=== PATIENT | female | born 1980 | race African-American/Black ===

== ENCOUNTER 2018-05-20 17:47 | Emergency (ER) | payer SELFPAY ==
[2018-05-20] MEDS ORDERED: METHYLPREDNISOLONE INJ 125 MG/2 ML SDV IM ONE (18:45)
[2018-05-20] MEDS ORDERED: IPRATROPIUM/ALBUTEROL 0.5-2.5 MG/3 ML AMPUL NEB ONE (18:45)
[2018-05-20] MEDS ORDERED: GUAIFENESIN/CODEINE PHOS 100-10 MG/ 5 ML UDC PO ONE (18:46)
--- NOTE | 2018-05-20 18:49 | ER Document Report ---
ED Respiratory Problem - General Chief Complaint: Cough Stated Complaint: COUGH Time Seen by Provider: 05/20/18 18:45 Mode of Arrival: Ambulatory Information source: Patient Notes: Chief complaint: Cough History of complain:( obtained from----patient) 37 years old female was coughing for the last few days, having shortness of breath and wheezing for the last 24 hours. Nasal congestion. Runny nose. Cough is largely dry. No fever chills or other constitutional symptoms. Non-smoker no alcohol abuse. Onset: Gradual Duration: Last few days Severity: Moderate Quality: Wheezing Context: Allergic to environmental agents Exacerbating factor and relieving factors: Exertion REVIEW OF SYSTEMS: CONSTITUTIONAL : Denies fever, chills, or sweats. Denies recent illness. EENT: Denies eye, ear, throat, or mouth pain or symptoms. Denies nasal or sinus congestion or discharge. Denies throat, tongue, or mouth swelling or difficulty swallowing. CARDIOVASCULAR: Denies chest pain. Denies palpitations or racing or irregular heart beat. Denies ankle edema. RESPIRATORY: Denies cough, cold, or chest congestion. Denies shortness of breath, difficulty breathing, or wheezing. GASTROINTESTINAL: Denies distention. Denies nausea, vomiting, or diarrhea. Denies blood in vomitus, stools, or per rectum. Denies black, tarry stools. Denies constipation. GENITOURINARY: Denies difficulty urinating, painful urination, burning, frequency, blood in urine, or discharge. FEMALE GENITOURINARY: Denies vaginal bleeding, heavy or abnormal periods, irregular periods. Denies vaginal discharge or odor. MUSCULOSKELETAL: Denies back or neck pain or stiffness. Denies joint pain or swelling. SKIN: Denies rash, lesions or sores. HEMATOLOGIC : Denies easy bruising or bleeding. LYMPHATIC: Denies swollen, enlarged glands. NEUROLOGICAL: Denies confusion or altered mental status. Denies passing out or loss of consciousness. Denies dizziness or lightheadedness. Denies headache. Denies weakness or paralysis or loss of use of either side. Denies problems with gait or speech. Denies sensory loss, numbness, or tingling. Denies seizures. PSYCHIATRIC: Denies anxiety or stress. Denies depression, suicidal ideation, or homicidal ideation. ALL OTHER SYSTEMS REVIEWED AND NEGATIVE. PHYSICAL EXAMINATION: GENERAL: Well-appearing, well-nourished and in no acute distress. HEAD: Atraumatic, normocephalic. EYES: Pupils equal round and reactive to light, extraocular movements intact, conjunctiva are normal. ENT: Nares patent, oropharynx clear without exudates. Moist mucous membranes. NECK: Normal range of motion, supple without lymphadenopathy LUNGS: Bilaterally decreased breath sounds with scattered wheezing. HEART: Regular rate and rhythm without murmurs ABDOMEN: Soft, nontender, nondistended abdomen. No guarding, no rebound. No masses appreciated. Examination of genitals-deferred Musculoskeletal: Normal range of motion, no pitting or edema. No cyanosis. NEUROLOGICAL: Cranial nerves grossly intact. Normal speech, normal gait. Normal sensory, motor exams PSYCH: Normal mood, normal affect. SKIN: Warm, Dry, normal turgor, no rashes or lesions noted. Dictation was performed using [employer] voice recognition software TRAVEL OUTSIDE OF THE [place] IN LAST 30 DAYS: No - HPI Notes: Dictated - Related Data Allergies/Adverse Reactions: No Known Allergies Allergy (Verified 05/20/18 17:52) Past Medical History - Social History Smoking Status: Never Smoker Frequency of alcohol use: None Drug Abuse: None Lives with: Family Family History: Reviewed & Not Pertinent - Immunizations Hx Diphtheria, Pertussis, Tetanus Vaccination: No Review of Systems - Review of Systems Notes: Dictated Physical Exam - Vital signs Vitals: Temp Pulse Resp BP Pulse Ox 98.8 F 115 H 16 149/91 H 98 05/20/18 18:15 05/20/18 18:15 05/20/18 18:15 05/20/18 18:15 05/20/18 18:15 - Notes Notes: Dictated Course - Re-evaluation Re-evalutation: 05/20/18 19:20 Given bronchodilator treatment 05/20/18 19:21 With clinical improvement discharge home - Vital Signs Vital signs: Temp Pulse Resp BP Pulse Ox 98.3 F 124 H 18 125/81 100 05/20/18 19:32 05/20/18 19:32 05/20/18 19:32 05/20/18 19:32 05/20/18 19:32 Discharge - Discharge Clinical Impression: Acute bronchitis Qualifiers: Bronchitis organism: unspecified organism Qualified Code(s): J20.9 - Acute bronchitis, unspecified Sinusitis Qualifiers: Sinusitis location: maxillary Chronicity: subacute Qualified Code(s): J01.00 - Acute maxillary sinusitis, unspecified Asthmatic bronchitis Qualifiers: Asthma severity: moderate Asthma persistence: persistent Asthma complication type: with acute exacerbation Qualified Code(s): J45.41 - Moderate persistent asthma with (acute) exacerbation Condition: Fair Disposition: HOME, SELF-CARE Instructions: Reactive Airway Disease ([facility]), Sinusitis ([facility]) Prescriptions: Albuterol Sulfate [Proair HFA] 1 - 2 puff IH Q4 PRN #1 inhaler PRN Reason: Fexofenadine HCl [Rin] 180 mg PO DAILY #30 tablet Fluticasone Propionate [Flovent HFA 220 mcg MDI] 2 puff IH BID #1 mdi Hydrocodone/Chlorphen P-Stirex [Tussionex Pennkinetic Susp] 115 ml PO BID #90 ayan.er.12h Prednisone 10 mg PO ASDIR PRN 12 Days #1 tab.ds.pk PRN Reason: Forms: Return to Work
[2018-05-20 19:34] VITALS: BP 125/81
== END 2018-05-20 19:38 | disposition home or self-care (01) ==
LOC: ER 17:47
DX: J20.9 Acute bronchitis, unspecified (principal); J45.41 Moderate persistent asthma with (acute) exacerbation; J01.00 Acute maxillary sinusitis, unspecified; R05 Cough; R06.02 Shortness of breath; R09.81 Nasal congestion; R09.89 Other specified symptoms and signs involving the circulatory and respiratory systems
CPT/HCPCS: 94640; 99283; 96372; J2930; J7620

== ENCOUNTER 2018-06-03 00:36 | Emergency (ER) | payer SELFPAY ==
[2018-06-03] MEDS ORDERED: IPRATROPIUM/ALBUTEROL 0.5-2.5 MG/3 ML AMPUL NEB ONE (01:06)
[2018-06-03] MEDS ORDERED: MAGNESIUM SULFATE/D5W 1 GM/100 ML RTUPB IV ONE (01:12)
[2018-06-03] MEDS ORDERED: METHYLPREDNISOLONE INJ 125 MG/2 ML SDV IV ONE (01:12)
[2018-06-03] MEDS ORDERED: NORMAL SALINE 1000 ML 1,000 ML IV ONE (01:12)
[2018-06-03] MEDS ORDERED: ALBUTEROL SULFATE 0.083% NEB 2.5 MG/3 ML AMPUL NEB ONE (01:12)
[2018-06-03] MEDS ORDERED: ONDANSETRON HCL INJ/PF 4 MG/2 ML SDV IV ONE (01:15)
[2018-06-03 01:42] LABS: ABSOLUTE EOSINOPHILS # (AUTO) 0.2 10^3/uL (0.0-0.6); ABSOLUTE LYMPHOCYTES (AUTO) 3.1 10^3/uL (0.5-4.7); ABSOLUTE MONOCYTES (AUTO) 0.5 10^3/uL (0.1-1.4); ABSOLUTE NEUT (AUTO) 7.2 10^3/uL (1.7-8.2); BASOPHILS % (AUTO) 0.4 % (0-2); EOSINOPHILS % (AUTO) 1.5 % (0-6); HEMATOCRIT 35.6 % (36.0-47.0); HEMOGLOBIN 11.7 g/dL (12.0-15.5); LYMPHOCYTES % (AUTO) 27.9 % (13-45); MEAN CORPUSCULAR VOLUME 85 fl (80-97); PLATELET COUNT 332 10^3/uL (150-450); RED BLOOD COUNT 4.19 10^6/uL (3.72-5.28); RED CELL DISTRIBUTION WIDTH 13.8 % (11.5-14.0); SEGMENTED NEUTROPHILS % (AUTO) 65.2 % (42-78); TOTAL CELLS COUNTED % (AUTO) 100 %
[2018-06-03 01:57] LABS: ANION GAP 11 (5-19); BLOOD UREA NITROGEN 11 mg/dL (7-20); CARBON DIOXIDE 24 mmol/L (22-30); CHLORIDE 104 mmol/L (98-107); GLUCOSE 118 mg/dL (75-110); SODIUM 138.9 mmol/L (137-145)
--- NOTE | 2018-06-03 03:17 | RADIOLOGY REPORT (SQ) ---
EXAM DESCRIPTION: CT CHEST ANGIOGRAPHY WITHOUT THEN WITH IV CONTRAST COMPLETED DATE/TME: 06/03/2018 01:58 CLINICAL HISTORY: 37 years Female, sob, DDIMER 3.13 Comparison: None. Technique: IV contrast. Coronal and sagittal reformat. 3d reconstruction. This exam was performed according to our departmental dose-optimization program, which includes automated exposure control, adjustment of the mA and/or kV according to patient size and/or use of iterative reconstruction technique.[facility]: Dose Right [facility]: CareDose [facility]: Dose Right [facility]: Teradose 4D [facility]: Mobile Tracing Services LIMITATIONS: Quality of pulmonary arteriogram: Suboptimal. Findings: 8-cm indeterminate macrolobulated left breast mass, 0.9 cm indeterminate soft tissue nodule of the inner lower quadrant of the left breast, small-moderate left pleural effusion, innumerable spiculated left lung lesions include a 1.5 cm left upper lobar mass and 1.6 cm right middle lobe are lesion. Moderate left axillary lymphadenopathy. Mild mediastinal lymphadenopathy. No pulmonary embolus. No right ventricular strain. Small hiatal hernia. Inferior neck, mediastinum, airway, heart, vasculature, upper abdomen, and musculoskeleton appear otherwise unremarkable. Impression: Left breast lesions include an 8 cm left breast mass, innumerable spiculated bilateral lung lesions, small moderate left pleural effusion, moderate left axillary lymphadenopathy. Breast malignancy with metastases is of first consideration.
[2018-06-03] MEDS ORDERED: PREDNISONE 20 MG TABLET PO ONE (03:50)
[2018-06-03] MEDS ORDERED: ALBUTEROL SULFATE HFA (90 MCG/PUFF) 8 GM MDI (1 MDI/ER DISP) IH ONE (03:51)
--- NOTE | 2018-06-03 03:59 | ER Document Report ---
ED General - General Chief Complaint: Shortness Of Breath Stated Complaint: TIGHTNESS IN CHEST,WHEEZING,SHORTNESS OF BREATH Time Seen by Provider: 06/03/18 01:04 TRAVEL OUTSIDE OF THE [place] IN LAST 30 DAYS: No - HPI Patient complains to provider of: Shortness of breath Notes: Patient coming in for evaluation of shortness of breath. Patient states similar to when she was seen last time patient states she has been using inhalers and nebulizers at home with no improvement also taking steroids patient states she took 1 pill today was 10 mg. Patient does have a history of recent travel to [place]. Patient denies smoking denies any other drug abuse. Patient denies any other symptoms at this time no chest pain states that the chest tightness no nausea no vomiting no fevers no chills. Patient resting comfortably upon my evaluation. - Related Data Allergies/Adverse Reactions: No Known Allergies Allergy (Verified 05/20/18 17:52) Past Medical History - Social History Smoking Status: Unknown if Ever Smoked Family History: Reviewed & Not Pertinent Renal/ Medical History: Denies: Hx Peritoneal Dialysis - Immunizations Hx Diphtheria, Pertussis, Tetanus Vaccination: No Review of Systems - Review of Systems Constitutional: No symptoms reported EENT: No symptoms reported Cardiovascular: No symptoms reported Respiratory: Short of breath, Wheezing - Chest tightness Gastrointestinal: No symptoms reported Genitourinary: No symptoms reported Female Genitourinary: No symptoms reported Musculoskeletal: No symptoms reported Skin: No symptoms reported Hematologic/Lymphatic: No symptoms reported Neurological/Psychological: No symptoms reported Physical Exam - Vital signs Vitals: Temp Pulse Resp BP Pulse Ox 97.9 F 119 H 22 H 143/100 H 99 06/03/18 00:38 06/03/18 00:38 06/03/18 00:38 06/03/18 00:38 06/03/18 00:38 Interpretation: Normal - General General appearance: Appears well, Alert - HEENT Head: Normocephalic, Atraumatic Eyes: Normal Pupils: PERRL - Respiratory Respiratory status: No respiratory distress Chest status: Nontender Breath sounds: Normal Chest palpation: Normal Notes: Examination of the left breast shows hard mass with lymphadenopathy in the axilla with retraction of the nipple right breast unaffected - Cardiovascular Rhythm: Regular Heart sounds: Normal auscultation Murmur: No - Abdominal Inspection: Normal Distension: No distension Bowel sounds: Normal Tenderness: Nontender Organomegaly: No organomegaly - Back Back: Normal, Nontender - Extremities General upper extremity: Normal inspection, Nontender, Normal color, Normal ROM , Normal temperature General lower extremity: Normal inspection, Nontender, Normal color, Normal ROM , Normal temperature, Normal weight bearing. No: Mark's sign - Neurological Neuro grossly intact: Yes Cognition: Normal Orientation: AAOx4 [place] Coma Scale Eye Opening: Spontaneous Missael Coma Scale Verbal: Oriented Missael Coma Scale Motor: Obeys Commands Missael Coma Scale Total: 15 Speech: Normal Motor strength normal: LUE, RUE, LLE, RLE Sensory: Normal - Psychological Associated symptoms: Normal affect, Normal mood - Skin Skin Temperature: Warm Skin Moisture: Dry Skin Color: Normal Course - Re-evaluation Re-evalutation: 06/03/18 03:55 D-dimer returned elevated with a history of recent travel and tachycardia concern for possible PE. Patient underwent a CTA showing no PE but showing a large mass in left breast with multiple spiculated lesions in the lungs concerning for metastatic breast disease. Further evaluation of the patient in further questioning patient states notes changes ongoing for the last few months however is not followed up with any doctors urgent cares or any other physicians because of the changes. Explained to the patient that the changes are concerning for possible breast cancer I was able to contact Dr. Johnson labor relations representative for oncology and agrees to follow -up with the patient face sheet was faxed to Dr. Johnson office. She also requested that surgery be contacted for possible biopsy. Dr. Rodgers labor relations representative states that he will be available to see the patient possibly Thursday however that the patient can possibly follow-up on Thursday with Dr. Ornelas. I will give the patient's information to our social worker clinical so they can also follow with the patient make sure that appropriate follow-up does occur. Patient states an understanding of the importance of making follow-up appointments. Patient breathing has improved patient still is slightly tachycardic more likely from the breathing treatments. Patient agrees with discharge home we will continue with bronchodilator therapy along with steroids at this time because of the patient's wheezing. - Vital Signs Vital signs: Temp Pulse Resp BP Pulse Ox 97.9 F 119 H 20 128/99 H 99 06/03/18 00:38 06/03/18 00:38 06/03/18 01:01 06/03/18 01:01 06/03/18 01:01 - Laboratory Result Diagrams: 06/03/18 01:27 06/03/18 01:27 Laboratory results interpreted by me: 06/03/18 06/03/18 06/03/18 01:27 01:27 01:27 WBC 11.0 H Hgb 11.7 L Hct 35.6 L D-Dimer 3.13 H Glucose 118 H Discharge - Discharge Clinical Impression: Left breast mass Reactive airway disease Qualifiers: Asthma severity: unspecified severity Asthma persistence: unspecified Asthma complication type: uncomplicated Qualified Code(s): J45.909 - Unspecified asthma , uncomplicated Condition: Good Disposition: HOME, SELF-CARE Instructions: Growth or Mass, Pending Workup ([facility]), Reactive Airway Disease ( [facility]) Additional Instructions: Your CT scan tonight shows a large breast mass that is concerning for possible underlying cancer. I discussed your case with our oncologist and surgery team Dr Johnson and Dr Rodgers. Please call the respective offices tomorrow and schedule follow-up appointments. I would also give your information to our social worker clinical so that we can help you navigate the follow-up process. CT scan does not show any signs of blood clots no pneumonia rest your lab work is unremarkable. I would highly recommend continue with the albuterol 2 puffs every 4 hours as needed for shortness of breath we also will continue you on steroids. Return to the ER for any complications. Prescriptions: Prednisone [Deltasone] 60 mg PO DAILY #24 tablet Referrals: REE JOHNSON MD [ACTIVE STAFF] - Follow up as needed (Call tomorrow for appointment) COSTA RODGERS MD [ACTIVE STAFF] - Follow up as needed (call tomorrow for appointment for biopsy)
[2018-06-03 04:25] VITALS: BP 134/95
--- NOTE | 2018-06-03 06:47 | EKG REPORT ---
SEVERITY:- OTHERWISE NORMAL ECG - SINUS TACHYCARDIA : Confirmed by: Gemma Willams MD 03-Jun-2018 06:47:15
== END 2018-06-03 04:28 | disposition home or self-care (01) ==
LOC: ER 00:36
DX: N63.24 Unspecified lump in the left breast, lower inner quadrant (principal); J45.909 Unspecified asthma, uncomplicated; R06.02 Shortness of breath; R07.9 Chest pain, unspecified; R00.0 Tachycardia, unspecified; R79.89 Other specified abnormal findings of blood chemistry
CPT/HCPCS: 93005; 94640 ×2; 99285; 96361; 96375; 96365; 36415; 83735; 84703; 85025; 80048; 84484; 85379; 71275; 93010; J2930; J3475; J7512; J2405; J7030; J3490; J7620

== ENCOUNTER 2018-06-05 12:56 | Inpatient (IN) | payer MEDICAID ==
[2018-06-05] MEDS ORDERED: IPRATROPIUM/ALBUTEROL 0.5-2.5 MG/3 ML AMPUL NEB ONE (13:16)
[2018-06-05] MEDS ORDERED: METHYLPREDNISOLONE INJ 125 MG/2 ML SDV IM ONE (13:16)
--- NOTE | 2018-06-05 13:18 | ER Document Report ---
ED Medical Screen (RME) - General Chief Complaint: Shortness Of Breath Stated Complaint: SHORTNESS OF BREATH Time Seen by Provider: 06/05/18 13:16 Mode of Arrival: Ambulatory Information source: Patient TRAVEL OUTSIDE OF THE [place] IN LAST 30 DAYS: No - HPI Patient complains to provider of: sob Onset: Other - pt has been seen here multiiple times in the past few weeks for similar sx's -- states she was very SOB lasts night and that has continued into today. - Related Data Allergies/Adverse Reactions: No Known Allergies Allergy (Verified 06/05/18 12:59) Past Medical History Pulmonary Medical History: Reports: Hx Bronchitis Renal/ Medical History: Denies: Hx Peritoneal Dialysis - Immunizations Hx Diphtheria, Pertussis, Tetanus Vaccination: No Physical Exam - Vital signs Vitals: Temp Pulse Resp BP Pulse Ox 98.5 F 128 H 26 H 165/107 H 97 06/05/18 13:03 06/05/18 13:03 06/05/18 13:03 06/05/18 13:03 06/05/18 13:03 Course - Vital Signs Vital signs: Temp Pulse Resp BP Pulse Ox 98.5 F 128 H 26 H 165/107 H 97 06/05/18 13:03 06/05/18 13:03 06/05/18 13:03 06/05/18 13:03 06/05/18 13:03 Doctor's Discharge - Discharge Referrals: NINA JOSEPH MD [Primary Care Provider] - Follow up as needed
--- NOTE | 2018-06-05 13:46 | RADIOLOGY REPORT (SQ) ---
EXAM DESCRIPTION: CHEST 2 VIEWS COMPLETED DATE/TIME: 06/05/2018 1:31 pm REASON FOR STUDY: sob COMPARISON: None. TECHNIQUE: Frontal and lateral radiographic views of the chest acquired. NUMBER OF VIEWS: Two view. LIMITATIONS: None. FINDINGS: LUNGS AND PLEURA: No pneumothorax. Bilateral patchy basilar consolidation, left greater t roldan right. No pleural effusion. MEDIASTINUM AND HILAR STRUCTURES: Stable. HEART AND VASCULAR STRUCTURES: Stable. BONES: No acute findings. HARDWARE: None in the chest. OTHER: No other significant finding. IMPRESSION: Bilateral patchy basilar consolidation, left greater than right. No pleural effusion. TECHNICAL DOCUMENTATION: JOB ID: [id number] 2010 [employer]- All Rights Reserved Reading location - IP/workstation name: [email or web address]
--- NOTE | 2018-06-05 13:56 | ER Document Report ---
ED Respiratory Problem - General Chief Complaint: Shortness Of Breath Stated Complaint: SHORTNESS OF BREATH Time Seen by Provider: 06/05/18 13:16 Mode of Arrival: Ambulatory Information source: Patient, Parent Notes: 37-year-old female who presents today for the third time since May 20 with some shortness of breath and chest pain. Some runny nose, congestion, without fevers, calf pain or leg swelling. Initially the patient was diagnosed possibly with a bronchitis and asthma exacerbation and provided an inhaler. Patient came back June 03 and had laboratory work performed and a CT scan of the chest showing a left breast mass with multiple spiculated lesions with a left pleural effusion. Patient returns here with complaints of worsening shortness of breath, shortness of breath when ambulating, with no other acute complications. TRAVEL OUTSIDE OF THE [place] IN LAST 30 DAYS: No - HPI Onset: Other - See above Quality of pain: Dull Severity: Mild Pain Level: Denies Context: Other - See above Short of Breath: Mild Associated symptoms: Other - See above Similar symptoms previously: Yes Recently seen / treated by doctor: Yes - Related Data Allergies/Adverse Reactions: No Known Allergies Allergy (Verified 06/05/18 12:59) Past Medical History - General Information source: Patient - Social History Smoking Status: Never Smoker Chew tobacco use (# tins/day): No Frequency of alcohol use: None Drug Abuse: None Family History: Reviewed & Not Pertinent Patient has suicidal ideation: No Patient has homicidal ideation: No Pulmonary Medical History: Reports: Hx Bronchitis Renal/ Medical History: Denies: Hx Peritoneal Dialysis - Immunizations Hx Diphtheria, Pertussis, Tetanus Vaccination: No Review of Systems - Review of Systems Constitutional: denies: Fever EENT: Nose congestion, Nose discharge. denies: Eye discharge Cardiovascular: Chest pain, Palpitations Respiratory: Short of breath. denies: Hemoptysis Gastrointestinal: denies: Vomiting Genitourinary: denies: Dysuria Musculoskeletal: denies: Leg swelling Skin: Other - no hives. denies: Rash Neurological/Psychological: Other - no slurred speech -: Yes All other systems reviewed and negative Physical Exam - Vital signs Vitals: Temp Pulse Resp BP Pulse Ox 98.5 F 128 H 26 H 165/107 H 97 06/05/18 13:03 06/05/18 13:03 06/05/18 13:03 06/05/18 13:03 06/05/18 13:03 Notes: Reviewed vital signs and nursing note as charted by RN. CONSTITUTIONAL: Alert and oriented and responds appropriately to questions. Well -appearing; well-nourished HEAD: Normocephalic; atraumatic EYES: PERRL ENT: Normal nose; no rhinorrhea; moist mucous membranes NECK: Supple without meningismus; non-tender; no cervical lymphadenopathy, no masses CARD: Tachycardic and regular; no murmurs, no clicks, no rubs, no gallops; symmetric distal pulses RESP: Normal chest excursion without splinting or tachypnea; breath sounds clear and equal bilaterally; no wheezing or rhonchi on auscultation. Bilateral lower lobe decreased breath sounds ABD/GI: Normal bowel sounds; non-distended; soft, non-tender BACK: The back appears normal and is non-tender to palpation, there is no CVA tenderness EXT: Normal ROM in all joints; non-tender to palpation; no edema or calf pain SKIN: Normal color for age and race; warm; dry; good turgor; capillary refill < 2 seconds; no acute lesions noted NEURO: Moves all extremities equally; Motor and sensory function intact PSYCH: The patient's mood and manner are appropriate. Grooming and personal hygiene are appropriate. Course - Re-evaluation Re-evalutation: 06/05/18 13:54 Given the history and physical examination I will order a repeat x-ray of the chest, obtain basic labs, troponin level, and reassess. I will hold on nebulizers that were ordered in triage at this time. Patient has already received a treatment times 1. I am concerned more about a possibly increased pleural effusion. CTA of the chest on previous visit showed no pulmonary emboli. 06/05/18 15:01 Labs as recorded. X-ray of the chest as recorded showing no obvious large pleural effusions. Patient is satting around 96% with a heart rate of 102. I have had a long discussion with the patient and the family. They were unaware of the multiple spiculated lesions in the lungs bilaterally. Patient supposedly had a mammogram performed yesterday. Results are pending. 06/05/18 15:05 EKG shows a heart rate of 115, sinus tachycardia, normal axis, no obvious ST elevation or depression. 06/05/18 15:08 I would like to limit radiation to this patient. I did have a long talk with this patient about her chest pain shortness of breath. I have asked if it appears to be worse than when she was here 3 days ago. Patient states that it is. I am concerned about the possibility of a development of a pulmonary embolism given that I do not see any obvious large pleural effusion. Repeat CTA ordered. 06/05/18 16:27 CAT scan still shows no pulmonary emboli. 06/05/18 16:49 Given the patient's excessive shortness of breath, she is uncomfortable going home. I have called and spoken directly to the supervisory clerk who is comfortable with the patient staying here. He states he can be consulted. He would like these surgical list to possibly do a breast biopsy and possibly a lung fluid aspiration/drainage. I have called and spoken directly to Dr. Ornelas. I also called and spoken to the oncologist Dr. Johsnon who the patient is assigned to. He understands and will follow the patient here in the hospital. - Vital Signs Vital signs: Temp Pulse Resp BP Pulse Ox 98.5 F 128 H 26 H 165/107 H 97 06/05/18 13:03 06/05/18 13:03 06/05/18 13:03 06/05/18 13:03 06/05/18 13:03 - Laboratory Result Diagrams: 06/05/18 13:45 06/05/18 13:45 Laboratory results interpreted by me: 06/05/18 06/05/18 06/05/18 13:45 13:45 13:45 WBC 16.1 H RDW 14.2 H Absolute Neutrophils 12.4 H Carbon Dioxide 21 L Glucose 187 H Calcium 10.6 H AST 86 H Alkaline Phosphatase 175 H Total Protein 8.4 H TSH 0.43 L Discharge - Discharge Clinical Impression: Shortness of breath, Metastatic breast cancer Chest pain Qualifiers: Chest pain type: unspecified Qualified Code(s): R07.9 - Chest pain, unspecified Condition: Serious Disposition: ADMITTED INPATIENT Admitting Provider: Hospitalist Unit Admitted: IMCU Referrals: NINA JOSEPH MD [Primary Care Provider] - Follow up as needed
[2018-06-05 14:14] LABS: ABSOLUTE LYMPHOCYTES (AUTO) 2.7 10^3/uL (0.5-4.7); ABSOLUTE NEUT (AUTO) 12.4 10^3/uL (1.7-8.2); BASOPHILS % (AUTO) 0.1 % (0-2); HEMATOCRIT 37.3 % (36.0-47.0); HEMOGLOBIN 12.3 g/dL (12.0-15.5); LYMPHOCYTES % (AUTO) 16.9 % (13-45); MEAN CORPUSCULAR VOLUME 85 fl (80-97); MONOCYTES % (AUTO) 5.9 % (3-13); PLATELET COUNT 336 10^3/uL (150-450); RED CELL DISTRIBUTION WIDTH 14.2 % (11.5-14.0); SEGMENTED NEUTROPHILS % (AUTO) 77.1 % (42-78); TOTAL CELLS COUNTED % (AUTO) 100 %; WHITE BLOOD COUNT 16.1 10^3/uL (4.0-10.5)
[2018-06-05 14:35] LABS: ALANINE AMINOTRANSFERASE 44 U/L (9-52); ALBUMIN 4.7 g/dL (3.5-5.0); ALKALINE PHOSPHATASE 175 U/L (38-126); ANION GAP 15 (5-19); ASPARTATE AMINO TRANSFERASE 86 U/L (14-36); BILIRUBIN,DIRECT 0.2 mg/dL (0.0-0.4); BILIRUBIN,TOTAL 0.4 mg/dL (0.2-1.3); BLOOD UREA NITROGEN 11 mg/dL (7-20); CALCIUM 10.6 mg/dL (8.4-10.2); CARBON DIOXIDE 21 mmol/L (22-30); CHLORIDE 103 mmol/L (98-107); GLUCOSE 187 mg/dL (75-110); POTASSIUM 4.3 mmol/L (3.6-5.0); SODIUM 139.3 mmol/L (137-145); TOTAL PROTEIN 8.4 g/dL (6.3-8.2)
[2018-06-05 14:46] LABS: NT PRO BNP 48 pg/mL (<125)
[2018-06-05 14:49] LABS: TROPONIN I < 0.012 ng/mL
--- NOTE | 2018-06-05 16:21 | RADIOLOGY REPORT (SQ) ---
EXAM DESCRIPTION: CTA CHEST COMPLETED DATE/TIME: 06/05/2018 4:00 pm REASON FOR STUDY: mp; metastatic breast disease; chest pain shortnes COMPARISON: 06/03/2018 TECHNIQUE: CT scan of the chest performed using helical scanning technique with dynamic intravenous contrast injection. Images reviewed with lung, soft tissue and bone windows. Reconstructed coronal and sagittal MPR images reviewed. Additional 3 dimensional post-processing performed to develop Maximal Intensity Projection images (TN P). All images stored on PACS. All CT scanners at this facility use dose modulation, iterative reconstruction, and/or weight based d osing when appropriate to reduce radiation dose to as low as reasonably achievable (ALARA). [facility]: Dose Right [facility]: CareDose [facility]: Dose Right [facility]: Teradose 4D [facility]: [employer]iance [employer] CONTRAST TYPE AND DOSE: contrast/concentration: Isovue 350.00 mg/ml; Total Contrast Delivered: 81.0 ml; Total Saline Delivered: 110.0 ml Contrast bolus optimized for the pulmonary arteries. Not diagnostic for the aorta. RENAL FUNCTION: None required. The patient is less than 50 years old. RADIATION DOSE: CT Rad equipment meets quality standard of care and radiation dose reduction techniq ues were employed. CTDIvol: 16.5 - 16.7 mGy. DLP: 584 mGy-cm. . LIMITATIONS: None. FINDINGS: LUNGS AND PLEURA: Small left pleural effusion. Similar bilateral pulmonary metastatic dis ease. No pneumothorax. AORTA AND GREAT VESSELS: No aneurysm. Contrast bolus not optimized for the aorta. HEART: No pericardial effusion. No significant coronary artery calcifications. PULMONARY ARTERIES: No emboli visualized in the main pulmonary arteries or the segmental branches. HILAR AND MEDIASTINAL STRUCTURES: Multiple abnormal nodes. HARDWARE: None in the chest. UPPER ABDOMEN: No significant findings. Limited exam. THYROID AND OTHER SOFT TISSUES: No masses. No adenopathy. BONES: No acute finding. Similar scattered lytic lesions throughout the bones. 3D MIPS: Confirm above findings. OTHER: Multiple new masses in the left breast with skin thickening consistent with malignancy. IMPRESSION: No emboli visualized in the main pulmonary arteries or the segmental branches. Remaining findings are unchanged, left breast neoplastic disease and diffuse metastases to lung and b one. COMMENT: Quality ID # [id number]: Final reports with documentation of one or more dose reduction techniques (e.g., Automated exposure control, adjustment of the mA and/or kV according to patient size, use of iterative reconstruction technique) TECHNICAL DOCUMENTATION: JOB ID: [id number] [place]-72 2010 [employer]- All Rights Reserved Reading location - IP/workstation name: [email or web address]
[2018-06-05] MEDS ORDERED: NORMAL SALINE 1000 ML 1,000 ML IV ONE (17:02)
[2018-06-05 18:02] LABS: INTERNATIONAL RATION (INR) 1.03
[2018-06-05] MEDS ORDERED: DEXTROSE 50%-WATER 25 GM/50 ML DISP.SYRIN IV PRN ×4 (18:02→18:36)
[2018-06-05] MEDS ORDERED: NORMAL SALINE 1000 ML 1,000 ML IV PRN (18:02)
[2018-06-05] MEDS ORDERED: DEXTROSE 40% GEL 15 GM TUBE PO PRN ×4 (18:02→18:36)
[2018-06-05] MEDS ORDERED: GLUCAGON,HUMAN RECOMB 1 MG INJ SUBCUT PRN (18:02)
[2018-06-05 18:03] LABS: PARTIAL THROMBOPLASTIN TIME 32.4 SEC (23.5-35.8)
[2018-06-05] MEDS ORDERED: MORPHINE SULFATE 10 MG/ML INJ IV ONE (18:23)
[2018-06-05] MEDS ORDERED: GLUCAGON,HUMAN RECOMB 1 MG INJ IM PRN (18:36)
--- NOTE | 2018-06-05 18:38 | PDOC H&P ---
History of Present Illness Admission Date/PCP: 06/05/18 17:27 NINA JOSEPH MD Patient complains of: Dyspnea, anxiety History of Present Illness: LEI GU is a 37 year old woman with no significant medical problems who has been feeling increasingly more fatigued over the past 2 months and also with worsening dyspnea. She has been seen in the ER twice before this time. She was here a couple of days ago and a left breast mass was found. She was discharged for continuation of workup as an outpatient. She underwent mammogram yesterday and was going to see Dr. Cotton subsequent to that. Unfortunately last night she became very dyspneic, she is now dyspneic with speaking and she has developed some anxiety related to that. Also she is feeling full body pain. She came into the ER for those reasons. CTA of her chest does not show acute pulmonary embolus. She has a left breast mass, mediastinal lymph nodes, bilateral spiculated lung lesions, bone lesions. She is admitted to the hospitalist service for further workup and treatment. She is having some mild nausea, no vomiting, no constipation or diarrhea, some mucus with urination, no fever or chills. No headache or vision changes. Past Medical History Cardiac Medical History: Reports: Heart Murmur Denies: Congestive Heart Failure, Coronary Artery Disease Pulmonary Medical History: Reports: Bronchitis EENT Medical History: Reports: None Neurological Medical History: Denies: Ischemic CVA, Seizures Endocrine Medical History: Denies: Diabetes Mellitus Type 2 Renal/ Medical History: Denies: Chronic Kidney Disease Malignancy Medical History: Reports: None GI Medical History: Denies: Cirrhosis, Gastroesophageal Reflux Disease Musculoskeltal Medical History: Denies: Arthritis, Fibromyalgia Skin Medical History: Denies: Eczema, Psoriasis Psychiatric Medical History: Denies: Alcohol Dependency, Depression, General Anxiety Disorder, Substance Abuse, Tobacco Dependency Traumatic Medical History: Denies: None Hematology: Denies: Anemia, Sickle Cell Disease Infectious Medical History: Denies: Hepatitis C, HIV Past Surgical History Past Surgical History: Reports: Other Social History Information Source: Patient, Relative Lives with: Family Smoking Status: Never Smoker Frequency of Alcohol Use: None Hx Recreational Drug Use: No Drugs: None Past Social History Note: Patient works for a [employer] in [place]. She has 3 children, aged 18-14. She is legally but recently and does not want her legal spouse to be her healthcare power of employment law attorney. She has 2 sisters one is by the bedside. - Advance Directive Resuscitation Status: Full Code Surrogate healthcare decision maker:: Legally this is her though she wants to change that with healthcare power of employment law attorney paperwork, she is thinking about who she wants to be her healthcare power of employment law attorney. Family History Parental Family History Reviewed: Yes - mom with breast cancer Children Family History Reviewed: Yes - All 3 healthy Sibling(s) Family History Reviewed.: Yes - 2 healthy sisters Medication/Allergy Home Medications: No Home Medications 1 12/24/11 Benzonatate [Tessalon Perles 100 mg Capsule] 100 mg PO ASDIR PRN #40 capsule 09/06 Albuterol Sulfate [Proair HFA] 1 - 2 puff IH Q4 PRN #1 inhaler 05/20/18 Fexofenadine HCl [Rin] 180 mg PO DAILY #30 tablet 05/20/18 Fluticasone Propionate [Flovent HFA 220 mcg MDI] 2 puff IH BID #1 mdi 05/20/18 Hydrocodone/Chlorphen P-Stirex [Tussionex Pennkinetic Susp] 115 ml PO BID #90 ayan.er.12h 05/20/18 Prednisone 10 mg PO ASDIR PRN 12 Days #1 tab.ds.pk 05/20/18 Prednisone [Deltasone] 60 mg PO DAILY #24 tablet 06/03/18 Allergies/Adverse Reactions: No Known Allergies Allergy (Verified 06/05/18 12:59) Review of Systems Constitutional: PRESENT: chills, fatigue. ABSENT: anorexia Eyes: ABSENT: visual disturbances Ears: ABSENT: hearing changes Nose, Mouth, and Throat: ABSENT: mouth pain, sore throat Cardiovascular: PRESENT: chest pain, dyspnea on exertion, orthropnea. ABSENT: edema, palpitations Respiratory: PRESENT: cough, dyspnea. ABSENT: hemoptysis Gastrointestinal: ABSENT: abdominal pain, constipation, diarrhea Genitourinary: ABSENT: difficulty urinating Musculoskeletal: PRESENT: back pain, other - Left shoulder pain, no recent trauma Integumentary: ABSENT: diaphoresis, wounds Neurological: ABSENT: frequent falls, lack of coordination, memory loss, syncope Psychiatric: PRESENT: anxiety. ABSENT: depression Endocrine: ABSENT: cold intolerance, heat intolerance, menstrual abnormalities Hematologic/Lymphatic: ABSENT: easy bleeding, easy bruising Allergic/Immunologic: ABSENT: seasonal rhinorrhea Physical Exam Vital Signs: Temp Pulse Resp BP Pulse Ox 98.5 F 128 H 26 H 165/107 H 97 06/05/18 13:03 06/05/18 13:03 06/05/18 13:03 06/05/18 13:03 06/05/18 13:03 General appearance: PRESENT: no acute distress, cooperative, well-developed, well-nourished Head exam: PRESENT: atraumatic, normocephalic Eye exam: PRESENT: conjunctiva pink, EOMI. ABSENT: conjunctival injection, scleral icterus Ear exam: PRESENT: normal external ear exam Mouth exam: PRESENT: neck supple, tongue midline. ABSENT: dry mucosa Throat exam: ABSENT: tonsillar exudate Respiratory exam: PRESENT: decreased breath sounds - Left base, otherwise clear. ABSENT: accessory muscle use, chest wall tenderness, clear to auscultation michelle, crackles, rhonchi, unlabored, wheezes Cardiovascular exam: PRESENT: RRR, systolic murmur Pulses: PRESENT: normal radial pulses GI/Abdominal exam: PRESENT: normal bowel sounds, soft. ABSENT: distended, guarding, tenderness Rectal exam: PRESENT: deferred Gentrourinary exam: ABSENT: indwelling catheter Extremities exam: ABSENT: calf tenderness, pedal edema Musculoskeletal exam: PRESENT: normal inspection Neurological exam: PRESENT: alert, awake, oriented to person, oriented to place , oriented to situation, CN II-XII grossly intact Psychiatric exam: PRESENT: anxious, appropriate affect Skin exam: PRESENT: dry, intact, warm. ABSENT: rash, skin tears Results Impressions: Chest X-Ray 06/05/18 13:16 IMPRESSION: Bilateral patchy basilar consolidation, left greater than right. No pleural effusion. Chest/Abdomen CTA 06/05/18 15:08 IMPRESSION: No emboli visualized in the main pulmonary arteries or the segmental branches. Remaining findings are unchanged, left breast neoplastic disease and diffuse metastases to lung and bone. Assessment & Plan - Diagnosis (1) Metastatic breast cancer Is this a current diagnosis for this admission?: Yes Plan: Based on imaging thus far it is very likely that patient has widely metastatic breast cancer with left breast mass, spiculated lung lesions, lymphadenopathy, bone lesions. Dr. Ornelas has been consulted to perform biopsy of the left breast mass. Patient is aware of all of the findings and the likelihood of cancer at this time. She is n.p.o. for possible biopsy tonight. Dr. Simi Cotton has been consulted to further evaluate and possibly start treatment for metastatic breast cancer. (2) Pleural effusion, left Is this a current diagnosis for this admission?: Yes Plan: Likely related to the left breast cancer. Dr. Ornelas has been consulted for possible thoracentesis versus chest tube placement. She is n.p.o. Attributing to her dyspnea and anxiety related to dyspnea. (3) Dyspnea Qualifiers: Dyspnea type: other forms of dyspnea Qualified Code(s): R06.09 - Other forms of dyspnea Is this a current diagnosis for this admission?: Yes Plan: Patient has dyspnea most likely related to pleural effusion, also she has bilateral lung masses probably related to primary breast cancer. Secondary to this along with pain and anxiety related to the dyspnea I have started her on morphine 0.5 mg IV every 4 hours as needed pain or dyspnea and Ativan 0.5 mg IV every 6 hours as needed anxiety and/or dyspnea. I have discussed these medications with the patient, she is not use these before and she is willing to try to see if they help alleviate her symptoms. (4) Anxiety Is this a current diagnosis for this admission?: Yes Plan: This is likely related to the difficulty breathing but also could be related to the possibility of metastatic breast cancer diagnosis. She has Ativan 0.5 mg IV every 6 hours as needed anxiety available. She and I discussed this medication at length and she is willing to try it. (5) Acute pain Is this a current diagnosis for this admission?: Yes Plan: She and I have discussed at length the use of low-dose morphine for acute pain. Please see above for dosing. Patient states she is very sensitive to sedating medications and so I started with very low doses. She would like to try to see if morphine helps alleviate some of her symptoms. (6) Hypercalcemia Is this a current diagnosis for this admission?: Yes Plan: Mild and likely related to cancer diagnosis. Fluid hydration has been started normal saline at 125 mL/h. We will check calcium again in the morning. (7) Hyperglycemia Is this a current diagnosis for this admission?: Yes Plan: Patient does not have known diagnosis of diabetes. Hemoglobin A1c has been ordered. AC and at bedtime blood glucose checks and sliding scale short acting insulin has been ordered. (8) Abnormal LFTs Is this a current diagnosis for this admission?: Yes Plan: Possibly related to metastatic breast cancer. Will follow. - Time Time Spent: Greater than 70 Minutes - Inpatient Certification Based on my medical assessment, after consideration of the patient's comorbidities, presenting symptoms, or acuity I expect that the services needed warrant INPATIENT care.: Yes I certify that my determination is in accordance with my understanding of Medicare's requirements for reasonable and necessary INPATIENT services [42 CFR 412.3e].: Yes Medical Necessity: Need For IV Fluids, Need for Pain Control, Need for Surgery
[2018-06-05] MEDS ORDERED: LIDOCAINE 1.5%/EPINEPHRINE INJ-PF 30 ML SDV INJ ONE (18:42)
[2018-06-05] MEDS ORDERED: LIDOCAINE 1%/EPINEPHRINE INJ 20 ML VIAL ONE (18:59)
[2018-06-05] MEDS: ONDANSETRON HCL INJ/PF 4 MG/2 ML SDV IV PRN (19:17)
--- NOTE | 2018-06-05 19:58 | Operative Report ---
Operative Report DATE OF SURGERY: 06/05/18 PREOPERATIVE DIAGNOSIS: Metastatic breast carcinoma POSTOPERATIVE DIAGNOSIS: Same OPERATION: 1. Focused ultrasound of the left breast; focused ultrasound of left axilla. 2. Ultrasound directed core biopsy left breast tumor SURGEON: YOANA TAYLOR ANESTHESIA: Local TISSUE REMOVED OR ALTERED: 2 cores left breast tumor COMPLICATIONS: No complications ESTIMATED BLOOD LOSS: Scant INTRAOPERATIVE FINDINGS: See below PROCEDURE: The patient was surfaced in the minor procedure room of [facility] emergency department. She is placed in semirecumbent position, monitoring devices at been attached previously. Left arm abducted. We performed focused ultrasonography of the left axilla. There are multiple enlarged irregular lymph nodes identified. Left breast scanned as well. Large 10 cm mass consistent with malignancy, associated with overlying skin distortion, erosion of the areolar border, and flattening of the nipple. Adjacent skin was prepped with Betadine and anesthetized with 1% plain lidocaine , a joel made in the skin with 11 blade. The 14-gauge mammotome, spring-loaded , disposable Myriad device was then used to obtain 2 acceptable course under ultrasound guidance of the left breast mass. Specimens were retrieved and sent in formalin to pathology. Bleeding was negligible. Gentle compression dressing applied. Patient tolerated procedure well. In light of diffuse metastatic disease including lung and bone, I did not see a role for biopsy the left axillary adenopathy. In addition I reviewed patient's CT scan of the chest. She has a small nonloculated left pleural effusion in the left sulcus as well as multiple bilateral metastatic deposits. The patient's respiratory status is stable. Most of her dyspnea is likely anxiety and pain related. Suspect her leukocytosis is secondary to recent steroid use. At this time I do not recommend chest tube insertion in the left pleural space therapeutic reasons. I explained to the patient and her sister that the tissue diagnosis and receptor status will not be back until later next week; therefore therapy cannot begin until that information is been obtained. Patient appears to have stage IV widely metastatic breast cancer likely an aggressive biology and would be an appropriate candidate to make chemotherapy. She will likely require an [id number] catheter.
--- NOTE | 2018-06-05 20:48 | EKG REPORT ---
SEVERITY:- BORDERLINE ECG - SINUS TACHYCARDIA PROBABLE LEFT ATRIAL ABNORMALITY : Confirmed by: Gemma Willams MD 05-Jun-2018 20:48:06
[2018-06-05] MEDS: FAMOTIDINE INJ/PF 20 MG/2 ML SDV IV SCH (21:31)
[2018-06-05] MEDS: KETOROLAC TROMETHAMINE INJ/PF 30 MG/1 ML SDV IV PRN (21:31)
[2018-06-05] MEDS: NORMAL SALINE 1000 ML 1,000 ML IV PRN (21:32)
[2018-06-05] MEDS: MORPHINE SULFATE 10 MG/ML INJ IV PRN (23:12)
[2018-06-05] MEDS: LORAZEPAM INJ 2 MG/1 ML VIAL IV PRN (23:12)
[2018-06-06] MEDS: KETOROLAC TROMETHAMINE INJ/PF 30 MG/1 ML SDV IV PRN (03:00)
[2018-06-06] MEDS: MORPHINE SULFATE 10 MG/ML INJ IV PRN ×3 (04:43→21:08)
[2018-06-06 05:29] LABS: HEMATOCRIT 34.1 % (36.0-47.0); HEMOGLOBIN 11.3 g/dL (12.0-15.5); MEAN CORPUSCULAR HEMOGLOBIN 28.2 pg (27.0-33.4); MEAN CORPUSCULAR VOLUME 86 fl (80-97); PLATELET COUNT 311 10^3/uL (150-450); RED BLOOD COUNT 3.99 10^6/uL (3.72-5.28); RED CELL DISTRIBUTION WIDTH 14.2 % (11.5-14.0); WHITE BLOOD COUNT 16.9 10^3/uL (4.0-10.5)
[2018-06-06 05:49] LABS: ALANINE AMINOTRANSFERASE 50 U/L (9-52); ALBUMIN 3.8 g/dL (3.5-5.0); ALKALINE PHOSPHATASE 170 U/L (38-126); ANION GAP 10 (5-19); ASPARTATE AMINO TRANSFERASE 71 U/L (14-36); BILIRUBIN,DIRECT 0.1 mg/dL (0.0-0.4); BILIRUBIN,TOTAL 0.3 mg/dL (0.2-1.3); BLOOD UREA NITROGEN 13 mg/dL (7-20); CALCIUM 9.9 mg/dL (8.4-10.2); CARBON DIOXIDE 22 mmol/L (22-30); CHLORIDE 105 mmol/L (98-107); GLUCOSE 118 mg/dL (75-110); POTASSIUM 4.6 mmol/L (3.6-5.0); SODIUM 137.4 mmol/L (137-145); TOTAL PROTEIN 7.1 g/dL (6.3-8.2)
[2018-06-06] MEDS: LORAZEPAM INJ 2 MG/1 ML VIAL IV PRN ×2 (05:54→15:45)
[2018-06-06] MEDS: NORMAL SALINE 1000 ML 1,000 ML IV PRN ×2 (06:56→20:45)
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
[2018-06-06 09:41] LABS: APPEARANCE,URINE CLEAR; BILIRUBIN,URINE NEGATIVE (NEGATIVE); COLOR,URINE YELLOW; GLUCOSE, URINE NEGATIVE (NEGATIVE); KETONES,URINE NEGATIVE (NEGATIVE); LEUKOCYTE ESTERASE,URINE NEGATIVE (NEGATIVE); NITRITE,URINE NEGATIVE (NEGATIVE); PROTEIN,URINE NEGATIVE (NEGATIVE); URINE SPECIFIC GRAVITY 1.017; UROBILINOGEN,URINE NEGATIVE mg/dL (<2.0)
[2018-06-06] MEDS: FAMOTIDINE INJ/PF 20 MG/2 ML SDV IV SCH ×2 (09:42→21:11)
[2018-06-06] MEDS: HEPARIN SOD (PORCINE) 5,000 UNIT/ML 1 ML SYRINGE SUBCUT SCH ×3 (09:42→21:12)
--- NOTE | 2018-06-06 13:17 | PDOC PROGRESS REPORT ---
Subjective Progress Note for:: 06/06/18 Subjective:: This 37-year-old woman with likely metastatic breast cancer had a fairly uneventful night. After her left breast biopsy in the ER she went to her room and ended up using a little bit of as needed morphine and Ativan for symptom management. She slept relatively well. She states that she is breathing significantly better with the use of these medications. She is able to get up and use the bathroom without too much difficulty. She can speak without becoming short of breath which is an improvement over yesterday. No chest pain. No bleeding. No headache or vision changes. No dysuria. No constipation or diarrhea. Reason For Visit: ACUTE RESPIRATORY DISTRESS,DYSPNEA Physical Exam Vital Signs: Temp Pulse Resp BP Pulse Ox 98.1 F 114 H 18 129/93 H 100 06/06/18 11:47 06/06/18 11:47 06/06/18 11:47 06/06/18 11:47 06/06/18 11:47 Intake & Output 06/05/18 06/06/18 06/07/18 06:59 06:59 06:59 Intake Total 2000 177 Output Total 300 Balance 2000 -123 Weight 97.6 kg General appearance: PRESENT: no acute distress, cooperative, well-developed, well-nourished Head exam: PRESENT: atraumatic, normocephalic Eye exam: PRESENT: EOMI. ABSENT: conjunctival injection, scleral icterus Mouth exam: PRESENT: moist, neck supple, tongue midline Neck exam: ABSENT: tracheal deviation Respiratory exam: PRESENT: decreased breath sounds, unlabored. ABSENT: rales, rhonchi, wheezes Cardiovascular exam: PRESENT: RRR. ABSENT: systolic murmur GI/Abdominal exam: PRESENT: normal bowel sounds, soft. ABSENT: distended, tenderness Torso Front/Back Image: 1 - left breast needle biopsy site CDI, left breast with firm mass, puckered nipple, no open skin lesion Rectal exam: PRESENT: deferred Gentrourinary exam: ABSENT: indwelling catheter Extremities exam: ABSENT: pedal edema Musculoskeletal exam: PRESENT: ambulatory Neurological exam: PRESENT: awake, oriented to person, oriented to place, oriented to situation, other - Drowsy Psychiatric exam: ABSENT: agitated, anxious Skin exam: PRESENT: dry, intact, warm Results Laboratory Results: 06/06/18 04:41 06/06/18 04:41 06/06/18 06/06/18 06/06/18 04:41 04:41 08:57 WBC 16.9 H RBC 3.99 Hgb 11.3 L Hct 34.1 L MCV 86 MCH 28.2 MCHC 33.0 RDW 14.2 H Plt Count 311 Sodium 137.4 Potassium 4.6 Chloride 105 Carbon Dioxide 22 Anion Gap 10 BUN 13 Creatinine 0.68 Est GFR ( Amer) > 60 Est GFR (Non-Af Amer) > 60 Glucose 118 H Calcium 9.9 Total Bilirubin 0.3 AST 71 H ALT 50 Alkaline Phosphatase 170 H Total Protein 7.1 Albumin 3.8 Urine Color YELLOW Urine Appearance CLEAR Urine pH 6.0 Ur Specific Benedict 1.017 Urine Protein NEGATIVE Urine Glucose (UA) NEGATIVE Urine Ketones NEGATIVE Urine Blood NEGATIVE Urine Nitrite NEGATIVE Ur Leukocyte Esterase NEGATIVE Urine WBC (Auto) 1 Urine RBC (Auto) 1 Impressions: Chest X-Ray 06/05/18 13:16 IMPRESSION: Bilateral patchy basilar consolidation, left greater than right. No pleural effusion. Chest/Abdomen CTA 06/05/18 15:08 IMPRESSION: No emboli visualized in the main pulmonary arteries or the segmental branches. Remaining findings are unchanged, left breast neoplastic disease and diffuse metastases to lung and bone. Assessment & Plan - Diagnosis (1) Metastatic breast cancer Is this a current diagnosis for this admission?: Yes Plan: Patient likely has widely metastatic breast cancer. Left breast needle biopsy done yesterday, results pending. She has been seen by Dr. Cotton with oncology. BRCA testing will be performed. Her mother with breast cancer complications. (2) Pleural effusion, left Is this a current diagnosis for this admission?: Yes Plan: Repeat scanning yesterday showed the effusion to be mild versus moderate seen on earlier scan. With the use of as needed Ativan and morphine her dyspnea is much improved. Surgeon did not feel that it would be prudent to perform thoracentesis in the setting of a small amount of we are continuing to monitor respiratory status, use morphine and Ativan as needed dyspnea. She is feeling much better in this regard. She is not hypoxemic. Sputum culture is pending. (3) Dyspnea Qualifiers: Dyspnea type: other forms of dyspnea Qualified Code(s): R06.09 - Other forms of dyspnea Is this a current diagnosis for this admission?: Yes Plan: Much improved with as needed morphine and Ativan will continue to use for now. Please see above. (4) Anxiety Is this a current diagnosis for this admission?: Yes Plan: Doing better with the use of 0.5 mg of IV Ativan as needed anxiety and dyspnea. He tells me she feels a lot calmer. We will also place a fan at her bedside to help with anxiety and dyspnea. (5) Acute pain Is this a current diagnosis for this admission?: Yes Plan: Patient received a dose of Toradol early this morning. She has been using small doses of morphine. Toradol is now on hold and I have increased her morphine to 1 mg IV every 2 hours as needed pain. If the morphine is effective perhaps we will not need Toradol which I would like to avoid due to potential adverse effects. (6) Hypercalcemia Is this a current diagnosis for this admission?: Yes Plan: Improved to 9.9, normal limits, with IV fluid hydration. We will continue IV fluids. (7) Hyperglycemia Is this a current diagnosis for this admission?: Yes Plan: Hemoglobin A1c is slightly below 7. We will continue with before meals and at bedtime blood glucose monitoring and sliding scale short acting insulin boluses. (8) Abnormal LFTs Is this a current diagnosis for this admission?: Yes Plan: Possibly due to metastatic cancer. Continue to monitor. (9) Psychosocial distress Is this a current diagnosis for this admission?: Yes Plan: Patient has multiple family members including 3 children aged 14-18 who are concerned about her condition. She and her sister have decided not to tell anyone in the family exactly what is going on, specifically about the possibility of metastatic breast cancer, until biopsy results have returned. Also supportive employment case manager has been consulted to assist with healthcare power of attorney at law documentation, as she is from a spouse to whom she is still legally and does not want this person to make decisions for her if indicated. - Time Time Spent with patient: 35 or more minutes Anticipated discharge: Home - Inpatient Certification Based on my medical assessment, after consideration of the patient's comorbidities, presenting symptoms, or acuity I expect that the services needed warrant INPATIENT care.: Yes I certify that my determination is in accordance with my understanding of Medicare's requirements for reasonable and necessary INPATIENT services [42 CFR 412.3e].: Yes Medical Necessity: Significant Comorbidiites Make Outpatient Treatment Too Risky , Need Close Monitoring Due to Risk of Patient Decompensation, Need For IV Fluids, Risk of Complication if Not Cared For in Hospital
[2018-06-06] MEDS ORDERED: SENNOSIDES/DOCUSATE 8.6-50 MG 1 EACH TABLET PO ONE (15:00)
--- NOTE | 2018-06-06 17:16 | RADIOLOGY REPORT (SQ) ---
EXAM DESCRIPTION: MRI HEAD COMBO COMPLETED DATE/TIME: 06/06/2018 4:27 pm REASON FOR STUDY: eval for brain mets COMPARISON: None. TECHNIQUE: Multiplanar imaging includes noncontrasted T1, T2, FLAIR, diffusion with ADC map and post gadolinium contrast T1 sequences. Images stored on PACS. CONTRAST TYPE AND DOSE: 20 mL Dotarem. RENAL FUNCTION: GFR > 60. LIMITATIONS: None. FINDINGS: ANATOMY: Empty sella anatomic variant. CSF SPACES: See below. CEREBRUM: Approximately 4.9 x 4.6 x 3.1 cm AP by transverse by craniocaudal diameter cystic intra axi al lesion right frontal lobe with associated vasogenic edema in about 7 mm of right to left midline s hift. There is mass effect on the right frontal horn. Lesion extends into the right temporal lobe. No hemorrhage. No extra-axial fluid collection. No meningeal enhancement. POSTERIOR FOSSA: No signal alteration. No hemorrhage. No edema, masses, or mass effect. Internal melva tory canals, cerebellopontine angles, mastoids normal. No enhancing lesions. No abnormal enhancement post contrast. DIFFUSION IMAGING: Negative for acute or subacute infarction. ORBITS: No masses. Globes normal. PARANASAL SINUSES: No fluid levels. Mucosa normal. OTHER: No other significant finding. IMPRESSION: Large metastatic lesion or 2nd primary right frontal and right temporal lobes. EVIDENCE OF ACUTE STROKE: NO. TECHNICAL DOCUMENTATION: JOB ID: [id number] [employer]- All Rights Reserved Reading location - IP/workstation name: [email or web address]
[2018-06-06] MEDS: ACETAMINOPHEN 325 MG TABLET PO PRN (17:55)
[2018-06-06] MEDS: DEXAMETHASONE 4 MG TABLET PO SCH (21:11)
[2018-06-07] MEDS: MORPHINE SULFATE 10 MG/ML INJ IV PRN ×3 (01:08→20:53)
[2018-06-07] MEDS: ONDANSETRON HCL INJ/PF 4 MG/2 ML SDV IV PRN (05:13)
[2018-06-07 05:17] LABS: HEMATOCRIT 35.9 % (36.0-47.0); MEAN CORPUSCULAR HEMOGLOBIN 28.5 pg (27.0-33.4); MEAN CORPUSCULAR HGB CONC 33.5 g/dL (32.0-36.0); MEAN CORPUSCULAR VOLUME 85 fl (80-97); PLATELET COUNT 327 10^3/uL (150-450); RED BLOOD COUNT 4.22 10^6/uL (3.72-5.28); RED CELL DISTRIBUTION WIDTH 14.2 % (11.5-14.0); WHITE BLOOD COUNT 14.9 10^3/uL (4.0-10.5)
[2018-06-07] MEDS: HEPARIN SOD (PORCINE) 5,000 UNIT/ML 1 ML SYRINGE SUBCUT SCH ×3 (05:47→21:00)
[2018-06-07] MEDS: NORMAL SALINE 1000 ML 1,000 ML IV PRN (05:47)
--- NOTE | 2018-06-07 08:21 | PDOC PROGRESS REPORT ---
Subjective Progress Note for:: 06/07/18 Subjective:: Patient had a bad dream last night and accidentally pulled out IV. This morning , she is feeling better and is very hungry. No new complaints. ROS: No headache. No vision changes. No nausea. No chest pain. Reason For Visit: ACUTE RESPIRATORY DISTRESS,DYSPNEA Physical Exam Vital Signs: Temp Pulse Resp BP Pulse Ox 98.8 F 124 H 20 145/91 H 99 06/07/18 03:24 06/07/18 03:24 06/07/18 03:24 06/07/18 03:24 06/07/18 03:24 Intake & Output 06/06/18 06/07/18 06/08/18 06:59 06:59 06:59 Intake Total 1999 2657 Output Total 301 Balance 1999 235 Weight 97.6 kg 97 kg General appearance: PRESENT: no acute distress, obese Head exam: PRESENT: normocephalic Respiratory exam: PRESENT: unlabored Neurological exam: PRESENT: alert, awake, oriented to person, oriented to place , oriented to time, oriented to situation Psychiatric exam: PRESENT: appropriate affect Skin exam: PRESENT: normal color Results Laboratory Results: 06/07/18 05:03 06/06/18 04:41 06/06/18 06/07/18 08:57 05:03 WBC 14.9 H RBC 4.22 Hgb 12.0 Hct 35.9 L MCV 85 MCH 28.5 MCHC 33.5 RDW 14.2 H Plt Count 327 Urine Color YELLOW Urine Appearance CLEAR Urine pH 6.0 Ur Specific Ballard 1.017 Urine Protein NEGATIVE Urine Glucose (UA) NEGATIVE Urine Ketones NEGATIVE Urine Blood NEGATIVE Urine Nitrite NEGATIVE Ur Leukocyte Esterase NEGATIVE Urine WBC (Auto) 1 Urine RBC (Auto) 1 Impressions: Chest X-Ray 06/05/18 13:16 IMPRESSION: Bilateral patchy basilar consolidation, left greater than right. No pleural effusion. Chest/Abdomen CTA 06/05/18 15:08 IMPRESSION: No emboli visualized in the main pulmonary arteries or the segmental branches. Remaining findings are unchanged, left breast neoplastic disease and diffuse metastases to lung and bone. Head MRI 06/06/18 00:00 IMPRESSION: Large metastatic lesion or 2nd primary right frontal and right temporal lobes. EVIDENCE OF ACUTE STROKE: NO. Status: Image reviewed by me Assessment & Plan - Diagnosis (1) Left breast mass Is this a current diagnosis for this admission?: Yes Plan: Most likely breast cancer with mets to the lung, bones, and brain. Await pathology report to start systemic therapy. (2) Dyspnea Qualifiers: Dyspnea type: other forms of dyspnea Qualified Code(s): R06.09 - Other forms of dyspnea Is this a current diagnosis for this admission?: Yes (3) Hypercalcemia Is this a current diagnosis for this admission?: Yes Plan: Improved. (4) Brain mass Is this a current diagnosis for this admission?: Yes Plan: Most likely metastatic breast cancer. I discussed with Dr. Shaikh. She will contact neurosurgery to see if patient is a candidate for surgical resection at this point, or if whole brain radiation will be recommended. I suspect she will need to be transferred to [facility] for further treatment initially. Continue Dexamethasone. Patient clinically asymptomatic from this. - Plan Summary Plan Summary: Please call with any questions. I have called pathology department to make them aware.
[2018-06-07] MEDS: SENNOSIDES/DOCUSATE 8.6-50 MG 1 EACH TABLET PO SCH (09:21)
[2018-06-07] MEDS: DEXAMETHASONE 4 MG TABLET PO SCH ×2 (09:21→21:06)
[2018-06-07] MEDS: FAMOTIDINE INJ/PF 20 MG/2 ML SDV IV SCH ×2 (09:21→21:06)
[2018-06-07] MEDS: ACETAMINOPHEN 325 MG TABLET PO PRN ×2 (09:44→23:45)
--- NOTE | 2018-06-07 13:00 | XCELERA REPORT ---
[address] [address] Transthoracic Echocardiogram Report Name: LEI GU Age: 37 yrs Gender: Female : 1980 Patient Status: Inpatient Patient Location: [address] [place] [address] Study Date: 06/07/2018 10:36 AM Procedure: A complete two-dimensional transthoracic echocardiogram was performed (2D, M-mode, spectral and color flow Doppler). The study was technically adequate with some images being suboptimal in quality. Reason For Study: evaluate for murmur Ordering Physician: SUNITA LOPEZ Performed By: Delfina Loving Interpretation Summary The left ventricular ejection fraction is within normal limits. There is borderline concentric left ventricular hypertrophy. The left ventricle is grossly normal size. LV diastolic function could not be adequately assessed. Wall motion cannot be accurately commented on, but no definite regional wall motion abnormalities noted. The right ventricular systolic function is normal. The left atrial size is normal. The right atrium is normal in size There is a trace amount of mitral regurgitation There is no mitral valve stenosis. No aortic regurgitation is present. There is no aortic valve stenosis There is a trace or physiologic amount of tricuspid regurgitation Tricuspid regurgitation jet envelope not well defined to measure RV systolic pressure accurately. Small pericardial effusion. There are no echocardiographic or Doppler indications for cardiac tamponade MMode/2D Measurements & Calculations RVDd: 2.3 cm LVIDd: 4.3 cm FS: 37.5 % Ao root diam: 2.7 cm IVSd: 0.93 cm LVIDs: 2.7 cm EDV(Teich): 81.7 ml Ao root area: 5.8 cm2 LVPWd: 1.00 cm ESV(Teich): 26.3 ml EF(Teich): 67.8 % Doppler Measurements & Calculations MV E max felton: MV dec slope: Ao V2 max: LV V1 max P.8 cm/sec 121.6 cm/sec 2.8 mmHg MV A max felton: 305.6 cm/sec2 Ao max PG: LV V1 max: 51.4 cm/sec MV dec time: 0.18 sec 5.9 mmHg 83.8 cm/sec MV E/A: 1.1 PA V2 max: TR max felton: 104.0 cm/sec 208.2 cm/sec PA max P.3 mmHg TR max P.3 mmHg Left Ventricle The left ventricle is grossly normal size. There is borderline concentric left ventricular hypertrophy. The left ventricular ejection fraction is within normal limits. LV diastolic function could not be adequately assessed. Wall motion cannot be accurately commented on, but no definite regional wall motion abnormalities noted. Right Ventricle The right ventricle is grossly normal size. There is normal right ventricular wall thickness. The right ventricular systolic function is normal. Atria The right atrium is normal in size. The left atrial size is normal. Interarterial septum not well visualized and not well dopplered. Cannot comment on ASD/PFO presence. Mitral Valve The mitral valve is grossly normal. There is no mitral valve stenosis. There is a trace amount of mitral regurgitation. Aortic Valve The aortic valve is not well visualized secondary to technical limitations. There is no aortic valve stenosis. No aortic regurgitation is present. Tricuspid Valve The tricuspid valve is not well visualized secondary to technical limitations. There is no tricuspid stenosis. There is a trace or physiologic amount of tricuspid regurgitation. Tricuspid regurgitation jet envelope not well defined to measure RV systolic pressure accurately. Pulmonic Valve The pulmonic valve is not well visualized. Great Vessels The aortic root is not well visualized but is probably normal size. The inferior vena cava was not well visualized. Effusions Small pericardial effusion. There are no echocardiographic or Doppler indications for cardiac tamponade. : SUNITA LOPEZ > Aly Bowman
[2018-06-07] MEDS: LORAZEPAM INJ 2 MG/1 ML VIAL IV PRN (13:40)
--- NOTE | 2018-06-07 14:09 | PDOC PROGRESS REPORT ---
Subjective Progress Note for:: 06/07/18 Subjective:: No adverse events overnight. No new complaints. She is eating and drinking without difficulty. No nausea. No more headaches or visual disturbances at this time. She is asking if her IV fluids can be cut off because she is going to the bathroom a lot. Reason For Visit: ACUTE RESPIRATORY DISTRESS,DYSPNEA Physical Exam Vital Signs: Temp Pulse Resp BP Pulse Ox 98.3 F 114 H 18 135/87 H 96 06/07/18 11:39 06/07/18 11:39 06/07/18 11:39 06/07/18 11:39 06/07/18 11:39 Intake & Output 06/06/18 06/07/18 06/08/18 06:59 06:59 06:59 Intake Total 1999 2657 1000 Output Total 301 Balance 1999 2356 1000 Weight 97.6 kg 97 kg General appearance: PRESENT: no acute distress, cooperative, obese Respiratory exam: PRESENT: clear to auscultation michelle, unlabored. ABSENT: rales , rhonchi, wheezes Cardiovascular exam: PRESENT: RRR, +S1, +S2. ABSENT: diastolic murmur, systolic murmur GI/Abdominal exam: PRESENT: normal bowel sounds, soft. ABSENT: distended, guarding, rebound, tenderness Extremities exam: PRESENT: full ROM. ABSENT: pedal edema Musculoskeletal exam: PRESENT: normal inspection. ABSENT: deformity Neurological exam: PRESENT: alert, awake, oriented to person, oriented to place , oriented to time Psychiatric exam: PRESENT: appropriate affect, normal mood Results Laboratory Results: 06/07/18 05:03 06/06/18 04:41 06/07/18 05:03 WBC 14.9 H RBC 4.22 Hgb 12.0 Hct 35.9 L MCV 85 MCH 28.5 MCHC 33.5 RDW 14.2 H Plt Count 327 Impressions: Chest X-Ray 06/05/18 13:16 IMPRESSION: Bilateral patchy basilar consolidation, left greater than right. No pleural effusion. Chest/Abdomen CTA 06/05/18 15:08 IMPRESSION: No emboli visualized in the main pulmonary arteries or the segmental branches. Remaining findings are unchanged, left breast neoplastic disease and diffuse metastases to lung and bone. Head MRI 06/06/18 00:00 IMPRESSION: Large metastatic lesion or 2nd primary right frontal and right temporal lobes. EVIDENCE OF ACUTE STROKE: NO. Assessment & Plan - Diagnosis (1) Left breast mass Is this a current diagnosis for this admission?: Yes Plan: Apparently the biopsy material was not sufficient for testing. I am awaiting a callback from a neurosurgeon at [facility]. If they think that surgery is an option for her, then we will defer biopsy until surgery is done on the brain mass and pathology can be done at that time. If they do not think surgery is going to be an option for her, we will go ahead and repeat the biopsy of the left breast mass. (2) Metastatic breast cancer Is this a current diagnosis for this admission?: Yes Plan: Metastatic to brain, lungs, and bone. Not having any more trouble breathing at this time. Oncology is following closely. (3) Brain mass Is this a current diagnosis for this admission?: Yes Plan: Awaiting a callback from neurosurgeon as noted above. In addition to what was noted above, I found out that the gamma knife in [place] is down for 7 weeks. If the neurosurgeon recommends gamma knife for this patient, will have to find a facility that has gamma knife available at this time. (4) Hypercalcemia Is this a current diagnosis for this admission?: Yes Plan: Resolved - Time Time Spent with patient: 25-34 minutes
--- NOTE | 2018-06-07 18:07 | PDOC TRANSFER SUMMARY ---
General Admission Date/PCP: 06/05/18 17:27 NINA JOSEPH MD Accepting Facility: [facility] Accepting Physician: Dr. De Anda Resuscitation Status: Full Code - Transfer Diagnosis (1) Left breast mass Is this a current diagnosis for this admission?: Yes Diagnosis Summary: Found incidentally on examination on her initial presentation 06/03/2018. It was about 8 cm. It is unknown how long the mass has been there. Initial biopsy was insufficient for diagnosis. The accepting facility has requested we hold off on trying again and that they will attempt to get the diagnosis there. (2) Metastatic breast cancer Is this a current diagnosis for this admission?: Yes Diagnosis Summary: Has been noted on imaging of her chest to have multiple spiculated lesions in the lungs as well as some bony lesions. These were also found on her initial presentation 06/03/2018. (3) Brain mass Is this a current diagnosis for this admission?: Yes Diagnosis Summary: This was found on imaging 06/06/2018. I spoke with neurosurgery at [facility] and they did not think that the entire mass, which was about 5 cm , could be resected without substantial neurological deficits afterwards, but did recommend biopsy because they believe it has the appearance of a primary brain tumor. I spoke with oncology at [facility] as well and they are in agreement with this. Neurosurgery also commented that this mass was probably too big for gamma knife. (4) Hypercalcemia Is this a current diagnosis for this admission?: Yes Diagnosis Summary: Resolved with fluids and pamidronate. - Transfer Medications Home Medications: No Home Medications 06/06/18 Transfer Medications: Current Medications Acetaminophen (Tylenol 325 Mg Tablet) 325 mg PO Q4HP PRN PRN Reason: FOR HEADACHE Stop: 07/06/18 17:26 Last Admin: 06/07/18 09:44 Dose: 325 mg Dexamethasone (Decadron 4 Mg Tablet) 8 mg PO Q12 PANCHO Stop: 07/06/18 21:59 Last Admin: 06/07/18 09:21 Dose: 8 mg Dextrose (Dextrose Inj 50% Syringe (25 Gm/50 Ml)) 12.5 gm IV PRN PRN; Protocol PRN Reason: FOR BG 50-69 IN ALERT PATIENT Stop: 07/05/18 18:35 Dextrose (Dextrose Inj 50% Syringe (25 Gm/50 Ml)) 25 gm IV PRN PRN; Protocol PRN Reason: PER PROTOCOL Stop: 07/05/18 18:35 Famotidine (Pepcid Inj/Pf 20 Mg/2 Ml Sdv) 20 mg IV Q12 [facility] Stop: 07/05/18 21:59 Last Admin: 06/07/18 09:21 Dose: 20 mg Glucagon (Glucagen Inj 1 Mg Vial) 1 mg IM PRN PRN; Protocol PRN Reason: Evaluate for BG < 70 Stop: 07/05/18 18:35 Glucose (Glutose 40% Gel 15 Gm Tube) 15 gm PO PRN PRN; Protocol PRN Reason: FOR BG 50-69 IN ALERT PATIENT Stop: 07/05/18 18:35 Glucose (Glutose 40% Gel 15 Gm Tube) 30 gm PO PRN PRN; Protocol PRN Reason: FOR BG < 50 IN ALERT PATIENT Stop: 07/05/18 18:35 Heparin Sodium (Porcine) (Heparin Inj 5,000 Units/Ml 1 Ml Syringe) 5,000 unit SUBCUT Q8 [facility] Stop: 07/06/18 08:59 Last Admin: 06/07/18 13:40 Dose: 5,000 unit Influenza Virus Vaccine Quadrival (Fluarix Adlt Quad 2017- Vac 0.5 Ml Syr) 0.5 ml IM .DISCHARGE PRN PRN Reason: THIS MED IS NOT "PRN" Stop: 07/05/18 20:30 Insulin Human Lispro (Humalog Insulin 100 Unit/1 Ml 3 Ml Vial) 0 - 12 unit SUBCUT Q6HP PRN; Protocol PRN Reason: PER PROTOCOL Stop: 07/05/18 18:35 Lorazepam (Ativan Inj 2 Mg/1 Ml Vial) 0.5 mg IV Q6H PRN PRN Reason: SEE LABEL COMMENTS Stop: 06/12/18 18:12 Last Admin: 06/07/18 13:40 Dose: 0.5 mg Morphine Sulfate (Morphine 10 Mg/Ml Inj) 1 mg IV Q2H PRN PRN Reason: FOR PAIN SCALE 3-5 Stop: 06/12/18 18:10 Last Admin: 06/07/18 03:57 Dose: 1 mg Ondansetron HCl (Zofran Inj/Pf 4 Mg/2 Ml Sdv) 4 mg IV Q4HP PRN PRN Reason: FOR NAUSEA/VOMITING Stop: 07/05/18 19:07 Last Admin: 06/07/18 05:13 Dose: 4 mg Senna/Docusate Sodium (Senna Plus Tablet) 1 each PO DAILY PANCHO Stop: 07/07/18 09:59 Last Admin: 06/07/18 09:21 Dose: 1 each Sodium Chloride (Saline Flush 2.5 Ml Monoject Prefil Syrin) 2.5 ml IV Q8 PANCHO Stop: 07/05/18 21:59 Last Admin: 06/07/18 14:24 Dose: Not Given - Allergies Allergies/Adverse Reactions: No Known Allergies Allergy (Verified 06/05/18 12:59) - Diet/Activity Discharge Diet: Regular Discharge Activity: Supervised Activity Hospital Course Hospital Course: She lit initially presented with dyspnea and progressive fatigue, and was found to have a large 8 cm left breast mass as well as numerous bilateral lung masses and some bony masses as well which were believed to be metastatic. Brain imaging showed a single mass nearly 5 cm in its largest dimension in the right frontal and right temporal lobes. An initial attempt at a biopsy was done on the left breast mass, but the material obtained was insufficient for a diagnosis. She was seen in consultation here by oncology, Dr. Johnson, who recommended contacting [facility] for a neurosurgical opinion on the brain mass. I spoke with Dr. Jeane Peters, who believed that the brain mass should be biopsied but that gamma knife nor open surgical resection were not recommended, and that the appearance was more of a suspected primary brain tumor. I spoke with Dr. Gilman of the oncology service at [facility] who recommended transferring to their facility for a multidisciplinary approach. Transfer at this time is pending bed availability. Physical Exam Vital Signs: Temp Pulse Resp BP Pulse Ox 98.3 F 112 H 18 135/87 H 96 06/07/18 11:39 06/07/18 14:00 06/07/18 11:39 06/07/18 11:39 06/07/18 11:39 Intake & Output 06/06/18 06/07/18 06/08/18 06:59 06:59 06:59 Intake Total 1999 2657 1999 Output Total 301 Balance 1999 2356 1999 Weight 97.6 kg 97 kg 97 kg General appearance: PRESENT: no acute distress, cooperative, obese Respiratory exam: PRESENT: clear to auscultation michelle, unlabored. ABSENT: rales , rhonchi, wheezes Cardiovascular exam: PRESENT: RRR, +S1, +S2. ABSENT: diastolic murmur, systolic murmur GI/Abdominal exam: PRESENT: normal bowel sounds, soft. ABSENT: distended, guarding, rebound, tenderness Extremities exam: PRESENT: full ROM. ABSENT: pedal edema Musculoskeletal exam: PRESENT: normal inspection. ABSENT: deformity Neurological exam: PRESENT: alert, awake, oriented to person, oriented to place , oriented to time Psychiatric exam: PRESENT: appropriate affect, normal mood Results Laboratory Results: 06/07/18 05:03 06/06/18 04:41 06/07/18 05:03 WBC 14.9 H RBC 4.22 Hgb 12.0 Hct 35.9 L MCV 85 MCH 28.5 MCHC 33.5 RDW 14.2 H Plt Count 327 Impressions: Chest X-Ray 06/05/18 13:16 IMPRESSION: Bilateral patchy basilar consolidation, left greater than right. No pleural effusion. Chest/Abdomen CTA 06/05/18 15:08 IMPRESSION: No emboli visualized in the main pulmonary arteries or the segmental branches. Remaining findings are unchanged, left breast neoplastic disease and diffuse metastases to lung and bone. Head MRI 06/06/18 00:00 IMPRESSION: Large metastatic lesion or 2nd primary right frontal and right temporal lobes. EVIDENCE OF ACUTE STROKE: NO.
[2018-06-07] MEDS: INSULIN LISPRO 100 UNIT/ML 3 ML VIAL SUBCUT PRN ×2 (19:01→23:47)
[2018-06-08] MEDS ORDERED: LACTULOSE SYRUP 20 GM/30 ML UDCUP PO ONE (01:30)
[2018-06-08] MEDS ORDERED: LACTULOSE SYRUP 20 GM/30 ML UDCUP PO PRN (02:32)
[2018-06-08 06:00] LABS: HEMATOCRIT 34.9 % (36.0-47.0); HEMOGLOBIN 11.6 g/dL (12.0-15.5); MEAN CORPUSCULAR HEMOGLOBIN 27.9 pg (27.0-33.4); MEAN CORPUSCULAR HGB CONC 33.4 g/dL (32.0-36.0); MEAN CORPUSCULAR VOLUME 84 fl (80-97); PLATELET COUNT 314 10^3/uL (150-450); RED BLOOD COUNT 4.17 10^6/uL (3.72-5.28); RED CELL DISTRIBUTION WIDTH 13.9 % (11.5-14.0); WHITE BLOOD COUNT 17.7 10^3/uL (4.0-10.5)
[2018-06-08] MEDS: MORPHINE SULFATE 10 MG/ML INJ IV PRN ×3 (06:58→22:38)
[2018-06-08] MEDS: HEPARIN SOD (PORCINE) 5,000 UNIT/ML 1 ML SYRINGE SUBCUT SCH ×3 (07:20→21:23)
--- NOTE | 2018-06-08 08:53 | PDOC PROGRESS REPORT ---
Subjective Progress Note for:: 06/08/18 Subjective:: Patient was seen today with several family members in room, and by speaker phone. Patient states that she is feeling well. However, she is concerned that the steroids are causing her blood sugar to be too high. Otherwise, no new complaints today. ROS: No headache. Good appetite. Some dyspnea which is relieved with O2. Reason For Visit: ACUTE RESPIRATORY DISTRESS,DYSPNEA Physical Exam Vital Signs: Temp Pulse Resp BP Pulse Ox 97.9 F 96 18 148/96 H 100 06/08/18 07:09 06/08/18 07:09 06/08/18 07:09 06/08/18 07:09 06/08/18 07:09 Intake & Output 06/07/18 06/08/18 06/09/18 06:59 06:59 06:59 Intake Total 2657 2490 Output Total 301 Balance 2356 2490 Weight 97 kg 98 kg General appearance: PRESENT: no acute distress, obese Head exam: PRESENT: normocephalic Respiratory exam: PRESENT: unlabored Neurological exam: PRESENT: alert, awake, oriented to person, oriented to place , oriented to time, oriented to situation Psychiatric exam: PRESENT: appropriate affect Skin exam: PRESENT: normal color Results Laboratory Results: 06/08/18 05:51 06/06/18 04:41 06/08/18 05:51 WBC 17.7 H RBC 4.17 Hgb 11.6 L Hct 34.9 L MCV 84 MCH 27.9 MCHC 33.4 RDW 13.9 Plt Count 314 Impressions: Chest X-Ray 06/05/18 13:16 IMPRESSION: Bilateral patchy basilar consolidation, left greater than right. No pleural effusion. Chest/Abdomen CTA 06/05/18 15:08 IMPRESSION: No emboli visualized in the main pulmonary arteries or the segmental branches. Remaining findings are unchanged, left breast neoplastic disease and diffuse metastases to lung and bone. Head MRI 06/06/18 00:00 IMPRESSION: Large metastatic lesion or 2nd primary right frontal and right temporal lobes. EVIDENCE OF ACUTE STROKE: NO. Assessment & Plan - Diagnosis (1) Left breast mass Is this a current diagnosis for this admission?: Yes Plan: Biopsy performed on 06/04/2018 was inconclusive without enough viable cells to make a diagnosis. This mass is very large and has come up within the last 2 months. Patient and family understand that this appears to be metastatic breast cancer with mets to the lungs, bone, and brain per radiology scans. However, without pathology, we are unable to recommend the best treatment. BRCA testing has been ordered. (2) Dyspnea Qualifiers: Dyspnea type: other forms of dyspnea Qualified Code(s): R06.09 - Other forms of dyspnea Is this a current diagnosis for this admission?: Yes (3) Hypercalcemia Is this a current diagnosis for this admission?: Yes Plan: resolved. This only required fluid hydration. No bisphosphonate has been given as of yet. (4) Brain mass Is this a current diagnosis for this admission?: Yes Plan: This lesion is too bug for cyber knife. Neurosurgery is not available here. However in discussion with neurosurgeon at [facility], they believe patient may benefit from biopsy prior to resection. Patient has been accepted in transfer to [facility] and we are awaiting bed. - Plan Summary Plan Summary: All of the above was discussed in detail with the patient and her family and all of their questions were answered. I will be happy to see her again in the office once she has been discharged from [facility] for further systemic therapy. I am hoping she will be a candidate for clinical trial. We have several options here, but will not be able to make recommendations until after pathology is obtained.
[2018-06-08] MEDS: SENNOSIDES/DOCUSATE 8.6-50 MG 1 EACH TABLET PO SCH (10:01)
[2018-06-08] MEDS: FAMOTIDINE INJ/PF 20 MG/2 ML SDV IV SCH ×2 (10:01→21:22)
[2018-06-08] MEDS: DEXAMETHASONE 4 MG TABLET PO SCH ×2 (10:01→21:23)
[2018-06-08] MEDS: ACETAMINOPHEN 325 MG TABLET PO PRN ×2 (11:40→21:22)
[2018-06-08] MEDS: ONDANSETRON HCL INJ/PF 4 MG/2 ML SDV IV PRN ×3 (12:17→22:45)
[2018-06-08] MEDS: INSULIN LISPRO 100 UNIT/ML 3 ML VIAL SUBCUT PRN ×3 (12:28→21:56)
[2018-06-08] MEDS: LORAZEPAM INJ 2 MG/1 ML VIAL IV PRN ×2 (12:55→21:55)
--- NOTE | 2018-06-08 15:55 | PDOC PROGRESS REPORT ---
Subjective Progress Note for:: 06/08/18 Subjective:: No adverse events overnight. No new complaints. She is eating and drinking without difficulty. No nausea. No more headaches or visual disturbances. She feels like all of this is starting to get to be a bit overwhelming. Reason For Visit: ACUTE RESPIRATORY DISTRESS,DYSPNEA Physical Exam Vital Signs: Temp Pulse Resp BP Pulse Ox 97.7 F 115 H 18 144/92 H 98 06/08/18 12:04 06/08/18 14:00 06/08/18 12:04 06/08/18 12:04 06/08/18 14:18 Intake & Output 06/07/18 06/08/18 06/09/18 06:59 06:59 06:59 Intake Total 2657 2490 462 Output Total 301 Balance 2356 2490 462 Weight 97 kg 98 kg General appearance: PRESENT: no acute distress, cooperative, obese Respiratory exam: PRESENT: clear to auscultation michelle, unlabored. ABSENT: rales , rhonchi, wheezes Cardiovascular exam: PRESENT: RRR, +S1, +S2. ABSENT: diastolic murmur, systolic murmur GI/Abdominal exam: PRESENT: normal bowel sounds, soft. ABSENT: distended, guarding, rebound, tenderness Extremities exam: PRESENT: full ROM. ABSENT: pedal edema Musculoskeletal exam: PRESENT: normal inspection. ABSENT: deformity Neurological exam: PRESENT: alert, awake, oriented to person, oriented to place , oriented to time Psychiatric exam: PRESENT: appropriate affect, normal mood Results Laboratory Results: 06/08/18 05:51 06/06/18 04:41 06/08/18 05:51 WBC 17.7 H RBC 4.17 Hgb 11.6 L Hct 34.9 L MCV 84 MCH 27.9 MCHC 33.4 RDW 13.9 Plt Count 314 Impressions: Chest X-Ray 06/05/18 13:16 IMPRESSION: Bilateral patchy basilar consolidation, left greater than right. No pleural effusion. Chest/Abdomen CTA 06/05/18 15:08 IMPRESSION: No emboli visualized in the main pulmonary arteries or the segmental branches. Remaining findings are unchanged, left breast neoplastic disease and diffuse metastases to lung and bone. Head MRI 06/06/18 00:00 IMPRESSION: Large metastatic lesion or 2nd primary right frontal and right temporal lobes. EVIDENCE OF ACUTE STROKE: NO. Assessment & Plan - Diagnosis (1) Left breast mass Is this a current diagnosis for this admission?: Yes (2) Metastatic breast cancer Is this a current diagnosis for this admission?: Yes Plan: Currently awaiting transfer to the [facility] for further evaluation and hopefully for treatment. (3) Brain mass Is this a current diagnosis for this admission?: Yes Plan: Per neurosurgery she will need to have this biopsied as it may represent a second primary tumor. (4) Hypercalcemia Is this a current diagnosis for this admission?: Yes Plan: Resolved - Time Time Spent with patient: 25-34 minutes
[2018-06-08] MEDS: SIMETHICONE 80 MG TAB.CHEW PO PRN (16:24)
[2018-06-09] MEDS: HEPARIN SOD (PORCINE) 5,000 UNIT/ML 1 ML SYRINGE SUBCUT SCH ×2 (05:54→15:44)
[2018-06-09] MEDS: LORAZEPAM INJ 2 MG/1 ML VIAL IV PRN ×3 (06:00→19:03)
[2018-06-09] MEDS: ONDANSETRON HCL INJ/PF 4 MG/2 ML SDV IV PRN ×2 (06:05→19:16)
[2018-06-09 08:08] LABS: ALANINE AMINOTRANSFERASE 56 U/L (9-52); ALBUMIN 4.3 g/dL (3.5-5.0); ALKALINE PHOSPHATASE 167 U/L (38-126); ANION GAP 13 (5-19); ASPARTATE AMINO TRANSFERASE 66 U/L (14-36); BILIRUBIN,DIRECT 0.2 mg/dL (0.0-0.4); BILIRUBIN,TOTAL 0.4 mg/dL (0.2-1.3); BLOOD UREA NITROGEN 15 mg/dL (7-20); CALCIUM 10.3 mg/dL (8.4-10.2); CARBON DIOXIDE 24 mmol/L (22-30); CHLORIDE 102 mmol/L (98-107); GLUCOSE 125 mg/dL (75-110); POTASSIUM 4.8 mmol/L (3.6-5.0); SODIUM 138.7 mmol/L (137-145)
--- NOTE | 2018-06-09 08:28 | PDOC PROGRESS REPORT ---
Subjective Progress Note for:: 06/09/18 Subjective:: Patient groggy from the ativan, but states that she did not have a restful night. No new concerns. She is anxious for transfer to [facility]. Reason For Visit: ACUTE RESPIRATORY DISTRESS,DYSPNEA Physical Exam Vital Signs: Temp Pulse Resp BP Pulse Ox 98.5 F 105 H 20 137/94 H 100 06/09/18 07:46 06/09/18 07:46 06/09/18 07:46 06/09/18 07:46 06/09/18 07:46 Intake & Output 06/08/18 06/09/18 06/10/18 06:59 06:59 06:59 Intake Total 2490 1217 Balance 2490 1217 Weight 98 kg 98.2 kg General appearance: PRESENT: no acute distress, obese Head exam: PRESENT: normocephalic Respiratory exam: PRESENT: clear to auscultation michelle, unlabored Cardiovascular exam: PRESENT: RRR Neurological exam: PRESENT: awake Psychiatric exam: PRESENT: appropriate affect Skin exam: PRESENT: normal color Results Laboratory Results: 06/08/18 05:51 06/09/18 07:41 06/09/18 07:41 Sodium 138.7 Potassium 4.8 Chloride 102 Carbon Dioxide 24 Anion Gap 13 BUN 15 Creatinine 0.70 Est GFR ( Amer) > 60 Est GFR (Non-Af Amer) > 60 Glucose 125 H Calcium 10.3 H Total Bilirubin 0.4 AST 66 H ALT 56 H Alkaline Phosphatase 167 H Total Protein 8.0 Albumin 4.3 Impressions: Chest X-Ray 06/05/18 13:16 IMPRESSION: Bilateral patchy basilar consolidation, left greater than right. No pleural effusion. Chest/Abdomen CTA 06/05/18 15:08 IMPRESSION: No emboli visualized in the main pulmonary arteries or the segmental branches. Remaining findings are unchanged, left breast neoplastic disease and diffuse metastases to lung and bone. Head MRI 06/06/18 00:00 IMPRESSION: Large metastatic lesion or 2nd primary right frontal and right temporal lobes. EVIDENCE OF ACUTE STROKE: NO. Assessment & Plan - Diagnosis (1) Left breast mass Is this a current diagnosis for this admission?: Yes Plan: Initial biopsy was inconclusive with not enough viable tissue. However, her CA 27-29 is >1000 and clinically, this appears to be a very aggressive breast primary with mets to the lungs, bones and brain. CT Abdomen and Pelvis have not been performed to complete staging, but know this is a stage IV. BRCA testing has been sent. (2) Dyspnea Qualifiers: Dyspnea type: other forms of dyspnea Qualified Code(s): R06.09 - Other forms of dyspnea Is this a current diagnosis for this admission?: Yes Plan: Improved with oxygen and PRN morphine. (3) Hypercalcemia Is this a current diagnosis for this admission?: Yes Plan: Ca 10.3 this morning. Bisphosphonate has not yet been given. Will hold off for now, as she is asymptomatic, but consider adding this in the future for the bone mets and the hypercalcemia. (4) Brain mass Is this a current diagnosis for this admission?: Yes Plan: Await transfer to [facility] for further care. She remains on dexamethasone. - Plan Summary Plan Summary: Please call me with any concerns. I will be happy to continue caring for her here in [place], after she is discharged from [facility] as well.
[2018-06-09] MEDS: MORPHINE SULFATE 10 MG/ML INJ IV PRN ×4 (09:26→19:03)
[2018-06-09] MEDS: SENNOSIDES/DOCUSATE 8.6-50 MG 1 EACH TABLET PO SCH (09:26)
[2018-06-09] MEDS: INSULIN LISPRO 100 UNIT/ML 3 ML VIAL SUBCUT PRN (09:26)
[2018-06-09] MEDS: DEXAMETHASONE 4 MG TABLET PO SCH (09:26)
[2018-06-09] MEDS: FAMOTIDINE INJ/PF 20 MG/2 ML SDV IV SCH (09:26)
[2018-06-09] MEDS: SIMETHICONE 80 MG TAB.CHEW PO PRN (12:02)
[2018-06-09 15:31] VITALS: BP 134/77
--- NOTE | 2018-06-09 15:56 | PDOC PROGRESS REPORT ---
Subjective Progress Note for:: 06/09/18 Subjective:: No adverse events overnight. No new complaints. She is eating and drinking without difficulty. No nausea. No more headaches or visual disturbances. She has been trying to eat a good diet with lots of fresh fruits and vegetables. Reason For Visit: ACUTE RESPIRATORY DISTRESS,DYSPNEA Physical Exam Vital Signs: Temp Pulse Resp BP Pulse Ox 98.7 F 126 H 21 H 134/77 H 100 06/09/18 15:26 06/09/18 15:26 06/09/18 15:26 06/09/18 15:26 06/09/18 15:26 Intake & Output 06/08/18 06/09/18 06/10/18 06:59 06:59 06:59 Intake Total 2490 1217 177 Balance 2490 1217 177 Weight 98 kg 98.2 kg General appearance: PRESENT: no acute distress, cooperative, obese Respiratory exam: PRESENT: clear to auscultation michelle, unlabored. ABSENT: rales , rhonchi, wheezes Cardiovascular exam: PRESENT: RRR, +S1, +S2. ABSENT: diastolic murmur, systolic murmur GI/Abdominal exam: PRESENT: normal bowel sounds, soft. ABSENT: distended, guarding, rebound, tenderness Extremities exam: PRESENT: full ROM. ABSENT: pedal edema Musculoskeletal exam: PRESENT: normal inspection. ABSENT: deformity Neurological exam: PRESENT: alert, awake, oriented to person, oriented to place , oriented to time Psychiatric exam: PRESENT: appropriate affect, normal mood Results Laboratory Results: 06/08/18 05:51 06/09/18 07:41 06/09/18 07:41 Sodium 138.7 Potassium 4.8 Chloride 102 Carbon Dioxide 24 Anion Gap 13 BUN 15 Creatinine 0.70 Est GFR ( Amer) > 60 Est GFR (Non-Af Amer) > 60 Glucose 125 H Calcium 10.3 H Total Bilirubin 0.4 AST 66 H ALT 56 H Alkaline Phosphatase 167 H Total Protein 8.0 Albumin 4.3 Impressions: Chest X-Ray 06/05/18 13:16 IMPRESSION: Bilateral patchy basilar consolidation, left greater than right. No pleural effusion. Chest/Abdomen CTA 06/05/18 15:08 IMPRESSION: No emboli visualized in the main pulmonary arteries or the segmental branches. Remaining findings are unchanged, left breast neoplastic disease and diffuse metastases to lung and bone. Head MRI 06/06/18 00:00 IMPRESSION: Large metastatic lesion or 2nd primary right frontal and right temporal lobes. EVIDENCE OF ACUTE STROKE: NO. Assessment & Plan - Diagnosis (1) Left breast mass Is this a current diagnosis for this admission?: Yes Plan: Apparently the biopsy material was not sufficient for testing. I am awaiting a callback from a neurosurgeon at [facility]. If they think that surgery is an option for her, then we will defer biopsy until surgery is done on the brain mass and pathology can be done at that time. If they do not think surgery is going to be an option for her, we will go ahead and repeat the biopsy of the left breast mass. (2) Metastatic breast cancer Is this a current diagnosis for this admission?: Yes Plan: Currently awaiting transfer to the [facility] for further evaluation and hopefully for treatment. (3) Brain mass Is this a current diagnosis for this admission?: Yes Plan: Per neurosurgery she will need to have this biopsied as it may represent a second primary tumor. (4) Hypercalcemia Is this a current diagnosis for this admission?: Yes Plan: Resolved
== END 2018-06-09 19:26 | disposition short-term general hospital (02) | DRG 598 ==
LOC: ER 12:56 → EH 17:27 → 3W 19:38
PROVIDERS: ADMIT Internal Medicine; ATTEND Internal Medicine
PROC: 0HBU3ZX Excision of Left Breast, Percutaneous Approach, Diagnostic (ICD-10-PCS; principal; 2018-06-05)
DX: C50.919 Malignant neoplasm of unspecified site of unspecified female breast (principal); J90 Pleural effusion, not elsewhere classified; C78.02 Secondary malignant neoplasm of left lung; C78.01 Secondary malignant neoplasm of right lung; C79.51 Secondary malignant neoplasm of bone; C79.31 Secondary malignant neoplasm of brain; N64.59 Other signs and symptoms in breast; F41.9 Anxiety disorder, unspecified; E83.52 Hypercalcemia; R73.9 Hyperglycemia, unspecified; D72.829 Elevated white blood cell count, unspecified; R01.1 Cardiac murmur, unspecified; R52 Pain, unspecified
CPT/HCPCS: 36415; 70553; 71046; 71275; 80053; 81001; 81211; 81213; 82962; 83036; 83880; 84443; 84484; 85025; 85027; 85610; 85730; 86300; 87040; 88305; 88341; 88342; 93005; 93010; 93306; 94640; 96372; 99285; A9576; J1644; J1815; J1885; J2060; J2270; J2405; J2930; J3490; J7030; J7620; S0028

== ENCOUNTER 2018-07-07 14:10 | Day surgery (SDC) | payer MEDICAID ==
[~2018-07-07 14:10] MED LIST: ACETAMINOPHEN 325 MG TABLET PO PRN; CEFAZOLIN 1 GM/D5W RTU 1 GM/50 ML RTUPB IV ONE; CEFAZOLIN 1 GM/D5W RTU 1 GM/50 ML RTUPB IV PRN
[2018-07-07] MEDS ORDERED: LIDOCAINE 1%/EPINEPHRINE INJ 20 ML VIAL ONE (14:44)
[2018-07-07] MEDS ORDERED: FENTANYL CITRATE INJ/PF 100 MCG/2 ML AMPUL ONE (15:29)
[2018-07-07] MEDS ORDERED: MIDAZOLAM 2 MG/2 ML INJ ONE (15:29)
[2018-07-07] MEDS ORDERED: PROPOFOL INJ 200 MG/20 ML VIAL IV ONE (15:30)
[2018-07-07 15:39] LABS: MEAN CORPUSCULAR HGB CONC 33.2 g/dL (32.0-36.0); MEAN CORPUSCULAR VOLUME 84 fl (80-97); PLATELET COUNT 185 10^3/uL (150-450); RED CELL DISTRIBUTION WIDTH 15.2 % (11.5-14.0); WHITE BLOOD COUNT 17.4 10^3/uL (4.0-10.5)
[2018-07-07] MEDS ORDERED: PROMETHAZINE HCL INJ 25 MG/1 ML VIAL IV PRN ×2 (16:07)
[2018-07-07] MEDS ORDERED: DIPHENHYDRAMINE HCL 50 MG/ML VIAL IV PRN (16:07)
[2018-07-07] MEDS ORDERED: MORPHINE SULFATE 10 MG/ML INJ IV PRN (16:07)
[2018-07-07] MEDS ORDERED: FENTANYL CITRATE INJ/PF 100 MCG/2 ML AMPUL IV PRN ×3 (16:07)
[2018-07-07] MEDS ORDERED: OXYCODONE-ACETAMINOPHEN 5-325 MG TABLET PO PRN ×2 (16:07)
[2018-07-07] MEDS ORDERED: MEPERIDINE HCL/PF INJ 25 MG/1 ML DISP.SYRIN IV PRN (16:07)
--- NOTE | 2018-07-07 16:32 | Discharge Summary ---
Discharge Summary (SDC) - Discharge Final Diagnosis: Metastatic invasive breast carcinoma Date of Surgery: 07/07/18 Discharge Date: 07/07/18 Condition: Good Treatment or Instructions: May use port; resume preoperative medications diet and activity. Return to [place] [facility] in 1-2 weeks. Referrals: NINA JOSEPH MD [Primary Care Provider] - Discharge Diet: As Tolerated Discharge Activity: Activity As Tolerated Home Care Assistance: None Needed Report the Following to Your Physician Immediately: Shortness of Breath, Increase in Pain, Fever over 101 Degrees
--- NOTE | 2018-07-07 16:37 | Operative Report ---
Operative Report DATE OF SURGERY: 07/07/18 PREOPERATIVE DIAGNOSIS: Metastatic invasive breast carcinoma POSTOPERATIVE DIAGNOSIS: Same OPERATION: 1. Focused ultrasound of the right neck. 2. ultrasound directed insertion of daja catheter right IJ. 3. Interpretation of intraoperative fluoroscopy SURGEON: YOANA TAYLOR 1ST DIRECTOR OF ONLINE MERCHANDISING: KILEY RECIO ANESTHESIA: LMAC TISSUE REMOVED OR ALTERED: None COMPLICATIONS: None ESTIMATED BLOOD LOSS: Scant INTRAOPERATIVE FINDINGS: See below PROCEDURE: Patient taken the preop holding her to the main operating room where LMAC anesthesia was induced. Arms tucked, head tilted to the left, the right neck and right chest wall prepped draped sterile fashion Surgical plan and surgical timeout were conducted The right neck was scanned with a variable frequency linear transducer. Skin was anesthetized with 1% plain lidocaine. Using micropuncture technique, the right internal jugular vein was cannulated without difficulty. A micro needle and wire were threaded into position under fluoroscopic guidance. A suitable site for placement of the port was chosen in the right subclavian position. Skin and subcutaneous tissue as well as the subcutaneous tunnel were anesthetized with 1% plain lidocaine. A 3 cm incision was made parallel to the clavicle, and a port pocket developed large enough to accommodate a single- chamber port. The catheter was then trimmed to the appropriate length, tunnel between the 2 incisions, attached to the port and the port and catheter tucked into position. Under fluoroscopic guidance, the micro wire was switched over to a conventional 0.030 wire under fluoroscopic guidance. The 9 Turkish dilator and introducer sheath were threaded over the wire, the dilator and wire removed, and the catheter threaded into position and the sheath stripped away from the catheter leaving the catheter in good position. The tip of the catheter is in superior vena cava. There was no kinking of the catheter. There was excellent aspiration and flushed through the catheter. No evidence of ectopy throughout the procedure. Wounds closed with 3-0 Vicryl benzoin and Steri-Strips. Patient tolerated the procedure well. Patient was taken to recovery room stable condition. The physician photographer's assistant, Ms. Campos, provided assistance during this case by: Assisting retracting tissue, instillation of local anesthesia and closure of skin incisions.
--- NOTE | 2018-07-07 17:01 | RADIOLOGY REPORT (SQ) ---
EXAM DESCRIPTION: FLUORO/CV PLACEMENT COMPLETED DATE/TIME: 07/07/2018 4:44 pm REASON FOR STUDY: PORT A CATH RT SIDE C50.812 MALIGNANT NEOPLASM OF OVRLP SITES OF LEFT FEMALE SHAMAR COMPARISON: None. FLUOROSCOPY TIME: 0.1 minutes Spot images saved to PACS. TECHNIQUE: Intra-operative images acquired during surgical procedure to evaluate progress. NUMBER OF IMAGES: 2 LIMITATIONS: None. FINDINGS: Fluoroscopy was provided for intraoperative procedure. Please refer to the operative repo rt for further discussion. IMPRESSION: IMAGE(S) OBTAINED DURING PROCEDURE. COMMENT: Quality ID [id number]: Final reports for procedures using fluoroscopy that document radiation exp osure indices, or exposure time and number of fluorographic images (if radiation exposure indices are not available) Please consult full operative report of the attending physician for description of the procedure. TECHNICAL DOCUMENTATION: JOB ID: [id number] [employer]- All Rights Reserved Reading location - IP/workstation name: [email or web address]
[2018-07-07] MEDS ORDERED: KETOROLAC TROMETHAMINE 10 MG TABLET ONE (17:23)
[2018-07-07 17:55] VITALS: BP 131/80
== END 2018-07-07 17:50 | disposition home or self-care (01) ==
LOC: OROUT 14:10
PROVIDERS: ATTEND Surgery
DX: C50.812 Malignant neoplasm of overlapping sites of left female breast (principal); D49.6 Neoplasm of unspecified behavior of brain; Z80.3 Family history of malignant neoplasm of breast; J45.909 Unspecified asthma, uncomplicated; E66.9 Obesity, unspecified; Z79.899 Other long term (current) drug therapy; Z79.891 Long term (current) use of opiate analgesic
CPT/HCPCS: 36561; 36415; 84703; 85027; 77001; C1752; C1788; J2250; J0690; J3010; J3490 ×2; J2704; J1642; 532

== ENCOUNTER 2018-08-03 09:59 | Outpatient (CLI) | payer MEDICAID ==
[~2018-08-03 09:59] MED LIST changes: -ACETAMINOPHEN 325 MG TABLET PO PRN; -CEFAZOLIN 1 GM/D5W RTU 1 GM/50 ML RTUPB IV ONE; -CEFAZOLIN 1 GM/D5W RTU 1 GM/50 ML RTUPB IV PRN; +CYCLOPHOSPHAMIDE IV PRN; +DIPHENHYDRAMINE HCL 50 MG in NORMAL SALINE 50 ML IV PRN; +DOCETAXEL IV PRN; +FAMOTIDINE/PF 20 MG in NORMAL SALINE 50 ML IV PRN; +NORMAL SALINE 500 ML IV PRN; +NORMAL SALINE IV PRN; +ONDANSETRON HCL/PF 16 MG, DEXAMETHASONE SOD PHOSPHATE 20 MG in NORMAL SALINE 50 ML IV PRN
[2018-08-03] MEDS: DARBEPOETIN ALFA IN POLYSORBAT 500 MCG/ML SYRINGE SUBCUT PRN ×2 (10:44→13:04)
[2018-08-03 10:51] LABS: ALANINE AMINOTRANSFERASE 63 U/L (9-52); ALBUMIN 3.7 g/dL (3.5-5.0); ALKALINE PHOSPHATASE 184 U/L (38-126); ANION GAP 13 (5-19); ASPARTATE AMINO TRANSFERASE 33 U/L (14-36); BILIRUBIN,DIRECT 0.2 mg/dL (0.0-0.4); BILIRUBIN,TOTAL 0.4 mg/dL (0.2-1.3); CALCIUM 9.2 mg/dL (8.4-10.2); CARBON DIOXIDE 27 mmol/L (22-30); CHLORIDE 98 mmol/L (98-107); SODIUM 137.7 mmol/L (137-145); TOTAL PROTEIN 6.7 g/dL (6.3-8.2)
[2018-08-03 10:57] VITALS: BP 119/68
[2018-08-03 11:39] LABS: BLOOD UREA NITROGEN 8 mg/dL (7-20); GLUCOSE 394 mg/dL (75-110); POTASSIUM 4.4 mmol/L (3.6-5.0)
== END 2018-08-03 15:19 | disposition home or self-care (01) ==
LOC: II 09:59 → 5TH 10:45 → II 15:19
PROVIDERS: ATTEND Internal Medicine Hematology & Oncology
PROC: 3E013GC Introduction of Other Therapeutic Substance into Subcutaneous Tissue, Percutaneous Approach (ICD-10-PCS; principal; 2018-08-03)
PROC: 3E04305 Introduction of Other Antineoplastic into Central Vein, Percutaneous Approach (ICD-10-PCS; 2018-08-03)
PROC: 3E043GC Introduction of Other Therapeutic Substance into Central Vein, Percutaneous Approach (ICD-10-PCS; 2018-08-03)
DX: Z51.11 Encounter for antineoplastic chemotherapy (principal); C50.812 Malignant neoplasm of overlapping sites of left female breast; C79.51 Secondary malignant neoplasm of bone; C78.00 Secondary malignant neoplasm of unspecified lung; D70.2 Other drug-induced agranulocytosis; D64.81 Anemia due to antineoplastic chemotherapy; Z79.899 Other long term (current) drug therapy
CPT/HCPCS: 36415; 84443; 80053; 96413; 96415; 96367; 96368; 96372; 96360; 96361; 96417; J9070; J1200; J2405; J7050; J7040; S0028; J1100; J0881; J9171

== ENCOUNTER 2018-08-04 15:02 | Outpatient (CLI) | payer MEDICAID ==
[~2018-08-04 15:02] MED LIST changes: -CYCLOPHOSPHAMIDE IV PRN; -DIPHENHYDRAMINE HCL 50 MG in NORMAL SALINE 50 ML IV PRN; -DOCETAXEL IV PRN; -FAMOTIDINE/PF 20 MG in NORMAL SALINE 50 ML IV PRN; -NORMAL SALINE 500 ML IV PRN; -NORMAL SALINE IV PRN; -ONDANSETRON HCL/PF 16 MG, DEXAMETHASONE SOD PHOSPHATE 20 MG in NORMAL SALINE 50 ML IV PRN; +PEGFILGRASTIM INJ 6 MG/0.6 ML DISP.SYRIN SUBCUT PRN
[2018-08-04 15:57] VITALS: BP 128/82
== END 2018-08-04 16:00 | disposition home or self-care (01) ==
LOC: II 15:02 → 5TH 15:15 → II 16:00
PROVIDERS: ATTEND Internal Medicine
PROC: 3E013GC Introduction of Other Therapeutic Substance into Subcutaneous Tissue, Percutaneous Approach (ICD-10-PCS; principal; 2018-08-04)
DX: Z76.89 Persons encountering health services in other specified circumstances (principal); C50.812 Malignant neoplasm of overlapping sites of left female breast; C79.51 Secondary malignant neoplasm of bone; C78.00 Secondary malignant neoplasm of unspecified lung; D70.2 Other drug-induced agranulocytosis; D64.81 Anemia due to antineoplastic chemotherapy
CPT/HCPCS: 96372; J2505

== ENCOUNTER 2018-08-25 10:43 | Outpatient (CLI) | payer MEDICAID ==
[~2018-08-25 10:43] MED LIST changes: +CYCLOPHOSPHAMIDE IV PRN; +DARBEPOETIN ALFA IN POLYSORBAT 500 MCG/ML SYRINGE SUBCUT PRN; +DIPHENHYDRAMINE HCL 50 MG in NORMAL SALINE 50 ML IV PRN; +DOCETAXEL 155 MG in NORMAL SALINE 250 ML IV PRN; +FAMOTIDINE/PF 20 MG in NORMAL SALINE 50 ML IV PRN; +NORMAL SALINE 500 ML IV PRN; +NORMAL SALINE IV PRN; +ONDANSETRON HCL/PF 16 MG, DEXAMETHASONE SOD PHOSPHATE 20 MG in NORMAL SALINE 50 ML IV PRN; -PEGFILGRASTIM INJ 6 MG/0.6 ML DISP.SYRIN SUBCUT PRN; +ZOLEDRONIC ACID 4 MG/100 ML RTU IV PRN
[2018-08-25 11:40] VITALS: BP 160/90
[2018-08-25] MEDS ORDERED: NORMAL SALINE IV PRN ×2 (12:44→12:45)
[2018-08-25] MEDS ORDERED: DOCETAXEL IV PRN (12:44)
[2018-08-25] MEDS ORDERED: CYCLOPHOSPHAMIDE IV PRN (12:45)
== END 2018-08-25 16:59 | disposition home or self-care (01) ==
LOC: II 10:43 → 5TH 10:52 → II 16:59
PROVIDERS: ATTEND Internal Medicine Hematology & Oncology
PROC: 3E013GC Introduction of Other Therapeutic Substance into Subcutaneous Tissue, Percutaneous Approach (ICD-10-PCS; principal; 2018-08-25)
PROC: 3E04305 Introduction of Other Antineoplastic into Central Vein, Percutaneous Approach (ICD-10-PCS; 2018-08-25)
PROC: 3E043GC Introduction of Other Therapeutic Substance into Central Vein, Percutaneous Approach (ICD-10-PCS; 2018-08-25)
DX: Z51.11 Encounter for antineoplastic chemotherapy (principal); C50.812 Malignant neoplasm of overlapping sites of left female breast; C79.51 Secondary malignant neoplasm of bone; C78.00 Secondary malignant neoplasm of unspecified lung; D64.81 Anemia due to antineoplastic chemotherapy; D70.2 Other drug-induced agranulocytosis; E55.9 Vitamin D deficiency, unspecified
CPT/HCPCS: 96413; 96415; 96367; 96360; J9070; J1200; J2405; J7050; J7040; S0028; J1100; J0881; J9171; 96361; 96372; 96417; J3489

== ENCOUNTER 2018-08-26 16:09 | Outpatient (CLI) | payer MEDICAID ==
[~2018-08-26 16:09] MED LIST changes: -CYCLOPHOSPHAMIDE IV PRN; -DARBEPOETIN ALFA IN POLYSORBAT 500 MCG/ML SYRINGE SUBCUT PRN; -DIPHENHYDRAMINE HCL 50 MG in NORMAL SALINE 50 ML IV PRN; -DOCETAXEL 155 MG in NORMAL SALINE 250 ML IV PRN; -FAMOTIDINE/PF 20 MG in NORMAL SALINE 50 ML IV PRN; -NORMAL SALINE 500 ML IV PRN; -NORMAL SALINE IV PRN; -ONDANSETRON HCL/PF 16 MG, DEXAMETHASONE SOD PHOSPHATE 20 MG in NORMAL SALINE 50 ML IV PRN; +PEGFILGRASTIM INJ 6 MG/0.6 ML DISP.SYRIN SUBCUT PRN; -ZOLEDRONIC ACID 4 MG/100 ML RTU IV PRN
[2018-08-26 16:25] VITALS: BP 122/81
== END 2018-08-26 16:30 | disposition home or self-care (01) ==
LOC: II 16:09 → 5TH 16:12 → II 16:30
PROVIDERS: ATTEND Internal Medicine Hematology & Oncology
DX: Z51.11 Encounter for antineoplastic chemotherapy (principal); C50.812 Malignant neoplasm of overlapping sites of left female breast; D64.81 Anemia due to antineoplastic chemotherapy; E83.52 Hypercalcemia; C79.51 Secondary malignant neoplasm of bone; C78.00 Secondary malignant neoplasm of unspecified lung; Z79.899 Other long term (current) drug therapy; Z79.891 Long term (current) use of opiate analgesic; E55.9 Vitamin D deficiency, unspecified
CPT/HCPCS: 96372; J2505

== ENCOUNTER → 2018-08-30 | Outpatient (CLI) | payer MEDICAID ==
--- NOTE | 2018-08-30 14:23 | RADIOLOGY REPORT (SQ) ---
EXAM DESCRIPTION: MRI LUMBAR SPINE COMBO COMPLETED DATE/TIME: 08/30/2018 2:07 pm REASON FOR STUDY: BREAST CA (C50.812) C50.812 MALIGNANT NEOPLASM OF OVRLP SITES OF LEFT FEMALE SHAMAR COMPARISON: None. TECHNIQUE: Sagittal and Axial imaging includes T1, T1 post gadolinium, T2, STIR and gradient echo se quences. Coronal T2/HASTE imaging. CONTRAST TYPE AND DOSE: 20 mL Dotarem. RENAL FUNCTION: None required. The patient is less than 50 years old. LIMITATIONS: None. FINDINGS: VISUALIZED UPPER ABDOMEN: Limited evaluation. No acute or suspicious findings suggested. SEGMENTATION: No transitional anatomy. The lowest well-developed disc space is labeled L5-S1. ALIGNMENT: Anatomic. VERTEBRAE: Intact. No fractures. BONE MARROW: Normal. No marrow replacement or reactive changes. DISC SIGNAL: Normal. No significant abnormal signal or loss of height. POSTERIOR ELEMENTS: Generally intact. No pars defect evident. HARDWARE: None in the spine. CORD AND CONUS: Normal in size and signal intensity. Conus at the L1- 2 level. SOFT TISSUES: No aortic aneurysm seen. No bulky retroperitoneal adenopathy or mass. No paraspinal mas s or fluid. L1-L2: No significant spinal stenosis or exit foraminal stenosis. L2-L3: No significant spinal stenosis or exit foraminal stenosis. L3-L4: No significant spinal stenosis or exit foraminal stenosis. L4-L5: No significant spinal stenosis or exit foraminal stenosis. L5-S1: No significant spinal stenosis or exit foraminal stenosis. LOWER THORACIC: Incompletely imaged. No stenosis seen. SACRUM: Visualized upper sacrum intact. ENHANCEMENT: No abnormal enhancement. OTHER: No other significant findings. IMPRESSION: NORMAL MRI LUMBAR SPINE. TECHNICAL DOCUMENTATION: JOB ID: [id number] [employer]- All Rights Reserved Reading location - IP/workstation name: [email or web address]
--- NOTE | 2018-08-30 14:45 | RADIOLOGY REPORT (SQ) ---
EXAM DESCRIPTION: MRI THORACIC SPINE COMBO COMPLETED DATE/TIME: 08/30/2018 2:07 pm REASON FOR STUDY: BREAST CA (C50.812) C50.812 MALIGNANT NEOPLASM OF OVRLP SITES OF LEFT FEMALE SHAMAR COMPARISON: None. TECHNIQUE: Sagittal and Axial imaging includes T1, T2, STIR and gradient echo sequences. T1 post ga dolinium sequences. CONTRAST TYPE AND DOSE: 20 mL Dotarem. RENAL FUNCTION: None required. The patient is less than 50 years old. LIMITATIONS: None. FINDINGS: LOCALIZER: No worrisome findings. ALIGNMENT: Normal. VERTEBRAE: Intact. BONE MARROW: Normal. No marrow replacement or reactive changes. HARDWARE: None in the spine. CORD: Normal in size and signal intensity. SOFT TISSUES: No soft tissue masses. THORACIC DISCS T1-T12: No significant spinal stenosis or exit foraminal stenosis. LOWER CERVICAL: Incompletely imaged. No significant spinal stenosis or exit foraminal stenosis. UPPER LUMBAR: Incompletely imaged. No significant spinal stenosis or exit foraminal stenosis. ENHANCEMENT: No abnormal enhancement. OTHER: No other significant finding. IMPRESSION: NORMAL MRI THORACIC SPINE. TECHNICAL DOCUMENTATION: JOB ID: [id number] [employer]- All Rights Reserved Reading location - IP/workstation name: [email or web address]
== END ==
LOC: RAD 12:15
PROVIDERS: ATTEND Physician Assistant Medical
DX: C50.812 Malignant neoplasm of overlapping sites of left female breast (principal)
CPT/HCPCS: 72157; 72158; A9576

== ENCOUNTER → 2018-11-01 | Outpatient (CLI) | payer MEDICAID ==
--- NOTE | 2018-11-01 15:46 | RADIOLOGY REPORT (SQ) ---
EXAM DESCRIPTION: NM WHOLE BODY BONE SCAN COMPLETED DATE/TIME: 11/01/2018 2:39 pm REASON FOR STUDY: BREAST CA (C50.812) C50.812 MALIGNANT NEOPLASM OF OVRLP SITES OF LEFT FEMALE SHAMAR COMPARISON: MR T-spine 08/30/2018. MR L-spine 08/30/2018 RADIONUCLIDE AND DOSE: 20 millicuries Tc99m HDP. The route of agent administration: Intravenous. ADDITIONAL DRUGS AND DOSES: None. TECHNIQUE: Routine delayed images at 3 hours post radionuclide injection acquired of the bony skelet on including anterior and posterior whole-body projections and additional focused images as needed. LIMITATIONS: None. FINDINGS: BONES: There is uptake in the right 11th rib. There is mild uptake in the proximal right 4th rib. There is increased uptake in the left sacrum. There is increased uptake in the distal clav icle and acromion on the left. KIDNEYS: Symmetric excretion without obstruction. OTHER: No other significant finding. IMPRESSION: Cannot exclude metastatic disease to bone. The activity in the left distal clavicle and acromion may suggest degenerative changes in the AC joint. COMMENT: Quality measure 147: Current bone scan is compared with any available plain radiographs, p rior bone scans, and CT/MRI. TECHNICAL DOCUMENTATION: JOB ID: [id number] [employer]- All Rights Reserved Reading location - IP/workstation name: [email or web address]
== END ==
LOC: RAD 11:03
PROVIDERS: ATTEND Internal Medicine Hematology & Oncology
DX: C50.812 Malignant neoplasm of overlapping sites of left female breast (principal)
CPT/HCPCS: 78306; A9561

== ENCOUNTER → 2018-11-04 | Outpatient (CLI) | payer MEDICAID ==
--- NOTE | 2018-11-04 12:36 | RADIOLOGY REPORT (SQ) ---
EXAM DESCRIPTION: CT CHEST WITH COMPLETED DATE/TIME: 11/04/2018 10:22 am REASON FOR STUDY: BREAST CA (C50.412) C50.412 MALIG NEOPLASM OF UPPER-OUTER QUADRANT OF LEFT FEMAL COMPARISON: 06/05/2018 TECHNIQUE: CT scan of the chest performed using helical scanning technique with dynamic intravenous contrast injection. Images reviewed with lung, soft tissue and bone windows. Reconstructed coronal and sagittal MPR and MIP images reviewed. All images stored on PACS. All CT scanners at this facility use dose modulation, iterative reconstruction, and/or weight based d osing when appropriate to reduce radiation dose to as low as reasonably achievable (ALARA). [facility]: Dose Right [facility]: CareDose [facility]: Dose Right [facility]: Teradose 4D [facility]: FX Aligned CONTRAST TYPE AND DOSE: 100 mL Omnipaque 350- low osmolar. RENAL FUNCTION: Creatinine 0.5 RADIATION DOSE: . LIMITATIONS: None. FINDINGS: LUNGS AND PLEURA: There is a small area of residual scarring in the left apex. The multip le pulmonary nodules present on prior study have resolved. HILAR AND MEDIASTINAL STRUCTURES: No identified masses or abnormal nodes. HEART AND VASCULAR STRUCTURES: No aneurysm or dissection. No central pulmonary emboli. No pericardi al effusion. HARDWARE: Injection port on the right. UPPER ABDOMEN: See separate report of the CT of the abdomen. THYROID AND OTHER SOFT TISSUES: No masses. No adenopathy. BONES: There are occasional lytic lesions in the bones. There appears to be improvement. OTHER: There is markedly decreased parenchymal density in the left breast. There is considerable ski n thickening. IMPRESSION: 1. The pulmonary nodules present on prior study have resolved. There is 1 area of resi dual scarring in the left apex. There is also improvement in the appearance of the bones. 2. There is decreased density in the left breast. TECHNICAL DOCUMENTATION: JOB ID: [id number] Quality ID # [id number]: Final reports with documentation of one or more dose reduction techniques (e.g., Au tomated exposure control, adjustment of the mA and/or kV according to patient size, use of iterative reconstruction technique) 2010 [employer]- All Rights Reserved Reading location - IP/workstation name: [email or web address]
--- NOTE | 2018-11-04 12:45 | RADIOLOGY REPORT (SQ) ---
EXAM DESCRIPTION: CT ABD/PELVIS WITH IV ORAL COMPLETED DATE/TIME: 11/04/2018 10:22 am REASON FOR STUDY: BREAST CA (C50.412) C50.412 MALIG NEOPLASM OF UPPER-OUTER QUADRANT OF LEFT FEMAL COMPARISON: None. TECHNIQUE: CT scan of the abdomen and pelvis performed using helical scanning technique with dynamic intravenous contrast injection. Oral contrast. Images reviewed with lung, soft tissue, and bone win dows. Reconstructed coronal and sagittal MPR images reviewed. Delayed images for evaluation of the ur inary system also acquired. All images stored on PACS. All CT scanners at this facility use dose modulation, iterative reconstruction, and/or weight based d osing when appropriate to reduce radiation dose to as low as reasonably achievable (ALARA). [facility]: Dose Right [facility]: CareDose [facility]: Dose Right [facility]: Teradose 4D [facility]: [employer] CONTRAST TYPE AND DOSE: contrast/concentration: Isovue 350.00 mg/ml; Total Contrast Delivered: 100.0 ml; Total Saline Delivered: 72.0 ml RENAL FUNCTION: Creatinine 0.5 RADIATION DOSE: CT Rad equipment meets quality standard of care and radiation dose reduction techniq ues were employed. CTDIvol: 7.4 - 9.0 mGy. DLP: 1298 mGy-cm.. LIMITATIONS: None. FINDINGS: LOWER CHEST: See separate report of the CT of the chest. LIVER: Normal size. No masses. No dilated ducts. SPLEEN: Normal size. No focal lesions. PANCREAS: No masses. No significant calcifications. No adjacent inflammation or peripancreatic fluid collections. Pancreatic duct not dilated. GALLBLADDER: No identified stones by CT criteria. No inflammatory changes to suggest cholecystitis. ADRENAL GLANDS: No significant masses or asymmetry. RIGHT KIDNEY AND URETER: No solid masses. No significant calcifications. No hydronephrosis or hyd roureter. LEFT KIDNEY AND URETER: No solid masses. No significant calcifications. No hydronephrosis or hydr oureter. AORTA AND VESSELS: No aneurysm. No dissection. Renal arteries, SMA, celiac without stenosis. RETROPERITONEUM: No retroperitoneal adenopathy, hemorrhage or masses. BOWEL AND PERITONEAL CAVITY: No masses or inflammatory changes. No free fluid or peritoneal masses. APPENDIX: Normal. PELVIS: No mass. No free fluid. Normal bladder. ABDOMINAL WALL: No masses. No hernias. BONES: There are some small lytic lesions in the bones. OTHER: No other significant finding. IMPRESSION: There is mild metastatic disease to the bones. No intra-abdominal or intrapelvic metast ases are seen. TECHNICAL DOCUMENTATION: JOB ID: [id number] Quality ID # [id number]: Final reports with documentation of one or more dose reduction techniques (e.g., Au tomated exposure control, adjustment of the mA and/or kV according to patient size, use of iterative reconstruction technique) 2010 [employer] All Rights Reserved Reading location - IP/workstation name: [email or web address]
== END ==
LOC: RAD 08:59
PROVIDERS: ATTEND Internal Medicine Hematology & Oncology
DX: C50.412 Malignant neoplasm of upper-outer quadrant of left female breast (principal)
CPT/HCPCS: 71260; 74177; 82565

== ENCOUNTER 2019-02-08 11:07 | Emergency (ER) | payer MEDICAID ==
[2019-02-08 12:07] LABS: ABSOLUTE EOSINOPHILS # (AUTO) 0.1 10^3/uL (0.0-0.6); ABSOLUTE LYMPHOCYTES (AUTO) 1.8 10^3/uL (0.5-4.7); ABSOLUTE MONOCYTES (AUTO) 0.4 10^3/uL (0.1-1.4); ABSOLUTE NEUT (AUTO) 4.9 10^3/uL (1.7-8.2); BASOPHILS % (AUTO) 0.2 % (0-2); EOSINOPHILS % (AUTO) 1.2 % (0-6); HEMATOCRIT 36.5 % (36.0-47.0); HEMOGLOBIN 12.1 g/dL (12.0-15.5); LYMPHOCYTES % (AUTO) 25.6 % (13-45); MEAN CORPUSCULAR HEMOGLOBIN 27.7 pg (27.0-33.4); MEAN CORPUSCULAR HGB CONC 33.2 g/dL (32.0-36.0); MEAN CORPUSCULAR VOLUME 83 fl (80-97); PLATELET COUNT 264 10^3/uL (150-450); RED BLOOD COUNT 4.38 10^6/uL (3.72-5.28); RED CELL DISTRIBUTION WIDTH 15.1 % (11.5-14.0); TOTAL CELLS COUNTED % (AUTO) 100 %; WHITE BLOOD COUNT 7.2 10^3/uL (4.0-10.5)
--- NOTE | 2019-02-08 12:11 | ER Document Report ---
ED GI/ - General Chief Complaint: Abdominal Pain Stated Complaint: ABDOMINAL PAIN Time Seen by Provider: 02/08/19 11:52 Primary Care Provider: REE GONZALES MD [Primary Care Provider] - Follow up as needed Notes: Patient is complaining of pains in her lower abdomen for the past 5 days. Pains have been intermittent. Ibuprofen helps some for a while but they come back. She is vomited once yesterday. Has diarrhea chronically from metformin so no change there. No blood in stools. Patient is also having migraine headaches, primarily in the evening times. These are headaches that she has had previously. Patient has a history of breast cancer, having been diagnosed with stage IV and treated with chemo, no surgery and no radiation. She has finished the chemo and takes tamoxifen daily and Zometa monthly. Had some chest tightness this morning, but no other chest pain or symptoms. Has asthma, but does not have problems with it currently. Has not had any fever. Patient is on propanolol for her heart rate. NIDDM. Patient also has apparently benign brain tumor which was diagnosed last year, in May, and its being observed at [facility]. It is not changed in size and does not cause any problems so they are continuing to watch this tumor. No treatment thus far. Told by her neurologist that should she have headaches, she should come to the emergency department. TRAVEL OUTSIDE OF THE [place] IN LAST 30 DAYS: No - Related Data Allergies/Adverse Reactions: No Known Allergies Allergy (Verified 07/07/18 15:35) Past Medical History - Social History Smoking Status: Never Smoker Family History: Reviewed & Not Pertinent - Past Medical History Cardiac Medical History: Reports: Hx Hypertension, Hx Heart Murmur Pulmonary Medical History: Reports: Hx Asthma - BRONCHIAL, Hx Bronchitis Neurological Medical History: Reports: Hx Migraine, Hx Seizures, Other - Brain tumor, diagnosed May,.. Denies: Hx Cerebrovascular Accident Endocrine Medical History: Reports: Hx Diabetes Mellitus Type 2 Infectious Medical History: Reports: None Surgical Hx: Negative Past Surgical History: Reports: Other - Mather teeth extraction. - Immunizations Hx Diphtheria, Pertussis, Tetanus Vaccination: No Review of Systems - Review of Systems Notes: REVIEW OF SYSTEMS: CONSTITUTIONAL : Denies fever. EENT: Denies eye, ear, nose or mouth or throat pain or other symptoms. CARDIOVASCULAR: Denies chest pain. Some tightness this morning, but not present now and not present before this morning. RESPIRATORY: Denies cough, chest congestion, or shortness of breath. GASTROINTESTINAL: See HPI. GENITOURINARY: Denies difficulty or painful urinating, urinary frequency, blood in urine. MUSCULOSKELETAL: Denies back or neck pain. Denies joint pain or swelling. SKIN: Denies rash or skin lesions. NEUROLOGICAL: Headache, see HPI. Denies LOC or altered mental status. Denies sensory loss or motor deficits. ALL OTHER SYSTEMS REVIEWED AND NEGATIVE. Physical Exam - Vital signs Vitals: Temp Pulse Resp BP Pulse Ox 97.7 F 95 18 135/75 H 97 02/08/19 11:12 02/08/19 11:12 02/08/19 11:12 02/08/19 11:12 02/08/19 11:12 Interpretation: Normal Notes: PHYSICAL EXAMINATION: GENERAL: Well-appearing, in no acute distress. HEAD: Atraumatic, normocephalic. EYES: Pupils equal round and reactive to light, extraocular movements intact. ENT: oropharynx clear without exudates. Moist mucous membranes. NECK: Normal range of motion, supple. LUNGS: Breath sounds clear and equal bilaterally. HEART: Regular rate and rhythm without murmurs. ABDOMEN: Soft, minor tenderness in the suprapubic region. Definitely No guarding or rebound. No masses. BACK: No tenderness throughout entire back. EXTREMITIES: Normal range of motion without pain. NEUROLOGICAL: Normal speech, normal gait. Normal sensory, motor, and reflex exams. Awake, alert, and oriented x3. Cranial nerves normal. PSYCH: Normal mood, normal affect. SKIN: Warm, dry, no rashes. Course - Re-evaluation Re-evalutation: 02/08/19 18:[address] Jeniffer White in [place]. Patient has an appointment to see her in 2 weeks. From the appearance of the CT scan compared to the previous MRI of May, it does not seem to be any significant change or any reason to alter the plans for the patient to see Dr. White in 2 weeks as scheduled. Patient was advised to return if any significant change in her symptoms such as significant worsening of her headache, changes in her vision, vomiting uncontrollably, etc. After discussions with Dr. White I wrote the patient prescriptions for Phenergan and Percocets for headaches. - Vital Signs Vital signs: Temp Pulse Resp BP Pulse Ox 98.3 F 95 15 117/83 100 02/08/19 15:00 02/08/19 11:12 02/08/19 15:00 02/08/19 13:01 02/08/19 15:00 - Laboratory Result Diagrams: 02/08/19 11:36 02/08/19 11:36 Laboratory results interpreted by me: 02/08/19 02/08/19 02/08/19 11:36 11:36 11:36 RDW 15.1 H Glucose 121 H Urine Ascorbic Acid 40 H - Diagnostic Test Radiology reviewed: Image reviewed, Reports reviewed - CT scan of the abdomen and pelvis with IV contrast was obtained and it was essentially normal. She has a left ovarian cyst but no other significant findings on that scan. CT of the head shows a mass in the right frontal region which does not appear to be significantly different than it was on an MRI done in May,. There is some movement across the midline and mass-effect present These findings were pr esent on the MRI in May. Discharge - Discharge Clinical Impression: Abdominal pain, Ovarian cyst, Headache Condition: Stable Disposition: HOME, SELF-CARE Additional Instructions: ABDOMINAL PAIN: There are many causes of abdominal pain. Pain can mean a serious problem requiring surgery (such as appendicitis). It can also be an innocent problem that goes away on its own (such as a viral infection). Often, time must pass to determine the cause of pain. The physician does not feel that hospitalization is necessary, at present. Things may change within the next 24 hours. Call the doctor or come back for re- examination if any problems occur, such as: (1) Pain that becomes more severe, steady, or becomes concentrated in one specific area. Also, pain that is more severe with movement or coughing. (2) Vomiting that persists or becomes more frequent. (3) Blood in the vomitus, urine, or bowel movements. Blood in the stool may have a tarry or black appearance. (4) Shaking chills or fever greater than 100 degrees F. (5) The abdomen becomes more distended or swollen. (6) Bowel movements cease. (7) Failure to improve as expected. NORMAL EXAM AND WORKUP: At this time, your examination and workup show no significant abnormality. No significant abnormal physical findings are noted. All laboratory, EKG, and imaging (x-ray, CT scans, ultrasound) studies that were ordered show no sign ificant abnormality. Although your examination and all studies that were ordered showed no sign ificant abnormal finding, there are no examinations and no studies that are 100% accurate. There is always the possibility that some abnormality could exist and not be detected with physical examination or within the limits and capabilities of laboratory and other studies. You should return or follow up as you were instructed on your visit today for further evaluation if your symptoms do not resolve. ANTINAUSEA MEDICATION: You have been given a medication to suppress nausea and vomiting. This type of medication can be given as a shot, pill, or suppository. It will usually last for many hours. Pills and shots usually last six to eight hours, suppositories last about 12 hours. For the typical illness, only one or two doses of the medication may be necessary. Mild lightheadedness may occur. This type of medicine can cause drowsiness. Do not drive or operate dangerous machinery while under its influence. Do not mix with alcohol. See your doctor at once if you have muscle spasms or tightness, or uncontrollable motions (particularly of the neck, mouth, or jaw). Persistent vomiting or severe lightheadedness should also be evaluated by the physician. HEADACHE: The physician does not feel that the headache you are experiencing has a serious underlying cause. Most headaches are due to emotional stress, with resultant muscle tension (tension headache). Occasionally, headaches are secondary to changes in the blood vessels of the scalp (vascular headache and migraine headache). Sometimes, a headache is the first symptom of another developing illness, such as a viral infection. You have no evidence of stroke, bleeding, meningitis, or other serious cause of your headache. The treatment of headaches varies with the severity and cause of the pain. Not all headaches need pain shots. In fact, there is evidence that using narcotics for headaches may make them worse in the long run. The physician will determine the therapy that's in your best interest. If you develop a fever, if the headache is different from any you've previously experienced, or if the headache progressively worsens, then call your physician at once or go to the emergency room. ORAL NARCOTIC MEDICATION: You have been given a prescription for pain control. This medication is a narcotic. It's best taken with food, as nausea can result if taken on an empty stomach. Don't operate machinery or drive within six hours of taking this medication. Do not combine this medicine with alcohol, or with any medication which can cause sedation (such as cold tablets or sleeping pills) unless you get permission from the physician. Narcotics tend to cause constipation. If possible, drink plenty of fluids and eat a diet high in fiber and fruits. Please be aware that prescription narcotics also have the potential for abuse. People become addicted to these medications because of the general sense of wellbeing that they induce. This feeling along with a significant reduction in tension, anxiety, and aggression provides a stimulating seductive quality to these drugs. Once your pain is under control, we encourage you to discard your unused narcotics. FOLLOW-UP CARE: If you have been referred to a physician for follow-up care, call the physicians office for an appointment as you were instructed or within the next two days. If you experience worsening or a significant change in your symptoms, notify the physician immediately or return to the Emergency Department at any time for re-evaluation. Prescriptions: Oxycodone HCl/Acetaminophen [Percocet 5-325 mg Tablet] 1 - 2 tab PO Q4HP PRN #20 tablet PRN Reason: Promethazine HCl [Phenergan 25 mg Tablet] 1 - 2 tab PO Q6HP PRN #15 tablet PRN Reason: Referrals: REE GONZLAES MD [Primary Care Provider] - Follow up as needed
[2019-02-08 12:23] LABS: ALANINE AMINOTRANSFERASE 19 U/L (9-52); ALBUMIN 4.4 g/dL (3.5-5.0); ALKALINE PHOSPHATASE 42 U/L (38-126); ANION GAP 11 (5-19); ASPARTATE AMINO TRANSFERASE 16 U/L (14-36); BILIRUBIN,DIRECT 0.1 mg/dL (0.0-0.4); BILIRUBIN,TOTAL 0.2 mg/dL (0.2-1.3); BLOOD UREA NITROGEN 9 mg/dL (7-20); CALCIUM 10.1 mg/dL (8.4-10.2); CARBON DIOXIDE 26 mmol/L (22-30); CHLORIDE 104 mmol/L (98-107); GLUCOSE 121 mg/dL (75-110); LIPASE 106.5 U/L (23-300); POTASSIUM 4.1 mmol/L (3.6-5.0); TOTAL PROTEIN 7.6 g/dL (6.3-8.2)
[2019-02-08 12:30] LABS: APPEARANCE,URINE SLIGHTLY-CLOUDY; BILIRUBIN,URINE NEGATIVE (NEGATIVE); COLOR,URINE YELLOW; GLUCOSE, URINE NEGATIVE (NEGATIVE); KETONES,URINE NEGATIVE (NEGATIVE); LEUKOCYTE ESTERASE,URINE NEGATIVE (NEGATIVE); NITRITE,URINE NEGATIVE (NEGATIVE); PROTEIN,URINE NEGATIVE (NEGATIVE); URINE SPECIFIC GRAVITY 1.015; UROBILINOGEN,URINE NEGATIVE mg/dL (<2.0)
--- NOTE | 2019-02-08 14:02 | RADIOLOGY REPORT (SQ) ---
EXAM DESCRIPTION: CT ABD/PELVIS WITH IV ONLY COMPLETED DATE/TIME: 02/08/2019 1:37 pm REASON FOR STUDY: Lower abdominal cramping for 5 days. COMPARISON: 11/04/2018 TECHNIQUE: CT scan of the abdomen and pelvis performed using helical scanning technique with dynamic intravenous contrast injection. No oral contrast. Images reviewed with lung, soft tissue, and bone windows. Reconstructed coronal and sagittal MPR images reviewed. Delayed images for evaluation of the urinary system also acquired. All images stored on PACS. All CT scanners at this facility use dose modulation, iterative reconstruction, and/or weight based d osing when appropriate to reduce radiation dose to as low as reasonably achievable (ALARA). [facility]: Dose Right [facility]: CareDose [facility]: Dose Right [facility]: Teradose 4D [facility]: [employer] CONTRAST TYPE AND DOSE: contrast/concentration: Isovue 350.00 mg/ml; Total Contrast Delivered: 100.0 ml; Total Saline Delivered: 70.0 ml RENAL FUNCTION: GFR > 60. RADIATION DOSE: CT Rad equipment meets quality standard of care and radiation dose reduction techniq ues were employed. CTDIvol: 12.1 - 15.8 mGy. DLP: 1670 mGy-cm.. LIMITATIONS: None. FINDINGS: LOWER CHEST: Hiatal hernia. LIVER: Steatosis. Normal size. No masses. No dilated ducts. SPLEEN: Normal size. No focal lesions. PANCREAS: No masses. No significant calcifications. No adjacent inflammation or peripancreatic fluid collections. Pancreatic duct not dilated. GALLBLADDER: No identified stones by CT criteria. No inflammatory changes to suggest cholecystitis. ADRENAL GLANDS: No significant masses or asymmetry. RIGHT KIDNEY AND URETER: Cortical cysts. No solid masses. No significant calcifications. No hydr onephrosis or hydroureter. LEFT KIDNEY AND URETER: Cortical cysts. No solid masses. No significant calcifications. No hydro nephrosis or hydroureter. AORTA AND VESSELS: No aneurysm. No dissection. Renal arteries, SMA, celiac without stenosis. RETROPERITONEUM: No retroperitoneal adenopathy, hemorrhage or masses. BOWEL AND PERITONEAL CAVITY: No masses or inflammatory changes. No free fluid or peritoneal masses. APPENDIX: Normal. PELVIS: 3 cm cyst left ovary. No free fluid. ABDOMINAL WALL: Small fat containing umbilical hernia. BONES: No significant or acute findings. OTHER: No other significant finding. IMPRESSION: Left ovarian cyst. TECHNICAL DOCUMENTATION: JOB ID: [id number] Quality ID # [id number]: Final reports with documentation of one or more dose reduction techniques (e.g., Au tomated exposure control, adjustment of the mA and/or kV according to patient size, use of iterative reconstruction technique) 2010 [employer]- All Rights Reserved Reading location - IP/workstation name: [email or web address]-
--- NOTE | 2019-02-08 14:03 | RADIOLOGY REPORT (SQ) ---
EXAM DESCRIPTION: CT HEAD WITHOUT COMPLETED DATE/TIME: 02/08/2019 1:37 pm REASON FOR STUDY: Headache, Hx MHA, Hx brain tumor. COMPARISON: 06/06/2018 MRI TECHNIQUE: Axial images acquired through the brain without intravenous contrast. Images reviewed wi th bone, brain and subdural windows. Images stored on PACS. All CT scanners at this facility use dose modulation, iterative reconstruction, and/or weight based d osing when appropriate to reduce radiation dose to as low as reasonably achievable (ALARA). [facility]: Dose Right [facility]: CareDose [facility]: Dose Right [facility]: Teradose 4D [facility]: [employer] RADIATION DOSE: CT Rad equipment meets quality standard of care and radiation dose reduction techniq ues were employed. CTDIvol: 53.2 mGy. DLP: 1070 mGy-cm. mGy. LIMITATIONS: None. FINDINGS: VENTRICLES: Normal size and contour. CEREBRUM: No hemorrhage. Similar 6 cm hypodense right frontal -temporal mass with mass effect on th e anterior horn of the right lateral ventricle and 5 mm midline shift. No evidence for acute infarct ion. CEREBELLUM: No masses. No hemorrhage. No alteration of density. No evidence for acute infarction. EXTRAAXIAL SPACES: No fluid collections. No masses. ORBITS AND GLOBE: No intra- or extraconal masses. Normal contour of globe without masses. CALVARIUM: No fracture. PARANASAL SINUSES: Trace left maxillary sinus fluid. SOFT TISSUES: No mass or hematoma. OTHER: No other significant finding. IMPRESSION: No hemorrhage. Similar 6 cm hypodense right frontal -temporal mass with mass effect on the anterior horn of the right lateral ventricle and 5 mm midline shift. No evidence for acute infar ction. EVIDENCE OF ACUTE STROKE: NO. COMMENT: Quality ID # 436: Final reports with documentation of one or more dose reduction techniques (e.g., Automated exposure control, adjustment of the mA and/or kV according to patient size, use of iterative reconstruction technique) TECHNICAL DOCUMENTATION: JOB ID: [id number] [place]-72 2010 [employer]- All Rights Reserved Reading location - IP/workstation name: [email or web address]
[2019-02-08 14:12] VITALS: BP 117/83
== END 2019-02-08 15:29 | disposition home or self-care (01) ==
LOC: ER 11:07
DX: N83.202 Unspecified ovarian cyst, left side (principal); R10.30 Lower abdominal pain, unspecified; R11.10 Vomiting, unspecified; R19.7 Diarrhea, unspecified; D49.6 Neoplasm of unspecified behavior of brain; R07.89 Other chest pain; I10 Essential (primary) hypertension; Z85.3 Personal history of malignant neoplasm of breast; Z79.84 Long term (current) use of oral hypoglycemic drugs
CPT/HCPCS: 36415; 70450; 74177; 80053; 81001; 83690; 84703; 85025; 99284

== ENCOUNTER → 2019-02-22 | Outpatient (CLI) | payer MEDICAID ==
--- NOTE | 2019-02-22 09:24 | RADIOLOGY REPORT (SQ) ---
EXAM DESCRIPTION: HIP RIGHT AP/LATERAL COMPLETED DATE/TIME: 02/22/2019 9:13 am REASON FOR STUDY: RT HIP PAIN M25.551 PAIN IN RIGHT HIP COMPARISON: CT abdomen and pelvis 02/08/2019 NUMBER OF VIEWS: Two views. TECHNIQUE: AP pelvis and additional frog-leg view of the right hip. LIMITATIONS: None. FINDINGS: MINERALIZATION: Normal. RIGHT HIP: No fracture or dislocation. No worrisome bone lesions. No significant joint space narrow ing. LEFT HIP: No fracture or dislocation. No worrisome bone lesions. No significant joint space narrowi ng. PUBIS AND ISCHIUM: No fracture. PELVIS: No fracture. SACRUM: No fracture or dislocation. No worrisome bone lesions. LOWER LUMBAR SPINE: Transitional anatomy with a large left L5 transverse process articulating with th e upper sacrum. Advanced degenerative disc changes with bulky facet arthropathy right greater than l eft at L4-5. SOFT TISSUES: No findings. OTHER: No other significant finding. IMPRESSION: NEGATIVE STUDY OF THE RIGHT HIP. DEGENERATIVE DISC CHANGES LOWER LUMBAR SPINE TECHNICAL DOCUMENTATION: JOB ID: [id number] [employer]- All Rights Reserved Reading location - IP/workstation name: [email or web address]
== END ==
LOC: OD 08:58
PROVIDERS: ATTEND Nurse Practitioner Primary Care
DX: M25.551 Pain in right hip (principal); M51.36 Other intervertebral disc degeneration, lumbar region

== ENCOUNTER → 2019-03-08 | Outpatient (CLI) | payer MEDICAID ==
--- NOTE | 2019-03-08 09:42 | RADIOLOGY REPORT (SQ) ---
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 Images reviewed with lung, soft tissue and bone windows. Reconstructed coronal and sagittal MPR and MIP images reviewed. All images stored on PACS. All CT scanners at this facility use dose modulation, iterative reconstruction, and/or weight based d osing when appropriate to reduce radiation dose to as low as reasonably achievable (ALARA). [facility]: Dose Right [facility]: CareDose [facility]: Dose Right [facility]: Teradose 4D [facility]: [employer] CONTRAST TYPE AND DOSE: contrast/concentration: Isovue 350.00 mg/ml; Total Contrast Delivered: 75.9 ml; Total Saline Delivered: 20.0 ml 79 cc Omnipaque 350 RENAL FUNCTION: None required. The patient is less than 50 years old. RADIATION DOSE: CT Rad equipment meets quality standard of care and radiation dose reduction techniq ues were employed. CTDIvol: 10.7 mGy. DLP: 373 mGy-cm. . LIMITATIONS: None. FINDINGS: LUNGS AND PLEURA: Stable area of irregular consolidation in the left apex, likely scarring . Additional areas of scarring within the medial right upper lobe are stable. Increased conspicuity of centrilobular nodular opacities within the right hilum, largest measuring 6 mm (series 4, image 4 6). No dense airspace disease. No new pulmonary masses. No pleural effusion or pneumothorax. HILAR AND MEDIASTINAL STRUCTURES: No identified masses or abnormal nodes. HEART AND VASCULAR STRUCTURES: No aneurysm or dissection. No central pulmonary emboli. No pericardi al effusion. HARDWARE: Right-sided chest port with catheter tip at cavoatrial junction. UPPER ABDOMEN: No significant findings. Limited exam. THYROID AND OTHER SOFT TISSUES: Heterogeneous thyroid with 14 mm nodule in the isthmus, stable. Post surgical changes within the left breast with asymmetric soft tissue density and skin thickening. Rec ommend correlation with mammographic/surgical history. BONES: No acute bony abnormality. Increased conspicuity of multiple sclerotic lesions throughout the axial skeleton. No new lytic lesions. OTHER: No other significant finding. IMPRESSION: 1. Increase conspicuous small centrilobular nodules within the right hilum, largest joe suring 6 mm. Findings possibly infectious/ inflammatory although pulmonary nodules are not excluded. Recommend attention on follow-up. Stable additional areas of parenchymal consolidation and scarrin g from prior. 2. Increased conspicuity of multiple sclerotic lesions throughout the axial skeleton, possibly treat ment related. 3. Asymmetric density and skin thickening within the left breast. Recommend correlation with mammog raphic/surgical history. TECHNICAL DOCUMENTATION: JOB ID: [id number] Quality ID # [id number]: Final reports with documentation of one or more dose reduction techniques (e.g., Au tomated exposure control, adjustment of the mA and/or kV according to patient size, use of iterative reconstruction technique) 2010 [employer]- All Rights Reserved Reading location - IP/workstation name: [email or web address]
== END ==
LOC: RAD 08:34
PROVIDERS: ATTEND Internal Medicine Hematology & Oncology
DX: C50.812 Malignant neoplasm of overlapping sites of left female breast (principal); M89.00 Algoneurodystrophy, unspecified site
CPT/HCPCS: 71260

== ENCOUNTER 2019-03-21 20:55 | Emergency (ER) | payer MEDICAID ==
[2019-03-21] MEDS ORDERED: LEVETIRACETAM 500 MG TABLET PO ONE (22:52)
--- NOTE | 2019-03-21 22:57 | ER Document Report ---
ED Seizure - General Chief Complaint: Seizure Stated Complaint: FAINTING Time Seen by Provider: 03/21/19 22:04 Primary Care Provider: REE GONZALES MD [Primary Care Provider] - Follow up as needed - [facility] Notes: Patient is a 38-year-old female with epilepsy and breast cancer that presents to the emergency department for chief complaint of seizure. Patient was with her sister in the waiting room when she reported feeling hot. She then had a tonic-clonic seizure with loss of consciousness. There was no report of injury during the seizure. Patient currently feels back to normal. Her last seizure was about 2 weeks ago. She states they have been becoming more frequent and her neurologist increased her Keppra to 2000 nightly about 20 days ago. She has been compliant with medications and denies missing any doses other than this evening's because she was in the emergency room. Currently she states she feels good and would like to be discharged home. Her neurologist is associated with [facility] in [place]. Past Medical History: Breast cancer, epilepsy Past Surgical History: Reviewed in chart Social History: Reviewed in chart Family History: Reviewed and noncontributory for presenting illness Allergies: Reviewed, see documented allergy list. REVIEW OF SYSTEMS: CONSTITUTIONAL : No fever No chills No diaphoresis No recent illness EENT: No vision changes No congestion No sore throat CARDIOVASCULAR: No chest pain No palpitations RESPIRATORY: No shortness of breath No cough No difficulty breathing GASTROINTESTINAL: No abdominal pain No nausea No vomiting No diarrhea GENITOURINARY: No dysuria No hematuria No difficulty urinating MUSCULOSKELETAL: No back pain No leg pain No arm pain SKIN: No rashes No lesions LYMPHATIC: No swollen, enlarged glands. NEUROLOGICAL: Seizure No lightheadedness No headache No weakness No paresthesias PSYCHIATRIC: No anxiety No depression PHYSICAL EXAMINATION: Vital signs reviewed, nursing noted reviewed. GENERAL: Well-appearing, well-nourished and in no acute distress. HEAD: Atraumatic, normocephalic. EYES: Eyes appear normal, extraocular movements intact, sclera anicteric, conjunctiva are normal. ENT: nares patent, oropharynx clear without exudates. Moist mucous membranes. NECK: Normal range of motion, supple without lymphadenopathy LUNGS: Breath sounds clear to auscultation bilaterally and equal. No wheezes rales or rhonchi. HEART: Regular rate and rhythm without murmurs ABDOMEN: Soft, nontender, normoactive bowel sounds. No rebound, guarding, or rigidity. No masses appreciated. EXTREMITIES: Nontender, good range of motion, no pitting or edema. NEUROLOGICAL: No focal neurological deficits. Moves all extremities spontaneously Motor and sensory grossly intact on exam. PSYCH: Normal mood, normal affect. SKIN: Warm, Dry, normal turgor, no rashes or lesions noted on exposed skin - Related Data Allergies/Adverse Reactions: No Known Allergies Allergy (Verified 07/07/18 15:35) Past Medical History - Social History Smoking Status: Never Smoker Frequency of alcohol use: None Drug Abuse: None Family History: Reviewed & Not Pertinent Patient has suicidal ideation: No Patient has homicidal ideation: No - Past Medical History Cardiac Medical History: Reports: Hx Hypertension, Hx Heart Murmur Denies: Hx Congestive Heart Failure, Hx Coronary Artery Disease, Hx Heart Attack Pulmonary Medical History: Reports: Hx Asthma - BRONCHIAL, Hx Bronchitis Denies: Hx COPD, Hx Pneumonia Neurological Medical History: Reports: Hx Migraine, Hx Seizures. Denies: Hx Cerebrovascular Accident Endocrine Medical History: Reports: Hx Diabetes Mellitus Type 2 Renal/ Medical History: Denies: Hx Peritoneal Dialysis GI Medical History: Denies: Hx Cirrhosis, Hx Gastroesophageal Reflux Disease Musculoskeletal Medical History: Denies Hx Arthritis, Denies Hx Fibromyalgia Skin Medical History: Denies Hx Eczema, Denies Hx Psoriasis Psychiatric Medical History: Denies: Hx Depression Infectious Medical History: Denies: Hx HIV Past Surgical History: Reports: Other - [place] teeth extraction. - Immunizations Hx Diphtheria, Pertussis, Tetanus Vaccination: No Physical Exam - Vital signs Vitals: Resp 20 03/21/19 20:57 Course - Re-evaluation Re-evalutation: 03/21/19 22:54 Vitals reviewed. Nursing notes reviewed. Patient is well-appearing and in no acute distress. She has complete recovery of postictal state which was reported by nursing staff who saw her after the seizure. Patient does have history of seizure disorder and is on Keppra. Keppra level has been obtained today. Patient will be given her evening dose of the Keppra. She has family currently present. She does follow closely with her neurologist and will contact them tomorrow to let them know about the seizure and to further discuss her medications. She will return for repeat seizure in the next 24 hours or for new concerning symptoms. Patient is at baseline and stable for discharge. - Vital Signs Vital signs: Temp Pulse Resp BP Pulse Ox 99.3 F 16 121/83 99 03/21/19 21:16 03/21/19 21:16 03/21/19 21:16 03/21/19 21:16 Discharge - Discharge Clinical Impression: Breakthrough seizure Condition: Stable Disposition: HOME, SELF-CARE Instructions: Seizure, Known Epileptic ([facility]) Additional Instructions: Please return to the emergency department if you have any worsening, or concern of your symptoms. Please return to the emergency department if you develop chest pain, difficulty breathing, severe abdominal pain, or ongoing vomiting. Please follow-up with your primary care physician in 2-3 days and any other recommended physicians. If prescribed, take all medications as directed. If you have any questions or concerns do not hesitate to return the emergency department for evaluation. Return to the emergency room if you have another seizure in the next 24 hours Contact your neurologist tomorrow to let them know about your seizure today and to establish follow-up Referrals: REE GONZALES MD [Primary Care Provider] - Follow up as needed
[2019-03-21 23:24] VITALS: BP 120/82
== END 2019-03-21 23:30 | disposition home or self-care (01) ==
LOC: ER 20:55
DX: G40.909 Epilepsy, unspecified, not intractable, without status epilepticus (principal); Z79.899 Other long term (current) drug therapy; I10 Essential (primary) hypertension; J45.909 Unspecified asthma, uncomplicated; E11.9 Type 2 diabetes mellitus without complications
CPT/HCPCS: 99284; 36415; 80177; J3490

== ENCOUNTER → 2019-05-17 | Outpatient (CLI) | payer MEDICAID ==
--- NOTE | 2019-05-17 16:00 | RADIOLOGY REPORT (SQ) ---
EXAM DESCRIPTION: SHOULDER RIGHT 2 OR MORE VIEWS COMPLETED DATE/TIME: 05/17/2019 3:47 pm REASON FOR STUDY: (M25.511)PAIN IN RIGHT SHOULDER M25.511 PAIN IN RIGHT SHOULDER M79.601 PAIN IN R IGHT ARM COMPARISON: None. NUMBER OF VIEWS: Three views. TECHNIQUE: Internal rotation, external rotation, and Y view images acquired of the right shoulder. LIMITATIONS: None. FINDINGS: MINERALIZATION: Normal. BONES: No acute fracture. No worrisome bone lesions. No significant osteophytes. GLENOHUMERAL JOINT: No significant findings. ACROMIOCLAVICULAR JOINT: No large osteophytes. SOFT TISSUES: No calcifications. VISUALIZED RIBS, SPINE, AND LUNG: No other significant finding. OTHER: No other significant finding. IMPRESSION: NEGATIVE STUDY OF THE RIGHT SHOULDER. NO RADIOGRAPHIC EVIDENCE OF ACUTE INJURY. NO EXPLA NATION FOR PAIN. TECHNICAL DOCUMENTATION: JOB ID: [id number] [employer]- All Rights Reserved Reading location - IP/workstation name: [email or web address]
--- NOTE | 2019-05-17 16:02 | RADIOLOGY REPORT (SQ) ---
EXAM DESCRIPTION: HUMERUS RIGHT COMPLETED DATE/TIME: 05/17/2019 3:47 pm REASON FOR STUDY: (M25.511)PAIN IN RIGHT SHOULDER; (M79.601)PAIN IN RIGHT ARM M25.511 PAIN IN RIGHT SHOULDER M79.601 PAIN IN RIGHT ARM COMPARISON: None. NUMBER OF VIEWS: Two views. TECHNIQUE: Two radiographic images were acquired of the right humerus to include elbow and shoulder in at least one projection. LIMITATIONS: None. FINDINGS: MINERALIZATION: Normal. BONES: No acute fracture or dislocation. No worrisome bone lesions. No significant osteophytes. SOFT TISSUES: No obvious swelling or foreign body. OTHER: No other significant finding. IMPRESSION: NEGATIVE STUDY OF THE RIGHT HUMERUS. NO RADIOGRAPHIC EVIDENCE OF ACUTE INJURY. NO EXPLAN ATION FOR PAIN. TECHNICAL DOCUMENTATION: JOB ID: [id number] [employer]- All Rights Reserved Reading location - IP/workstation name: [email or web address]
--- NOTE | 2019-05-17 16:02 | RADIOLOGY REPORT (SQ) ---
EXAM DESCRIPTION: FOREARM RIGHT COMPLETED DATE/TIME: 05/17/2019 3:47 pm REASON FOR STUDY: (M25.511)PAIN IN RIGHT SHOULDER; (M79.601)PAIN IN RIGHT ARM M25.511 PAIN IN RIGHT SHOULDER M79.601 PAIN IN RIGHT ARM COMPARISON: None. NUMBER OF VIEWS: Two views. TECHNIQUE: Two radiographic images acquired of the right forearm, including elbow and wrist in at le ast one projection. LIMITATIONS: None. FINDINGS: MINERALIZATION: Normal. BONES: No acute fracture or dislocation. No worrisome bone lesions. No significant osteophytes. SOFT TISSUES: No obvious swelling or foreign body. OTHER: No other significant finding. IMPRESSION: NEGATIVE STUDY OF THE RIGHT FOREARM. NO ACUTE POST-TRAUMATIC CHANGES. NO EXPLANATION FOR PAIN. TECHNICAL DOCUMENTATION: JOB ID: [id number] [employer]- All Rights Reserved Reading location - IP/workstation name: [email or web address]
== END ==
LOC: RAD 15:11
PROVIDERS: ATTEND Nurse Practitioner Family
DX: M25.511 Pain in right shoulder (principal); M79.601 Pain in right arm

== ENCOUNTER 2019-05-26 15:44 | Inpatient (IN) | payer MEDICAID ==
[2019-05-26] MEDS ORDERED: TEMAZEPAM 15 MG CAPSULE PO PRN (17:53)
[2019-05-26] MEDS ORDERED: MAG HYDROX/AL HYDROX/SIMETH SUSP 30 ML UDCUP PO PRN (17:53)
[2019-05-26] MEDS ORDERED: ACETAMINOPHEN 325 MG TABLET PO PRN (17:53)
[2019-05-26] MEDS ORDERED: MAGNESIUM HYDROXIDE SUSP 30 ML UDCUP PO PRN (17:53)
[2019-05-26] MEDS ORDERED: MORPHINE SULFATE 10 MG/5 ML ORAL SOLUTION UDCUP PO PRN (18:13)
[2019-05-26] MEDS ORDERED: HALOPERIDOL LACTATE INJ 5 MG/1 ML VIAL IV PRN (18:19)
[2019-05-26] MEDS ORDERED: GLUCAGON,HUMAN RECOMB 1 MG INJ IM PRN (18:25)
[2019-05-26] MEDS ORDERED: DEXTROSE 50%-WATER 25 GM/50 ML DISP.SYRIN IV PRN ×2 (18:25)
[2019-05-26] MEDS ORDERED: DEXTROSE 40% GEL 15 GM TUBE PO PRN ×2 (18:25)
--- NOTE | 2019-05-26 18:27 | PDOC H&P ---
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 She recently came off of her Decadron and was started on Ibrance and Femara. Over the last several days she has had intractable nausea and vomiting. She was referred by Dr. Cotton for direct admission to the hospital. The patient is on Keppra for seizures related to her brain metastases. She had a seizure today and admits that because of the nausea and vomiting she has not been getting her regular dose of Keppra. She also complains of tachycardia for which she takes propranolol. The patient will be admitted and given IV fluids. Oncology would like to start her back on Decadron at 4 mg twice daily. We will hold the Ibrance. She will continue on metformin for her diabetes mellitus type 2 as well as Keppra for seizures. Past Medical History Cardiac Medical History: Reports: Hypertension, Heart Murmur Denies: Congestive Heart Failure, Coronary Artery Disease, Myocardial Infarction Pulmonary Medical History: Reports: Asthma - BRONCHIAL, Bronchitis Denies: Chronic Obstructive Pulmonary Disease (COPD), Pneumonia EENT Medical History: Reports: Eyes - Wears glasses Denies: Cataracts, Ears, Nose, Throat Neurological Medical History: Reports: Migraine, Seizures Endocrine Medical History: Reports: Diabetes Mellitus Type 2 Renal/ Medical History: Denies: Chronic Kidney Disease Malignancy Medical History: Reports: Breast Cancer, Other - Brain and bone metastases GI Medical History: Reports: Other - Lactose intolerance Denies: Cirrhosis, Gastroesophageal Reflux Disease Musculoskeltal Medical History: Denies: Arthritis, Fibromyalgia Skin Medical History: Denies: Eczema, Psoriasis Psychiatric Medical History: Denies: Depression Traumatic Medical History: Reports: None Hematology: Reports: Anemia Denies: Sickle Cell Disease Infectious Medical History: Denies: Hepatitis B, Hepatitis C, HIV Past Surgical History Past Surgical History: Reports: Other - [place] teeth extraction. Breast biopsies Social History Information Source: Patient, Relative Lives with: Family Smoking Status: Never Smoker Electronic Cigarette use?: No Frequency of Alcohol Use: None Hx Recreational Drug Use: No Drugs: None Hx Prescription Drug Abuse: No Past Social History Note: The patient is . She has 4 children. 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 Her sister reports that it is on file here at the hospital. Family History Family History: DM, Hypertension, Malignancy, Other Parental Family History Reviewed: Yes Children Family History Reviewed: Yes Sibling(s) Family History Reviewed.: Yes Medication/Allergy Home Medications: Dexamethasone [Decadron 4 Mg Tablet] 4 mg PO BID 07/07/18 Morphine Sulfate 1.25 ml PO ASDIR PRN 07/07/18 Alprazolam [Xanax 0.5 mg Tablet] 0.5 mg PO HSP PRN 05/26/19 Calcium Carbonate [Calcium] 1,000 mg PO DAILY 05/26/19 Cholecalciferol (Vitamin D3) [Vitamin D] 400 unit PO DAILY 05/26/19 Diclofenac Sodium [Voltaren] 1 applic TP QID 05/26/19 Fentanyl [Duragesic 25 Mcg/Hr Transdermal Patch] 1 each TD Q3D 05/26/19 Ferrous Sulfate, Dried [Slow Release Iron] 160 mg PO DAILY 05/26/19 Gabapentin [Neurontin 100 mg Capsule] 100 mg PO QHS 05/26/19 Levetiracetam [Keppra Xr 500 Mg Tab.Sr] 2,000 mg PO QHS 05/26/19 Loratadine [Claritin] 10 mg PO DAILY 05/26/19 Mecobalamin [B-12] 1,000 mcg SL DAILY 05/26/19 Meloxicam [Mobic] 1 - 2 tab PO DAILY 05/26/19 Metformin HCl [Metformin HCl ER] 500 mg PO DAILY 05/26/19 Naproxen 500 mg PO BIDP PRN 05/26/19 Nystatin/Dexameth/Diphen [Magic Mouthwash (Omh Formula) Susp] 10 ml PO QIDP PRN 05/26/19 Ondansetron [Zofran Odt 4 mg Tablet] 8 mg PO Q8HP PRN 05/26/19 Promethazine HCl [Phenergan 25 mg Tablet] 1 - 2 tab PO Q6HP PRN 05/26/19 Propranolol HCl [Propranolol HCl ER] 60 mg PO DAILY 05/26/19 Sennosides [Senokotxtra] 17.2 mg PO BID 05/26/19 Allergies/Adverse Reactions: No Known Allergies Allergy (Verified 07/07/18 15:35) Review of Systems Constitutional: PRESENT: as per HPI, anorexia, weakness Eyes: ABSENT: visual disturbances Ears: ABSENT: hearing changes Nose, Mouth, and Throat: ABSENT: mouth pain, sore throat Cardiovascular: ABSENT: chest pain, edema, palpitations Gastrointestinal: PRESENT: abdominal pain, nausea, vomiting. ABSENT: constipation, diarrhea Genitourinary: ABSENT: difficulty urinating, dysuria, hematuria Musculoskeletal: ABSENT: deformity, joint swelling Integumentary: ABSENT: diaphoresis, erythema, lesions, rash Neurological: PRESENT: convulsions. ABSENT: abnormal speech, memory loss, syncope, vertigo Psychiatric: ABSENT: anxiety, depression, hallucinations Endocrine: ABSENT: cold intolerance, heat intolerance, polydipsia, polyphagia, polyuria Hematologic/Lymphatic: ABSENT: easy bleeding, easy bruising Allergic/Immunologic: ABSENT: seasonal rhinorrhea Physical Exam Vital Signs: Temp Pulse Resp BP Pulse Ox 98.0 F 108 H 20 126/84 H 96 05/26/19 16:49 05/26/19 16:49 05/26/19 16:49 05/26/19 16:49 05/26/19 16:49 Intake & Output 05/25/19 05/26/19 05/27/19 06:59 06:59 06:59 Weight 97.9 kg General appearance: PRESENT: no acute distress, cooperative, well-developed, well-nourished, other - Actually in very good spirits. Head exam: PRESENT: atraumatic, normocephalic Eye exam: PRESENT: conjunctiva pink, EOMI. ABSENT: scleral icterus Ear exam: PRESENT: normal external ear exam. ABSENT: bleeding, drainage Mouth exam: PRESENT: moist, tongue midline Teeth exam: ABSENT: poor dentation Neck exam: PRESENT: full ROM. ABSENT: carotid bruit, JVD, lymphadenopathy Respiratory exam: PRESENT: clear to auscultation michelle, symmetrical, unlabored. ABSENT: rales, rhonchi, tachypnea, wheezes Cardiovascular exam: PRESENT: RRR, +S1, +S2 GI/Abdominal exam: PRESENT: normal bowel sounds, soft. ABSENT: distended, guarding, tenderness Rectal exam: PRESENT: deferred Extremities exam: PRESENT: full ROM. ABSENT: joint swelling, pedal edema Musculoskeletal exam: PRESENT: ambulatory, normal inspection. ABSENT: deformity Neurological exam: PRESENT: alert, awake, oriented to person, oriented to place, oriented to time, oriented to situation, CN II-XII grossly intact. ABSENT: motor sensory deficit Psychiatric exam: PRESENT: normal mood. ABSENT: agitated, anxious Focused psych exam: ABSENT: delusional, restlessness Skin exam: PRESENT: dry, normal color, warm. ABSENT: rash Assessment and Plan - Diagnosis (1) Intractable nausea and vomiting Is this a current diagnosis for this admission?: Yes (2) Metastatic breast cancer Is this a current diagnosis for this admission?: Yes (3) Seizure disorder Is this a current diagnosis for this admission?: Yes (4) Chronic pain Qualifiers: Chronic pain type: due to neoplasm Qualified Code(s): G89.3 - Neoplasm related pain (acute) (chronic) Is this a current diagnosis for this admission?: Yes (5) Diabetes mellitus type 2 in obese Is this a current diagnosis for this admission?: Yes - Plan Summary Summary: Intractable nausea and vomiting-the patient has had a poor response to Zofran and promethazine. She will be given intravenous fluids and other medications will be offered including Thorazine, Haldol and lorazepam. We will monitor her intake and output. We will check serial labs. We discussed advancing her diet slowly. I did put her on a lactose-free soft mechanical diabetic diet. Metastatic breast cancer-the patient has breast cancer with metastases to the brain and bones. We are going to get an MRI. I have resumed Decadron therapy as the patient seems to believe that when the Decadron was tapered off her nausea and vomiting became worse. We will hold the Ibrance for now. Seizure disorder-the patient has seizures from the brain metastases. She takes 2 g of extended release Keppra every night. While here we will give her 1 g twice daily. If the nausea and vomiting prohibits oral dosing I will give it in travenously. Diabetes mellitus type 2-the patient will continue on her Glucophage and I have ordered a diabetic lactose-free diet. Chronic pain related to neoplasm-we will resume her 25 mcg Duragesic patch as well as have a morphine sulfate available as needed. Dr. Bowie will be seeing the patient in the morning. - Time Time Spent with patient: 35 or more minutes Medications reviewed and adjusted accordingly: Yes Anticipated discharge: Home Within: within 48 hours
[2019-05-26] MEDS: FENTANYL 25 MCG/HR PATCH.TD72 TD SCH (18:48)
[2019-05-26] MEDS: MORPHINE SULFATE 10 MG/5 ML ORAL SOLUTION UDCUP PO PRN (20:09)
[2019-05-26] MEDS: ONDANSETRON HCL INJ/PF 4 MG/2 ML SDV IV PRN (20:09)
[2019-05-26] MEDS: LORAZEPAM INJ 2 MG/1 ML VIAL IV PRN (20:09)
[2019-05-26] MEDS ORDERED: PROPRANOLOL HCL 20 MG TABLET PO SCH (22:00)
--- NOTE | 2019-05-26 22:00 | ADVANCED CARE ---
- Diagnosis (1) Chronic pain Diagnosis Current: Yes (2) Diabetes mellitus type 2 in obese Diagnosis Current: Yes (3) Intractable nausea and vomiting Diagnosis Current: Yes (4) Seizure disorder Diagnosis Current: Yes (5) Metastatic breast cancer Diagnosis Current: Yes Attendance: The conversation was held at the bedside with the patient and her sister. Resuscitation Status: Full Code Discussion: The patient does have a healthcare power of trade mark attorney. We discussed not only decision-makers but the fact that she can further delineate treatment options should her condition deteriorate. Care Planning Goals: The patient is currently a full code. She does have 4 young children and is only 38 years old. At this time her CODE STATUS is appropriate. If the disease is advancing then the subject can be readdressed based on her treatment plan and prognosis. Document(s) Completed: None at this time Time Spent: 18 minutes
[2019-05-26] MEDS: HEPARIN SOD (PORCINE) 5,000 UNIT/ML 1 ML VIAL SUBCUT SCH (22:26)
[2019-05-26] MEDS: LEVETIRACETAM 500 MG TABLET PO SCH (22:26)
[2019-05-26] MEDS: DEXAMETHASONE SOD PHOSPHATE INJ 4 MG/1 ML VIAL IV SCH (22:26)
[2019-05-26] MEDS: CHLORPROMAZINE HCL INJ 25 MG/1 ML AMPULE IV SCH (22:26)
[2019-05-26] MEDS: NORMAL SALINE 1000 ML 1,000 ML IV PRN (23:01)
[2019-05-27] MEDS: ONDANSETRON HCL INJ/PF 4 MG/2 ML SDV IV PRN (02:39)
[2019-05-27] MEDS: LORAZEPAM INJ 2 MG/1 ML VIAL IV PRN (02:40)
[2019-05-27] MEDS: HEPARIN SOD (PORCINE) 5,000 UNIT/ML 1 ML VIAL SUBCUT SCH ×3 (06:02→21:15)
[2019-05-27] MEDS: CHLORPROMAZINE HCL INJ 25 MG/1 ML AMPULE IV SCH (06:03)
[2019-05-27 06:33] LABS: ABSOLUTE LYMPHOCYTES (AUTO) 0.7 10^3/uL (0.5-4.7); ABSOLUTE MONOCYTES (AUTO) 0.2 10^3/uL (0.1-1.4); BASOPHILS % (AUTO) 0.5 % (0-2); EOSINOPHILS % (AUTO) 0.1 % (0-6); HEMATOCRIT 32.9 % (36.0-47.0); LYMPHOCYTES % (AUTO) 22.9 % (13-45); MEAN CORPUSCULAR HEMOGLOBIN 31.7 pg (27.0-33.4); MEAN CORPUSCULAR HGB CONC 33.5 g/dL (32.0-36.0); MEAN CORPUSCULAR VOLUME 95 fl (80-97); MONOCYTES % (AUTO) 7.4 % (3-13); PLATELET COUNT 312 10^3/uL (150-450); RED BLOOD COUNT 3.47 10^6/uL (3.72-5.28); RED CELL DISTRIBUTION WIDTH 18.9 % (11.5-14.0); SEGMENTED NEUTROPHILS % (AUTO) 69.1 % (42-78); TOTAL CELLS COUNTED % (AUTO) 100 %; WHITE BLOOD COUNT 2.9 10^3/uL (4.0-10.5)
[2019-05-27 06:38] LABS: ALBUMIN 3.5 g/dL (3.5-5.0); ALKALINE PHOSPHATASE 44 U/L (38-126); ANION GAP 10 (5-19); ASPARTATE AMINO TRANSFERASE 36 U/L (14-36); BILIRUBIN,DIRECT 0.1 mg/dL (0.0-0.4); BILIRUBIN,TOTAL 0.3 mg/dL (0.2-1.3); BLOOD UREA NITROGEN 4 mg/dL (7-20); CALCIUM 9.2 mg/dL (8.4-10.2); CARBON DIOXIDE 25 mmol/L (22-30); CHLORIDE 104 mmol/L (98-107); GLUCOSE 186 mg/dL (75-110); POTASSIUM 4.1 mmol/L (3.6-5.0); TOTAL PROTEIN 6.4 g/dL (6.3-8.2)
[2019-05-27] MEDS: NORMAL SALINE 1000 ML 1,000 ML IV PRN ×2 (08:11→19:22)
[2019-05-27] MEDS ORDERED: LORAZEPAM INJ 2 MG/1 ML VIAL IV PRN (08:42)
[2019-05-27] MEDS ORDERED: TRIMETHOBENZAMIDE HCL 300 MG CAPSULE PO PRN (08:42)
--- NOTE | 2019-05-27 09:49 | PDOC PROGRESS REPORT ---
Subjective Progress Note for:: 05/27/19 Subjective:: 05/27/2019 patient has stage IV breast cancer with mets to the brain and was admitted for intractable nausea and vomiting. Dr. Johnson and I have spoken this morning concerning her care Reason For Visit: INTRACTABLE NAUSEA AND VOMITING,METATASTIC BREAST Physical Exam Vital Signs: Temp Pulse Resp BP Pulse Ox 98.2 F 96 16 93/54 L 95 05/27/19 07:29 05/27/19 07:29 05/27/19 07:29 05/27/19 07:29 05/27/19 07:29 Intake & Output 05/26/19 05/27/19 05/28/19 06:59 06:59 06:59 Intake Total 1260 Output Total 250 Balance 1010 Weight 97.8 kg General appearance: PRESENT: no acute distress, other - Resting comfortably, in fact Ativan and Thorazine may have dated her too heavily Respiratory exam: PRESENT: clear to auscultation michelle. ABSENT: rales, rhonchi, wheezes Cardiovascular exam: PRESENT: RRR. ABSENT: diastolic murmur, rubs, systolic murmur Neurological exam: PRESENT: altered, other - Lethargic secondary to medication Psychiatric exam: PRESENT: appropriate affect, normal mood. ABSENT: homicidal ideation, suicidal ideation Results Laboratory Results: 05/27/19 04:00 05/27/19 04:00 05/27/19 05/27/19 05/27/19 04:00 04:00 04:00 WBC 2.9 L RBC 3.47 L Hgb 11.0 L Hct 32.9 L MCV 95 MCH 31.7 MCHC 33.5 RDW 18.9 H Plt Count 312 Seg Neutrophils % 69.1 Sodium 139.0 Potassium 4.1 Chloride 104 Carbon Dioxide 25 Anion Gap 10 BUN 4 L Creatinine 0.59 Est GFR ( Amer) > 60 Glucose 186 H Calcium 9.2 Magnesium 1.9 Total Bilirubin 0.3 AST 36 Alkaline Phosphatase 44 Total Protein 6.4 Albumin 3.5 Lipase 41.2 Assessment and Plan - Diagnosis (1) Chronic pain Qualifiers: Chronic pain type: due to neoplasm Qualified Code(s): G89.3 - Neoplasm related pain (acute) (chronic) Is this a current diagnosis for this admission?: Yes (2) Intractable nausea and vomiting Is this a current diagnosis for this admission?: Yes (3) Seizure disorder Is this a current diagnosis for this admission?: Yes (4) Brain mass Is this a current diagnosis for this admission?: Yes (5) Metastatic breast cancer Is this a current diagnosis for this admission?: Yes - Plan Summary Summary: Intractable nausea and vomiting-the patient has had a poor response to Zofran and promethazine. She will be given intravenous fluids and other medications will be offered including Thorazine, Haldol and lorazepam. We will monitor her intake and output. We will check serial labs. We discussed advancing her diet slowly. I did put her on a lactose-free soft mechanical diabetic diet. Metastatic breast cancer-the patient has breast cancer with metastases to the brain and bones. We are going to get an MRI. I have resumed Decadron therapy as the patient seems to believe that when the Decadron was tapered off her nausea and vomiting became worse. We will hold the Ibrance for now. Seizure disorder-the patient has seizures from the brain metastases. She takes 2 g of extended release Keppra every night. While here we will give her 1 g twice daily. If the nausea and vomiting prohibits oral dosing I will give it intravenously. Diabetes mellitus type 2-the patient will continue on her Glucophage and I have ordered a diabetic lactose-free diet. Chronic pain related to neoplasm-we will resume her 25 mcg Duragesic patch as well as have a morphine sulfate available as needed. Dr. Bowie will be seeing the patient in the morning. 05/27/2019 Patient sleeping heavily secondary to IV Ativan and IV Thorazine. Oncology is going to DC the Thorazine and decrease her Ativan dosage. We will try a scopolamine disc and possibly Tigan for her nausea and vomiting. Patient is back on her Decadron 4 mg twice daily pending the results of the MRI of the brain. CBC appears grossly normal, 3 panel appears grossly normal.. Will order a Keppra level. MRI of the brain is pending with steroid dosing based on the MRI results - Time Time Spent with patient: 25-34 minutes
[2019-05-27] MEDS: INSULIN REG, HUMAN 100 UNIT/ML 3 ML VIAL (PYX) SUBCUT SCH ×2 (11:00→16:46)
[2019-05-27] MEDS: DEXAMETHASONE SOD PHOSPHATE INJ 4 MG/1 ML VIAL IV SCH ×2 (11:21→21:15)
[2019-05-27] MEDS: LEVETIRACETAM 500 MG TABLET PO SCH ×2 (11:22→21:15)
[2019-05-27] MEDS: PROPRANOLOL HCL 40 MG TABLET PO SCH ×2 (11:22→21:15)
[2019-05-27] MEDS: METFORMIN HCL 500 MG TABLET PO SCH (11:22)
[2019-05-27] MEDS: LORATADINE 10 MG TABLET PO SCH (11:26)
[2019-05-27] MEDS: LETROZOLE 2.5 MG TABLET PO SCH (11:26)
[2019-05-27] MEDS: SCOPOLAMINE HYDROBROMIDE 1.5 MG PATCH.TD72 TD SCH (11:27)
[2019-05-27] MEDS: PANTOPRAZOLE SODIUM 40 MG TABLET.DR PO SCH (11:37)
--- NOTE | 2019-05-27 11:50 | PDOC CONSULTATION ---
Consultation Consult Date: 05/27/19 Provider Consulted: REE GONZALES Consult reason:: Hematology/Oncology consultation was requested for patient on active therapy for Breast cancer with brain mets who presented with intractable vomiting. 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 She was initially treated with chemotherapy and antihormone therapy with bisphosphonates for bone mets. However, in February 2019 she was found to have progression with brain mets. She underwent whole brain radiation in February and since then has been followed on Letrasole and Ibrance. However, recently her tumor markers have been increasing and she presented to the office with inability to eat or drink x 3 days. She h as been able to take her meds, but this is getting more difficult. oral antiemetics are not staying down. On arrival, patient was started on Thorazine and ativan for nausea. This morning, patient is sleeping soundly and only moves her head briefly to deep palpation stimuli. Nurses report no recent vomiting Past Medical History Cardiac Medical History: Reports: Hypertension, Heart Murmur Denies: Congestive Heart Failure, Coronary Artery Disease, Myocardial Infarction Pulmonary Medical History: Reports: Asthma - BRONCHIAL, Bronchitis Denies: Chronic Obstructive Pulmonary Disease (COPD), Pneumonia EENT Medical History: Reports: Eyes - Wears glasses Denies: Cataracts, Ears, Nose, Throat Neurological Medical History: Reports: Migraine, Seizures Endocrine Medical History: Reports: Diabetes Mellitus Type 2 Renal/ Medical History: Denies: Chronic Kidney Disease Malignancy Medical History: Reports: Breast Cancer, Other - Brain and bone metastases GI Medical History: Reports: Other - Lactose intolerance Denies: Cirrhosis, Gastroesophageal Reflux Disease Musculoskeltal Medical History: Denies: Arthritis, Fibromyalgia Skin Medical History: Denies: Eczema, Psoriasis Psychiatric Medical History: Denies: Depression Traumatic Medical History: Reports: None Hematology: Reports: Anemia Denies: Sickle Cell Disease Infectious Medical History: Denies: Hepatitis B, Hepatitis C, HIV Past Surgical History Past Surgical History: Reports: Other - [place] teeth extraction. Breast biopsies Social History Lives with: Family Smoking Status: Never Smoker Electronic Cigarette use?: No Frequency of Alcohol Use: None Hx Recreational Drug Use: No Drugs: None Hx Prescription Drug Abuse: No - Advance Directive Resuscitation Status: Full Code Family History Family History: DM, Hypertension, Malignancy, Other Family History: Patient is BRCA negative. Parental Family History Reviewed: Yes - Mother with breast cancer Children Family History Reviewed: NA Sibling(s) Family History Reviewed.: Yes - Sister with uterine cancer Medication/Allergy Home Medications: Dexamethasone [Decadron 4 Mg Tablet] 4 mg PO BID 07/07/18 Morphine Sulfate 1.25 ml PO ASDIR PRN 07/07/18 Alprazolam [Xanax 0.5 mg Tablet] 0.5 mg PO HSP PRN 05/26/19 Calcium Carbonate [Calcium] 1,000 mg PO DAILY 05/26/19 Cholecalciferol (Vitamin D3) [Vitamin D] 400 unit PO DAILY 05/26/19 Diclofenac Sodium [Voltaren] 1 applic TP QID 05/26/19 Fentanyl [Duragesic 25 Mcg/Hr Transdermal Patch] 1 each TD Q3D 05/26/19 Ferrous Sulfate, Dried [Slow Release Iron] 160 mg PO DAILY 05/26/19 Gabapentin [Neurontin 100 mg Capsule] 100 mg PO QHS 05/26/19 Levetiracetam [Keppra Xr 500 Mg Tab.Sr] 2,000 mg PO QHS 05/26/19 Loratadine [Claritin] 10 mg PO DAILY 05/26/19 Mecobalamin [B-12] 1,000 mcg SL DAILY 05/26/19 Meloxicam [Mobic] 1 - 2 tab PO DAILY 05/26/19 Metformin HCl [Metformin HCl ER] 500 mg PO DAILY 05/26/19 Naproxen 500 mg PO BIDP PRN 05/26/19 Nystatin/Dexameth/Diphen [Magic Mouthwash (Omh Formula) Susp] 10 ml PO QIDP PRN 05/26/19 Ondansetron [Zofran Odt 4 mg Tablet] 8 mg PO Q8HP PRN 05/26/19 Promethazine HCl [Phenergan 25 mg Tablet] 1 - 2 tab PO Q6HP PRN 05/26/19 Propranolol HCl [Propranolol HCl ER] 60 mg PO DAILY 05/26/19 Sennosides [Senokotxtra] 17.2 mg PO BID 05/26/19 Allergies/Adverse Reactions: No Known Allergies Allergy (Verified 07/07/18 15:35) Review of Systems Constitutional: PRESENT: headache(s). ABSENT: fever(s) Ears: ABSENT: hearing changes Nose, Mouth, and Throat: PRESENT: headache(s) Respiratory: PRESENT: dyspnea Gastrointestinal: PRESENT: as per HPI Genitourinary: ABSENT: dysuria Integumentary: ABSENT: rash Neurological: PRESENT: other - seizures Endocrine: PRESENT: other - insomnia improved. Hematologic/Lymphatic: ABSENT: easy bleeding Physical Exam Vital Signs: Temp Pulse Resp BP Pulse Ox 98.2 F 96 16 93/54 L 95 05/27/19 07:29 05/27/19 07:29 05/27/19 07:29 05/27/19 07:29 05/27/19 07:29 Intake & Output 05/26/19 05/27/19 05/28/19 06:59 06:59 06:59 Intake Total 1260 Output Total 250 Balance 1010 Weight 97.8 kg General appearance: PRESENT: no acute distress, well-developed, well-nourished Exam: 38 Year old female. Barr facies due to steroids. Head exam: PRESENT: normocephalic Eye exam: PRESENT: EOMI Mouth exam: PRESENT: neck supple Respiratory exam: PRESENT: clear to auscultation michelle, unlabored Cardiovascular exam: PRESENT: RRR GI/Abdominal exam: PRESENT: soft. ABSENT: tenderness Extremities exam: ABSENT: pedal edema Musculoskeletal exam: PRESENT: normal inspection Neurological exam: PRESENT: altered Focused psych exam: ABSENT: restlessness Skin exam: PRESENT: normal color Results Laboratory Results: 05/27/19 04:00 05/27/19 04:00 05/27/19 05/27/19 05/27/19 04:00 04:00 04:00 WBC 2.9 L RBC 3.47 L Hgb 11.0 L Hct 32.9 L MCV 95 MCH 31.7 MCHC 33.5 RDW 18.9 H Plt Count 312 Seg Neutrophils % 69.1 Sodium 139.0 Potassium 4.1 Chloride 104 Carbon Dioxide 25 Anion Gap 10 BUN 4 L Creatinine 0.59 Est GFR ( Amer) > 60 Glucose 186 H Calcium 9.2 Magnesium 1.9 Total Bilirubin 0.3 AST 36 Alkaline Phosphatase 44 Total Protein 6.4 Albumin 3.5 Lipase 41.2 Assessment & Plan - Diagnosis (1) Intractable nausea and vomiting Is this a current diagnosis for this admission?: Yes Plan: I will stop the Thorazine. Decrease ativan. Try scopolomine patch. Await MRI brain. (2) Brain mass Is this a current diagnosis for this admission?: Yes Plan: She has had whole brain radiation. She has a known meningioma as well that has been stable. However, I am concerned that the headaches and vomiting may indicate increased edema. She has been started back on Dexamethasone 4 mg BID. But will stop this if MRI brain is stable. (3) Metastatic breast cancer Is this a current diagnosis for this admission?: Yes Plan: HOLD Ibrance. Continue letrasole. Await further work-up. - Plan Summary Plan Summary: Patient was discussed with Hospitalist today. Await MRI report.
--- NOTE | 2019-05-27 15:03 | RADIOLOGY REPORT (SQ) ---
EXAM DESCRIPTION: NM WHOLE BODY BONE SCAN COMPLETED DATE/TIME: 05/27/2019 2:52 pm REASON FOR STUDY: follow-up breast cancer COMPARISON: 03/14/2019 RADIONUCLIDE AND DOSE: 20 millicuries Tc99m HDP. The route of agent administration: Intravenous. ADDITIONAL DRUGS AND DOSES: None TECHNIQUE: Routine delayed images at 3 hours post radionuclide injection acquired of the bony skelet on including anterior and posterior whole-body projections and additional focused images as needed. LIMITATIONS: None. FINDINGS: BONES: There is persistent uptake in the AC joint, proximal right humerus, sacrum, right l ower ribs. KIDNEYS: Symmetric excretion without obstruction. OTHER: No other significant finding. IMPRESSION: Stable findings suggestive of metastatic disease. COMMENT: Quality measure 147: Current bone scan is compared with any available plain radiographs, p rior bone scans, and CT/MRI. TECHNICAL DOCUMENTATION: JOB ID: [id number] [employer]- All Rights Reserved Reading location - IP/workstation name: [email or web address]
--- NOTE | 2019-05-27 15:51 | RADIOLOGY REPORT (SQ) ---
EXAM DESCRIPTION: MRI HEAD COMBO COMPLETED DATE/TIME: 05/27/2019 3:15 pm REASON FOR STUDY: Breast cancer with brain mets COMPARISON: 06/06/2018 TECHNIQUE: Multiplanar imaging includes noncontrasted T1, T2, FLAIR, diffusion with ADC map and post gadolinium contrast T1 sequences. Images stored on PACS. CONTRAST TYPE AND DOSE: 20 mL Dotarem. RENAL FUNCTION: Not indicated. ACR Type II contrast agent associated with few, if any, unconfounded cases of NSF LIMITATIONS: None. FINDINGS: ANATOMY: No anomalies. Normal vascular flow voids. Pituitary fossa normal. CSF SPACES: Normal in size and contour. No hemorrhage. CEREBRUM: There is a redemonstrated, bulky mass of the deep right frontal lobe, measuring approximate ly 5.3 x 5.1 x 3.6 cm, not significantly changed compared prior examination. The bulk of this mass i s T1 hypodense and nonenhancing; there is subtle new rim hyperenhancement about the anterior inferior aspect of this lesion (series 10, image 11). There are new new foci of deep white matter and subcor tical hyperenhancement, for example in the left occipital lobe (series 10, image 137, in the frontopa rietal deep white matter (series 10, image 172), and in the left frontal white matter (series 10, jonnie ge 151). No significant change in mass effect on the right lateral ventricle and approximately 1.0 c m right to left midline shift POSTERIOR FOSSA: No signal alteration. No hemorrhage. No edema, masses, or mass effect. Internal melva tory canals, cerebellopontine angles, mastoids normal. No enhancing lesions. No abnormal enhancement post contrast. DIFFUSION IMAGING: Negative for acute or subacute infarction. ORBITS: No masses. Globes normal. PARANASAL SINUSES: No fluid levels. Mucosa normal. OTHER: No other significant finding. IMPRESSION: 1. There is a redemonstrated, bulky mass of the deep right frontal lobe, measuring appro ximately 5.3 x 5.1 x 3.6 cm, not significantly changed compared prior examination. The bulk of this mass is T1 hypodense and nonenhancing; there is subtle new rim hyperenhancement about the anterior in ferior aspect of this lesion (series 10, image 11). No significant change in mass effect on the right lateral ventricle and approximately 1.0 cm right to left midline shift. 2. There are numerous new foci of deep white matter and subcortical hyperenhancement, for example in the left occipital lobe (series 10, image 137), the largest lesion in the frontoparietal deep white m atter measuring approximately 9 mm (series 10, image 172), and in the left frontal white matter (seri es 10, image 151). Findings are consistent with new multifocal metastatic disease. EVIDENCE OF ACUTE STROKE: NO. TECHNICAL DOCUMENTATION: JOB ID: [id number] [email or web address]- All Rights Reserved Reading location - IP/workstation name: [email or web address]
[2019-05-27] MEDS: OXYCODONE-ACETAMINOPHEN 5-325 MG TABLET PO PRN (19:55)
[2019-05-27] MEDS: GABAPENTIN 100 MG CAPSULE PO SCH (21:15)
[2019-05-28] MEDS: NORMAL SALINE 1000 ML 1,000 ML IV PRN ×3 (01:36→17:12)
[2019-05-28] MEDS: OXYCODONE-ACETAMINOPHEN 5-325 MG TABLET PO PRN ×3 (06:16→22:24)
[2019-05-28] MEDS: PANTOPRAZOLE SODIUM 40 MG TABLET.DR PO SCH (06:16)
[2019-05-28] MEDS: HEPARIN SOD (PORCINE) 5,000 UNIT/ML 1 ML VIAL SUBCUT SCH ×3 (06:19→21:32)
[2019-05-28] MEDS: INSULIN REG, HUMAN 100 UNIT/ML 3 ML VIAL (PYX) SUBCUT SCH ×2 (08:42→17:13)
[2019-05-28] MEDS: PROPRANOLOL HCL 40 MG TABLET PO SCH ×2 (09:44→21:31)
[2019-05-28] MEDS: LEVETIRACETAM 500 MG TABLET PO SCH ×2 (09:44→21:31)
[2019-05-28] MEDS: METFORMIN HCL 500 MG TABLET PO SCH (09:44)
[2019-05-28] MEDS: DEXAMETHASONE SOD PHOSPHATE INJ 4 MG/1 ML VIAL IV SCH (09:44)
[2019-05-28] MEDS: LORATADINE 10 MG TABLET PO SCH (09:44)
[2019-05-28] MEDS: LETROZOLE 2.5 MG TABLET PO SCH (09:44)
--- NOTE | 2019-05-28 10:13 | PDOC PROGRESS REPORT ---
Subjective Progress Note for:: 05/28/19 Subjective:: 05/27/2019 patient has stage IV breast cancer with mets to the brain and was admitted for intractable nausea and vomiting. Dr. Johnson and I have spoken this morning concerning her care 05/28/2019 Patient has had no vomiting in 24 hours patient states she feels better and she thinks the medication is a good regimen MRI of the brain from yesterday shows increased metastatic disease however no significant edema or increase in midline shift. I would assume however with increased metastatic lesions there would be increased areas of inflammation around these lesions Will continue the Decadron she feels much better, also continue the scopolamine and the p.o. Percocet Reason For Visit: INTRACTABLE NAUSEA AND VOMITING,METATASTIC BREAST Physical Exam Vital Signs: Temp Pulse Resp BP Pulse Ox 98.1 F 91 16 150/94 H 97 05/28/19 07:52 05/28/19 07:52 05/28/19 07:52 05/28/19 07:52 05/28/19 07:52 Intake & Output 05/27/19 05/28/19 05/29/19 06:59 06:59 06:59 Intake Total 1260 2379 1000 Output Total 250 200 Balance 1010 2179 1000 Weight 97.8 kg 97.5 kg Results Laboratory Results: 05/27/19 04:00 05/27/19 04:00 Impressions: Body Scan Nuclear Medicine 05/27/19 00:00 IMPRESSION: Stable findings suggestive of metastatic disease. Head MRI 05/27/19 00:00 IMPRESSION: 1. There is a redemonstrated, bulky mass of the deep right frontal lobe, measuring approximately 5.3 x 5.1 x 3.6 cm, not significantly changed compared prior examination. The bulk of this mass is T1 hypodense and nonenhancing; there is subtle new rim hyperenhancement about the anterior inferior aspect of this lesion (series 10, image 11). No significant change in mass effect on the right lateral ventricle and approximately 1.0 cm right to left midline shift. 2. There are numerous new foci of deep white matter and subcortical hyperenhancement, for example in the left occipital lobe (series 10, image 137), the largest lesion in the frontoparietal deep white matter measuring approximately 9 mm (series 10, image 172), and in the left frontal white matter (series 10, image 151). Findings are consistent with new multifocal metastatic disease. EVIDENCE OF ACUTE STROKE: NO. Assessment and Plan - Diagnosis (1) Chronic pain Qualifiers: Chronic pain type: due to neoplasm Qualified Code(s): G89.3 - Neoplasm related pain (acute) (chronic) Is this a current diagnosis for this admission?: Yes (2) Intractable nausea and vomiting Is this a current diagnosis for this admission?: Yes (3) Seizure disorder Is this a current diagnosis for this admission?: Yes (4) Brain mass Is this a current diagnosis for this admission?: Yes (5) Metastatic breast cancer Is this a current diagnosis for this admission?: Yes - Plan Summary Summary: Intractable nausea and vomiting-the patient has had a poor response to Zofran and promethazine. She will be given intravenous fluids and other medications will be offered including Thorazine, Haldol and lorazepam. We will monitor her intake and output. We will check serial labs. We discussed advancing her diet slowly. I did put her on a lactose-free soft mechanical diabetic diet. Metastatic breast cancer-the patient has breast cancer with metastases to the brain and bones. We are going to get an MRI. I have resumed Decadron therapy as the patient seems to believe that when the Decadron was tapered off her nausea and vomiting became worse. We will hold the Ibrance for now. Seizure disorder-the patient has seizures from the brain metastases. She takes 2 g of extended release Keppra every night. While here we will give her 1 g twice daily. If the nausea and vomiting prohibits oral dosing I will give it intravenously. Diabetes mellitus type 2-the patient will continue on her Glucophage and I have ordered a diabetic lactose-free diet. Chronic pain related to neoplasm-we will resume her 25 mcg Duragesic patch as well as have a morphine sulfate available as needed. Dr. Johnson will be seeing the patient in the morning. 05/27/2019 Patient sleeping heavily secondary to IV Ativan and IV Thorazine. Oncology is going to DC the Thorazine and decrease her Ativan dosage. We will try a scopolamine disc and possibly Tigan for her nausea and vomiting. Patient is back on her Decadron 4 mg twice daily pending the results of the MRI of the brain. CBC appears grossly normal, 3 panel appears grossly normal.. Will order a Keppra level. MRI of the brain is pending with steroid dosing based on the MRI results 05/28/2019 Medication regimen is effective, no vomiting x24 hours. MRI shows increased metastatic disease to the brain. We will continue Decadron. - Time Time Spent with patient: 35 or more minutes
[2019-05-28] MEDS: POLYETHYLENE GLYCOL 3350 POWDER 17 GM/1 PACKET PO SCH (13:07)
--- NOTE | 2019-05-28 14:04 | PDOC PROGRESS REPORT ---
Subjective Progress Note for:: 05/28/19 Subjective:: Patient doing better this morning, sitting up and wanting to advance diet, nausea is much better and she looks great this morning. I reviewed the MRI results, the MRI read is that there is numerous new foci of deep white matter and subcortical hyperenhancement, all subcentimeter, consistent with new multifocal metastatic disease. However patient just completed radiation therapy at [place], and was due for follow-up imaging there this week. So this images comparing to MRI done here 1 year ago. I have pushed images to [place] and asked her neuro oncologist Dr. White, to review images on Thursday to see if it is truly progression. But I Suspect It May NotBe Progression. Plan for continued steroid and reevaluation thereafter. Reason For Visit: INTRACTABLE NAUSEA AND VOMITING,METATASTIC BREAST Physical Exam Vital Signs: Temp Pulse Resp BP Pulse Ox 97.7 F 85 16 150/95 H 97 05/28/19 11:54 05/28/19 11:54 05/28/19 11:54 05/28/19 11:54 05/28/19 11:54 Intake & Output 05/27/19 05/28/19 05/29/19 06:59 06:59 06:59 Intake Total 1260 2379 1000 Output Total 250 200 Balance 1010 2179 1000 Weight 97.8 kg 97.5 kg General appearance: PRESENT: no acute distress, well-developed, well-nourished Head exam: PRESENT: atraumatic, normocephalic Eye exam: PRESENT: conjunctiva pink, EOMI, PERRLA. ABSENT: scleral icterus Ear exam: PRESENT: normal external ear exam Mouth exam: PRESENT: moist, tongue midline Neck exam: ABSENT: carotid bruit, JVD, lymphadenopathy, thyromegaly Respiratory exam: PRESENT: clear to auscultation michelle. ABSENT: rales, rhonchi, w heezes Cardiovascular exam: PRESENT: RRR. ABSENT: diastolic murmur, rubs, systolic murmur Pulses: PRESENT: normal dorsalis pedis pul Vascular exam: PRESENT: normal capillary refill GI/Abdominal exam: PRESENT: normal bowel sounds, soft. ABSENT: distended, guarding, mass, organolmegaly, rebound, tenderness Rectal exam: PRESENT: deferred Extremities exam: PRESENT: full ROM. ABSENT: calf tenderness, clubbing, pedal edema Neurological exam: PRESENT: alert, awake, oriented to person, oriented to place, oriented to time, oriented to situation, CN II-XII grossly intact. ABSENT: motor sensory deficit Psychiatric exam: PRESENT: appropriate affect, normal mood. ABSENT: homicidal ideation, suicidal ideation Skin exam: PRESENT: dry, intact, warm. ABSENT: cyanosis, rash Results Laboratory Results: 05/27/19 04:00 05/27/19 04:00 Impressions: Body Scan Nuclear Medicine 05/27/19 00:00 IMPRESSION: Stable findings suggestive of metastatic disease. Head MRI 05/27/19 00:00 IMPRESSION: 1. There is a redemonstrated, bulky mass of the deep right frontal lobe, measuring approximately 5.3 x 5.1 x 3.6 cm, not significantly changed compared prior examination. The bulk of this mass is T1 hypodense and nonenhancing; there is subtle new rim hyperenhancement about the anterior inferior aspect of this lesion (series 10, image 11). No significant change in mass effect on the right lateral ventricle and approximately 1.0 cm right to left midline shift. 2. There are numerous new foci of deep white matter and subcortical hyperenhancement, for example in the left occipital lobe (series 10, image 137), the largest lesion in the frontoparietal deep white matter measuring approximately 9 mm (series 10, image 172), and in the left frontal white matter (series 10, image 151). Findings are consistent with new multifocal metastatic disease. EVIDENCE OF ACUTE STROKE: NO. Assessment & Plan - Diagnosis (1) Intractable nausea and vomiting Is this a current diagnosis for this admission?: Yes Plan: Multifactorial, related in part to the medication she was on but may be related in part to possible progression of disease in brain, continue with antiemetics as is being ordered, continue with IV dexamethasone, she feels well enough to advance diet so we will do that today. (2) Metastatic breast cancer Is this a current diagnosis for this admission?: Yes Plan: Her breast cancer is overall stable systemically, the brain however may show progression of disease but I think it still unclear whether the cancer in the brain is truly breast cancer versus a primary brain cancer. We will be making changes as an outpatient to her oral regimen. (3) Brain malignancy Qualifiers: Malignant neoplasm of brain location: overlapping locations Qualified Cod e(s): C71.8 - Malignant neoplasm of overlapping sites of brain Is this a current diagnosis for this admission?: Yes Plan: Continue with IV steroids, will get confirmation by Thursday of whether it is truly progression in the brain or not. Continue with current treatment protocol. (4) Pain, neoplasm-related Is this a current diagnosis for this admission?: Yes Plan: Patient has fentanyl patch along with oral liquid morphine as well as oral Percocet. This seems to be controlling pain well for her. - Time Time Spent with patient: 35 or more minutes - Inpatient Certification Based on my medical assessment, after consideration of the patient's comorbidities, presenting symptoms, or acuity I expect that the services needed warrant INPATIENT care.: Yes I certify that my determination is in accordance with my understanding of Medicare's requirements for reasonable and necessary INPATIENT services [42 CFR 412.3e].: Yes Medical Necessity: Need For IV Fluids, Need for Pain Control, Risk of Complication if Not Cared For in Hospital
[2019-05-28] MEDS: GABAPENTIN 100 MG CAPSULE PO SCH (21:31)
[2019-05-29] MEDS: PANTOPRAZOLE SODIUM 40 MG TABLET.DR PO SCH (05:07)
[2019-05-29] MEDS: HEPARIN SOD (PORCINE) 5,000 UNIT/ML 1 ML VIAL SUBCUT SCH ×3 (05:07→22:31)
[2019-05-29] MEDS: INSULIN REG, HUMAN 100 UNIT/ML 3 ML VIAL (PYX) SUBCUT SCH ×2 (07:25→17:32)
--- NOTE | 2019-05-29 09:52 | PDOC PROGRESS REPORT ---
Subjective Progress Note for:: 05/29/19 Subjective:: 05/27/2019 patient has stage IV breast cancer with mets to the brain and was admitted for intractable nausea and vomiting. Dr. Johnson and I have spoken this morning concerning her care 05/28/2019 Patient has had no vomiting in 24 hours patient states she feels better and she thinks the medication is a good regimen MRI of the brain from yesterday shows increased metastatic disease however no significant edema or increase in midline shift. I would assume however with increased metastatic lesions there would be increased areas of inflammation around these lesions Will continue the Decadron she feels much better, also continue the scopolamine and the p.o. Percocet 05/29/2019 Vital signs are stable temp 98 3 pulse 82 blood pressure 149/98 O2 sat 97% on room air. Weight up slightly from admission on admission 97.9 kg now 101.8. She is having no nausea or vomiting Reason For Visit: INTRACTABLE NAUSEA AND VOMITING,METATASTIC BREAST Physical Exam Vital Signs: Temp Pulse Resp BP Pulse Ox 98.3 F 82 18 149/98 H 97 05/29/19 07:30 05/29/19 07:30 05/29/19 07:30 05/29/19 07:30 05/29/19 07:30 Intake & Output 05/28/19 05/29/19 05/30/19 06:59 06:59 06:59 Intake Total 2379 4472 Output Total 200 900 Balance 2179 3572 Weight 97.5 kg 101.8 kg General appearance: PRESENT: no acute distress, other - Sitting up in bed with no complaints Respiratory exam: PRESENT: clear to auscultation michelle. ABSENT: rales, rhonchi, wheezes Cardiovascular exam: PRESENT: RRR. ABSENT: diastolic murmur, rubs, systolic murmur Neurological exam: PRESENT: alert, awake, oriented to person, oriented to place, oriented to time, oriented to situation, CN II-XII grossly intact. ABSENT: motor sensory deficit Psychiatric exam: PRESENT: appropriate affect, normal mood. ABSENT: homicidal ideation, suicidal ideation Results Laboratory Results: 05/27/19 04:00 05/27/19 04:00 Impressions: Body Scan Nuclear Medicine 05/27/19 00:00 IMPRESSION: Stable findings suggestive of metastatic disease. Head MRI 05/27/19 00:00 IMPRESSION: 1. There is a redemonstrated, bulky mass of the deep right frontal lobe, measuring approximately 5.3 x 5.1 x 3.6 cm, not significantly changed compared prior examination. The bulk of this mass is T1 hypodense and nonenhancing; there is subtle new rim hyperenhancement about the anterior inferior aspect of this lesion (series 10, image 11). No significant change in mass effect on the right lateral ventricle and approximately 1.0 cm right to left midline shift. 2. There are numerous new foci of deep white matter and subcortical hyperenhancement, for example in the left occipital lobe (series 10, image 137), the largest lesion in the frontoparietal deep white matter measuring approximately 9 mm (series 10, image 172), and in the left frontal white matter (series 10, image 151). Findings are consistent with new multifocal metastatic disease. EVIDENCE OF ACUTE STROKE: NO. Assessment and Plan - Diagnosis (1) Chronic pain Qualifiers: Chronic pain type: due to neoplasm Qualified Code(s): G89.3 - Neoplasm related pain (acute) (chronic) Is this a current diagnosis for this admission?: Yes (2) Intractable nausea and vomiting Is this a current diagnosis for this admission?: Yes (3) Seizure disorder Is this a current diagnosis for this admission?: Yes (4) Brain mass Is this a current diagnosis for this admission?: Yes (5) Metastatic breast cancer Is this a current diagnosis for this admission?: Yes - Plan Summary Summary: Intractable nausea and vomiting-the patient has had a poor response to Zofran and promethazine. She will be given intravenous fluids and other medications will be offered including Thorazine, Haldol and lorazepam. We will monitor her intake and output. We will check serial labs. We discussed advancing her diet slowly. I did put her on a lactose-free soft mechanical diabetic diet. Metastatic breast cancer-the patient has breast cancer with metastases to the brain and bones. We are going to get an MRI. I have resumed Decadron therapy as the patient seems to believe that when the Decadron was tapered off her nausea and vomiting became worse. We will hold the Ibrance for now. Seizure disorder-the patient has seizures from the brain metastases. She takes 2 g of extended release Keppra every night. While here we will give her 1 g twice daily. If the nausea and vomiting prohibits oral dosing I will give it intravenously. Diabetes mellitus type 2-the patient will continue on her Glucophage and I have ordered a diabetic lactose-free diet. Chronic pain related to neoplasm-we will resume her 25 mcg Duragesic patch as well as have a morphine sulfate available as needed. Dr. Johnson will be seeing the patient in the morning. 05/27/2019 Patient sleeping heavily secondary to IV Ativan and IV Thorazine. Oncology is going to DC the Thorazine and decrease her Ativan dosage. We will try a scopol amine disc and possibly Tigan for her nausea and vomiting. Patient is back on her Decadron 4 mg twice daily pending the results of the MRI of the brain. CBC appears grossly normal, 3 panel appears grossly normal.. Will order a Keppra level. MRI of the brain is pending with steroid dosing based on the MRI results 05/28/2019 Medication regimen is effective, no vomiting x24 hours. MRI shows increased metastatic disease to the brain. We will continue Decadron. 05/29/2019. Patient's IV dexamethasone was inadvertently discontinued yesterday I restarted it at 4 mg every 12 hours till we hear from [facility] neuro concerning recent MRI. Patient having no nausea no vomiting actually no complaints at all. Encouraged her to get up out of bed today and may be even go in a wheelchair downstairs. We will hear from audrey tomorrow and oncology will make a decision concerning care plan. I have discussed this with the patient. - Time Time Spent with patient: 25-34 minutes
[2019-05-29] MEDS: POLYETHYLENE GLYCOL 3350 POWDER 17 GM/1 PACKET PO SCH (10:13)
[2019-05-29] MEDS: PROPRANOLOL HCL 40 MG TABLET PO SCH ×2 (10:14→22:30)
[2019-05-29] MEDS: LEVETIRACETAM 500 MG TABLET PO SCH ×2 (10:14→22:30)
[2019-05-29] MEDS: OXYCODONE-ACETAMINOPHEN 5-325 MG TABLET PO PRN ×3 (10:17→23:22)
[2019-05-29] MEDS: LETROZOLE 2.5 MG TABLET PO SCH (10:18)
[2019-05-29] MEDS: FENTANYL 25 MCG/HR PATCH.TD72 TD SCH (10:18)
[2019-05-29] MEDS: METFORMIN HCL 500 MG TABLET PO SCH (10:18)
[2019-05-29] MEDS: LORATADINE 10 MG TABLET PO SCH (10:18)
[2019-05-29] MEDS: DEXAMETHASONE SOD PHOSPHATE INJ 4 MG/1 ML VIAL IV SCH ×2 (10:36→22:30)
[2019-05-29] MEDS: NORMAL SALINE 1000 ML 1,000 ML IV PRN ×2 (13:04→22:34)
[2019-05-29] MEDS: GABAPENTIN 100 MG CAPSULE PO SCH (22:30)
[2019-05-30] MEDS: HEPARIN SOD (PORCINE) 5,000 UNIT/ML 1 ML VIAL SUBCUT SCH (05:30)
[2019-05-30] MEDS: PANTOPRAZOLE SODIUM 40 MG TABLET.DR PO SCH (06:03)
[2019-05-30] MEDS: INSULIN REG, HUMAN 100 UNIT/ML 3 ML VIAL (PYX) SUBCUT SCH (08:35)
[2019-05-30] MEDS: NORMAL SALINE 1000 ML 1,000 ML IV PRN (08:46)
[2019-05-30] MEDS: MORPHINE SULFATE 10 MG/5 ML ORAL SOLUTION UDCUP PO PRN (08:46)
--- NOTE | 2019-05-30 09:06 | PDOC PROGRESS REPORT ---
Subjective Progress Note for:: 05/30/19 Subjective:: Had a long discussion with patient this morning, discussed her case with neuro- oncology in [place] on Thursday, they reviewed imaging and feel that the brain MRI does not look different from the previous, so no progression of disease. Reason For Visit: INTRACTABLE NAUSEA AND VOMITING,METATASTIC BREAST Physical Exam Vital Signs: Temp Pulse Resp BP Pulse Ox 98.1 F 53 L 16 172/86 H 97 05/30/19 07:40 05/30/19 07:40 05/30/19 07:40 05/30/19 07:40 05/30/19 07:40 Intake & Output 05/29/19 05/30/19 05/31/19 06:59 06:59 06:59 Intake Total 4472 3035 1000 Output Total 900 750 Balance 3572 2285 1000 Weight 101.8 kg 101 kg General appearance: PRESENT: no acute distress, well-developed, well-nourished Head exam: PRESENT: atraumatic, normocephalic Eye exam: PRESENT: conjunctiva pink, EOMI, PERRLA. ABSENT: scleral icterus Ear exam: PRESENT: normal external ear exam Mouth exam: PRESENT: moist, tongue midline Neck exam: ABSENT: carotid bruit, JVD, lymphadenopathy, thyromegaly Respiratory exam: PRESENT: clear to auscultation michelle. ABSENT: rales, rhonchi, w heezes Cardiovascular exam: PRESENT: RRR. ABSENT: diastolic murmur, rubs, systolic murmur Pulses: PRESENT: normal dorsalis pedis pul Vascular exam: PRESENT: normal capillary refill GI/Abdominal exam: PRESENT: normal bowel sounds, soft. ABSENT: distended, guarding, mass, organolmegaly, rebound, tenderness Rectal exam: PRESENT: deferred Extremities exam: PRESENT: full ROM. ABSENT: calf tenderness, clubbing, pedal edema Neurological exam: PRESENT: alert, awake, oriented to person, oriented to place, oriented to time, oriented to situation, CN II-XII grossly intact. ABSENT: motor sensory deficit Psychiatric exam: PRESENT: appropriate affect, normal mood. ABSENT: homicidal ideation, suicidal ideation Skin exam: PRESENT: dry, intact, warm. ABSENT: cyanosis, rash Results Laboratory Results: 05/27/19 04:00 05/27/19 04:00 Impressions: Body Scan Nuclear Medicine 05/27/19 00:00 IMPRESSION: Stable findings suggestive of metastatic disease. Head MRI 05/27/19 00:00 IMPRESSION: 1. There is a redemonstrated, bulky mass of the deep right frontal lobe, measuring approximately 5.3 x 5.1 x 3.6 cm, not significantly changed compared prior examination. The bulk of this mass is T1 hypodense and nonenhancing; there is subtle new rim hyperenhancement about the anterior inferior aspect of this lesion (series 10, image 11). No significant change in mass effect on the right lateral ventricle and approximately 1.0 cm right to left midline shift. 2. There are numerous new foci of deep white matter and subcortical hyperenhancement, for example in the left occipital lobe (series 10, image 137), the largest lesion in the frontoparietal deep white matter measuring approximately 9 mm (series 10, image 172), and in the left frontal white matter (series 10, image 151). Findings are consistent with new multifocal metastatic disease. EVIDENCE OF ACUTE STROKE: NO. Assessment & Plan - Diagnosis (1) Intractable nausea and vomiting Is this a current diagnosis for this admission?: Yes Plan: Had a long discussion with patient this morning improved, will get patient home on current regimen (2) Metastatic breast cancer Is this a current diagnosis for this admission?: Yes Plan: We will continue with current therapy, follow-up in our office on Thursday (3) Brain malignancy Qualifiers: Malignant neoplasm of brain location: overlapping locations Qualified Code(s): C71.8 - Malignant neoplasm of overlapping sites of brain Is this a current diagnosis for this admission?: Yes Plan: Overall stable disease, patient seeing neuro-oncology later this week (4) Pain, neoplasm-related Is this a current diagnosis for this admission?: Yes Plan: Continue with morphine, fentanyl and Percocet - Time Time Spent with patient: 35 or more minutes
[2019-05-30] MEDS: LEVETIRACETAM 500 MG TABLET PO SCH (10:53)
[2019-05-30] MEDS: LETROZOLE 2.5 MG TABLET PO SCH (10:53)
[2019-05-30] MEDS: LORATADINE 10 MG TABLET PO SCH (10:53)
[2019-05-30] MEDS: METFORMIN HCL 500 MG TABLET PO SCH (10:53)
[2019-05-30] MEDS: DEXAMETHASONE SOD PHOSPHATE INJ 4 MG/1 ML VIAL IV SCH (10:55)
[2019-05-30] MEDS: PROPRANOLOL HCL 40 MG TABLET PO SCH (10:55)
[2019-05-30] MEDS: POLYETHYLENE GLYCOL 3350 POWDER 17 GM/1 PACKET PO SCH (10:56)
[2019-05-30] MEDS: SCOPOLAMINE HYDROBROMIDE 1.5 MG PATCH.TD72 TD SCH (10:56)
[2019-05-30 12:26] VITALS: BP 159/88
--- NOTE | 2019-05-30 13:46 | PDOC DISCHARGE SUMMARY ---
Impression - Admit/DC Date/PCP Admission Date/Primary Care Provider: 05/29/19 13:36 JUANA CEE, STAFF MIDWIFE-C Discharge Date: 05/30/19 - Discharge Diagnosis (1) Chronic pain Is this a current diagnosis for this admission?: Yes (2) Intractable nausea and vomiting Is this a current diagnosis for this admission?: Yes (3) Seizure disorder Is this a current diagnosis for this admission?: Yes (4) Brain mass Is this a current diagnosis for this admission?: Yes (5) Metastatic breast cancer Is this a current diagnosis for this admission?: Yes - Assessment Summary: Intractable nausea and vomiting-the patient has had a poor response to Zofran and promethazine. She will be given intravenous fluids and other medications will be offered including Thorazine, Haldol and lorazepam. We will monitor her intake and output. We will check serial labs. We discussed advancing her diet slowly. I did put her on a lactose-free soft mechanical diabetic diet. Metastatic breast cancer-the patient has breast cancer with metastases to the brain and bones. We are going to get an MRI. I have resumed Decadron therapy as the patient seems to believe that when the Decadron was tapered off her nausea and vomiting became worse. We will hold the Ibrance for now. Seizure disorder-the patient has seizures from the brain metastases. She takes 2 g of extended release Keppra every night. While here we will give her 1 g twice daily. If the nausea and vomiting prohibits oral dosing I will give it intravenously. Diabetes mellitus type 2-the patient will continue on her Glucophage and I have ordered a diabetic lactose-free diet. Chronic pain related to neoplasm-we will resume her 25 mcg Duragesic patch as well as have a morphine sulfate available as needed. Dr. Johnson will be seeing the patient in the morning. 05/27/2019 Patient sleeping heavily secondary to IV Ativan and IV Thorazine. Oncology is going to DC the Thorazine and decrease her Ativan dosage. We will try a scopolamine disc and possibly Tigan for her nausea and vomiting. Patient is back on her Decadron 4 mg twice daily pending the results of the MRI of the brain. CBC appears grossly normal, 3 panel appears grossly normal.. Will order a Keppra level. MRI of the brain is pending with steroid dosing based on the MRI results 05/28/2019 Medication regimen is effective, no vomiting x24 hours. MRI shows possible increased metastatic disease to the brain. We will continue Decadron. 05/29/2019. Patient's IV dexamethasone was inadvertently discontinued yesterday I restarted it at 4 mg every 12 hours till we hear from audrey neuro concerning recent MRI. Patient having no nausea no vomiting actually no complaints at all. Encouraged her to get up out of bed today and may be even go in a wheelchair downstairs. We will hear from audrey tomorrow and oncology will make a decision concerning care plan. I have discussed this with the patient. 05/30/[address] Foster, has spoken to the physicians in [place]. The brain scan i.e. MRI is unchanged from previous recent study. For there are not new metastases to the brain. Patient is doing well and has had no vomiting for at least 72 hours, she will be discharged home on her regular medications plus pain medicine morphine fentanyl Percocet and scopolamine patch for her nausea. Patient seems satisfied with this hospitalization. - Additional Information Resuscitation Status: Full Code Discharge Diet: As Tolerated Discharge Activity: Balance Activity w/Rest Referrals: REE JOHNSON MD [ACTIVE STAFF] - 06/03/19 10:15 am Prescriptions: Scopolamine Hydrobromide [Transderm-Scop 1.5 mg Patch] 1 each TD Q3DAYS #10 patch.[id number] Home Medications: Dexamethasone [Decadron 4 mg Tablet] 4 mg PO BID 07/07/18 Morphine Sulfate 1.25 ml PO ASDIR PRN 07/07/18 Alprazolam [Xanax 0.5 mg Tablet] 0.5 mg PO HSP PRN 05/26/19 Calcium Carbonate [Calcium] 1,000 mg PO DAILY 05/26/19 Cholecalciferol (Vitamin D3) [Vitamin D3] 400 unit PO DAILY 05/26/19 Diclofenac Sodium [Voltaren] 1 applic TP QID 05/26/19 Fentanyl [Duragesic 25 mcg/hr Transdermal Patch] 1 each TD Q3D 05/26/19 Ferrous Sulfate, Dried [Slow Release Iron] 160 mg PO DAILY 05/26/19 Gabapentin [Neurontin 100 mg Capsule] 100 mg PO QHS 05/26/19 Levetiracetam [Keppra Xr 500 mg Tab.sr] 2,000 mg PO QHS 05/26/19 Loratadine [Claritin] 10 mg PO DAILY 05/26/19 Mecobalamin [B-12] 1,000 mcg SL DAILY 05/26/19 Meloxicam [Mobic] 1 - 2 tab PO DAILY 05/26/19 Metformin HCl [Metformin HCl ER] 500 mg PO DAILY 05/26/19 Naproxen 500 mg PO BIDP PRN 05/26/19 Nystatin/Dexameth/Diphen [Magic Mouthwash] 10 ml PO QIDP PRN 05/26/19 Ondansetron [Zofran Odt 4 mg Tablet] 8 mg PO Q8HP PRN 05/26/19 Promethazine HCl [Phenergan 25 mg Tablet] 1 - 2 tab PO Q6HP PRN 05/26/19 Propranolol HCl [Propranolol HCl ER] 60 mg PO DAILY 05/26/19 Sennosides [Senokot] 17.2 mg PO BID 05/26/19 Scopolamine Hydrobromide [Transderm-Scop 1.5 mg Patch] 1 each TD Q3DAYS #10 patch.td72 05/30/19 History of Present Illiness History of Present Illness: LEI GU is a 38 year old female Physical Exam Vital Signs: Temp Pulse Resp BP Pulse Ox 98.1 F 55 L 16 159/88 H 97 05/30/19 10:22 05/30/19 12:25 05/30/19 10:22 05/30/19 12:25 05/30/19 10:22 Intake & Output 05/29/19 05/30/19 05/31/19 06:59 06:59 06:59 Intake Total 4472 3035 1000 Output Total 900 750 Balance 3572 2285 1000 Weight 101.8 kg 101 kg Results Laboratory Results: WBC 2.9 10^3/uL (4.0-10.5) L 05/27/19 04:00 RBC 3.47 10^6/uL (3.72-5.28) L 05/27/19 04:00 Hgb 11.0 g/dL (12.0-15.5) L 05/27/19 04:00 Hct 32.9 % (36.0-47.0) L 05/27/19 04:00 MCV 95 fl (80-97) 05/27/19 04:00 MCH 31.7 pg (27.0-33.4) 05/27/19 04:00 MCHC 33.5 g/dL (32.0-36.0) 05/27/19 04:00 RDW 18.9 % (11.5-14.0) H 05/27/19 04:00 Plt Count 312 10^3/uL (150-450) 05/27/19 04:00 Lymph % (Auto) 22.9 % (13-45) 05/27/19 04:00 [place] % (Auto) 7.4 % (3-13) 05/27/19 04:00 Eos % (Auto) 0.1 % (0-6) 05/27/19 04:00 Baso % (Auto) 0.5 % (0-2) 05/27/19 04:00 Absolute Neuts (auto) 2.0 10^3/uL (1.7-8.2) 05/27/19 04:00 Absolute Lymphs (auto) 0.7 10^3/uL (0.5-4.7) 05/27/19 04:00 Absolute Monos (auto) 0.2 10^3/uL (0.1-1.4) 05/27/19 04:00 Absolute Eos (auto) 0.0 10^3/uL (0.0-0.6) 05/27/19 04:00 Absolute Basos (auto) 0.0 10^3/uL (0.0-0.2) 05/27/19 04:00 Seg Neutrophils % 69.1 % (42-78) 05/27/19 04:00 Sodium 139.0 mmol/L (137-145) 05/27/19 04:00 Potassium 4.1 mmol/L (3.6-5.0) 05/27/19 04:00 Chloride 104 mmol/L (98-107) 05/27/19 04:00 Carbon Dioxide 25 mmol/L (22-30) 05/27/19 04:00 Anion Gap 10 (5-19) 05/27/19 04:00 BUN 4 mg/dL (7-20) L 05/27/19 04:00 Creatinine 0.59 mg/dL (0.52-1.25) 05/27/19 04:00 Est GFR ( Amer) > 60 (>60) 05/27/19 04:00 Est GFR (MDRD) Non-Af > 60 (>60) 05/27/19 04:00 Glucose 186 mg/dL (75-110) H 05/27/19 04:00 POC Glucose 145 mg/dL (70-110) H 05/30/19 10:44 Calcium 9.2 mg/dL (8.4-10.2) 05/27/19 04:00 Magnesium 1.9 mg/dL (1.6-2.3) 05/27/19 04:00 Total Bilirubin 0.3 mg/dL (0.2-1.3) 05/27/19 04:00 Direct Bilirubin 0.1 mg/dL (0.0-0.4) 05/27/19 04:00 Neonat Total Bilirubin Not Reportable 05/27/19 04:00 Neonat Direct Bilirubin Not Reportable 05/27/19 04:00 Neonat Indirect Bili Not Reportable 05/27/19 04:00 AST 36 U/L (14-36) 05/27/19 04:00 ALT 26 U/L (<35) 05/27/19 04:00 Alkaline Phosphatase 44 U/L (38-126) 05/27/19 04:00 Total Protein 6.4 g/dL (6.3-8.2) 05/27/19 04:00 Albumin 3.5 g/dL (3.5-5.0) 05/27/19 04:00 Lipase 41.2 U/L (23-300) 05/27/19 04:00 Impressions: Body Scan Nuclear Medicine 05/27/19 00:00 IMPRESSION: Stable findings suggestive of metastatic disease. Head MRI 05/27/19 00:00 IMPRESSION: 1. There is a redemonstrated, bulky mass of the deep right frontal lobe, measuring approximately 5.3 x 5.1 x 3.6 cm, not significantly changed compared prior examination. The bulk of this mass is T1 hypodense and nonenhancing; there is subtle new rim hyperenhancement about the anterior inferior aspect of this lesion (series 10, image 11). No significant change in mass effect on the right lateral ventricle and approximately 1.0 cm right to left midline shift. 2. There are numerous new foci of deep white matter and subcortical hyperenhancement, for example in the left occipital lobe (series 10, image 137), the largest lesion in the frontoparietal deep white matter measuring approximately 9 mm (series 10, image 172), and in the left frontal white matter (series 10, image 151). Findings are consistent with new multifocal metastatic disease. EVIDENCE OF ACUTE STROKE: NO. Stroke Is this a Stroke Patient?: No Acute Heart Failure - Is this a Heart Failure Patient?: No
== END 2019-05-30 13:30 | disposition home or self-care (01) | DRG 543 ==
LOC: 4N 15:44 → INTOOBSV 15:44 → 4W 05-27 17:53 → OBSVTOIN 05-29 13:36
PROVIDERS: ADMIT Hospitalist; ATTEND Hospitalist
DX: C79.51 Secondary malignant neoplasm of bone (principal); C79.31 Secondary malignant neoplasm of brain; G40.802 Other epilepsy, not intractable, without status epilepticus; C50.912 Malignant neoplasm of unspecified site of left female breast; G89.3 Neoplasm related pain (acute) (chronic); I10 Essential (primary) hypertension; R01.1 Cardiac murmur, unspecified; J45.909 Unspecified asthma, uncomplicated; R11.2 Nausea with vomiting, unspecified; E11.9 Type 2 diabetes mellitus without complications; T42.6X6A Underdosing of other antiepileptic and sedative-hypnotic drugs, initial encounter; Z91.138 Patient's unintentional underdosing of medication regimen for other reason; Z17.0 Estrogen receptor positive status [ER+]; Z79.899 Other long term (current) drug therapy; Z79.84 Long term (current) use of oral hypoglycemic drugs
CPT/HCPCS: 36415; 70553; 78306; 80053; 80177; 82962; 83690; 83735; 85025; A9561; A9576; J1100; J1642; J1644; J2060; J2405; J3230; J3490; J7030; Q9969

== ENCOUNTER 2019-07-05 13:53 | Emergency (ER) | payer MEDICAID ==
[2019-07-05] MEDS ORDERED: NORMAL SALINE 1000 ML 1,000 ML IV ONE (14:10)
--- NOTE | 2019-07-05 14:11 | ER Document Report ---
ED Medical Screen (RME) - General Chief Complaint: Nausea/Vomiting Stated Complaint: NAUSEA,VOMITING Time Seen by Provider: 07/05/19 14:07 Primary Care Provider: JUANA CEE FNP-C [Primary Care Provider] - Follow up as needed TRAVEL OUTSIDE OF THE [place] IN LAST 30 DAYS: No - HPI Notes: 07/05/19 14:35 39-year-old female to the emergency department with complaints of nausea vomiting and generalized abdominal pain that began this morning. She is vomited 3 times. She denies any diarrhea. She states that she feels hot when she is vomiting but denies any anna fevers. She denies any chest pain, shortness of breath, recent antibiotic use, recent travel, recent diet change. She denies significant alcohol use. She does not smoke or do any drugs. I performed a brief medical screening exam on this patient and determined she needs further management and evaluation by means at ER provider. I placed initial orders to help expedite in his treatment plan today to include lab work and medications. - Related Data Allergies/Adverse Reactions: No Known Allergies Allergy (Verified 07/07/18 15:35) Past Medical History - Social History Chew tobacco use (# tins/day): No Frequency of alcohol use: None Drug Abuse: None - Past Medical History Cardiac Medical History: Reports: Hx Hypertension, Hx Heart Murmur Denies: Hx Congestive Heart Failure, Hx Coronary Artery Disease, Hx Heart Attack Pulmonary Medical History: Reports: Hx Asthma - BRONCHIAL, Hx Bronchitis Denies: Hx COPD, Hx Pneumonia Neurological Medical History: Reports: Hx Migraine, Hx Seizures. Denies: Hx Cerebrovascular Accident Endocrine Medical History: Reports: Hx Diabetes Mellitus Type 2 Renal/ Medical History: Denies: Hx Peritoneal Dialysis Malignancy Medical History: Reports: Hx Breast Cancer GI Medical History: Denies: Hx Cirrhosis, Hx Gastroesophageal Reflux Disease Musculoskeltal Medical History: Denies Hx Arthritis, Denies Hx Fibromyalgia Skin Medical History: Denies Hx Eczema, Denies Hx Psoriasis Psychiatric Medical History: Denies: Hx Depression Infectious Medical History: Denies: Hx HIV Past Surgical History: Reports: Other - [place] teeth extraction. Breast biopsies - Immunizations Hx Diphtheria, Pertussis, Tetanus Vaccination: No Physical Exam - Vital signs Vitals: Temp Pulse Resp BP Pulse Ox 98.2 F 105 H 18 144/105 H 97 07/05/19 14:01 07/05/19 14:01 07/05/19 14:01 07/05/19 14:01 07/05/19 14:01 Course - Vital Signs Vital signs: Temp Pulse Resp BP Pulse Ox 98.2 F 105 H 18 144/105 H 97 07/05/19 14:01 07/05/19 14:01 07/05/19 14:01 07/05/19 14:01 07/05/19 14:01 Doctor's Discharge - Discharge Referrals: JUANA CEE FNP-C [Primary Care Provider] - Follow up as needed
--- NOTE | 2019-07-05 16:29 | ER Document Report ---
ED General - General Chief Complaint: Nausea/Vomiting Stated Complaint: NAUSEA,VOMITING Time Seen by Provider: 07/05/19 14:07 Primary Care Provider: JUANA CEE FNP-C [Primary Care Provider] - Follow up as needed Mode of Arrival: Ambulatory Information source: Patient, Relative TRAVEL OUTSIDE OF THE [place] IN LAST 30 DAYS: No - HPI Notes: 39-year-old female presents to the emergency room with his son for complaints of nausea and vomiting. Patient has a history of breast cancer with metastasis. Patient recently had an MRI of her brain on May 27, 2019 which did showed multiple brain lesions. Patient does follow with Dr. Johnson, oncologist for her brain mass which metastasized from her breast cancer. Patient is a poor historian due to appearing confused at this time. Son is at bedside and states that this is not her usual talkative self. Denies fevers, chills, chest pain,palpitations, shortness of breath, dyspnea,diarrhea, abdominal pain, hematuria, vision changes, LH, dizziness, syncope, headaches, wheezing, ST, URI, neck pain, weakness, bowel or bladder dysfunction, saddle anesthesia, numbness or tingling in bilateral upper or lower extremities equally, muscle paralysis, weakness in bilateral upper or lower extremities equally or rash. - Related Data Allergies/Adverse Reactions: No Known Allergies Allergy (Verified 07/05/19 17:18) Past Medical History - General Information source: Patient, Relative - Social History Smoking Status: Never Smoker Chew tobacco use (# tins/day): No Frequency of alcohol use: None Drug Abuse: None Family History: DM, Hypertension, Malignancy, Other Patient has suicidal ideation: No Patient has homicidal ideation: No - Past Medical History Cardiac Medical History: Reports: Hx Hypertension, Hx Heart Murmur Denies: Hx Congestive Heart Failure, Hx Coronary Artery Disease, Hx Heart Attack Pulmonary Medical History: Reports: Hx Asthma - BRONCHIAL, Hx Bronchitis Denies: Hx COPD, Hx Pneumonia Neurological Medical History: Reports: Hx Migraine, Hx Seizures. Denies: Hx C erebrovascular Accident Endocrine Medical History: Reports: Hx Diabetes Mellitus Type 2 Renal/ Medical History: Denies: Hx Peritoneal Dialysis Malignancy Medical History: Reports: Hx Breast Cancer GI Medical History: Denies: Hx Cirrhosis, Hx Gastroesophageal Reflux Disease Musculoskeletal Medical History: Denies Hx Arthritis, Denies Hx Fibromyalgia Skin Medical History: Denies Hx Eczema, Denies Hx Psoriasis Psychiatric Medical History: Denies: Hx Depression Infectious Medical History: Denies: Hx HIV Past Surgical History: Reports: Other - [place] teeth extraction. Breast biopsies - Immunizations Hx Diphtheria, Pertussis, Tetanus Vaccination: No Review of Systems - Review of Systems Constitutional: No symptoms reported EENT: No symptoms reported Cardiovascular: No symptoms reported Respiratory: No symptoms reported Gastrointestinal: See HPI Genitourinary: No symptoms reported Female Genitourinary: No symptoms reported Musculoskeletal: No symptoms reported Skin: No symptoms reported Hematologic/Lymphatic: No symptoms reported Neurological/Psychological: Confusion Physical Exam - Vital signs Vitals: Temp Pulse Resp BP Pulse Ox 98.2 F 105 H 18 144/105 H 97 07/05/19 14:01 07/05/19 14:01 07/05/19 14:01 07/05/19 14:01 07/05/19 14:01 - Notes Notes: PHYSICAL EXAMINATION: reviewed vital signs by RN GENERAL: Well-appearing, well-nourished and in no acute distress. HEAD: Atraumatic, normocephalic. EYES: Pupils equal round and reactive to light, extraocular movements intact, conjunctiva are normal. ENT: Nares patent, oropharynx clear without exudates. Moist mucous membranes. NECK: Normal range of motion, supple without lymphadenopathy LUNGS: Breath sounds clear to auscultation bilaterally and equal. No wheezes rales or rhonchi. HEART: Regular rate and rhythm without murmurs ABDOMEN: Soft, nontender, nondistended abdomen. No guarding, no rebound. No masses appreciated. No CVA tenderness on palpation Female : deferred Musculoskeletal: Normal range of motion, no pitting or edema. No cyanosis. NEUROLOGICAL: Cranial nerves grossly intact. slowed speech, normal gait. Normal sensory, motor exams. PERRLA, EOMI. Full motor and sensory function th roughout. Manager Interventional + 2 equal bilaterally in BUE. Tongue midline. No pronator drift. No ataxia. Neck with APROM. Raises eyebrows. Strength is 5 out of 5 in bilateral upper and lower extremities equally.Speaks in full sentences. No weakness on one side. Romberg gait steady able to walk straight line. PSYCH: Normal mood, normal affect. SKIN: Warm, Dry, normal turgor, no rashes or lesions noted. Course - Re-evaluation Re-evalutation: 07/05/19 18:23 Afebrile vital stable no distress. CBC negative for leukocytosis or anemia, CMP negative for hepatic or renal dysfunction, no electrolyte disturbances. Urinalysis essentially normal. CT of the head did show a similar 6.5 cm right frontal temporal mass. Patient given IV fluids. Drug screen showed opiates which patient is prescribed. On reevaluation patient's awake alert and orientated. Head MRI done at [facility] on May 27 2019 showed multiple brain lesions in the left occipital lobe, left frontal lobe which is new multifocal metastatic disease as well as a redemonstrated right frontal mass. consulted with Dr. Livan Ward,oncologist, that works closely with with Dr. Cotton, regarding pertinent laboratory diagnostic and clinical findings. He felt that patient was appropriate to be discharged home since there is no concerning acute neurological changes and the fact that she does have an office visit scheduled tomorrow in his office with Dr. Cotton, patient does not need to be any ER setting at this time felt it was appropriate for patient to be discharged home. After performing a Medical Screening Examination, I estimate there is LOW risk for ACUTE GLAUCOMA, TEMPORAL ARTERITIS, MENINGITIS, INCRANIAL HEMORRHAGE, perforated diverticulitis, acute appendicitis, bowel obstruction, incarcerated hernia, pancreatitis, PID, perforated ulcer, ectopic , tubo-ovarian or ISCHEMIC STROKE thus I consider the discharge disposition reasonable. I have reevaluated this patient multiple times and no significant life threatening changes are noted. The patient and I have discussed the diagnosis and risks, and we agree with discharging home with close follow-up with the understanding that symptoms and presentations can change. We also discussed returning to the Emergency Department immediately if new or worsening symptoms occur. We have discussed the symptoms which are most concerning (e.g., changing or worsening symptoms, new numbness or weakness, vomiting, fever) that necessitate immediate return. - Vital Signs Vital signs: Temp Pulse Resp BP Pulse Ox 98.2 F 105 H 18 145/83 H 97 07/05/19 14:01 07/05/19 14:01 07/05/19 18:01 07/05/19 18:01 07/05/19 18:01 - Laboratory Result Diagrams: 07/05/19 17:05 07/05/19 17:05 Laboratory results interpreted by me: 07/05/19 07/05/19 17:05 17:05 Hct 35.8 L RDW 15.6 H AST 64 H Discharge - Discharge Clinical Impression: Brain mass, Intractable nausea and vomiting Condition: Stable Disposition: HOME, SELF-CARE Additional Instructions: Your lab work was normal, the CT of your head was normal today. I did speak with Dr. Ward who feels that you are also okay to be discharged from the emergency room and go to your scheduled appointment tomorrow with . Return immediately for any new or worsening symptoms. Follow up with primary care provider, call tomorrow to make followup appointment. Referrals: JUANA CEE FNP-C [Primary Care Provider] - Follow up as needed REE JOHNSON MD [ACTIVE STAFF] - Follow up tomorrow (as already scheduled )
[2019-07-05] MEDS ORDERED: LIDOCAINE 2% JELLY 5 ML TUBE ONE (16:52)
[2019-07-05 16:56] LABS: APPEARANCE,URINE TURBID; BILIRUBIN,URINE NEGATIVE (NEGATIVE); COLOR,URINE AMBER; GLUCOSE, URINE NEGATIVE (NEGATIVE); KETONES,URINE NEGATIVE (NEGATIVE); PROTEIN,URINE NEGATIVE (NEGATIVE); URINE SPECIFIC GRAVITY 1.021; UROBILINOGEN,URINE NEGATIVE mg/dL (<2.0)
[2019-07-05] MEDS ORDERED: ONDANSETRON HCL INJ/PF 4 MG/2 ML SDV IV ONE (17:04)
--- NOTE | 2019-07-05 17:17 | RADIOLOGY REPORT (SQ) ---
EXAM DESCRIPTION: CT HEAD WITHOUT COMPLETED DATE/TIME: 07/05/2019 4:39 pm REASON FOR STUDY: AMS COMPARISON: 02/08/2019 TECHNIQUE: Axial images acquired through the brain without intravenous contrast. Images reviewed wit h bone, brain and subdural windows. Images stored on PACS. All CT scanners at this facility use dose modulation, iterative reconstruction, and/or weight based d osing when appropriate to reduce radiation dose to as low as reasonably achievable (ALARA). [facility]: Dose Right [facility]: CareDose [facility]: Dose Right [facility]: Teradose 4D [facility]: [employer] RADIATION DOSE: CT Rad equipment meets quality standard of care and radiation dose reduction techniq ues were employed. CTDIvol: 48.6 mGy. DLP: 855 mGy-cm.. LIMITATIONS: None. FINDINGS: VENTRICLES: Normal size and contour. CEREBRUM: Similar 6.5 cm right frontal-temporal lobe mass. No hemorrhage. Stable compression of the right lateral ventricle and 3 mm midline shift midline shift. Stable appearance of white matter. No evidence for acute infarction. CEREBELLUM: No masses. No hemorrhage. No alteration of density. No evidence for acute infarction. EXTRA-AXIAL SPACES: No fluid collections. ORBITS AND GLOBE: No intra- or extraconal masses. Normal contour of globe without masses. CALVARIUM: No fracture. PARANASAL SINUSES: No fluid or mucosal thickening. SOFT TISSUES: No mass or hematoma. OTHER: No other significant finding. IMPRESSION: NO ACUTE INTRACRANIAL FINDINGS.Similar 6.5 cm right frontal-temporal lobe mass. No hemor rhage. EVIDENCE OF ACUTE STROKE: NO. TECHNICAL DOCUMENTATION: JOB ID: [id number] [place]-[id number] Quality ID # [id number]: Final reports with documentation of one or more dose reduction techniques (e.g., Au tomated exposure control, adjustment of the mA and/or kV according to patient size, use of iterative reconstruction technique) 2010 [employer]- All Rights Reserved Reading location - IP/workstation name: [email or web address]
[2019-07-05 17:19] LABS: URINE AMPHETAMINES SCREEN NEGATIVE; URINE BARBITURATES SCREEN NEGATIVE; URINE BENZODIAZEPINES SCREEN NEGATIVE; URINE COCAINE SCREEN NEGATIVE; URINE MARIJUANA (THC) SCREEN NEGATIVE; URINE METHADONE SCREEN NEGATIVE; URINE PHENCYCLIDINE SCREEN NEGATIVE
[2019-07-05 17:28] LABS: VENOUS BLOOD BASE EXCESS -2.6 mmol/L; VENOUS BLOOD HCO3 22.2 mmol/L (20-32); VENOUS BLOOD PCO2 38.8 mmHg (35-63); VENOUS BLOOD PH 7.38 (7.30-7.42)
[2019-07-05 17:37] LABS: ABSOLUTE LYMPHOCYTES (AUTO) 1.8 10^3/uL (0.5-4.7); ABSOLUTE MONOCYTES (AUTO) 0.3 10^3/uL (0.1-1.4); BASOPHILS % (AUTO) 0.4 % (0-2); HEMATOCRIT 35.8 % (36.0-47.0); HEMOGLOBIN 12.3 g/dL (12.0-15.5); LYMPHOCYTES % (AUTO) 42.6 % (13-45); MEAN CORPUSCULAR HEMOGLOBIN 31.9 pg (27.0-33.4); MEAN CORPUSCULAR HGB CONC 34.4 g/dL (32.0-36.0); MEAN CORPUSCULAR VOLUME 93 fl (80-97); MONOCYTES % (AUTO) 7.3 % (3-13); PLATELET COUNT 234 10^3/uL (150-450); RED BLOOD COUNT 3.87 10^6/uL (3.72-5.28); RED CELL DISTRIBUTION WIDTH 15.6 % (11.5-14.0); SEGMENTED NEUTROPHILS % (AUTO) 48.7 % (42-78); TOTAL CELLS COUNTED % (AUTO) 100 %; WHITE BLOOD COUNT 4.1 10^3/uL (4.0-10.5)
[2019-07-05 17:50] LABS: ALBUMIN 4.2 g/dL (3.5-5.0); ALKALINE PHOSPHATASE 88 U/L (38-126); ANION GAP 12 (5-19); ASPARTATE AMINO TRANSFERASE 64 U/L (14-36); BILIRUBIN,DIRECT 0.1 mg/dL (0.0-0.4); BILIRUBIN,TOTAL 0.4 mg/dL (0.2-1.3); BLOOD UREA NITROGEN 8 mg/dL (7-20); CALCIUM 9.6 mg/dL (8.4-10.2); CARBON DIOXIDE 23 mmol/L (22-30); CHLORIDE 104 mmol/L (98-107); GLUCOSE 90 mg/dL (75-110); POTASSIUM 3.6 mmol/L (3.6-5.0); TOTAL PROTEIN 7.2 g/dL (6.3-8.2)
[2019-07-05 17:50] LABS: A TYPE INFLUENZA AG NEGATIVE (NEGATIVE); B INFLUENZA AG NEGATIVE (NEGATIVE)
[2019-07-05 18:10] VITALS: BP 145/83
[2019-07-05] MEDS ORDERED: LIDOCAINE 2% JELLY 5 ML TUBE TOP ONE (18:12)
== END 2019-07-05 18:59 | disposition home or self-care (01) ==
LOC: ER 13:53
DX: G93.9 Disorder of brain, unspecified (principal); R11.2 Nausea with vomiting, unspecified; R41.0 Disorientation, unspecified; R10.84 Generalized abdominal pain; C50.919 Malignant neoplasm of unspecified site of unspecified female breast; I10 Essential (primary) hypertension; E11.9 Type 2 diabetes mellitus without complications
CPT/HCPCS: 36415; 83690; 85025; 81025; 80053; 81001; 80307; 82803; 87804; 70450; J2405; J7030; J3490; J1642; 36591; 96361; 96374; 99284

== ENCOUNTER → 2019-09-19 | Outpatient (CLI) | payer MEDICAID ==
--- NOTE | 2019-09-19 11:08 | RADIOLOGY REPORT (SQ) ---
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 TECHNIQUE: CT scan of the chest performed using helical scanning technique with dynamic intravenous contrast injection. Images reviewed with lung, soft tissue and bone windows. Reconstructed coronal a nd sagittal MPR images reviewed. All images stored on PACS. All CT scanners at this facility use dose modulation, iterative reconstruction, and/or weight based d osing when appropriate to reduce radiation dose to as low as reasonably achievable (ALARA). [facility]: Dose Right [facility]: CareDose [facility]: Dose Right [facility]: Teradose 4D [facility]: [employer] RADIATION DOSE: CT Rad equipment meets quality standard of care and radiation dose reduction techniq ues were employed. CTDIvol: 9.7 - 11.1 mGy. DLP: 1727 mGy-cm. . LIMITATIONS: None. FINDINGS: AXILLAE: No adenopathy. CHEST WALL: New left breast mass best demonstrated on series 2 image 22. This measures up to 2.9 cm in greatest diameter. It demonstrates central decreased attenuation. Neoplasm cannot be excluded. LUNGS: There are several right-sided pulmonary nodules. There is a 4.2 mm ground-glass nodule on ser ies 6, image 48. There is a 4.1 mm lesion along the left major fissure. This previously measured 2. 4 mm. Just anterior to the fissure in the right upper lobe there is an approximately 7.4 mm ground-g lass opacity. These have all subtly increased in size when compared to prior study. There is a 4.4 mm nodule in the superior segment of the right lower lobe best demonstrated on series 6, image 43. T his is new from prior study. Spiculated nodule in the superior aspect of the left upper lobe anterio rly has slightly decreased in size. Small opacities in both lung bases most likely represent atelect asis. PLEURA: No effusions. No calcifications. THYROID: No masses or significant asymmetry. HILAR AND MEDIASTINAL STRUCTURES: No identified masses or abnormal nodes. AORTA AND GREAT VESSELS: No aneurysm. No dissection. PULMONARY ARTERIES: No identified pulmonary emboli. Study not optimized for the pulmonary arteries. HEART: No pericardial effusion. HARDWARE AND LIFELINES: Kptdyo-E-Mrgg is in place on the right. BONES: Widespread bony metastatic disease is noted. This has progressed since prior study. OTHER: No other significant finding. IMPRESSION: 1. Right-sided pulmonary nodules have subtly increased in size from prior study. There is a new 4.4 mm nodule in the superior segment of the right lower lobe best demonstrated on series 6 , image 43. 2. Left breast mass has increased in size now measuring up to 2.9 cm. 3. Increasing bony metastatic disease. COMPARISON: None. RADIATION DOSE: CT Rad equipment meets quality standard of care and radiation dose reduction techniq ues were employed. CTDIvol: 9.7 - 11.1 mGy. DLP: 1727 mGy-cm. mGy. TECHNIQUE: CT scan of the abdomen and pelvis performed with intravenous and oral contrast using alistair guanaco scanning technique with dynamic intravenous contrast injection. Images reviewed with lung, soft tissue and bone windows. Reconstructed coronal and sagittal MPR images reviewed. Delayed images for evaluation of the urinary system also acquired and evaluated. All images stored on PACS. All CT scanners at this facility use dose modulation, iterative reconstruction, and/or weight based d osing when appropriate to reduce radiation dose to as low as reasonably achievable (ALARA). [facility]: Dose Right [facility]: [employer] [facility]: Dose Right [facility]: Teradose 4D [facility]: [employer] FINDINGS: LIVER: There is decreased attenuation throughout the liver consistent with fatty infiltrat ion. There is hepatomegaly. The liver measures 22.7 cm in cranial caudal dimensions. SPLEEN: The spleen measures 13.3 cm in cranial caudal dimensions. No focal lesions. PANCREAS: No masses. No significant calcifications. No adjacent inflammation or peripancreatic flui d collections. Pancreatic duct not dilated. GALLBLADDER: No identified stones by CT criteria. No inflammatory changes to suggest cholecystitis. ADRENAL GLANDS: No significant masses or asymmetry. RIGHT KIDNEY AND URETER: There is a 3.4 cm solid mass arising off the anterior aspect of the right ki dney. This is new from prior exam and suspicious for neoplasm. This demonstrates heterogeneous atte nuation. There are simple right renal cysts as well. No significant calcifications. No hydroneph rosis or hydroureter. LEFT KIDNEY AND URETER: No solid masses. Multiple left renal cysts. No significant calcifications. No hydronephrosis or hydroureter. AORTA AND VESSELS: No aneurysm or dissection. Renal arteries and SMA are patent. There is narrowing in the celiac axis consistent with arcuate ligament syndrome. RETROPERITONEUM: Scattered small periaortic lymph nodes. These are nonspecific. LARGE AND SMALL BOWEL: No dilatation. No masses. No wall thickening. APPENDIX: Normal. ABDOMINAL WALL: No hernia or masses. PERITONEAL CAVITY: No free air. No free fluid. No peritoneal implants or masses. PELVIS: No mass or free fluid. Normal bladder. BONES: There is widespread bony metastatic disease. OTHER: No other significant finding. IMPRESSION: 1. New 3.4 cm solid mass arising off the anterior inferior aspect of the right kidney c onsistent with neoplasm. 2. Increasing bony metastatic disease. 3. Hepatosplenomegaly. No focal hepatic or splenic lesions. TECHNICAL DOCUMENTATION: JOB ID: [id number] Quality ID # [id number]: Final reports with documentation of one or more dose reduction techniques (e.g., Au tomated exposure control, adjustment of the mA and/or kV according to patient size, use of iterative reconstruction technique) 2010 [employer]- All Rights Reserved Reading location - IP/workstation name: [email or web address]
== END ==
LOC: RAD 09:03
PROVIDERS: ATTEND Internal Medicine Hematology & Oncology
DX: C50.812 Malignant neoplasm of overlapping sites of left female breast (principal); C79.51 Secondary malignant neoplasm of bone; R91.8 Other nonspecific abnormal finding of lung field
CPT/HCPCS: 71260; 74177; 82565

== ENCOUNTER 2019-10-01 11:42 | Emergency (ER) | payer MEDICAID ==
[2019-10-01] MEDS ORDERED: TETRACAINE HCL 0.5% OPH SOLN 4 ML OU ONE (11:59)
--- NOTE | 2019-10-01 12:01 | ER Document Report ---
HPI - HPI Patient complains to provider of: Sclera swelling Time Seen by Provider: 10/01/19 11:50 Onset: Last week Onset/Duration: Persistent Quality of pain: No pain Context: Patient presents with swelling of the sclera to the right eye. Patient feels like a bubble is on the surface of her eye. Patient denies any obvious injury. Patient denies any use of contact lenses although does wear glasses. Patient saw her primary doctor about this earlier in the week and was placed on allergy eyedrops. Patient denies any improvement of her symptoms. Patient denies any change in vision. Patient does state that she has had some matting and drainage to the eye. Associated Symptoms: denies: Fever, Headache Exacerbated by: Denies Relieved by: Denies Similar symptoms previously: No Recently seen / treated by doctor: Yes - ROS ROS below otherwise negative: Yes Systems Reviewed and Negative: Yes All other systems reviewed and negative - CONSTITUTIONAL Constitutional: DENIES: Fever - EENT EENT: REPORTS: Eye problems - GASTROINTESTINAL Gastrointestinal: DENIES: Patient vomiting - REPRODUCTIVE Reproductive: DENIES: : - DERM Skin Color: Normal Skin Problems: None Past Medical History - General Information source: Patient - Social History Smoking Status: Never Smoker Frequency of alcohol use: None Drug Abuse: None 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 Denies: Hx Cerebrovascular Accident Endocrine Medical History: Reports: Hx Diabetes Mellitus Type 2 Renal/ Medical History: Denies: Hx Peritoneal Dialysis Malignancy Medical History: Reports: Hx Breast Cancer Infectious Medical History: Denies: Hx HIV Past Surgical History: Reports: Hx Breast Surgery, Other - [place] teeth ext raction. Breast biopsies - Immunizations Hx Diphtheria, Pertussis, Tetanus Vaccination: No Vertical Provider Document - CONSTITUTIONAL Exam Limitations: No Limitations General Appearance: WD/WN, No Apparent Distress - INFECTION CONTROL TRAVEL OUTSIDE OF THE [place] IN LAST 30 DAYS: No - HEENT HEENT: Atraumatic, Normocephalic Notes: Chemosis to the right eye Patient without any fluorescein uptake, intraocular pressure measured at 15 with a confidence interval of 95%. No scleral or corneal foreign body, no corneal abrasion ulcer, foreign body or dendrite. Extra ocular movements intact. - NECK Neck: Normal Inspection - RESPIRATORY Respiratory: Breath Sounds Normal, No Respiratory Distress - CARDIOVASCULAR Cardiovascular: Regular Rate, Regular Rhythm - BACK Back: Normal Inspection - MUSCULOSKELETAL/EXTREMETIES Musculoskeletal/Extremeties: MAEW - NEURO Level of Consciousness: Awake, Alert, Appropriate Motor/Sensory: No Motor Deficit - DERM Integumentary: Warm, Dry, No Rash Course - Vital Signs Vital signs: Temp Pulse Resp BP Pulse Ox 98.4 F 121 H 18 107/76 100 10/01/19 11:46 10/01/19 11:46 10/01/19 11:46 10/01/19 11:46 10/01/19 11:46 Discharge - Discharge Clinical Impression: Chemosis Qualifiers: Laterality: right Qualified Code(s): H11.421 - Conjunctival edema, right eye Conjunctivitis Qualifiers: Conjunctivitis type: unspecified Laterality: right Qualified Code(s): H10.9 - Unspecified conjunctivitis Condition: Stable Disposition: HOME, SELF-CARE Instructions: Conjunctivitis ([facility]), Eyedrop Use ([facility]), Antibiotic Therapy ([facility]) Additional Instructions: Return immediately for any new or worsening symptoms Followup with your primary care provider, call tomorrow to make a followup appointment Continue to use allergy eyedrops as previously prescribed Follow-up with manager file for further evaluation, call Thursday for an appo intment Prescriptions: Polymyxin B Sulfate/Tmp [Polytrim Oph Soln 10 ml] 1 drop RT_EYE ASDIR #1 bottle Referrals: REE GONZALES MD [Primary Care Provider] - Follow up as needed [facility] [Provider Group] - Follow up as needed [facility] [Provider Group] - Follow up as needed
[2019-10-01 12:47] VITALS: BP 114/78
== END 2019-10-01 12:56 | disposition home or self-care (01) ==
LOC: ER 11:42
DX: H11.421 Conjunctival edema, right eye (principal); H10.9 Unspecified conjunctivitis; H15.89 Other disorders of sclera; E11.9 Type 2 diabetes mellitus without complications
CPT/HCPCS: 99283; J3490

== ENCOUNTER → 2019-10-18 | Outpatient (CLI) | payer MEDICAID ==
--- NOTE | 2019-10-18 15:15 | RADIOLOGY REPORT (SQ) ---
EXAM DESCRIPTION: NM MUGA REST COMPLETED DATE/TIME: 10/18/2019 1:33 pm REASON FOR STUDY: CHEMO MONITORING Z08 ENCNTR FOR FOLLOW-UP EXAM AFTER TRTMT FOR MALIGNANT NEOP COMPARISON: None. RADIONUCLIDE AND DOSE: 27.3 mCi technetium 99m labeled red blood cells The route of agent administration: Intravenous TECHNIQUE: Following administration of the radionuclide, gated images of the heart are obtained in t hree projections. Left ventricular functional analysis performed. LIMITATIONS: None. FINDINGS: LEFT VENTRICULAR FUNCTION: EJECTION FRACTION: 69%. END-DIASTOLIC VOLUME: 71 mL. END-SYSTOLIC VOLUME: 24 mL. WALL MOTION: No focal wall motion abnormalities. OTHER: No other significant finding. IMPRESSION: NORMAL CARDIAC MUGA STUDY. NORMAL LEFT VENTRICULAR FUNCTION WITH VALUES ABOVE. TECHNICAL DOCUMENTATION: JOB ID: [id number] 2010 [employer]- All Rights Reserved Reading location - IP/workstation name: [email or web address]
== END ==
LOC: RAD 10:48
PROVIDERS: ATTEND Nurse Practitioner Family
DX: Z08 Encounter for follow-up examination after completed treatment for malignant neoplasm (principal)
CPT/HCPCS: 78472; A9560; Q9969

== ENCOUNTER → 2020-01-13 | Outpatient (CLI) | payer MEDICAID ==
--- NOTE | 2020-01-13 11:01 | RADIOLOGY REPORT (SQ) ---
EXAM DESCRIPTION: NM MUGA REST IMAGES COMPLETED DATE/TIME: 01/13/2020 10:30 am REASON FOR STUDY: Z08 ENCNTR FOR FOLLOW-UP EXAM AFTER TRTMT FOR MALIGNANT NEOPLASM Z08 ENCNTR FOR F OLLOW-UP EXAM AFTER TRTMT FOR MALIGNANT NEOP COMPARISON: None. RADIONUCLIDE AND DOSE: 25.8 mCi technetium 99m labeled red blood cells The route of agent administration: Intravenous TECHNIQUE: Following administration of the radionuclide, gated images of the heart are obtained in t hree projections. Left ventricular functional analysis performed. LIMITATIONS: None. FINDINGS: LEFT VENTRICULAR FUNCTION: EJECTION FRACTION: 54%. END-DIASTOLIC VOLUME: 64 mL. END-SYSTOLIC VOLUME: 28 mL. WALL MOTION: No focal wall motion abnormalities. OTHER: No other significant finding. IMPRESSION: NORMAL CARDIAC MUGA STUDY. NORMAL LEFT VENTRICULAR FUNCTION WITH VALUES ABOVE. TECHNICAL DOCUMENTATION: JOB ID: [id number] 2010 [employer] All Rights Reserved Reading location - IP/workstation name: [email or web address]
== END ==
LOC: RAD 08:33
PROVIDERS: ATTEND Internal Medicine Hematology & Oncology
DX: Z13.6 Encounter for screening for cardiovascular disorders (principal); Z08 Encounter for follow-up examination after completed treatment for malignant neoplasm; Z79.899 Other long term (current) drug therapy
CPT/HCPCS: 78472; A9560; Q9969

== ENCOUNTER 2020-02-11 08:41 | Inpatient (IN) | payer MEDICAID ==
[2020-02-11] MEDS ORDERED: CEFTRIAXONE 1 GM/D5W RTU 1 GM/50 ML RTUPB IV ONE (09:26)
--- NOTE | 2020-02-11 09:27 | ER Document Report ---
ED General - General Chief Complaint: Urinary Problem Stated Complaint: URINARY PROBLEMS Time Seen by Provider: 02/11/20 09:19 Primary Care Provider: DELIO SALDIVAR FNP-C [Primary Care Provider] - Follow up as needed Notes: CHIEF COMPLAINT: Vomiting, abdominal pain, altered mentation HPI: History is obtained from the chart, patient's sister and the patient. Patient is a poor historian secondary to altered mentation. Patient sister providing majority of the history. Patient has a history of breast cancer for which she is on chemotherapy, states that she had chemotherapy a week ago, follows with Dr. Johnson. Patient also with history of brain cancer and metastatic cancer to kidney, lung, bone. Sister indicates patient did have radiation therapy on the brain 2 weeks ago. Sister indicates that she manages the patient's medications. Patient has not been overmedicated with her pain medicines. Patient began having some abdominal pain and nausea yesterday, had some vomiting last night and this morning. Sister indicates that patient woke up altered this morning causing her to bring her to the emergency department has not had any definitive fever. Sister indicates that patient has been diagnosed with tachycardia syndrome and heart rate is normally 120-130 ROS: See HPI - all other systems were reviewed and are otherwise negative Constitutional: no fever Eyes: no drainage, no blurred vision ENT: no runny nose, no sore throat Cardiovascular: no chest pain Resp: no SOB, no cough GI: + vomiting, no diarrhea, +_ abdominal pain : no dysuria Integumentary: no rash Allergy: no hives Musculoskeletal: no extremity pain or swelling Neurological: no numbness/tingling, no weakness, positive altered mentation MEDICATIONS: I agree with the patient medications as charted by the RN. ALLERGIES: I agree with the allergies as charted by the RN. PAST MEDICAL HISTORY/PAST SURGICAL HISTORY: Reviewed and agree as charted by RN. SOCIAL HISTORY: Reviewed and agree as charted by RN. FAMILY HISTORY: No significant familial comorbid conditions directly related to patient complaint EXAM: Reviewed vital signs as charted by RN. CONSTITUTIONAL: Alert and oriented and responds to name and some questions. Patient seems to drift off staring into space when attempting to answer questions seems to be falling asleep. Patient answer some questions appropriately and some inappropriately. Well-appearing; well-nourished HEAD: Normocephalic; atraumatic EYES: PERRL; Conjunctivae clear, sclerae non-icteric, pupils are dilated ENT: normal nose; no rhinorrhea; moist mucous membranes; pharynx without lesions noted, no uvula edema or deviation, no tonsillar hypertrophy, phonation normal NECK: Supple without meningismus; non-tender; no cervical lymphadenopathy, no masses CARD: Tachycardic with heart rate 140; no murmurs, no clicks, no rubs, no gallops; symmetric distal pulses RESP: normal chest excursion without splinting or tachypnea; breath sounds clear and equal bilaterally; no wheezes, no rhonchi, no rales, pulse oximetry 96% on room air not hypoxic ABD/GI: Obese, normal bowel sounds; non-distended; soft, mild generalized tenderness on palpation, no rebound, no guarding; no palpable organomegaly or masses. BACK: The back appears normal and is non-tender to palpation, there is no CVA tenderness EXT: Normal ROM in all joints; non-tender to palpation; no cyanosis, no effusions, no edema SKIN: Normal color for age and race; warm; dry; good turgor; no acute lesions noted NEURO: Moves all extremities equally; Motor and sensory function intact PSYCH: The patient's mood and manner are confused. Grooming and personal hygiene are appropriate. MDM: 39-year-old female with metastatic cancer brought for evaluation of altered mentation this morning. History of brain tumor as well. Sepsis protocol started by nursing. Patient is tachycardic with heart rate of 140 sister indic ates this is not too far off her baseline. Sepsis fluids have been ordered, antibiotics have been ordered Sister indicates urine has been dark this morning she is worried about UTI. Patient is on chemotherapy and radiation therapy. Will obtain cultures TRAVEL OUTSIDE OF THE [place] IN LAST 30 DAYS: No - Related Data Allergies/Adverse Reactions: No Known Allergies Allergy (Verified 07/05/19 17:18) Past Medical History - Social History Smoking Status: Unknown if Ever Smoked Family History: DM, Hypertension, Malignancy, Other - Past Medical History Cardiac Medical History: Reports: Hx Hypertension, Hx Heart Murmur Pulmonary Medical History: Reports: Hx Asthma - BRONCHIAL, Hx Bronchitis Neurological Medical History: Reports: Hx Migraine, Hx Seizures. Denies: Hx Cerebrovascular Accident Endocrine Medical History: Reports: Hx Diabetes Mellitus Type 2 Renal/ Medical History: Denies: Hx Peritoneal Dialysis Malignancy Medical History: Reports: Hx Breast Cancer Infectious Medical History: Denies: Hx HIV Past Surgical History: Reports: Hx Breast Surgery, Other - [place] teeth extraction. Breast biopsies - Immunizations Hx Diphtheria, Pertussis, Tetanus Vaccination: No Physical Exam - Vital signs Vitals: Resp 12 02/11/20 08:45 Course - Re-evaluation Re-evalutation: 02/11/20 12:[address] Johnson, Hematology. Discussed patient evaluation and results. Agrees patient needs admission to hospitalist service. Levaquin is good choice. Discussed with patient and her sister patient did have a COVID test 2 weeks ago that was negative when she was in [place] for the gamma knife procedure on the brain. CT does show some atypical findings in the upper lobes which if pneumonia should be covered by the Levaquin. Patient did receive sepsis fluids here which may explain some of the possible edema. Dr. Johnson indicates patient may need stress dose decadron. Sister indicates that patient is currently on 4 mg twice daily and has been tapering down over the last week 02/11/20 12:[address] Byrnes, Hospitalist. Spoke with Laureen Marinelli NP for hospitalist team. Case discussed. We reviewed all lab work, all CT imaging and findings. Admit to telemetry under Dr. Byrnes. - Vital Signs Vital signs: Temp Pulse Resp BP Pulse Ox 98.9 F 16 116/81 99 02/11/20 09:20 02/11/20 09:59 02/11/20 10:00 02/11/20 10:14 - Laboratory Result Diagrams: 02/11/20 09:16 02/11/20 09:16 Laboratory results interpreted by me: 02/11/20 02/11/20 02/11/20 09:09 09:16 09:16 RDW 16.5 H Lymph % (Auto) 8.2 L Seg Neutrophils % 85.3 H Sodium 135.9 L Glucose 211 H POC Glucose 232 H AST 56 H ALT 62 H Urine Protein Urine Glucose (UA) Urine Ketones Urine Blood Urine Nitrite (Reflex) Urine Urobilinogen Leukocyte Esterase Rfl Urine Ascorbic Acid 02/11/20 09:58 RDW Lymph % (Auto) Seg Neutrophils % Sodium Glucose POC Glucose AST ALT Urine Protein 100 H Urine Glucose (UA) 50 H Urine Ketones TRACE H Urine Blood SMALL H Urine Nitrite (Reflex) POSITIVE H Urine Urobilinogen 2.0 H Leukocyte Esterase Rfl MODERATE H Urine Ascorbic Acid 40 H Discharge - Discharge Clinical Impression: Acute pyelonephritis, Immunocompromised patient, Metastatic cancer, Tachycardia Altered mental status Qualifiers: Altered mental status type: stupor Qualified Code(s): R40.1 - Stupor Condition: Fair Disposition: ADMITTED INPATIENT Admitting Provider: Fitz (Hospitalist) Unit Admitted: Telemetry Referrals: DELIO SALDIVAR FNP-C [Primary Care Provider] - Follow up as needed
[2020-02-11 09:33] LABS: ABSOLUTE LYMPHOCYTES (AUTO) 0.6 10^3/uL (0.5-4.7); ABSOLUTE MONOCYTES (AUTO) 0.5 10^3/uL (0.1-1.4); ABSOLUTE NEUT (AUTO) 6.2 10^3/uL (1.7-8.2); BASOPHILS % (AUTO) 0.1 % (0-2); HEMATOCRIT 37.6 % (36.0-47.0); HEMOGLOBIN 12.3 g/dL (12.0-15.5); LYMPHOCYTES % (AUTO) 8.2 % (13-45); MEAN CORPUSCULAR HEMOGLOBIN 31.3 pg (27.0-33.4); MEAN CORPUSCULAR HGB CONC 32.7 g/dL (32.0-36.0); MEAN CORPUSCULAR VOLUME 96 fl (80-97); MONOCYTES % (AUTO) 6.4 % (3-13); PLATELET COUNT 234 10^3/uL (150-450); RED BLOOD COUNT 3.94 10^6/uL (3.72-5.28); RED CELL DISTRIBUTION WIDTH 16.5 % (11.5-14.0); SEGMENTED NEUTROPHILS % (AUTO) 85.3 % (42-78); TOTAL CELLS COUNTED % (AUTO) 100 %; WHITE BLOOD COUNT 7.2 10^3/uL (4.0-10.5)
[2020-02-11 09:34] LABS: VENOUS BLOOD BASE EXCESS -2.3 mmol/L; VENOUS BLOOD HCO3 23.5 mmol/L (20-32); VENOUS BLOOD PCO2 43.9 mmHg (35-63); VENOUS BLOOD PH 7.35 (7.30-7.42)
[2020-02-11 09:40] LABS: INTERNATIONAL RATION (INR) 1.09; PROTHROMBIN TIME 14.1 SEC (11.4-15.4)
[2020-02-11 09:55] LABS: ALBUMIN 3.8 g/dL (3.5-5.0); ALKALINE PHOSPHATASE 115 U/L (38-126); ANION GAP 8 (5-19); ASPARTATE AMINO TRANSFERASE 56 U/L (14-36); BILIRUBIN,DIRECT 0.4 mg/dL (0.0-0.4); BILIRUBIN,TOTAL 1.1 mg/dL (0.2-1.3); BLOOD UREA NITROGEN 9 mg/dL (7-20); CALCIUM 8.7 mg/dL (8.4-10.2); CARBON DIOXIDE 25 mmol/L (22-30); CHLORIDE 103 mmol/L (98-107); GLUCOSE 211 mg/dL (75-110); POTASSIUM 4.6 mmol/L (3.6-5.0); TOTAL PROTEIN 6.7 g/dL (6.3-8.2)
[2020-02-11 10:26] LABS: APPEARANCE,URINE CLOUDY; BILIRUBIN,URINE NEGATIVE (NEGATIVE); COLOR,URINE AMBER; GLUCOSE, URINE 50 mg/dL (NEGATIVE); KETONES,URINE TRACE mg/dL (NEGATIVE); PROTEIN,URINE 100 mg/dL (NEGATIVE); URINE SPECIFIC GRAVITY 1.021
--- NOTE | 2020-02-11 10:37 | RADIOLOGY REPORT (SQ) ---
EXAM DESCRIPTION: CHEST SINGLE VIEW IMAGES COMPLETED DATE/TIME: 02/11/2020 10:27 am REASON FOR STUDY: sepsis alert COMPARISON: 06/05/2018 EXAM PARAMETERS: NUMBER OF VIEWS: One view. TECHNIQUE: Single frontal radiographic view of the chest acquired. RADIATION DOSE: NA LIMITATIONS: None. FINDINGS: LUNGS AND PLEURA: No opacities, masses or pneumothorax. No pleural effusion. Bilateral lo w lung volumes. MEDIASTINUM AND HILAR STRUCTURES: No masses. Contour normal. HEART AND VASCULAR STRUCTURES: Heart normal in size. Normal vasculature. BONES: No acute findings. HARDWARE: None in the chest. OTHER: Right chest wall injection catheter in place with the tip projecting over the inferior 1/3 of the superior vena cava. IMPRESSION: Bilateral low lung volumes, otherwise unremarkable exam TECHNICAL DOCUMENTATION: JOB ID: [id number] 2010 [employer]- All Rights Reserved Reading location - IP/workstation name: [email or web address]
[2020-02-11] MEDS: RINGERS SOLUTION,LACTATED 1,000 ML IV PRN ×2 (10:41→11:41)
--- NOTE | 2020-02-11 11:22 | EKG REPORT ---
SEVERITY:- BORDERLINE ECG - SINUS TACHYCARDIA BORDERLINE T WAVE ABNORMALITIES LA ENLARGEMENT : Confirmed by: Dany Em MD 11-Feb-2020 11:20:59
--- NOTE | 2020-02-11 11:42 | RADIOLOGY REPORT (SQ) ---
EXAM DESCRIPTION: CT HEAD WITHOUT IMAGES COMPLETED DATE/TIME: 02/11/2020 11:15 am REASON FOR STUDY: ams COMPARISON: None. TECHNIQUE: Axial images acquired through the brain without intravenous contrast. Images reviewed wi th bone, brain and subdural windows. Images stored on PACS. All CT scanners at this facility use dose modulation, iterative reconstruction, and/or weight based d osing when appropriate to reduce radiation dose to as low as reasonably achievable (ALARA). [facility]: Dose Right [facility]: CareDose [facility]: Dose Right [facility]: Teradose 4D [facility]: Smart [employer] RADIATION DOSE: CT Rad equipment meets quality standard of care and radiation dose reduction techniq ues were employed. CTDIvol: 53.2 mGy. DLP: 964 mGy-cm. mGy. LIMITATIONS: None. FINDINGS: VENTRICLES: Normal size. CEREBRUM: That measures approximately 6.1 cm. This produces some mass-effect upon the right lateral ventricle. Minimal midline shift present, not significantly changed from prior examination. Scatter ed small calcifications are seen throughout the brain. This may represent post treatment changes. No rmal cerna/white matter differentiation. No areas of low density in the white matter. CEREBELLUM: No masses. No hemorrhage. No alteration of density. No evidence for acute infarction. EXTRAAXIAL SPACES: No fluid collections. No masses. ORBITS AND GLOBE: No intra- or extraconal masses. Normal contour of globe without masses. CALVARIUM: No fracture. PARANASAL SINUSES: There is an air-fluid level present in the left maxillary sinus which may represen t acute sinusitis. SOFT TISSUES: No mass or hematoma. OTHER: No other significant finding. IMPRESSION: Stable appearing 6.1 cm right frontotemporal lobe mass with no acute intracranial findin gs. Air-fluid level in the left maxillary sinus. This may represent an acute sinusitis. EVIDENCE OF ACUTE STROKE: NO. COMMENT: Quality ID # [id number]: Final reports with documentation of one or more dose reduction techniques (e.g., Automated exposure control, adjustment of the mA and/or kV according to patient size, use of iterative reconstruction technique) TECHNICAL DOCUMENTATION: JOB ID: [id number] 2010 [email or web address]- All Rights Reserved Reading location - IP/workstation name: [email or web address]
--- NOTE | 2020-02-11 12:06 | RADIOLOGY REPORT (SQ) ---
EXAM DESCRIPTION: CTA CHEST IMAGES COMPLETED DATE/TIME: 02/11/2020 11:15 am REASON FOR STUDY: tachycardia COMPARISON: 09/19/2019 TECHNIQUE: CT scan of the chest performed using helical scanning technique with dynamic intravenous contrast injection. Images reviewed with lung, soft tissue and bone windows. Reconstructed coronal and sagittal MPR images reviewed. Additional 3 dimensional post-processing performed to develop Maximal Intensity Projection images (CT P). All images stored on PACS. All CT scanners at this facility use dose modulation, iterative reconstruction, and/or weight based d osing when appropriate to reduce radiation dose to as low as reasonably achievable (ALARA). [facility]: Dose Right [facility]: CareDose [facility]: Dose Right [facility]: Teradose 4D [facility]: [email or web address] CONTRAST TYPE AND DOSE: 100 mL Omnipaque 350- low osmolar. Contrast bolus adequate for pulmonary arteries and aorta. RENAL FUNCTION: GFR > 60. RADIATION DOSE: CT Rad equipment meets quality standard of care and radiation dose reduction techniq ues were employed. CTDIvol: 7.6 - 29.8 mGy. DLP: 2781 mGy-cm. . LIMITATIONS: None. FINDINGS: LUNGS AND PLEURA: There are streaky ground-glass opacities noted in the lungs bilaterally, slightly more prominent in the upper lobes. There are multiple pulmonary nodules scattered througho ut that are stable to slightly increased in size when compared to prior examination, however it is di fficult to adequately assess solid nodules due to the overlying ground-glass opacities. No pleural e ffusions are appreciated. AORTA AND GREAT VESSELS: No aneurysm. No dissection. HEART: No pericardial effusion. No significant coronary artery calcifications. PULMONARY ARTERIES: No emboli visualized in the main pulmonary arteries or the segmental branches. HILAR AND MEDIASTINAL STRUCTURES: No identified masses or abnormal nodes. HARDWARE: There is a right chest wall injection catheter present with the tip in the cavoatrial junct ion. UPPER ABDOMEN: See separate report of the CT of the abdomen. THYROID AND OTHER SOFT TISSUES: The thyroid is unremarkable. Again seen is a left breast mass, gross ly stable when compared to prior exam. BONES: There is metastatic disease throughout the bony structures, similar to prior exam. No star elise fractures of thoracic spine are appreciated. 3D MIPS: Confirm above findings. OTHER: No other significant finding. IMPRESSION: 1. No evidence pulmonary embolism 2. Streaky ground-glass opacities throughout the lungs, most predominantly in the upper lobes. This may represent an atypical infection (such a COVID-19) or may represent early pulmonary edema/ heart failure. 3. Multiple pulmonary nodules, some of which are increasing in size when compared to prior exam, con sistent with metastatic disease. 4. Stable appearing metastatic disease throughout the bony structures. COMMENT: Quality ID # 436: Final reports with documentation of one or more dose reduction techniques (e.g., Automated exposure control, adjustment of the mA and/or kV according to patient size, use of iterative reconstruction technique) TECHNICAL DOCUMENTATION: JOB ID: [id number] 2010 [employer]- All Rights Reserved Reading location - IP/workstation name: [email or web address]
--- NOTE | 2020-02-11 12:13 | RADIOLOGY REPORT (SQ) ---
EXAM DESCRIPTION: CT ABD/PELVIS WITH IV ONLY IMAGES COMPLETED DATE/TIME: 02/11/2020 11:15 am REASON FOR STUDY: abd pain mets CA COMPARISON: 09/19/2019 TECHNIQUE: CT scan of the abdomen and pelvis performed using helical scanning technique with dynamic intravenous contrast injection. No oral contrast. Images reviewed with lung, soft tissue, and bone windows. Reconstructed coronal and sagittal MPR images reviewed. Delayed images for evaluation of the urinary system also acquired. All images stored on PACS. All CT scanners at this facility use dose modulation, iterative reconstruction, and/or weight based d osing when appropriate to reduce radiation dose to as low as reasonably achievable (ALARA). [facility]: Dose Right [facility]: CareDose [facility]: Dose Right [facility]: Teradose 4D [facility]: [employer] CONTRAST TYPE AND DOSE: 100 mL Omnipaque 350- low osmolar. RENAL FUNCTION: GFR > 60. RADIATION DOSE: . LIMITATIONS: None. FINDINGS: LOWER CHEST: See separate report of the CT of the chest. LIVER: Hepatomegaly is present hand. Hepatic steatosis is also present. There are multiple new roun d hypoattenuating masses within the left and right lobe of the liver all measuring approximately 2 cm in size, consistent with new metastatic disease. SPLEEN: Normal size. No focal lesions. PANCREAS: No masses. No significant calcifications. No adjacent inflammation or peripancreatic fluid collections. Pancreatic duct not dilated. GALLBLADDER: No identified stones by CT criteria. No inflammatory changes to suggest cholecystitis. ADRENAL GLANDS: No significant masses or asymmetry. RIGHT KIDNEY AND URETER: The presumed neoplastic lesion in the anterior aspect of the right kidney on prior examination is no longer present, however there is in the area of asymmetric enhancement and h ypoattenuation in the posterior right mid kidney that is new on today's exam. Stable inferior pole s imple cyst. Stable appearing multiple tiny hypodensities throughout the right kidney. No significan t calcifications. No hydronephrosis or hydroureter. LEFT KIDNEY AND URETER: No solid masses. Stable simple appearing cysts in the upper and lower pole. Stable tiny hyperdensities throughout the left kidney. No significant calcifications. No hydrone phrosis or hydroureter. AORTA AND VESSELS: No aneurysm. No dissection. Renal arteries, SMA, celiac without stenosis. RETROPERITONEUM: No retroperitoneal adenopathy, hemorrhage or masses. BOWEL AND PERITONEAL CAVITY: No masses or inflammatory changes. No free fluid or peritoneal masses. APPENDIX: Normal. PELVIS: No mass. No free fluid. Normal bladder. ABDOMINAL WALL: No masses. No hernias. BONES: Diffuse metastatic disease throughout the spine and pelvis, not significantly changed when com pared to prior exam. No evidence of pathologic fractures at this time. OTHER: No other significant finding. IMPRESSION: 1. New metastatic lesions in the liver when compared to 09/19/2019 2. Hypodensity in the posterior aspect of the mid right kidney, new when compared to prior examinati on. This may represent metastatic disease, however a focal pyelonephritis could have a similar appea fay. Recommend correlation with patient's lab work and symptoms. Interval resolution of the presu med neoplastic disease in the anterior mid right kidney. 3. Diffuse bony metastatic disease without CT evidence of a pathologic fracture at this time. TECHNICAL DOCUMENTATION: JOB ID: [id number] Quality ID # [id number]: Final reports with documentation of one or more dose reduction techniques (e.g., Au tomated exposure control, adjustment of the mA and/or kV according to patient size, use of iterative reconstruction technique) 2010 [employer]- All Rights Reserved Reading location - IP/workstation name: [email or web address]
[2020-02-11] MEDS ORDERED: PROMETHAZINE HCL INJ 25 MG/1 ML VIAL IV PRN (13:30)
[2020-02-11] MEDS ORDERED: ACETAMINOPHEN 325 MG TABLET PO PRN (13:30)
[2020-02-11] MEDS ORDERED: LEVALBUTEROL HCL NEB 1.25 MG/3 ML AMPUL NEB PRN (13:30)
[2020-02-11] MEDS ORDERED: ONDANSETRON HCL INJ/PF 4 MG/2 ML SDV IV PRN (13:30)
[2020-02-11] MEDS ORDERED: NORMAL SALINE 1000 ML 1,000 ML IV ONE (13:47)
[2020-02-11] MEDS ORDERED: NORMAL SALINE 1000 ML 1,000 ML IV PRN (13:48)
[2020-02-11] MEDS ORDERED: LORAZEPAM INJ 2 MG/1 ML VIAL IV PRN (13:52)
[2020-02-11] MEDS ORDERED: DEXTROSE 40% GEL 15 GM TUBE PO PRN ×2 (14:18)
[2020-02-11] MEDS ORDERED: DEXTROSE 50%-WATER 25 GM/50 ML DISP.SYRIN IV PRN ×2 (14:18)
[2020-02-11] MEDS ORDERED: GLUCAGON,HUMAN RECOMB 1 MG INJ IM PRN (14:18)
--- NOTE | 2020-02-11 14:27 | PDOC H&P ---
History of Present Illness Admission Date/PCP: 02/11/20 13:43 LIDYA CAAL-C Patient complains of: Lethargy History of Present Illness: LEI GU is a 39 year old female with a past medical history significant for metastatic breast cancer (brain, bone, lung and liver) with associated seizure disorder, Tachycardia, DM 2, and obesity who presented via EMS with report of increased lethargy and altered mental status noted this morning by her sister. Of note, the patient had a seizure last night; this was her first seizure in several weeks. She underwent gamma knife radiation at 5 and 2 weeks ago. She is followed by Dr. Garland. Patient had an extensive work-up in the emergency department. Vital signs demonstrated persistent tachycardia (HR 150), borderline hypoxia (90% room air), variable respiratory rate (RR 9-19; Cannot be attributed to medication), fairly unremarkable CBC, blood gas, coags, and chemistry. She has an indeterminate troponin of 0.046 and a proBNP of 281. Urinalysis is suggestive of UTI. Blood and urine cultures are pending. Please see head CT, chest CTA, CT abdomen pelvis reports; extensive findings. She was provided normal saline bolus and IV Rocephin. She is referred to the hospitalist service for further evaluation and management of the above-stated complaints and findings. Past Medical History Cardiac Medical History: Reports: Hypertension, Heart Murmur Pulmonary Medical History: Reports: Bronchitis Neurological Medical History: Reports: Migraine, Seizures Endocrine Medical History: Reports: Diabetes Mellitus Type 2 Malignancy Medical History: Reports: Breast Cancer GI Medical History: Reports: None Musculoskeltal Medical History: Reports: None Psychiatric Medical History: Reports: None Hematology: Reports: Anemia Denies: Sickle Cell Disease Infectious Medical History: Denies: HIV Past Surgical History Past Surgical History: Reports: Other - [place] teeth extraction. Breast biopsies Social History Information Source: Relative, [facility] Records Lives with: Family Smoking Status: Unknown if Ever Smoked Frequency of Alcohol Use: None Hx Recreational Drug Use: No Drugs: None Hx Prescription Drug Abuse: No - Advance Directive Resuscitation Status: Full Code Surrogate healthcare decision maker:: The patient's sister, Ernst Bernard (Niki). Family History Family History: DM, Hypertension, Malignancy, Other Parental Family History Reviewed: Yes Children Family History Reviewed: Yes Sibling(s) Family History Reviewed.: Yes Medication/Allergy Home Medications: Dexamethasone [Decadron 4 mg Tablet] 4 mg PO BID 07/07/18 Morphine Sulfate 1.25 ml PO ASDIR PRN 07/07/18 Alprazolam [Xanax 0.5 mg Tablet] 0.5 mg PO HSP PRN 05/26/19 Calcium Carbonate [Calcium] 1,000 mg PO DAILY 05/26/19 Cholecalciferol (Vitamin D3) [Vitamin D3] 400 unit PO DAILY 05/26/19 Diclofenac Sodium [Voltaren] 1 applic TP QID 05/26/19 Fentanyl [Duragesic 25 mcg/hr Transdermal Patch] 1 each TD Q3D 05/26/19 Ferrous Sulfate, Dried [Slow Release Iron] 160 mg PO DAILY 05/26/19 Gabapentin [Neurontin 100 mg Capsule] 100 mg PO QHS 05/26/19 Levetiracetam [Keppra Xr 500 mg Tab.sr] 2,000 mg PO QHS 05/26/19 Loratadine [Claritin] 10 mg PO DAILY 05/26/19 Mecobalamin [B-12] 1,000 mcg SL DAILY 05/26/19 Meloxicam [Mobic] 1 - 2 tab PO DAILY 05/26/19 Metformin HCl [Metformin HCl ER] 500 mg PO DAILY 05/26/19 Naproxen 500 mg PO BIDP PRN 05/26/19 Nystatin/Dexameth/Diphen [Magic Mouthwash] 10 ml PO QIDP PRN 05/26/19 Ondansetron [Zofran Odt 4 mg Tablet] 8 mg PO Q8HP PRN 05/26/19 Promethazine HCl [Phenergan 25 mg Tablet] 1 - 2 tab PO Q6HP PRN 05/26/19 Propranolol HCl [Propranolol HCl ER] 60 mg PO DAILY 05/26/19 Sennosides [Senokot] 17.2 mg PO BID 05/26/19 Scopolamine Hydrobromide [Transderm-Scop 1.5 mg Patch] 1 each TD Q3DAYS #10 patch.[id number] 05/30/19 Polymyxin B Sulfate/Tmp [Polytrim Oph Soln 10 ml] 1 drop RT_EYE ASDIR #1 bottle 10/01/19 Allergies/Adverse Reactions: No Known Allergies Allergy (Verified 07/05/19 17:18) Review of Systems ROS unobtainable: Due to mental status Physical Exam Vital Signs: Temp Pulse Resp BP Pulse Ox 98.9 F 14 137/88 H 90 L 02/11/20 09:20 02/11/20 13:01 02/11/20 13:00 02/11/20 13:01 Intake & Output 02/10/20 02/11/20 02/12/20 06:59 06:59 06:59 Intake Total 1050 Balance 1050 Weight 97.069 kg General appearance: PRESENT: no acute distress, obese, well-developed, well- nourished, other - Acutely ill-appearing Head exam: PRESENT: atraumatic, normocephalic Eye exam: PRESENT: conjunctiva pink, EOMI, PERRLA. ABSENT: scleral icterus Mouth exam: PRESENT: dry mucosa, moist, tongue midline Respiratory exam: PRESENT: clear to auscultation michelle, symmetrical, unlabored. ABSENT: rales, rhonchi, wheezes Cardiovascular exam: PRESENT: tachycardia. ABSENT: diastolic murmur, rubs, systolic murmur Pulses: PRESENT: normal dorsalis pedis pul Vascular exam: PRESENT: normal capillary refill GI/Abdominal exam: PRESENT: normal bowel sounds, soft. ABSENT: distended, guarding, mass, organolmegaly, rebound, tenderness Rectal exam: PRESENT: deferred Extremities exam: PRESENT: full ROM - Moves all extremities spontaneously. ABSENT: calf tenderness, clubbing, pedal edema Neurological exam: PRESENT: alert, awake, oriented to person, oriented to place, oriented to time, oriented to situation, CN II-XII grossly intact, other - Lethargic; sluggish responses. Does answer questions and follow directions.. ABSENT: motor sensory deficit Psychiatric exam: PRESENT: appropriate affect, normal mood. ABSENT: homicidal ideation, suicidal ideation Skin exam: PRESENT: dry, intact, warm. ABSENT: cyanosis, rash Results Laboratory Results: 02/11/20 09:16 02/11/20 09:16 02/11/20 02/11/20 02/11/20 09:16 09:16 09:16 WBC 7.2 RBC 3.94 Hgb 12.3 Hct 37.6 MCV 96 MCH 31.3 MCHC 32.7 RDW 16.5 H Plt Count 234 Seg Neutrophils % 85.3 H VBG pH VBG pCO2 VBG HCO3 VBG Base Excess Sodium 135.9 L Potassium 4.6 Chloride 103 Carbon Dioxide 25 Anion Gap 8 BUN 9 Creatinine 0.83 Est GFR ( Amer) > 60 Glucose 211 H Lactic Acid Calcium 8.7 Magnesium Total Bilirubin 1.1 AST 56 H Alkaline Phosphatase 115 Ammonia Total Protein 6.7 Albumin 3.8 TSH Serum HCG, Qual NEGATIVE Urine Color Urine Appearance Urine pH Ur Specific [place] Urine Protein Urine Glucose (UA) Urine Ketones Urine Blood Urine RBC (Auto) 02/11/20 02/11/20 02/11/20 09:16 09:16 09:16 WBC RBC Hgb Hct MCV MCH MCHC RDW Plt Count Seg Neutrophils % VBG pH 7.35 VBG pCO2 43.9 VBG HCO3 23.5 VBG Base Excess -2.3 Sodium Potassium Chloride Carbon Dioxide Anion Gap BUN Creatinine Est GFR ( Amer) Glucose Lactic Acid 1.7 Calcium Magnesium 2.1 Total Bilirubin AST Alkaline Phosphatase Ammonia Total Protein Albumin TSH Serum HCG, Qual Urine Color Urine Appearance Urine pH Ur Specific [place] Urine Protein Urine Glucose (UA) Urine Ketones Urine Blood Urine RBC (Auto) 02/11/20 02/11/20 02/11/20 09:16 09:58 12:45 WBC RBC Hgb Hct MCV MCH MCHC RDW Plt Count Seg Neutrophils % VBG pH VBG pCO2 VBG HCO3 VBG Base Excess Sodium Potassium Chloride Carbon Dioxide Anion Gap BUN Creatinine Est GFR ( Amer) Glucose Lactic Acid 2.4 H Calcium Magnesium Total Bilirubin AST Alkaline Phosphatase Ammonia Total Protein Albumin TSH 0.64 Serum HCG, Qual Urine Color MINOO Urine Appearance CLOUDY Urine pH 5.0 Ur Specific [place] 1.021 Urine Protein 100 H Urine Glucose (UA) 50 H Urine Ketones TRACE H Urine Blood SMALL H Urine RBC (Auto) 7 02/11/20 12:45 WBC RBC Hgb Hct MCV MCH MCHC RDW Plt Count Seg Neutrophils % VBG pH VBG pCO2 VBG HCO3 VBG Base Excess Sodium Potassium Chloride Carbon Dioxide Anion Gap BUN Creatinine Est GFR ( Amer) Glucose Lactic Acid Calcium Magnesium Total Bilirubin AST Alkaline Phosphatase Ammonia 11.9 Total Protein Albumin TSH Serum HCG, Qual Urine Color Urine Appearance Urine pH Ur Specific [place] Urine Protein Urine Glucose (UA) Urine Ketones Urine Blood Urine RBC (Auto) 02/11/20 02/11/20 09:16 09:16 Troponin I 0.046 NT-Pro-B Natriuret Pep 281 H Impressions: Chest X-Ray 02/11/20 08:49 IMPRESSION: Bilateral low lung volumes, otherwise unremarkable exam Abdomen/Pelvis CT 02/11/20 09:32 IMPRESSION: 1. New metastatic lesions in the liver when compared to 09/19/2019 2. Hypodensity in the posterior aspect of the mid right kidney, new when compared to prior examination. This may represent metastatic disease, however a focal pyelonephritis could have a similar appearance. Recommend correlation with patient's lab work and symptoms. Interval resolution of the presumed neoplastic disease in the anterior mid right kidney. 3. Diffuse bony metastatic disease without CT evidence of a pathologic fracture at this time. Chest/Abdomen CTA 02/11/20 09:32 IMPRESSION: 1. No evidence pulmonary embolism 2. Streaky ground-glass opacities throughout the lungs, most predominantly in the upper lobes. This may represent an atypical infection (such a COVID-19) or may represent early pulmonary edema/ heart failure. 3. Multiple pulmonary nodules, some of which are increasing in size when compared to prior exam, consistent with metastatic disease. 4. Stable appearing metastatic disease throughout the bony structures. Head CT 02/11/20 09:32 IMPRESSION: Stable appearing 6.1 cm right frontotemporal lobe mass with no acute intracranial findings. Air-fluid level in the left maxillary sinus. This may represent an acute sinusitis. EVIDENCE OF ACUTE STROKE: NO. Assessment and Plan - Diagnosis (1) Encephalopathy acute Is this a current diagnosis for this admission?: Yes Plan: Patient with lethargy and delayed responses. Multifactorial r/t infectious process, and possibly her underlying brain metastasis. Specific management as described below. Supportive care. (2) Acute pyelonephritis Is this a current diagnosis for this admission?: Yes Plan: Urine cultures pending Blood cultures pending UA reveals UTI CT ABD/Pelvis notes right side localized pyelonephritis She is admitted to the medical floor on continuous telemetry. Empirically started on IV Rocephin. She is provided generous IVF. Encourage p.o. fluids Antipyretics, analgesics, and antiemetics as needed. Follow CBC (3) Tachycardia Is this a current diagnosis for this admission?: Yes Plan: Multifactorial; acute infectious process with underlying lung metastasis. Monitor on telemetry. IVF as above. Continue Propranolol; adjust dose as indicated. (4) Diabetes mellitus type 2 in obese Is this a current diagnosis for this admission?: Yes Plan: Holding oral medications while admitted. Patient is placed on a consistent carb diet. Accu-Cheks before meals and at bedtime with Humalog for sliding scale coverage. Hypoglycemia protocol in place. (5) Metastatic breast cancer Is this a current diagnosis for this admission?: Yes Plan: Dr. Johnson is consulted. Increase Dexamethasone to 8mg BID. Continue home analgesic regimen. (6) Seizure disorder Is this a current diagnosis for this admission?: Yes Plan: Continue home dose Keppra Increased Dexamethasone PRN Ativan Seizure precautions (7) Immunocompromised patient Is this a current diagnosis for this admission?: Yes Plan: Metastatic breast cancer patient undergoing chemotherapy. Abs Neut 6.2 Monitor CBC (8) Abnormal chest CT Is this a current diagnosis for this admission?: Yes Plan: Concern regarding groundglass appearance to bilateral upper lobes that can represent atypical pneumonia (including COVID) in an immunocompromised patient. She denies shortness of breath, though is noted to be tachycardic and borderline hypoxic. Patient has been quarantining at home, but did have a medical appointment at [facility] ~2 weeks ago and her primary care provider (sister) continues to work outside the home. Have discussed with [facility]; will be able to obtain a rapid COVID test. - Time Time Spent with patient: 35 or more minutes Medications reviewed and adjusted accordingly: Yes - Inpatient Certification Based on my medical assessment, after consideration of the patient's comorbidities, presenting symptoms, or acuity I expect that the services needed warrant INPATIENT care.: Yes I certify that my determination is in accordance with my understanding of Medicare's requirements for reasonable and necessary INPATIENT services [42 CFR 412.3e].: Yes Medical Necessity: Failure to Improve With Outpatient Therapy, Significant Comorbidiites Make Outpatient Treatment Too Risky, Need Close Monitoring Due to Risk of Patient Decompensation, Need For IV Fluids, Need For Continuous Telemetry Monitoring, Need for IV Antibiotics, Risk of Complication if Not Cared For in Hospital
[2020-02-11] MEDS ORDERED: DEXAMETHASONE 4 MG TABLET PO ONE (14:30)
[2020-02-11] MEDS ORDERED: MORPHINE SULFATE 10 MG/5 ML ORAL SOLUTION UDCUP PO PRN (14:33)
[2020-02-11] MEDS: HEPARIN SOD (PORCINE) 5,000 UNIT/ML 1 ML VIAL SUBCUT SCH ×2 (15:41→21:43)
[2020-02-11] MEDS: INSULIN LISPRO 100 UNIT/ML 3 ML VIAL SUBCUT SCH ×2 (16:20→21:43)
[2020-02-11] MEDS: DOCUSATE SODIUM 100 MG CAPSULE PO SCH (17:28)
[2020-02-11] MEDS ORDERED: MELOXICAM 7.5 MG TABLET ONE (17:29)
[2020-02-11] MEDS: MELOXICAM 7.5 MG TABLET PO SCH (17:31)
--- NOTE | 2020-02-11 17:43 | PDOC CONSULTATION ---
Consultation Consult Date: 02/11/20 Provider Consulted: REE GONZALES Consult reason:: Hematology/Oncology consultation was requested for patient with metastatic breast cancer and altered mental status History of Present Illness Admission Date/PCP: 02/11/20 13:43 MONA CAAL History of Present Illness: LEI GU is a 39 year old female currently receiving chemotherapy with D OXIL for her metastatic breast cancer to the lung, liver, bones and brain. She underwent further gamma knife treatments about a week ago. Her sister states that yesterday, she was not feeling well. She did not eat or drink much, she had a small seizure, and this morning, she was not talking at all. She had dark urine with a foul odor. On arrival to the ED, she had low BP and elevated HR. Work-up was negative for PE, positive for UTI, possible pneumonia, no significant change to her brain scans. She was given ABX and Dexamethasone. Currnetly, she is feeling better. She is talking and states that her right arm is numb. Past Medical History Cardiac Medical History: Reports: Hypertension, Heart Murmur Pulmonary Medical History: Reports: Asthma - BRONCHIAL, Bronchitis Neurological Medical History: Reports: Migraine, Seizures Endocrine Medical History: Reports: Diabetes Mellitus Type 2 Malignancy Medical History: Reports: Breast Cancer GI Medical History: Reports: None Musculoskeltal Medical History: Reports: None Psychiatric Medical History: Reports: None Hematology: Reports: Anemia Denies: Sickle Cell Disease Infectious Medical History: Denies: HIV Past Surgical History Past Surgical History: Reports: Other - [place] teeth extraction. Breast biopsies Social History Lives with: Family Smoking Status: Unknown if Ever Smoked Frequency of Alcohol Use: None Hx Recreational Drug Use: No Drugs: None Hx Prescription Drug Abuse: No - Advance Directive Resuscitation Status: Full Code Family History Family History: DM, Hypertension, Malignancy, Other Parental Family History Reviewed: Yes Children Family History Reviewed: Yes Sibling(s) Family History Reviewed.: Yes Medication/Allergy Home Medications: Dexamethasone [Decadron 4 mg Tablet] 4 mg PO BID 07/07/18 Alprazolam [Xanax 0.5 mg Tablet] 0.5 mg PO QHS 05/26/19 Fentanyl [Duragesic 25 mcg/hr Transdermal Patch] 1 each TD Q3D 05/26/19 Gabapentin [Neurontin 100 mg Capsule] 200 mg PO QHS 05/26/19 Levetiracetam [Keppra Xr 500 mg Tab.sr] 2,000 mg PO QHS 05/26/19 Meloxicam [Mobic] 7.5 mg PO BID 05/26/19 Metformin HCl [Metformin HCl ER] 500 mg PO BID 05/26/19 Naproxen 500 mg PO BID 05/26/19 Ondansetron [Zofran Odt 4 mg Tablet] 8 mg PO Q8HP PRN 05/26/19 Promethazine HCl [Phenergan 25 mg Tablet] 25 mg PO Q6HP PRN 05/26/19 Propranolol HCl [Propranolol HCl ER] 60 mg PO QAM 05/26/19 Sennosides [Senokot] 17.2 mg PO QHS 05/26/19 Scopolamine Hydrobromide [Transderm-Scop 1.5 mg Patch] 1 each TD Q3DAYS #10 patch.[id number] 05/30/19 Cetirizine HCl [Zyrtec 10 mg Tablet] 10 mg PO QHS 02/11/20 Ergocalciferol (Vitamin D2) [Drisdol 50,000 unit (1.25MG) Capsule] 50,000 unit PO MO@1000 02/11/20 Gabapentin [Neurontin 100 mg Capsule] 100 mg PO QAM 02/11/20 Morphine Sulfate [Morphine Oral Soln 10 Mg/5 Ml Udcup] 10 mg PO HSP PRN 02/11/20 Allergies/Adverse Reactions: No Known Allergies Allergy (Verified 07/05/19 17:18) Review of Systems Constitutional: PRESENT: headache(s). ABSENT: fever(s) Eyes: PRESENT: visual disturbances - saw Ophthalmology and diagnosed with a retinal hemorrage Ears: ABSENT: hearing changes Nose, Mouth, and Throat: ABSENT: sore throat Cardiovascular: ABSENT: chest pain Respiratory: ABSENT: dyspnea Gastrointestinal: ABSENT: abdominal pain, constipation Genitourinary: PRESENT: as per HPI. ABSENT: dysuria Integumentary: ABSENT: rash Neurological: PRESENT: as per HPI Psychiatric: ABSENT: anxiety, depression Hematologic/Lymphatic: ABSENT: easy bleeding Physical Exam Vital Signs: Temp Pulse Resp BP Pulse Ox 99.9 F 89 17 137/90 H 92 02/11/20 17:31 02/11/20 17:19 02/11/20 17:19 02/11/20 17:19 02/11/20 16:01 Intake & Output 02/10/20 02/11/20 02/12/20 06:59 06:59 06:59 Intake Total 2049 Output Total 0 Balance 2049 Weight 101.7 kg General appearance: PRESENT: no acute distress, obese Exam: 39 year old female with Barr facies from chronic steroid use. Head exam: PRESENT: atraumatic, normocephalic Eye exam: PRESENT: EOMI Mouth exam: PRESENT: tongue midline, other - Some white plaques on tongue Neck exam: ABSENT: lymphadenopathy, tenderness Respiratory exam: PRESENT: clear to auscultation michelle, unlabored Cardiovascular exam: PRESENT: RRR, tachycardia GI/Abdominal exam: PRESENT: soft. ABSENT: tenderness Extremities exam: ABSENT: pedal edema Musculoskeletal exam: PRESENT: normal inspection Neurological exam: PRESENT: alert, awake, oriented to person, oriented to place Psychiatric exam: PRESENT: appropriate affect Skin exam: PRESENT: normal color Results Laboratory Results: 02/11/20 09:16 02/11/20 09:16 02/11/20 02/11/20 02/11/20 09:16 09:16 09:16 WBC 7.2 RBC 3.94 Hgb 12.3 Hct 37.6 MCV 96 MCH 31.3 MCHC 32.7 RDW 16.5 H Plt Count 234 Seg Neutrophils % 85.3 H VBG pH VBG pCO2 VBG HCO3 VBG Base Excess Sodium 135.9 L Potassium 4.6 Chloride 103 Carbon Dioxide 25 Anion Gap 8 BUN 9 Creatinine 0.83 Est GFR ( Amer) > 60 Glucose 211 H Lactic Acid Calcium 8.7 Magnesium Total Bilirubin 1.1 AST 56 H Alkaline Phosphatase 115 Ammonia Total Protein 6.7 Albumin 3.8 TSH Serum HCG, Qual NEGATIVE Urine Color Urine Appearance Urine pH Ur Specific [place] Urine Protein Urine Glucose (UA) Urine Ketones Urine Blood Urine RBC (Auto) 02/11/20 02/11/20 02/11/20 09:16 09:16 09:16 WBC RBC Hgb Hct MCV MCH MCHC RDW Plt Count Seg Neutrophils % VBG pH 7.35 VBG pCO2 43.9 VBG HCO3 23.5 VBG Base Excess -2.3 Sodium Potassium Chloride Carbon Dioxide Anion Gap BUN Creatinine Est GFR ( Amer) Glucose Lactic Acid 1.7 Calcium Magnesium 2.1 Total Bilirubin AST Alkaline Phosphatase Ammonia Total Protein Albumin TSH Serum HCG, Qual Urine Color Urine Appearance Urine pH Ur Specific [place] Urine Protein Urine Glucose (UA) Urine Ketones Urine Blood Urine RBC (Auto) 02/11/20 02/11/20 02/11/20 09:16 09:58 12:45 WBC RBC Hgb Hct MCV MCH MCHC RDW Plt Count Seg Neutrophils % VBG pH VBG pCO2 VBG HCO3 VBG Base Excess Sodium Potassium Chloride Carbon Dioxide Anion Gap BUN Creatinine Est GFR ( Amer) Glucose Lactic Acid 2.4 H Calcium Magnesium Total Bilirubin AST Alkaline Phosphatase Ammonia Total Protein Albumin TSH 0.64 Serum HCG, Qual Urine Color MINOO Urine Appearance CLOUDY Urine pH 5.0 Ur Specific [place] 1.021 Urine Protein 100 H Urine Glucose (UA) 50 H Urine Ketones TRACE H Urine Blood SMALL H Urine RBC (Auto) 7 02/11/20 02/11/20 12:45 15:23 WBC RBC Hgb Hct MCV MCH MCHC RDW Plt Count Seg Neutrophils % VBG pH VBG pCO2 VBG HCO3 VBG Base Excess Sodium Potassium Chloride Carbon Dioxide Anion Gap BUN Creatinine Est GFR ( Amer) Glucose Lactic Acid 2.1 Calcium Magnesium Total Bilirubin AST Alkaline Phosphatase Ammonia 11.9 Total Protein Albumin TSH Serum HCG, Qual Urine Color Urine Appearance Urine pH Ur Specific [place] Urine Protein Urine Glucose (UA) Urine Ketones Urine Blood Urine RBC (Auto) 02/11/20 02/11/20 02/11/20 09:16 09:16 15:23 Creatine Kinase Troponin I 0.046 0.041 NT-Pro-B Natriuret Pep 281 H 02/11/20 15:23 Creatine Kinase 955 H Troponin I NT-Pro-B Natriuret Pep Impressions: Chest X-Ray 02/11/20 08:49 IMPRESSION: Bilateral low lung volumes, otherwise unremarkable exam Abdomen/Pelvis CT 02/11/20 09:32 IMPRESSION: 1. New metastatic lesions in the liver when compared to 09/19/2019 2. Hypodensity in the posterior aspect of the mid right kidney, new when compared to prior examination. This may represent metastatic disease, however a focal pyelonephritis could have a similar appearance. Recommend correlation with patient's lab work and symptoms. Interval resolution of the presumed neoplastic disease in the anterior mid right kidney. 3. Diffuse bony metastatic disease without CT evidence of a pathologic fracture at this time. Chest/Abdomen CTA 02/11/20 09:32 IMPRESSION: 1. No evidence pulmonary embolism 2. Streaky ground-glass opacities throughout the lungs, most predominantly in the upper lobes. This may represent an atypical infection (such a COVID-19) or may represent early pulmonary edema/ heart failure. 3. Multiple pulmonary nodules, some of which are increasing in size when compared to prior exam, consistent with metastatic disease. 4. Stable appearing metastatic disease throughout the bony structures. Head CT 02/11/20 09:32 IMPRESSION: Stable appearing 6.1 cm right frontotemporal lobe mass with no acute intracranial findings. Air-fluid level in the left maxillary sinus. This may represent an acute sinusitis. EVIDENCE OF ACUTE STROKE: NO. Status: Image reviewed by me Assessment & Plan - Diagnosis (1) UTI (urinary tract infection) Qualifiers: Urinary tract infection type: acute cystitis Is this a current diagnosis for this admission?: Yes Plan: Possible pyelonephritis, per CT scans. On appropriate antibiotics. (2) Altered mental status Qualifiers: Altered mental status type: stupor Qualified Code(s): R40.1 - Stupor Is this a current diagnosis for this admission?: Yes Plan: This may be a combination of post-ictal from seizure in the night, increased cerebral edema due to brain mets, or acute infection. After Dex and ABX given in the ED, she has already started to clear. Will continue increased dose of dex and see how she does. (3) Metastatic cancer Is this a current diagnosis for this admission?: Yes Plan: All chemo on hold during admission. (4) Tachycardia Is this a current diagnosis for this admission?: Yes Plan: Hopefully this will improve with aggressive hydration. - Plan Summary Plan Summary: Patient was discussed with Evelyn Marinelli and other members of the medical team. Please feel free to call if needed.
[2020-02-11] MEDS ORDERED: NAPROXEN 250 MG TABLET PO SCH (18:00)
[2020-02-11] MEDS ORDERED: (PENDING PHARMACY ID) (Naproxen [Naproxen] 500 MG) PO SCH (18:00)
[2020-02-11] MEDS ORDERED: METOPROLOL TARTRATE PF/INJ 5 MG/5 ML SDV IV PRN (18:02)
[2020-02-11] MEDS: ALPRAZOLAM 0.5 MG TABLET PO SCH (21:44)
[2020-02-11] MEDS: CETIRIZINE 10 MG TABLET PO SCH (21:44)
[2020-02-11] MEDS: DEXAMETHASONE 4 MG TABLET PO SCH (21:44)
[2020-02-11] MEDS: FAMOTIDINE 20 MG TABLET PO SCH (21:44)
[2020-02-11] MEDS: GABAPENTIN 100 MG CAPSULE PO SCH (21:45)
[2020-02-11] MEDS ORDERED: LEVETIRACETAM XR 500 MG TAB.SR.24H PO SCH (22:00)
[2020-02-11] MEDS ORDERED: LEVETIRACETAM 500 MG TABLET PO ONE (22:11)
[2020-02-11] MEDS: NORMAL SALINE 1000 ML 1,000 ML IV PRN (22:37)
[2020-02-11] MEDS: LEVETIRACETAM 500 MG TABLET PO SCH (22:38)
[2020-02-12] MEDS: HEPARIN SOD (PORCINE) 5,000 UNIT/ML 1 ML VIAL SUBCUT SCH ×3 (05:47→21:35)
[2020-02-12] MEDS: NORMAL SALINE 1000 ML 1,000 ML IV PRN ×3 (05:47→23:52)
[2020-02-12] MEDS: INSULIN LISPRO 100 UNIT/ML 3 ML VIAL SUBCUT SCH ×4 (07:50→21:35)
[2020-02-12] MEDS: GABAPENTIN 100 MG CAPSULE PO SCH ×2 (07:51→21:36)
[2020-02-12] MEDS ORDERED: PROPRANOLOL HCL 20 MG TABLET PO ONE ×2 (08:00→11:00)
[2020-02-12] MEDS ORDERED: (PENDING PHARMACY ID) (Propranolol Hcl [Propranolol Hcl Er] 60 MG) PO SCH (08:00)
[2020-02-12 09:32] LABS: HEMATOCRIT 31.6 % (36.0-47.0); HEMOGLOBIN 10.3 g/dL (12.0-15.5); MEAN CORPUSCULAR HGB CONC 32.5 g/dL (32.0-36.0); MEAN CORPUSCULAR VOLUME 96 fl (80-97); PLATELET COUNT 189 10^3/uL (150-450); RED BLOOD COUNT 3.31 10^6/uL (3.72-5.28); RED CELL DISTRIBUTION WIDTH 16.5 % (11.5-14.0); WHITE BLOOD COUNT 5.2 10^3/uL (4.0-10.5)
[2020-02-12 09:36] LABS: ANION GAP 6 (5-19); BLOOD UREA NITROGEN 7 mg/dL (7-20); CALCIUM 8.2 mg/dL (8.4-10.2); CARBON DIOXIDE 24 mmol/L (22-30); CHLORIDE 108 mmol/L (98-107); GLUCOSE 269 mg/dL (75-110)
[2020-02-12] MEDS ORDERED: CEFTRIAXONE 1 GM/D5W RTU 1 GM/50 ML RTUPB IV SCH (10:00)
[2020-02-12] MEDS ORDERED: NAPROXEN 250 MG TABLET PO PRN (10:30)
[2020-02-12] MEDS: LEVETIRACETAM 500 MG TABLET PO SCH ×2 (11:05→21:36)
[2020-02-12] MEDS: MELOXICAM 7.5 MG TABLET PO SCH ×2 (11:05→17:57)
[2020-02-12] MEDS: DOCUSATE SODIUM 100 MG CAPSULE PO SCH ×2 (11:05→17:57)
[2020-02-12] MEDS: FAMOTIDINE 20 MG TABLET PO SCH ×2 (11:06→21:36)
[2020-02-12] MEDS: DEXAMETHASONE 4 MG TABLET PO SCH (11:06)
[2020-02-12] MEDS: CEFTRIAXONE 2 GM/D5W RTU 2 GM/50 ML RTUPB IV SCH (11:07)
--- NOTE | 2020-02-12 12:33 | PDOC PROGRESS REPORT ---
Subjective Progress Note for:: 02/12/20 Subjective:: Patient was seen today by tele medicine, due to COVID-19 concerns. She states that she is feeling much better. She kept having sweats last night. She is still complaining of thrush in her mouth. Otherwise, everything is back to baseline. ROS: No nausea. No dyspnea. Reason For Visit: SEPSIS,PYELONEPHRITIS Physical Exam Vital Signs: Temp Pulse Resp BP Pulse Ox 97.9 F 108 H 17 160/92 H 100 02/12/20 12:00 02/12/20 12:00 02/12/20 12:00 02/12/20 12:00 02/12/20 12:00 Intake & Output 02/11/20 02/12/20 02/13/20 06:59 06:59 06:59 Intake Total 5422 Output Total 0 Balance 5422 Weight 105.2 kg Results Laboratory Results: 02/12/20 07:10 02/12/20 07:10 02/11/20 02/11/20 02/11/20 12:45 12:45 15:23 WBC RBC Hgb Hct MCV MCH MCHC RDW Plt Count Sodium Potassium Chloride Carbon Dioxide Anion Gap BUN Creatinine Est GFR ( Amer) Glucose Lactic Acid 2.4 H 2.1 Calcium Ammonia 11.9 02/12/20 02/12/20 07:10 07:10 WBC 5.2 RBC 3.31 L Hgb 10.3 L Hct 31.6 L MCV 96 MCH 31.0 MCHC 32.5 RDW 16.5 H Plt Count 189 Sodium 137.9 Potassium 5.0 Chloride 108 H Carbon Dioxide 24 Anion Gap 6 BUN 7 Creatinine 0.48 L Est GFR ( Amer) > 60 Glucose 269 H Lactic Acid Calcium 8.2 L Ammonia 02/11/20 11:21 Blood Blood Culture (PCR) - Final Escherichia Coli 02/11/20 02/11/20 02/11/20 09:16 09:16 15:23 Creatine Kinase Troponin I 0.046 0.041 NT-Pro-B Natriuret Pep 281 H 02/11/20 02/11/20 02/12/20 15:23 19:20 11:00 Creatine Kinase 955 H Troponin I 0.059 0.038 NT-Pro-B Natriuret Pep Impressions: Chest X-Ray 02/11/20 08:49 IMPRESSION: Bilateral low lung volumes, otherwise unremarkable exam Abdomen/Pelvis CT 02/11/20 09:32 IMPRESSION: 1. New metastatic lesions in the liver when compared to 09/19/2019 2. Hypodensity in the posterior aspect of the mid right kidney, new when compared to prior examination. This may represent metastatic disease, however a focal pyelonephritis could have a similar appearance. Recommend correlation with patient's lab work and symptoms. Interval resolution of the presumed neoplastic disease in the anterior mid right kidney. 3. Diffuse bony metastatic disease without CT evidence of a pathologic fracture at this time. Chest/Abdomen CTA 02/11/20 09:32 IMPRESSION: 1. No evidence pulmonary embolism 2. Streaky ground-glass opacities throughout the lungs, most predominantly in the upper lobes. This may represent an atypical infection (such a COVID-19) or may represent early pulmonary edema/ heart failure. 3. Multiple pulmonary nodules, some of which are increasing in size when compared to prior exam, consistent with metastatic disease. 4. Stable appearing metastatic disease throughout the bony structures. Head CT 02/11/20 09:32 IMPRESSION: Stable appearing 6.1 cm right frontotemporal lobe mass with no acute intracranial findings. Air-fluid level in the left maxillary sinus. This may represent an acute sinus itis. EVIDENCE OF ACUTE STROKE: NO. Assessment & Plan - Diagnosis (1) UTI (urinary tract infection) Qualifiers: Urinary tract infection type: acute cystitis Is this a current diagnosis for this admission?: Yes Plan: Continue antibiotics. (2) Altered mental status Qualifiers: Altered mental status type: stupor Qualified Code(s): R40.1 - Stupor Is this a current diagnosis for this admission?: Yes Plan: Now cleared. I will decrease dexamethasone to 8 mg po q AM and will taper over the next few days. (3) Metastatic cancer Is this a current diagnosis for this admission?: Yes Plan: Continue treatment as outpatient. (4) Tachycardia Is this a current diagnosis for this admission?: Yes - Time Time Spent with patient: Less than 15 minutes - Plan Summary Plan Summary: I will add Diflucan 100 mg po daily x 3 as nystatin swish and swallow did not fully work. She is also on ABX and increased DEX again which may worsen the thrush. She has not needed any zofran recently. I am OK with Discharge today or tomorrow. I will follow as outpatient. Please call with any concerns.
--- NOTE | 2020-02-12 13:47 | PDOC PROGRESS REPORT ---
Subjective Progress Note for:: 02/12/20 Subjective:: LEI GU is a 39 year old female with a past medical history significant for metastatic breast cancer (brain, bone, lung and liver) with associated seizure disorder, Tachycardia, DM 2, and obesity who was admitted 02/11/2020 with acute encephalopathy secondary to pyelonephritis. Patient was seen on afternoon rounds. She was found resting in bed, comfortably on room air. She is ANO x4. Does remember me from yesterday. She reports that she is feeling much better though continues to have generalized fatigue and weakness. She noted a slightly productive cough this morning. Otherwise, she denies fever, chills, chest pain, palpitations, dyspnea, orthopn ea, abdominal pain, nausea vomiting diarrhea. She has no new questions or concerns at this time. No concerns per nursing. Reason For Visit: SEPSIS,PYELONEPHRITIS Physical Exam Vital Signs: Temp Pulse Resp BP Pulse Ox 97.9 F 108 H 17 160/92 H 100 02/12/20 12:00 02/12/20 12:00 02/12/20 12:00 02/12/20 12:00 02/12/20 12:00 Intake & Output 02/11/20 02/12/20 02/13/20 06:59 06:59 06:59 Intake Total 5422 380 Output Total 0 Balance 5422 380 Weight 105.2 kg General appearance: PRESENT: no acute distress, cooperative, obese, well-developed, well-nourished Head exam: PRESENT: atraumatic, normocephalic Eye exam: PRESENT: conjunctiva pink, EOMI, PERRLA. ABSENT: scleral icterus Mouth exam: PRESENT: moist, tongue midline Respiratory exam: PRESENT: clear to auscultation michelle, symmetrical, unlabored. ABSENT: rales, rhonchi, wheezes Cardiovascular exam: PRESENT: +S1, +S2, tachycardia. ABSENT: diastolic murmur, rubs, systolic murmur Vascular exam: PRESENT: normal capillary refill Extremities exam: PRESENT: full ROM. ABSENT: calf tenderness, clubbing, pedal edema Musculoskeletal exam: PRESENT: ambulatory Neurological exam: PRESENT: alert, awake, oriented to person, oriented to place, oriented to time, oriented to situation, CN II-XII grossly intact. ABSENT: motor sensory deficit Psychiatric exam: PRESENT: appropriate affect, normal mood. ABSENT: homicidal ideation, suicidal ideation Skin exam: PRESENT: dry, intact, warm. ABSENT: cyanosis, rash Results Laboratory Results: 02/12/20 07:10 02/12/20 07:10 02/11/20 02/12/20 02/12/20 15:23 07:10 07:10 WBC 5.2 RBC 3.31 L Hgb 10.3 L Hct 31.6 L MCV 96 MCH 31.0 MCHC 32.5 RDW 16.5 H Plt Count 189 Sodium 137.9 Potassium 5.0 Chloride 108 H Carbon Dioxide 24 Anion Gap 6 BUN 7 Creatinine 0.48 L Est GFR ( Amer) > 60 Glucose 269 H Lactic Acid 2.1 Calcium 8.2 L 02/11/20 11:21 Blood Blood Culture (PCR) - Final Escherichia Coli 02/11/20 02/11/20 02/11/20 09:16 09:16 15:23 Creatine Kinase Troponin I 0.046 0.041 NT-Pro-B Natriuret Pep 281 H 02/11/20 02/11/20 02/12/20 15:23 19:20 11:00 Creatine Kinase 955 H Troponin I 0.059 0.038 NT-Pro-B Natriuret Pep Impressions: Chest X-Ray 02/11/20 08:49 IMPRESSION: Bilateral low lung volumes, otherwise unremarkable exam Abdomen/Pelvis CT 02/11/20 09:32 IMPRESSION: 1. New metastatic lesions in the liver when compared to 09/19/2019 2. Hypodensity in the posterior aspect of the mid right kidney, new when compared to prior examination. This may represent metastatic disease, however a focal pyelonephritis could have a similar appearance. Recommend correlation with patient's lab work and symptoms. Interval resolution of the presumed neopl astic disease in the anterior mid right kidney. 3. Diffuse bony metastatic disease without CT evidence of a pathologic fracture at this time. Chest/Abdomen CTA 02/11/20 09:32 IMPRESSION: 1. No evidence pulmonary embolism 2. Streaky ground-glass opacities throughout the lungs, most predominantly in the upper lobes. This may represent an atypical infection (such a COVID-19) or may represent early pulmonary edema/ heart failure. 3. Multiple pulmonary nodules, some of which are increasing in size when compared to prior exam, consistent with metastatic disease. 4. Stable appearing metastatic disease throughout the bony structures. Head CT 02/11/20 09:32 IMPRESSION: Stable appearing 6.1 cm right frontotemporal lobe mass with no acute intracranial findings. Air-fluid level in the left maxillary sinus. This may represent an acute sinusitis. EVIDENCE OF ACUTE STROKE: NO. Assessment and Plan - Diagnosis (1) Encephalopathy acute Is this a current diagnosis for this admission?: Yes Plan: Resolved; now A&O x4. Multifactorial r/t infectious process, and possibly her underlying brain metastasis. Specific management as described below. Supportive care. (2) Acute pyelonephritis Is this a current diagnosis for this admission?: Yes Plan: Urine cultures revealed gram-negative rods Blood cultures E. coli (1/4 bottles). UA reveals UTI CT ABD/Pelvis notes right side localized pyelonephritis She is admitted to the medical floor on continuous telemetry. Continue on IV Rocephin; Day #2 She is provided generous IVF. Encourage p.o. fluids Antipyretics, analgesics, and antiemetics as needed. Follow CBC (3) Tachycardia Is this a current diagnosis for this admission?: Yes Plan: Multifactorial; acute infectious process with underlying lung metastasis. Improved to patient's normal; 100-110 Monitor on telemetry. Continue Propranolol; slight dose increase today (4) Diabetes mellitus type 2 in obese Is this a current diagnosis for this admission?: Yes Plan: Holding oral medications while admitted. Patient is placed on a consistent carb diet. Accu-Cheks before meals and at bedtime with Humalog for sliding scale coverage. Hypoglycemia protocol in place. (5) Metastatic breast cancer Is this a current diagnosis for this admission?: Yes Plan: Dr. Johnson is consulted. Dexamethasone per Dr. Johnson Continue home analgesic regimen. (6) Seizure disorder Is this a current diagnosis for this admission?: Yes Plan: Continue home dose Keppra PRN Ativan Seizure precautions (7) Immunocompromised patient Is this a current diagnosis for this admission?: Yes Plan: Metastatic breast cancer patient undergoing chemotherapy. Abs Neut 6.2 Monitor CBC (8) Abnormal chest CT Is this a current diagnosis for this admission?: Yes Plan: Concern regarding groundglass appearance to bilateral upper lobes that can represent atypical pneumonia (including COVID) in an immunocompromised patient. She denies shortness of breath, though is noted to be tachycardic and borderline hypoxic. Patient has been quarantining at home, but did have a medical appointment at [facility] ~2 weeks ago and her primary care provider (sister) continues to work outside the home. COVID negative. Encourage pulmonary toilet. (9) Bacteremia Is this a current diagnosis for this admission?: Yes Plan: E. coli bacteremia (1/ bottles). Repeat blood cultures pending. Urine culture shows gram-negative rods. Have increased IV Rocephin to 2 g daily pending remaining culture results. - Time Time Spent with patient: 25-34 minutes Medications reviewed and adjusted accordingly: Yes Anticipated discharge: Home Within: within 72 hours
[2020-02-12] MEDS ORDERED: PROPRANOLOL HCL 20 MG TABLET PO SCH (14:00)
[2020-02-12] MEDS: FLUCONAZOLE 100 MG TABLET PO SCH (14:38)
[2020-02-12] MEDS: PROPRANOLOL HCL 20 MG TABLET PO SCH ×2 (17:57→23:52)
[2020-02-12] MEDS: ALPRAZOLAM 0.5 MG TABLET PO SCH (21:36)
[2020-02-12] MEDS: CETIRIZINE 10 MG TABLET PO SCH (21:36)
[2020-02-13] MEDS: HEPARIN SOD (PORCINE) 5,000 UNIT/ML 1 ML VIAL SUBCUT SCH ×3 (05:44→22:34)
[2020-02-13] MEDS: PROPRANOLOL HCL 20 MG TABLET PO SCH ×3 (05:45→17:14)
[2020-02-13 06:29] LABS: HEMATOCRIT 27.4 % (36.0-47.0); HEMOGLOBIN 8.9 g/dL (12.0-15.5); MEAN CORPUSCULAR HEMOGLOBIN 31.1 pg (27.0-33.4); MEAN CORPUSCULAR HGB CONC 32.6 g/dL (32.0-36.0); MEAN CORPUSCULAR VOLUME 95 fl (80-97); PLATELET COUNT 193 10^3/uL (150-450); RED BLOOD COUNT 2.88 10^6/uL (3.72-5.28); RED CELL DISTRIBUTION WIDTH 16.5 % (11.5-14.0)
[2020-02-13 06:59] LABS: ANION GAP 7 (5-19); BLOOD UREA NITROGEN 6 mg/dL (7-20); CALCIUM 8.3 mg/dL (8.4-10.2); CARBON DIOXIDE 22 mmol/L (22-30); CHLORIDE 110 mmol/L (98-107); GLUCOSE 265 mg/dL (75-110); POTASSIUM 4.1 mmol/L (3.6-5.0)
[2020-02-13] MEDS: INSULIN LISPRO 100 UNIT/ML 3 ML VIAL SUBCUT SCH ×4 (07:41→22:34)
[2020-02-13] MEDS: GABAPENTIN 100 MG CAPSULE PO SCH ×2 (07:41→22:35)
[2020-02-13] MEDS ORDERED: PROMETHAZINE HCL INJ 25 MG/1 ML VIAL IV PRN (09:00)
--- NOTE | 2020-02-13 09:55 | CDI QUERY ---
<AMMY TEAGUE - Last Filed: 02/13/20 09:52> CDI Query CDI Review: Dear Provider, Please specify type ACUTE ENCEPHALOPATHY noted in progress notes: ACUTE METABOLIC? ACUTE TOXIC? OTHER? UNABLE TO DETERMINE? Thanks, Ammy Teague [phone] <MAK WISE - Last Filed: 02/13/20 11:33> CDI Query Agree with Query: Yes - acute metabolic encephalopathy
[2020-02-13] MEDS: NORMAL SALINE 1000 ML 1,000 ML IV PRN (09:59)
[2020-02-13] MEDS ORDERED: FENTANYL 25 MCG/HR PATCH.TD72 TD SCH (10:00)
[2020-02-13] MEDS: LEVETIRACETAM 500 MG TABLET PO SCH ×2 (10:01→22:35)
[2020-02-13] MEDS: DOCUSATE SODIUM 100 MG CAPSULE PO SCH ×2 (10:01→17:14)
[2020-02-13] MEDS: FAMOTIDINE 20 MG TABLET PO SCH ×2 (10:01→22:34)
[2020-02-13] MEDS: DEXAMETHASONE 4 MG TABLET PO SCH (10:01)
[2020-02-13] MEDS: MELOXICAM 7.5 MG TABLET PO SCH ×2 (10:03→17:14)
[2020-02-13] MEDS: FLUCONAZOLE 100 MG TABLET PO SCH (10:03)
[2020-02-13] MEDS: CEFTRIAXONE 2 GM/D5W RTU 2 GM/50 ML RTUPB IV SCH (10:03)
--- NOTE | 2020-02-13 18:26 | PDOC PROGRESS REPORT ---
Subjective Progress Note for:: 02/13/20 Subjective:: LEI GU is a 39 year old female with a past medical history significant for metastatic breast cancer (brain, bone, lung and liver) with associated seizure disorder, Tachycardia, DM 2, and obesity who was admitted 02/11/2020 with acute encephalopathy secondary to pyelonephritis. Patient was seen on morning rounds. She was found resting in bed, comfortably on room air. She is A&O x4. She reports that she is feeling much better today; some fatigue but otherwise well. She denies fever, chills, chest pain, palpitations, dyspnea, orthopnea, abdominal pain, nausea, vomiting, diarrhea. She has no new questions or concerns at this time. No concerns per nursing. Reason For Visit: SEPSIS,PYELONEPHRITIS Physical Exam Vital Signs: Temp Pulse Resp BP Pulse Ox 98.3 F 84 16 157/93 H 100 02/13/20 15:43 02/13/20 15:43 02/13/20 15:43 02/13/20 15:43 02/13/20 15:43 Intake & Output 02/12/20 02/13/20 02/14/20 06:59 06:59 06:59 Intake Total 5422 2881 1275 Output Total 0 Balance 5422 2881 1275 Weight 105.2 kg 107.1 kg General appearance: PRESENT: no acute distress, cooperative, obese, well-developed, well-nourished Head exam: PRESENT: atraumatic, normocephalic Eye exam: PRESENT: conjunctiva pink, EOMI, PERRLA. ABSENT: scleral icterus Mouth exam: PRESENT: moist, tongue midline Respiratory exam: PRESENT: clear to auscultation michelle, symmetrical, unlabored. ABSENT: rales, rhonchi, wheezes Cardiovascular exam: PRESENT: RRR, +S1, +S2. ABSENT: diastolic murmur, rubs, systolic murmur Vascular exam: PRESENT: normal capillary refill Extremities exam: PRESENT: full ROM. ABSENT: calf tenderness, clubbing, pedal edema Neurological exam: PRESENT: alert, awake, oriented to person, oriented to place, oriented to time, oriented to situation, CN II-XII grossly intact. ABSENT: motor sensory deficit Psychiatric exam: PRESENT: appropriate affect, normal mood. ABSENT: homicidal ideation, suicidal ideation Skin exam: PRESENT: dry, intact, warm. ABSENT: cyanosis, rash Results Laboratory Results: 02/13/20 05:40 02/13/20 05:40 02/13/20 02/13/20 05:40 05:40 WBC 6.0 RBC 2.88 L Hgb 8.9 L Hct 27.4 L MCV 95 MCH 31.1 MCHC 32.6 RDW 16.5 H Plt Count 193 Sodium 138.6 Potassium 4.1 Chloride 110 H Carbon Dioxide 22 Anion Gap 7 BUN 6 L Creatinine 0.45 L Est GFR ( Amer) > 60 Glucose 265 H Calcium 8.3 L 02/11/20 09:58 Catheterized Urine Urine Culture - Final Escherichia Coli 02/11/20 11:21 Blood Blood Culture (PCR) - Final Escherichia Coli 02/11/20 11:21 Blood Blood Culture - Final Escherichia Coli 02/11/20 02/11/20 02/11/20 09:16 09:16 15:23 Creatine Kinase Troponin I 0.046 0.041 NT-Pro-B Natriuret Pep 281 H 02/11/20 02/11/20 02/12/20 15:23 19:20 11:00 Creatine Kinase 955 H Troponin I 0.059 0.038 NT-Pro-B Natriuret Pep Impressions: Chest X-Ray 02/11/20 08:49 IMPRESSION: Bilateral low lung volumes, otherwise unremarkable exam Abdomen/Pelvis CT 02/11/20 09:32 IMPRESSION: 1. New metastatic lesions in the liver when compared to 09/19/2019 2. Hypodensity in the posterior aspect of the mid right kidney, new when compared to prior examination. This may represent metastatic disease, however a focal pyelonephritis could have a similar appearance. Recommend correlation with patient's lab work and symptoms. Interval resolution of the presumed neoplastic disease in the anterior mid right kidney. 3. Diffuse bony metastatic disease without CT evidence of a pathologic fracture at this time. Chest/Abdomen CTA 02/11/20 09:32 IMPRESSION: 1. No evidence pulmonary embolism 2. Streaky ground-glass opacities throughout the lungs, most predominantly in t he upper lobes. This may represent an atypical infection (such a COVID-19) or may represent early pulmonary edema/ heart failure. 3. Multiple pulmonary nodules, some of which are increasing in size when compared to prior exam, consistent with metastatic disease. 4. Stable appearing metastatic disease throughout the bony structures. Head CT 02/11/20 09:32 IMPRESSION: Stable appearing 6.1 cm right frontotemporal lobe mass with no acute intracranial findings. Air-fluid level in the left maxillary sinus. This may represent an acute sinusitis. EVIDENCE OF ACUTE STROKE: NO. Assessment and Plan - Diagnosis (1) Encephalopathy acute Is this a current diagnosis for this admission?: Yes Plan: Resolved; now A&O x4. Acute metabolic encephalopathy; multifactorial r/t infectious process, and possibly her underlying brain metastasis. Specific management as described below. Supportive care. (2) Acute pyelonephritis Is this a current diagnosis for this admission?: Yes Plan: Urine cultures revealed gram-negative rods Blood cultures E. coli (1/4 bottles). UA reveals UTI CT ABD/Pelvis notes right side localized pyelonephritis She is admitted to the medical floor on continuous telemetry. Continue on IV Rocephin; Day #3 Encourage p.o. fluids Antipyretics, analgesics, and antiemetics as needed. Follow CBC (3) Tachycardia Is this a current diagnosis for this admission?: Yes Plan: Resolved. Multifactorial; acute infectious process with underlying lung metastasis. Monitor on telemetry. Continue Propranolol; slight dose increase yesterday (4) Diabetes mellitus type 2 in obese Is this a current diagnosis for this admission?: Yes Plan: Holding oral medications while admitted. Patient is placed on a consistent carb diet. Accu-Cheks before meals and at bedtime with Humalog for sliding scale coverage. Hypoglycemia protocol in place. (5) Metastatic breast cancer Is this a current diagnosis for this admission?: Yes Plan: Dr. Johnson is consulted. Dexamethasone per Dr. Johnson Continue home analgesic regimen. (6) Seizure disorder Is this a current diagnosis for this admission?: Yes Plan: Continue home dose Keppra PRN Ativan Seizure precautions (7) Immunocompromised patient Is this a current diagnosis for this admission?: Yes Plan: Metastatic breast cancer patient undergoing chemotherapy. Abs Neut 6.2 Monitor CBC (8) Abnormal chest CT Is this a current diagnosis for this admission?: Yes Plan: Concern regarding groundglass appearance to bilateral upper lobes that can represent atypical pneumonia (including COVID) in an immunocompromised patient. She denies shortness of breath, though is noted to be tachycardic and borderline hypoxic. Patient has been quarantining at home, but did have a medical appointment at [facility] ~2 weeks ago and her primary care provider (sister) continues to work outside the home. COVID negative. Encourage pulmonary toilet. (9) Bacteremia Is this a current diagnosis for this admission?: Yes Plan: E. coli bacteremia (1/ bottles). Repeat blood cultures pending. Urine culture shows E. col Have increased IV Rocephin to 2 g daily Infectious disease is consulted for guidance regarding patient's immunocompromised state. - Time Time Spent with patient: 25-34 minutes Medications reviewed and adjusted accordingly: Yes Anticipated discharge: Home Within: within 24 hours
[2020-02-13] MEDS ORDERED: HYDRALAZINE HCL INJ/PF 20 MG/1 ML SDV IV PRN (20:40)
--- NOTE | 2020-02-13 22:12 | Progress Note ---
Provider Note Provider Note: [facility] ID Telephone Advice Consultation Chart reviewed. Patient is a 39-year-old woman with DM2, obesity, seizure di sorder, tachycardia, breast cancer with metastasis to brain, lungs, liver, kidneys and bones. She had radiation therapy to her brain 2 weeks ago and chemotherapy 1 week ago. She chaudhari a right chest port. She presented with abdominal pain, nausea and vomiting. She had altered mental status. In the ED she was found with tachycardia. WBC, platelets and creatinine were within normal limits. LFTs slightly elevated. UA was positive for nitrites and moderate LE. CT brain with stable 6.[address] chest with bilateral groundglass opacities and pulmonary nodules. CT abdomen and pelvis demonstrating a new liver lesion suspected to be metastasis. There is a hypodensity in the posterior pole of the right kidney metastatic vs. pyelonephritis. Blood and urine culture both growing E coli. Patient received levofloxacin in the ED and she has been on ceftriaxone since admission, currently day 3. New blood cultures are in process. She was found with thrush for which Diflucan was started. She seems to be overall stable considering the extent of her disease. ID consulted for recommendations. PMH: Onseity DM Breast Cancer Seizure disorder Allergies: No Known Allergies Allergy (Verified 07/05/19 17:18) Medications: Dexamethasone [Decadron 4 mg Tablet] 4 mg PO BID 07/07/18 Alprazolam [Xanax 0.5 mg Tablet] 0.5 mg PO QHS 05/26/19 Fentanyl [Duragesic 25 mcg/hr Transdermal Patch] 1 each TD Q3D 05/26/19 Gabapentin [Neurontin 100 mg Capsule] 200 mg PO QHS 05/26/19 Levetiracetam [Keppra Xr 500 mg Tab.sr] 2,000 mg PO QHS 05/26/19 Meloxicam [Mobic] 7.5 mg PO BID 05/26/19 Metformin HCl [Metformin HCl ER] 500 mg PO BID 05/26/19 Naproxen 500 mg PO BID 05/26/19 Ondansetron [Zofran Odt 4 mg Tablet] 8 mg PO Q8HP PRN 05/26/19 Promethazine HCl [Phenergan 25 mg Tablet] 25 mg PO Q6HP PRN 05/26/19 Propranolol HCl [Propranolol HCl ER] 60 mg PO QAM 05/26/19 Sennosides [Senokot] 17.2 mg PO QHS 05/26/19 Cetirizine HCl [Zyrtec 10 mg Tablet] 10 mg PO QHS 02/11/20 Ergocalciferol (Vitamin D2) [Drisdol 50,000 unit (1.25MG) Capsule] 50,000 unit PO MO@1000 02/11/20 Gabapentin [Neurontin 100 mg Capsule] 100 mg PO QAM 02/11/20 Morphine Sulfate [Morphine Oral Soln 10 Mg/5 Ml Udcup] 10 mg PO HSP PRN 02/11/20 Vital Signs: Temp Pulse Resp BP Pulse Ox 98.3 F 77 18 166/88 H 99 02/13/20 20:19 02/13/20 20:19 02/13/20 20:19 02/13/20 20:19 02/13/20 20:19 Intake & Output 02/12/20 02/13/20 02/14/20 06:59 06:59 06:59 Intake Total 5422 2881 1635 Output Total 0 Balance 5422 2881 1635 Weight 105.2 kg 107.1 kg Weight/Height Weight 107.1 kg Height 5 ft 8 in Laboratories: 02/13/20 05:40 02/13/20 05:40 MCV 95 fl (80-97) 02/13/20 05:40 MCH 31.1 pg (27.0-33.4) 02/13/20 05:40 MCHC 32.6 g/dL (32.0-36.0) 02/13/20 05:40 RDW 16.5 % (11.5-14.0) H 02/13/20 05:40 Seg Neutrophils % 85.3 % (42-78) H 02/11/20 09:16 VBG pH 7.35 (7.30-7.42) 02/11/20 09:16 VBG pCO2 43.9 mmHg (35-63) 02/11/20 09:16 VBG HCO3 23.5 mmol/L (20-32) 02/11/20 09:16 VBG Base Excess -2.3 mmol/L 02/11/20 09:16 Chloride 110 mmol/L (98-107) H 02/13/20 05:40 Carbon Dioxide 22 mmol/L (22-30) 02/13/20 05:40 Anion Gap 7 (5-19) 02/13/20 05:40 Est GFR ( Amer) > 60 (>60) 02/13/20 05:40 Glucose 265 mg/dL (75-110) H 02/13/20 05:40 Lactic Acid 2.1 mmol/L (0.7-2.1) 02/11/20 15:23 Calcium 8.3 mg/dL (8.4-10.2) L 02/13/20 05:40 Magnesium 2.1 mg/dL (1.6-2.3) 02/11/20 09:16 Total Bilirubin 1.1 mg/dL (0.2-1.3) 02/11/20 09:16 AST 56 U/L (14-36) H 02/11/20 09:16 Alkaline Phosphatase 115 U/L (38-126) 02/11/20 09:16 Ammonia 11.9 umol/L (9-33) 02/11/20 12:45 Total Protein 6.7 g/dL (6.3-8.2) 02/11/20 09:16 Albumin 3.8 g/dL (3.5-5.0) 02/11/20 09:16 TSH 0.64 uIU/mL (0.47-4.68) 02/11/20 09:16 Serum HCG, Qual NEGATIVE (NEGATIVE) 02/11/20 09:16 Urine Color MINOO 02/11/20 09:58 Urine Appearance CLOUDY 02/11/20 09:58 Urine pH 5.0 (5.0-9.0) 02/11/20 09:58 Ur Specific [place] 1.021 02/11/20 09:58 Urine Protein 100 mg/dL (NEGATIVE) H 02/11/20 09:58 Urine Glucose (UA) 50 mg/dL (NEGATIVE) H 02/11/20 09:58 Urine Ketones TRACE mg/dL (NEGATIVE) H 02/11/20 09:58 Urine Blood SMALL (NEGATIVE) H 02/11/20 09:58 Urine RBC (Auto) 7 /HPF 02/11/20 09:58 02/11/20 09:58 Catheterized Urine Urine Culture - Final Escherichia Coli 02/11/20 11:21 Blood Blood Culture (PCR) - Final Escherichia Coli 02/11/20 11:21 Blood Blood Culture - Final Escherichia Coli 02/11/20 02/11/20 02/11/20 09:16 09:16 15:23 Creatine Kinase Troponin I 0.046 0.041 NT-Pro-B Natriuret Pep 281 H 02/11/20 02/11/20 02/12/20 15:23 19:20 11:00 Creatine Kinase 955 H Troponin I 0.059 0.038 NT-Pro-B Natriuret Pep Radiology: Chest X-Ray 02/11/20 08:49 IMPRESSION: Bilateral low lung volumes, otherwise unremarkable exam Abdomen/Pelvis CT 02/11/20 09:32 IMPRESSION: 1. New metastatic lesions in the liver when compared to 09/19/2019 2. Hypodensity in the posterior aspect of the mid right kidney, new when compared to prior examination. This may represent metastatic disease, however a focal pyelonephritis could have a similar appearance. Recommend correlation with patient's lab work and symptoms. Interval resolution of the presumed neoplastic disease in the anterior mid right kidney. 3. Diffuse bony metastatic disease without CT evidence of a pathologic fracture at this time. Chest/Abdomen CTA 02/11/20 09:32 IMPRESSION: 1. No evidence pulmonary embolism 2. Streaky ground-glass opacities throughout the lungs, most predominantly in the upper lobes. This may represent an atypical infection (such a COVID-19) or may represent early pulmonary edema/ heart failure. 3. Multiple pulmonary nodules, some of which are increasing in size when compared to prior exam, consistent with metastatic disease. 4. Stable appearing metastatic disease throughout the bony structures. Head CT 02/11/20 09:32 IMPRESSION: Stable appearing 6.1 cm right frontotemporal lobe mass with no acute intracranial findings. Air-fluid level in the left maxillary sinus. This may represent an acute sinusitis. EVIDENCE OF ACUTE STROKE: NO. Assessment and Recommendations: Patient evaluated due to E coli bacteremia and pyelonephritis. Patient is immunocompromised with metastatic breast cancer. She has been afebrile and HD stable now. Currently on day 3 of ceftriaxone. She does have a right chest port that does not seem to be infected. Source of the bacteremia is the urinary tract. Ceftriaxone is adequate, can consider administering it through the port to prevent seeding. A total of 14 days of therapy is recommended with EOT 02/24/2020. When ready to be discharged home can transition to ciprofloxacin 750 mg po bid. Should avoid divalent cations and MVI as they may affect the absorption of the antibiotic. There is risk of QT prolongation (avoid any other QT prolonging drugs), risk of C diff infection, and tendon rupture. Please call if questions. Mable Goodwin MD U ID [id number]
[2020-02-13] MEDS: ALPRAZOLAM 0.5 MG TABLET PO SCH (22:34)
[2020-02-13] MEDS: CETIRIZINE 10 MG TABLET PO SCH (22:35)
[2020-02-14] MEDS: PROPRANOLOL HCL 20 MG TABLET PO SCH ×3 (00:13→12:12)
[2020-02-14] MEDS: HEPARIN SOD (PORCINE) 5,000 UNIT/ML 1 ML VIAL SUBCUT SCH (06:21)
[2020-02-14] MEDS: GABAPENTIN 100 MG CAPSULE PO SCH (08:12)
[2020-02-14] MEDS: INSULIN LISPRO 100 UNIT/ML 3 ML VIAL SUBCUT SCH ×2 (08:12→12:12)
[2020-02-14 08:25] VITALS: BP 129/77
[2020-02-14 08:40] LABS: HEMATOCRIT 26.9 % (36.0-47.0); HEMOGLOBIN 8.9 g/dL (12.0-15.5); MEAN CORPUSCULAR HEMOGLOBIN 31.3 pg (27.0-33.4); MEAN CORPUSCULAR HGB CONC 33.1 g/dL (32.0-36.0); MEAN CORPUSCULAR VOLUME 94 fl (80-97); PLATELET COUNT 214 10^3/uL (150-450); RED BLOOD COUNT 2.85 10^6/uL (3.72-5.28); RED CELL DISTRIBUTION WIDTH 15.9 % (11.5-14.0)
[2020-02-14 09:02] LABS: ANION GAP 5 (5-19); BLOOD UREA NITROGEN 7 mg/dL (7-20); CALCIUM 8.6 mg/dL (8.4-10.2); CARBON DIOXIDE 25 mmol/L (22-30); CHLORIDE 109 mmol/L (98-107); GLUCOSE 194 mg/dL (75-110); POTASSIUM 3.4 mmol/L (3.6-5.0)
[2020-02-14] MEDS ORDERED: SCOPOLAMINE HYDROBROMIDE 1.5 MG PATCH.TD72 TD SCH (10:00)
[2020-02-14] MEDS: DOCUSATE SODIUM 100 MG CAPSULE PO SCH (10:29)
[2020-02-14] MEDS: DEXAMETHASONE 4 MG TABLET PO SCH (10:29)
[2020-02-14] MEDS: LEVETIRACETAM 500 MG TABLET PO SCH (10:29)
[2020-02-14] MEDS: FLUCONAZOLE 100 MG TABLET PO SCH (10:30)
[2020-02-14] MEDS: FAMOTIDINE 20 MG TABLET PO SCH (10:30)
[2020-02-14] MEDS: MELOXICAM 7.5 MG TABLET PO SCH (10:32)
[2020-02-14] MEDS: CEFTRIAXONE 2 GM/D5W RTU 2 GM/50 ML RTUPB IV SCH (10:41)
--- NOTE | 2020-02-14 10:48 | PDOC DISCHARGE SUMMARY ---
Impression - Admit/DC Date/PCP Admission Date/Primary Care Provider: 02/11/20 13:43 MONA CAAL Discharge Date: 02/14/20 - Discharge Diagnosis (1) Metabolic encephalopathy Is this a current diagnosis for this admission?: Yes (2) Acute pyelonephritis Is this a current diagnosis for this admission?: Yes (3) Tachycardia Is this a current diagnosis for this admission?: Yes (4) Diabetes mellitus type 2 in obese Is this a current diagnosis for this admission?: Yes (5) Metastatic breast cancer Is this a current diagnosis for this admission?: Yes (6) Seizure disorder Is this a current diagnosis for this admission?: Yes (7) Immunocompromised patient Is this a current diagnosis for this admission?: Yes (8) Bacteremia Is this a current diagnosis for this admission?: Yes (9) Abnormal chest CT Is this a current diagnosis for this admission?: Yes - Additional Information Resuscitation Status: Full Code Referrals: REE JOHNSON MD [ACTIVE STAFF] - 02/16/20 8:45 am DELIO SALDIVAR FNP-C [Primary Care Provider] - 02/15/20 11:00 am Prescriptions: Ciprofloxacin HCl [Cipro 750 mg Tablet] 750 mg PO BID 10 Days #20 tablet Home Medications: Dexamethasone [Decadron 4 mg Tablet] 4 mg PO BID 07/07/18 Alprazolam [Xanax 0.5 mg Tablet] 0.5 mg PO QHS 05/26/19 Fentanyl [Duragesic 25 mcg/hr Transdermal Patch] 1 each TD Q3D 05/26/19 Gabapentin [Neurontin 100 mg Capsule] 200 mg PO QHS 05/26/19 Levetiracetam [Keppra Xr 500 mg Tab.sr] 2,000 mg PO QHS 05/26/19 Meloxicam [Mobic] 7.5 mg PO BID 05/26/19 Metformin HCl [Metformin HCl ER] 500 mg PO BID 05/26/19 Naproxen 500 mg PO BID 05/26/19 Ondansetron [Zofran Odt 4 mg Tablet] 8 mg PO Q8HP PRN 05/26/19 Promethazine HCl [Phenergan 25 mg Tablet] 25 mg PO Q6HP PRN 05/26/19 Propranolol HCl [Propranolol HCl ER] 60 mg PO QAM 05/26/19 Sennosides [Senokot] 17.2 mg PO QHS 05/26/19 Scopolamine Hydrobromide [Transderm-Scop 1.5 mg Patch] 1 each TD Q3DAYS #10 patch.td72 05/30/19 Cetirizine HCl [Zyrtec 10 mg Tablet] 10 mg PO QHS 02/11/20 Ergocalciferol (Vitamin D2) [Drisdol 50,000 unit (1.25MG) Capsule] 50,000 unit PO MO@1000 02/11/20 Gabapentin [Neurontin 100 mg Capsule] 100 mg PO QAM 02/11/20 Morphine Sulfate [Morphine 10 mg/5 ml Oral Soln Udcup] 10 mg PO HSP PRN 02/11/20 Acetaminophen [Tylenol 325 mg Tablet] 650 mg PO Q4HP PRN tablet 02/14/20 Ciprofloxacin HCl [Cipro 750 mg Tablet] 750 mg PO BID 10 Days #20 tablet 02/14/20 Dexamethasone [Decadron 4 mg Tablet] 8 mg PO DAILY tablet 02/14/20 Docusate Sodium [Colace 100 mg Capsule] 100 mg PO BID capsule 02/14/20 History of Present Illiness History of Present Illness: LEI GU is a 39 year old female with a past medical history significant for metastatic breast cancer (brain, bone, lung and liver) with associated seizure disorder, Tachycardia, DM 2, and obesity who presented via EMS with report of increased lethargy and altered mental status noted this morning by her sister. Of note, the patient had a seizure last night; this was her first seizure in several weeks. She underwent gamma knife radiation at 5 and 2 weeks ago. She is followed by Dr. Garland. Patient had an extensive work-up in the emergency department. Vital signs demonstrated persistent tachycardia (HR 150), borderline hypoxia (90% room air), variable respiratory rate (RR 9-19; Cannot be attributed to medication), fairly unremarkable CBC, blood gas, coags, and chemistry. She has an indeterminate troponin of 0.046 and a proBNP of 281. Urinalysis is suggestive of UTI. Blood and urine cultures are pending. Please see head CT, chest CTA, CT abdomen pelvis reports; extensive findings. She was provided normal saline bolus and IV Rocephin. She is referred to the hospitalist service for further evaluation and management of the above-stated complaints and findings. Hospital Course Hospital Course: (1) Encephalopathy acute Is this a current diagnosis for this admission?: Yes Plan: Resolved; now A&O x4. Acute metabolic encephalopathy; multifactorial r/t infectious process, and possibly her underlying brain metastasis. Specific management as described below. Supportive care. The encephalopathy is metabolic secondary to the infection (2) Acute pyelonephritis Is this a current diagnosis for this admission?: Yes Plan: Urine cultures revealed gram-negative rods Blood cultures E. coli (1/4 bottles). UA reveals UTI CT ABD/Pelvis notes right side localized pyelonephritis She is admitted to the medical floor on continuous telemetry. Continue on IV Rocephin; Day #3 Encourage p.o. fluids Antipyretics, analgesics, and antiemetics as needed. Follow CBC Complete antibiotic therapy as an outpatient for infectious disease suggestion (3) Tachycardia Is this a current diagnosis for this admission?: Yes Plan: Resolved. Multifactorial; acute infectious process with underlying lung metastasis. Monitor on telemetry. Continue Propranolol; slight dose increase yesterday Stable on new dose (4) Diabetes mellitus type 2 in obese Is this a current diagnosis for this admission?: Yes Plan: Holding oral medications while admitted. Patient is placed on a consistent carb diet. Accu-Cheks before meals and at bedtime with Humalog for sliding scale coverage. Hypoglycemia protocol in place. Resume home medications (5) Metastatic breast cancer Is this a current diagnosis for this admission?: Yes Plan: Dr. Johnson is consulted. Dexamethasone per Dr. Johnson Continue home analgesic regimen. Follow-up with Dr. Cotton on (6) Seizure disorder Is this a current diagnosis for this admission?: Yes Plan: Continue home dose Keppra PRN Ativan Seizure precautions (7) Immunocompromised patient Is this a current diagnosis for this admission?: Yes Plan: Metastatic breast cancer patient undergoing chemotherapy. Abs Neut 6.2 Monitor CBC (8) Abnormal chest CT Is this a current diagnosis for this admission?: Yes Plan: Concern regarding groundglass appearance to bilateral upper lobes that can represent atypical pneumonia (including COVID) in an immunocompromised patient. She denies shortness of breath, though is noted to be tachycardic and borderline hypoxic. Patient has been quarantining at home, but did have a medical appointment at [facility] ~2 weeks ago and her primary care provider (sister) continues to work outside the home. COVID negative. Encourage pulmonary toilet. (9) Bacteremia Is this a current diagnosis for this admission?: Yes Plan: E. coli bacteremia (1/4 bottles). Repeat blood cultures pending. Urine culture shows E. col Have increased IV Rocephin to 2 g daily Infectious disease is consulted for guidance regarding patient's immunocompromised state. Complete antibiotic therapy as an outpatient per infectious disease recommendations Physical Exam Vital Signs: Temp Pulse Resp BP Pulse Ox 98.4 F 77 18 129/77 H 97 02/14/20 07:58 02/14/20 07:58 02/14/20 07:58 02/14/20 07:58 02/14/20 07:58 Intake & Output 02/13/20 02/14/20 02/15/20 06:59 06:59 06:59 Intake Total 2881 3555 Balance 2881 3555 Weight 107.1 kg 91.7 kg General appearance: PRESENT: no acute distress, well-developed Respiratory exam: PRESENT: clear to auscultation michelle, unlabored. ABSENT: rales, rhonchi, wheezes Cardiovascular exam: PRESENT: RRR, +S1, +S2 GI/Abdominal exam: PRESENT: normal bowel sounds, soft. ABSENT: tenderness Musculoskeletal exam: PRESENT: ambulatory Neurological exam: PRESENT: alert, awake, oriented to person, oriented to place, oriented to time, oriented to situation Psychiatric exam: PRESENT: appropriate affect. ABSENT: agitated, anxious Results Laboratory Results: WBC 4.0 10^3/uL (4.0-10.5) 02/14/20 08: RBC 2.85 10^6/uL (3.72-5.28) L 02/14/20 08:22 Hgb 8.9 g/dL (12.0-15.5) L 02/14/20 08:22 Hct 26.9 % (36.0-47.0) L 02/14/20 08:22 MCV 94 fl (80-97) 02/14/20 08:22 MCH 31.3 pg (27.0-33.4) 02/14/20 08:22 MCHC 33.1 g/dL (32.0-36.0) 02/14/20 08:22 RDW 15.9 % (11.5-14.0) H 02/14/20 08:22 Plt Count 214 10^3/uL (150-450) 02/14/20 08:22 Lymph % (Auto) 8.2 % (13-45) L 02/11/20 09:16 Mcdonough % (Auto) 6.4 % (3-13) 02/11/20 09:16 Eos % (Auto) 0.0 % (0-6) 02/11/20 09:16 Baso % (Auto) 0.1 % (0-2) 02/11/20 09:16 Absolute Neuts (auto) 6.2 10^3/uL (1.7-8.2) 02/11/20 09:16 Absolute Lymphs (auto) 0.6 10^3/uL (0.5-4.7) 02/11/20 09:16 Absolute Monos (auto) 0.5 10^3/uL (0.1-1.4) 02/11/20 09:16 Absolute Eos (auto) 0.0 10^3/uL (0.0-0.6) 02/11/20 09:16 Absolute Basos (auto) 0.0 10^3/uL (0.0-0.2) 02/11/20 09:16 Seg Neutrophils % 85.3 % (42-78) H 02/11/20 09:16 PT 14.1 SEC (11.4-15.4) 02/11/20 09:16 INR 1.09 02/11/20 09:16 VBG pH 7.35 (7.30-7.42) 02/11/20 09:16 VBG pCO2 43.9 mmHg (35-63) 02/11/20 09:16 VBG HCO3 23.5 mmol/L (20-32) 02/11/20 09:16 VBG Base Excess -2.3 mmol/L 02/11/20 09:16 Sodium 139.4 mmol/L (137-145) 02/14/20 08:22 Potassium 3.4 mmol/L (3.6-5.0) L 02/14/20 08:22 Chloride 109 mmol/L (98-107) H 02/14/20 08:22 Carbon Dioxide 25 mmol/L (22-30) 02/14/20 08:22 Anion Gap 5 (5-19) 02/14/20 08:22 BUN 7 mg/dL (7-20) 02/14/20 08:22 Creatinine 0.49 mg/dL (0.52-1.25) L 02/14/20 08:22 Est GFR ( Amer) > 60 (>60) 02/14/20 08:22 Est GFR (MDRD) Non-Af > 60 (>60) 02/14/20 08:22 Glucose 194 mg/dL (75-110) H 02/14/20 08:22 POC Glucose 243 mg/dL (70-110) H 02/14/20 06:21 Lactic Acid 2.1 mmol/L (0.7-2.1) 02/11/20 15:23 Calcium 8.6 mg/dL (8.4-10.2) 02/14/20 08:22 Magnesium 2.1 mg/dL (1.6-2.3) 02/11/20 09:16 Total Bilirubin 1.1 mg/dL (0.2-1.3) 02/11/20 09:16 Direct Bilirubin 0.4 mg/dL (0.0-0.4) 02/11/20 09:16 Neonat Total Bilirubin Not Reportable 02/11/20 09:16 Neonat Direct Bilirubin Not Reportable 02/11/20 09:16 Neonat Indirect Bili Not Reportable 02/11/20 09:16 AST 56 U/L (14-36) H 02/11/20 09:16 ALT 62 U/L (<35) H 02/11/20 09:16 Alkaline Phosphatase 115 U/L (38-126) 02/11/20 09:16 Ammonia 11.9 umol/L (9-33) 02/11/20 12:45 Creatine Kinase 955 U/L (30-135) H 02/11/20 15:23 Troponin I 0.038 ng/mL 02/12/20 11:00 NT-Pro-B Natriuret Pep 281 pg/mL (<125) H 02/11/20 09:16 Total Protein 6.7 g/dL (6.3-8.2) 02/11/20 09:16 Albumin 3.8 g/dL (3.5-5.0) 02/11/20 09:16 TSH 0.64 uIU/mL (0.47-4.68) 02/11/20 09:16 Serum HCG, Qual NEGATIVE (NEGATIVE) 02/11/20 09:16 Urine Color MINOO 02/11/20 09:58 Urine Appearance CLOUDY 02/11/20 09:58 Urine pH 5.0 (5.0-9.0) 02/11/20 09:58 Ur Specific [place] 1.021 02/11/20 09:58 Urine Protein 100 mg/dL (NEGATIVE) H 02/11/20 09:58 Urine Glucose (UA) 50 mg/dL (NEGATIVE) H 02/11/20 09:58 Urine Ketones TRACE mg/dL (NEGATIVE) H 02/11/20 09:58 Urine Blood SMALL (NEGATIVE) H 02/11/20 09:58 Urine Nitrite (Reflex) POSITIVE (NEGATIVE) H 02/11/20 09:58 Urine Bilirubin NEGATIVE (NEGATIVE) 02/11/20 09:58 Urine Urobilinogen 2.0 mg/dL (<2.0) H 02/11/20 09:58 Leukocyte Esterase Rfl MODERATE (NEGATIVE) H 02/11/20 09:58 Urine RBC (Auto) 7 /HPF 02/11/20 09:58 Urine Bacteria (Auto) 1+ /HPF 02/11/20 09:58 Urine WBC (Reflex) > 182 /HPF 02/11/20 09:58 Urine WBC Clumps MANY /HPF 02/11/20 09:58 Squamous Epi Cells Auto 1 /HPF 02/11/20 09:58 Urine Mucus (Auto) FEW /LPF 02/11/20 09:58 Urine Ascorbic Acid 40 (NEGATIVE) H 02/11/20 09:58 SARS-CoV-2 (PCR) NEGATIVE (NEGATIVE) 02/11/20 14:38 02/11/20 02/11/20 02/11/20 09:16 09:16 15:23 Troponin I 0.046 0.041 NT-Pro-B Natriuret Pep 281 H 02/11/20 02/12/20 19:20 11:00 Troponin I 0.059 0.038 NT-Pro-B Natriuret Pep Impressions: Chest X-Ray 02/11/20 08:49 IMPRESSION: Bilateral low lung volumes, otherwise unremarkable exam Abdomen/Pelvis CT 02/11/20 09:32 IMPRESSION: 1. New metastatic lesions in the liver when compared to 09/19/2019 2. Hypodensity in the posterior aspect of the mid right kidney, new when com pared to prior examination. This may represent metastatic disease, however a focal pyelonephritis could have a similar appearance. Recommend correlation with patient's lab work and symptoms. Interval resolution of the presumed neoplastic disease in the anterior mid right kidney. 3. Diffuse bony metastatic disease without CT evidence of a pathologic fracture at this time. Chest/Abdomen CTA 02/11/20 09:32 IMPRESSION: 1. No evidence pulmonary embolism 2. Streaky ground-glass opacities throughout the lungs, most predominantly in the upper lobes. This may represent an atypical infection (such a COVID-19) or may represent early pulmonary edema/ heart failure. 3. Multiple pulmonary nodules, some of which are increasing in size when compared to prior exam, consistent with metastatic disease. 4. Stable appearing metastatic disease throughout the bony structures. Head CT 02/11/20 09:32 IMPRESSION: Stable appearing 6.1 cm right frontotemporal lobe mass with no acute intracranial findings. Air-fluid level in the left maxillary sinus. This may represent an acute sinusitis. EVIDENCE OF ACUTE STROKE: NO. Plan Health Concerns: Complete antibiotic therapy as an outpatient. Follow-up with Dr. Garland on for metastatic cancer Plan of Treatment: Cipro 750 mg twice daily for 10 more days Goals: Complete resolution of infection Time Spent: Greater than 30 Minutes Stroke Is this a Stroke Patient?: No Acute Heart Failure - Is this a Heart Failure Patient?: No
--- NOTE | 2020-02-14 12:36 | PDOC PROGRESS REPORT ---
Subjective Progress Note for:: 02/14/20 Subjective:: Patient feeling much better. She states that her face feels swollen, but no new events overnight. She is back to her baseline. We discussed ID recommendation of continuing IV antibiotics for 14 days. Reason For Visit: SEPSIS,PYELONEPHRITIS Physical Exam Vital Signs: Temp Pulse Resp BP Pulse Ox 98.4 F 77 18 129/77 H 97 02/14/20 07:58 02/14/20 07:58 02/14/20 07:58 02/14/20 07:58 02/14/20 07:58 Intake & Output 02/13/20 02/14/20 02/15/20 06:59 06:59 06:59 Intake Total 2881 3555 Balance 2881 3555 Weight 107.1 kg 91.7 kg General appearance: PRESENT: no acute distress, obese Head exam: PRESENT: other - Barr facies Eye exam: PRESENT: EOMI Respiratory exam: PRESENT: unlabored Extremities exam: ABSENT: pedal edema Musculoskeletal exam: PRESENT: normal inspection Neurological exam: PRESENT: alert, awake Psychiatric exam: PRESENT: appropriate affect Skin exam: PRESENT: normal color Results Laboratory Results: 02/14/20 08:22 02/14/20 08:22 02/14/20 02/14/20 08:22 08:22 WBC 4.0 RBC 2.85 L Hgb 8.9 L Hct 26.9 L MCV 94 MCH 31.3 MCHC 33.1 RDW 15.9 H Plt Count 214 Sodium 139.4 Potassium 3.4 L Chloride 109 H Carbon Dioxide 25 Anion Gap 5 BUN 7 Creatinine 0.49 L Est GFR ( Amer) > 60 Glucose 194 H Calcium 8.6 02/11/20 09:58 Catheterized Urine Urine Culture - Final Escherichia Coli 02/11/20 11:21 Blood Blood Culture (PCR) - Final Escherichia Coli 02/11/20 11:21 Blood Blood Culture - Final Escherichia Coli 02/11/20 02/11/20 02/11/20 09:16 09:16 15:23 Creatine Kinase Troponin I 0.046 0.041 NT-Pro-B Natriuret Pep 281 H 02/11/20 02/11/20 02/12/20 15:23 19:20 11:00 Creatine Kinase 955 H Troponin I 0.059 0.038 NT-Pro-B Natriuret Pep Impressions: Chest X-Ray 02/11/20 08:49 IMPRESSION: Bilateral low lung volumes, otherwise unremarkable exam Abdomen/Pelvis CT 02/11/20 09:32 IMPRESSION: 1. New metastatic lesions in the liver when compared to 09/19/2019 2. Hypodensity in the posterior aspect of the mid right kidney, new when compared to prior examination. This may represent metastatic disease, however a focal pyelonephritis could have a similar appearance. Recommend correlation with patient's lab work and symptoms. Interval resolution of the presumed neoplastic disease in the anterior mid right kidney. 3. Diffuse bony metastatic disease without CT evidence of a pathologic fracture at this time. Chest/Abdomen CTA 02/11/20 09:32 IMPRESSION: 1. No evidence pulmonary embolism 2. Streaky ground-glass opacities throughout the lungs, most predominantly in the upper lobes. This may represent an atypical infection (such a COVID-19) or may represent early pulmonary edema/ heart failure. 3. Multiple pulmonary nodules, some of which are increasing in size when compared to prior exam, consistent with metastatic disease. 4. Stable appearing metastatic disease throughout the bony structures. Head CT 02/11/20 09:32 IMPRESSION: Stable appearing 6.1 cm right frontotemporal lobe mass with no acute intracranial findings. Air-fluid level in the left maxillary sinus. This may represent an acute sinusitis. EVIDENCE OF ACUTE STROKE: NO. Assessment & Plan - Diagnosis (1) UTI (urinary tract infection) Qualifiers: Urinary tract infection type: acute cystitis Is this a current diagnosis for this admission?: Yes Plan: Continue antibiotics, as per ID recommendation, but we usually do not need 14 days of IV antibiotics in this situation, so I will defer to primary team. (2) Altered mental status Qualifiers: Altered mental status type: stupor Qualified Code(s): R40.1 - Stupor Is this a current diagnosis for this admission?: Yes Plan: Now resolved. I will continue to wean the dexamethasone. (3) Metastatic cancer Is this a current diagnosis for this admission?: Yes Plan: Continue treatment as outpatient. (4) Tachycardia Is this a current diagnosis for this admission?: Yes - Time Time Spent with patient: Less than 15 minutes - Plan Summary Plan Summary: I agree with Discharge.
[2020-02-15] MEDS ORDERED: DEXAMETHASONE 4 MG TABLET PO SCH (10:00)
== END 2020-02-14 13:03 | disposition home or self-care (01) | DRG 689 ==
LOC: ER 08:41 → EH 13:43 → 4N 16:52
PROVIDERS: ADMIT Internal Medicine; ATTEND Hospitalist
DX: N12 Tubulo-interstitial nephritis, not specified as acute or chronic (principal); G93.41 Metabolic encephalopathy; C79.31 Secondary malignant neoplasm of brain; C79.51 Secondary malignant neoplasm of bone; C78.00 Secondary malignant neoplasm of unspecified lung; C78.7 Secondary malignant neoplasm of liver and intrahepatic bile duct; N30.00 Acute cystitis without hematuria; R00.0 Tachycardia, unspecified; E11.9 Type 2 diabetes mellitus without complications; E66.9 Obesity, unspecified; C50.919 Malignant neoplasm of unspecified site of unspecified female breast; G40.909 Epilepsy, unspecified, not intractable, without status epilepticus; I10 Essential (primary) hypertension; D63.0 Anemia in neoplastic disease; B96.20 Unspecified Escherichia coli [E. coli] as the cause of diseases classified elsewhere; Z68.30 Body mass index [BMI] 30.0-30.9, adult; Z03.818 Encounter for observation for suspected exposure to other biological agents ruled out; Z79.84 Long term (current) use of oral hypoglycemic drugs; Z79.899 Other long term (current) drug therapy; Z79.01 Long term (current) use of anticoagulants; Z83.3 Family history of diabetes mellitus; Z82.49 Family history of ischemic heart disease and other diseases of the circulatory system; Z80.9 Family history of malignant neoplasm, unspecified
CPT/HCPCS: 36415; 51701; 70450; 71045; 71275; 74177; 80048; 80053; 81001; 82140; 82550; 82803; 82962; 83605; 83735; 83880; 84443; 84484; 84703; 85025; 85027; 85610; 87040; 87077; 87086; 87088; 87150; 87186; 87635; 93005; 93010; 94799; 96361; 96365; 99285; C9803; J0360; J0696; J1642; J1644; J1815; J3490; J7030; J7120; J8540

== ENCOUNTER 2020-02-22 06:28 | Day surgery (SDC) | payer MEDICAID ==
[2020-02-22 07:17] LABS: ABSOLUTE EOSINOPHILS # (AUTO) 0.1 10^3/uL (0.0-0.6); ABSOLUTE LYMPHOCYTES (AUTO) 1.1 10^3/uL (0.5-4.7); ABSOLUTE MONOCYTES (AUTO) 0.2 10^3/uL (0.1-1.4); ABSOLUTE NEUT (AUTO) 1.5 10^3/uL (1.7-8.2); BASOPHILS % (AUTO) 0.8 % (0-2); EOSINOPHILS % (AUTO) 1.9 % (0-6); HEMATOCRIT 35.1 % (36.0-47.0); HEMOGLOBIN 11.6 g/dL (12.0-15.5); LYMPHOCYTES % (AUTO) 38.4 % (13-45); MEAN CORPUSCULAR HEMOGLOBIN 31.1 pg (27.0-33.4); MEAN CORPUSCULAR VOLUME 94 fl (80-97); MONOCYTES % (AUTO) 8.3 % (3-13); PLATELET COUNT 335 10^3/uL (150-450); RED BLOOD COUNT 3.73 10^6/uL (3.72-5.28); RED CELL DISTRIBUTION WIDTH 16.3 % (11.5-14.0); SEGMENTED NEUTROPHILS % (AUTO) 50.6 % (42-78); TOTAL CELLS COUNTED % (AUTO) 100 %; WHITE BLOOD COUNT 2.9 10^3/uL (4.0-10.5)
[2020-02-22 07:31] LABS: INTERNATIONAL RATION (INR) 1.03; PROTHROMBIN TIME 13.5 SEC (11.4-15.4)
[2020-02-22 07:32] LABS: PARTIAL THROMBOPLASTIN TIME 29.7 SEC (23.5-35.8)
[2020-02-22 07:34] LABS: BLOOD UREA NITROGEN 8 mg/dL (7-20)
[2020-02-22] MEDS ORDERED: FENTANYL CITRATE INJ/PF 100 MCG/2 ML AMPUL ONE (08:22)
[2020-02-22] MEDS ORDERED: MIDAZOLAM 2 MG/2 ML INJ ONE (08:22)
--- NOTE | 2020-02-22 09:47 | RADIOLOGY REPORT (SQ) ---
EXAM DESCRIPTION: CT BIOPSY LIVER IMAGES COMPLETED DATE/TIME: 02/22/2020 9:06 am REASON FOR STUDY: New metastatic lesions in the liver. 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 The patient was brought to the CT suite and was placed supin e on the CT gurney. The patient was prepped and draped in the usual sterile fashion. Axial images we re obtained for targeting of theleft hepatic lobe mass. An appropriate access site was selected. IV c onscious sedation was administered and physician direction by the registered nurse using 1.0 milligra ms of Versed and 100 micrograms of fentanyl. Physiologic monitoring was provided before, during, and after sedation. The total sedation time was 30 minutes. The lesion was inconspicuous on the noncontr ast exam. The patient received 40 mL of Isovue 350 intravenously. The patient is creatinine was wit hin normal limits. Documentation face to face time, the performing proceduralist, spent monitoring the patient: [address] of the liver was performed to localize an approach for the liver biopsy. A percuta neous site was marked. Time out was performed. After skin prep and local lidocaine for skin and deep tissue anesthesia, a coaxial biopsy needle sys tem was used to obtain several cores of tissue from the mass in the left lobe of the liver. These we re submitted to the lab in formalin. No immediate postprocedure complications. Gel-Foam was used t o close the tract. Total of 5.[address] fluoro was used. 33 CT Fluoroscopic images were obtained and saved to PACS. All CT scanners at this facility use dose modulation, iterative reconstruction, and/or weight based d osing when appropriate to reduce radiation dose to as low as reasonably achievable (ALARA). [facility]: Dose Right [facility]: CareDose [facility]: Dose Right [facility]: Teradose 4D [facility]: To The Tops RADIATION DOSE: CT Rad equipment meets quality standard of care and radiation dose reduction techniq ues were employed. CTDIvol: 4.0 - 20.2 mGy. DLP: 564 mGy-cm. mGy. LIMITATIONS: None. FINDINGS: CT guided liver biopsy as detailed above. IMPRESSION: Successful CT-guided biopsy of the mass in the left lobe of the liver. COMMENT: Patient medication list reviewed:Yes- Quality ID# [id number]:Eligible professional attests to docu menting in the medical record they obtained, updated, or reviewed the patient's current medications.. Quality ID 145: Final reports for procedures using fluoroscopy that document radiation exposure lauren elías, or exposure time and number of fluorographic images (if radiation exposure indices are not avail able) TECHNICAL DOCUMENTATION: JOB ID: [id number] Quality ID # [id number]: Final reports with documentation of one or more dose reduction techniques (e.g., A utomated exposure control, adjustment of the mA and/or kV according to patient size, use of iterative reconstruction technique) 2010 [employer]- All Rights Reserved Reading location - IP/workstation name: [email or web address]
--- NOTE | 2020-02-22 09:47 | RADIOLOGY REPORT (SQ) ---
EXAM DESCRIPTION: CT NEEDLE PLACEMENT COMPLETE DATE/TIME: 02/22/2020 9:06 am REASON FOR STUDY: New metastatic lesions in the liver. 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 IMPRESSION: Please see combined report for performance of procedure and radiologic supervision and i nterpretation. Reading location - IP/workstation name: [email or web address]
[2020-02-22 11:36] VITALS: BP 122/87
== END 2020-02-22 11:15 | disposition home or self-care (01) ==
LOC: RAD 06:28
PROVIDERS: ATTEND Nurse Practitioner Family
DX: C50.812 Malignant neoplasm of overlapping sites of left female breast (principal); C79.51 Secondary malignant neoplasm of bone; K76.89 Other specified diseases of liver; D64.81 Anemia due to antineoplastic chemotherapy; D70.1 Agranulocytosis secondary to cancer chemotherapy; E11.9 Type 2 diabetes mellitus without complications; E83.52 Hypercalcemia; E55.9 Vitamin D deficiency, unspecified
CPT/HCPCS: 36415; 84520; 82565; 82947; 85025; 85610; 85730; 88305 ×2; 77012; 47000; J2250; J3010; 88341; 88342

== ENCOUNTER 2020-04-09 08:18 | Inpatient (IN) | payer MEDICAID ==
[2020-04-09] MEDS ORDERED: RINGERS LACTATED IV ONE (08:43)
[2020-04-09 09:01] LABS: APPEARANCE,URINE CLEAR; BILIRUBIN,URINE NEGATIVE (NEGATIVE); COLOR,URINE YELLOW; GLUCOSE, URINE NEGATIVE (NEGATIVE); KETONES,URINE NEGATIVE (NEGATIVE); LEUKOCYTE ESTERASE,URINE TRACE (NEGATIVE); NITRITE,URINE NEGATIVE (NEGATIVE); PROTEIN,URINE 30 mg/dL (NEGATIVE); UROBILINOGEN,URINE NEGATIVE mg/dL (<2.0)
[2020-04-09 10:00] LABS: ABSOLUTE EOSINOPHILS # (AUTO) 0.1 10^3/uL (0.0-0.6); ABSOLUTE LYMPHOCYTES (AUTO) 1.1 10^3/uL (0.5-4.7); ABSOLUTE MONOCYTES (AUTO) 0.9 10^3/uL (0.1-1.4); ABSOLUTE NEUT (AUTO) 7.8 10^3/uL (1.7-8.2); BASOPHILS % (AUTO) 0.3 % (0-2); EOSINOPHILS % (AUTO) 0.5 % (0-6); HEMATOCRIT 34.5 % (36.0-47.0); HEMOGLOBIN 11.2 g/dL (12.0-15.5); LYMPHOCYTES % (AUTO) 11.5 % (13-45); MEAN CORPUSCULAR HEMOGLOBIN 30.9 pg (27.0-33.4); MEAN CORPUSCULAR HGB CONC 32.5 g/dL (32.0-36.0); MEAN CORPUSCULAR VOLUME 95 fl (80-97); MONOCYTES % (AUTO) 9.3 % (3-13); PLATELET COUNT 267 10^3/uL (150-450); RED BLOOD COUNT 3.64 10^6/uL (3.72-5.28); RED CELL DISTRIBUTION WIDTH 16.4 % (11.5-14.0); SEGMENTED NEUTROPHILS % (AUTO) 78.4 % (42-78); TOTAL CELLS COUNTED % (AUTO) 100 %
[2020-04-09] MEDS ORDERED: DIPHENHYDRAMINE HCL 50 MG/ML VIAL IV ONE (10:03)
[2020-04-09] MEDS ORDERED: FAMOTIDINE INJ/PF 20 MG/2 ML SDV IV ONE (10:03)
[2020-04-09] MEDS ORDERED: EPINEPHRINE INJ/PF 1 MG/1 ML AMPULE IM ONE ×2 (10:04→12:48)
[2020-04-09 10:05] LABS: INTERNATIONAL RATION (INR) 1.03; PROTHROMBIN TIME 13.7 SEC (11.4-15.4)
[2020-04-09 10:07] LABS: VENOUS BLOOD BASE EXCESS 0.7 mmol/L; VENOUS BLOOD HCO3 25.2 mmol/L (20-32); VENOUS BLOOD PCO2 39.9 mmHg (35-63); VENOUS BLOOD PH 7.42 (7.30-7.42)
--- NOTE | 2020-04-09 10:15 | RADIOLOGY REPORT (SQ) ---
EXAM DESCRIPTION: CHEST SINGLE VIEW IMAGES COMPLETED DATE/TIME: 04/09/2020 9:53 am REASON FOR STUDY: tachycardia COMPARISON: 02/11/2020 EXAM PARAMETERS: NUMBER OF VIEWS: One view. TECHNIQUE: Single frontal radiographic view of the chest acquired. RADIATION DOSE: NA LIMITATIONS: None. FINDINGS: LUNGS AND PLEURA: No opacities, masses or pneumothorax. No pleural effusion. MEDIASTINUM AND HILAR STRUCTURES: No masses. Contour normal. HEART AND VASCULAR STRUCTURES: Heart normal in size. Normal vasculature. BONES: Persistent sclerotic metastatic lesions. HARDWARE: [id number]-[id number] is in place. OTHER: No other significant finding. IMPRESSION: No interval change. Bony metastatic disease. TECHNICAL DOCUMENTATION: JOB ID: [id number] 2010 [employer]- All Rights Reserved Reading location - IP/workstation name: [email or web address]
[2020-04-09 10:27] LABS: ALKALINE PHOSPHATASE 92 U/L (38-126); ANION GAP 12 (5-19); ASPARTATE AMINO TRANSFERASE 41 U/L (14-36); BILIRUBIN,DIRECT 0.1 mg/dL (0.0-0.4); BILIRUBIN,TOTAL 0.6 mg/dL (0.2-1.3); BLOOD UREA NITROGEN 6 mg/dL (7-20); CALCIUM 9.3 mg/dL (8.4-10.2); CARBON DIOXIDE 24 mmol/L (22-30); CHLORIDE 101 mmol/L (98-107); GLUCOSE 217 mg/dL (75-110); TOTAL PROTEIN 6.9 g/dL (6.3-8.2)
[2020-04-09 10:29] LABS: A TYPE INFLUENZA AG NEGATIVE (NEGATIVE); B INFLUENZA AG NEGATIVE (NEGATIVE)
--- NOTE | 2020-04-09 12:56 | ER Document Report ---
ED General - General Chief Complaint: Sore Throat Stated Complaint: SORE THROAT/LIP SWELLING Primary Care Provider: DELIO SALDIVAR FNP-C [Primary Care Provider] - Follow up as needed TRAVEL OUTSIDE OF THE [place] IN LAST 30 DAYS: No - HPI Notes: CC: Sore throat and swallowing problems HPI: LEI UG is a 39 year old female with a past medical history significant for metastatic breast cancer (brain, bone, lung and liver) with associated seizure disorder, Tachycardia, DM 2, and obesity who presented to ED complaining of sore throat, decreased oral intake and swelling of lower lip past 24 hours. She underwent past gamma knife radiation at 2 months ago. She is followed by Dr. Garland. CURRENT MEDICATIONS: Dexamethasone [Decadron 4 mg Tablet] 4 mg PO BID 07/07/18 Alprazolam [Xanax 0.5 mg Tablet] 0.5 mg PO QHS 05/26/19 Fentanyl [Duragesic 25 mcg/hr Transdermal Patch] 1 each TD Q3D 05/26/19 Gabapentin [Neurontin 100 mg Capsule] 200 mg PO QHS 05/26/19 Levetiracetam [Keppra Xr 500 mg Tab.sr] 2,000 mg PO QHS 05/26/19 Meloxicam [Mobic] 7.5 mg PO BID 05/26/19 Metformin HCl [Metformin HCl ER] 500 mg PO BID 05/26/19 Naproxen 500 mg PO BID 05/26/19 Ondansetron [Zofran Odt 4 mg Tablet] 8 mg PO Q8HP PRN 05/26/19 Promethazine HCl [Phenergan 25 mg Tablet] 25 mg PO Q6HP PRN 05/26/19 Propranolol HCl [Propranolol HCl ER] 60 mg PO QAM 05/26/19 Sennosides [Senokot] 17.2 mg PO QHS 05/26/19 Scopolamine Hydrobromide [Transderm-Scop 1.5 mg Patch] 1 each TD Q3DAYS #10 patch.td72 05/30/19 Cetirizine HCl [Zyrtec 10 mg Tablet] 10 mg PO QHS 02/11/20 Ergocalciferol (Vitamin D2) [Drisdol 50,000 unit (1.25MG) Capsule] 50,000 unit PO MO@1000 02/11/20 Gabapentin [Neurontin 100 mg Capsule] 100 mg PO QAM 02/11/20 Morphine Sulfate [Morphine 10 mg/5 ml Oral Soln Udcup] 10 mg PO HSP PRN 02/11/20 Acetaminophen [Tylenol 325 mg Tablet] 650 mg PO Q4HP PRN tablet 02/14/20 Ciprofloxacin HCl [Cipro 750 mg Tablet] 750 mg PO BID 10 Days #20 tablet 02/14/20 Dexamethasone [Decadron 4 mg Tablet] 8 mg PO DAILY tablet 02/14/20 Docusate Sodium [Colace 100 mg Capsule] 100 mg PO BID capsule 02/14/20 - Related Data Allergies/Adverse Reactions: No Known Allergies Allergy (Verified 07/05/19 17:18) Home Medications: Dexamethasone, Vit D, Naproxen, Gabapentin, Loratadine, Cetirizine, Vit D3, GeriLot, Fentanyl 25 mcg/hr patch, Fluconazole, Keppra, Metformin, Meloxicam, Xanax, Vit D2, Propranolol, [place]ium Cl ER Past Medical History - General Information source: Patient, [facility] Records - Social History Smoking Status: Never Smoker Frequency of alcohol use: None Drug Abuse: None Family History: DM, Hypertension, Malignancy, Other - Past Medical History Cardiac Medical History: Reports: Hx Hypertension, Hx Heart Murmur Denies: Hx Coronary Artery Disease, Hx Heart Attack Pulmonary Medical History: Reports: Hx Asthma - BRONCHIAL, Hx Bronchitis Denies: Hx COPD, Hx Pneumonia Neurological Medical History: Reports: Hx Migraine, Hx Seizures - last week. Denies: Hx Cerebrovascular Accident Endocrine Medical History: Reports: Hx Diabetes Mellitus Type 2 Renal/ Medical History: Denies: Hx Peritoneal Dialysis Malignancy Medical History: Reports: Hx Breast Cancer Musculoskeletal Medical History: Denies Hx Arthritis Psychiatric Medical History: Denies: Hx Depression Infectious Medical History: Denies: Hx HIV Past Surgical History: Reports: Hx Breast Surgery, Other - [place] teeth extraction. Breast biopsies - Immunizations Hx Diphtheria, Pertussis, Tetanus Vaccination: No Review of Systems - Review of Systems Notes: Constitutional: Negative for fever. HENT: As per HPI. Eyes: Negative for visual changes. Cardiovascular: Negative for chest pain. Respiratory: Negative for shortness of breath. Gastrointestinal: Negative for abdominal pain, vomiting or diarrhea. Genitourinary: Negative for dysuria. Musculoskeletal: Negative for back pain. Skin: Negative for rash. Neurological: Negative for headaches, weakness or numbness. 10 point ROS negative except as marked above and in HPI. Physical Exam - Vital signs Vitals: Temp Pulse Resp BP Pulse Ox 99.1 F 151 H 18 128/83 H 95 04/09/20 08:27 04/09/20 08:27 04/09/20 08:27 04/09/20 08:27 04/09/20 08:27 - Notes Notes: GENERAL: Cushingoid middle-aged female with prominent edema of the lower lip. SKIN: Good turgor no rashes. HEAD: Normocephalic atraumatic. EYES: PERRLA. EOMI. Conjunctivae and sclerae clear. EARS: CANALS AND TMS CLEAR. NOSE: CLEAR. MOUTH: Moist mucosa. Oral thrush present. No stridor or drooling. No swelling of tongue or uvula. NECK: Supple. No masses or thyromegaly. No adenopathy. Carotids 2+ without bruits. No JVD. BACK: Symmetrical without tenderness. CHEST: Respirations unlabored. Breath sounds clear and symmetrical. HEART: Tachycardic regular rhythm. No murmur gallop or rub. ABDOMEN: Soft nontender without masses, organomegaly or rebound. Bowel sounds normally active. No bruits. GENITALIA: Deferred. EXTREMITIES: No edema. No calf tenderness. Cap refill less than 1.5 seconds. Dorsalis pedis and posterior tibial pulses 3+ and symmetrical. NEUROLOGICAL: GCS 15. Alert and oriented x3. Fluent speech. Cranial nerves II through XII intact. Sensorimotor and cerebellar normal. Normal tone. PSYCHIATRIC: Appropriate affect. Course - Re-evaluation Re-evalutation: 04/09/20 13:12 My initial thought was that this lady was probably volume depleted due to severe oral thrush. My other thought was that she was possibly septic with source to be determined. We initiated a 30 cc/kg bolus of lactated Ringer's IV. Blood cultures been drawn she is been given empiric IV antibiotics. She clearly has an angioedema primarily involving the lower lip. I went through her meds and I do not see any likely new precipitating agents. I gave her IV H1 and H2 blockers and also some IM epi x2 with little change in her swelling. Her airway is currently very stable. Patient is afebrile here. Her EKG showed sinus tachycardia. Her chest x-ray shows no metastasis to the bones with no other acute findings. Her EKG was remarkable only for sinus tachycardia. White count is normal. Hemoglobin is 11.3. Urinalysis shows a few WBCs and is otherwise unremarkable. Initial lactate 4.3. Case has been discussed with her oncologist . Who feels current interventions are appropriate. She recommends admission of the patient by the hospitalist service to IMCU. 04/09/20 13:27 Excepted for IMCU admission by Dr. Byrnes. - Vital Signs Vital signs: Temp Pulse Resp BP Pulse Ox 98.7 F 151 H 12 143/101 H 100 04/09/20 11:00 04/09/20 08:27 04/09/20 13:00 04/09/20 13:00 04/09/20 13:00 - Laboratory Result Diagrams: 04/09/20 09:37 04/09/20 09:37 Laboratory results interpreted by me: 04/09/20 04/09/20 04/09/20 08:30 09:37 09:37 RBC 3.64 L Hgb 11.2 L Hct 34.5 L RDW 16.4 H Lymph % (Auto) 11.5 L Seg Neutrophils % 78.4 H Sodium 136.8 L BUN 6 L Creatinine 0.48 L Glucose 217 H Lactic Acid AST 41 H ALT 56 H Urine Protein 30 H Ur Leukocyte Esterase TRACE H 04/09/20 09:37 RBC Hgb Hct RDW Lymph % (Auto) Seg Neutrophils % Sodium BUN Creatinine Glucose Lactic Acid 4.0 H AST ALT Urine Protein Ur Leukocyte Esterase Discharge - Discharge Clinical Impression: Breast CA with metastasis, Thrush of mouth and esophagus Angioedema Qualifiers: Encounter type: initial encounter Qualified Code(s): T78.3XXA - Angioneurotic edema, initial encounter Urinary tract infection Qualifiers: Urinary tract infection type: site unspecified Hematuria presence: without case turia Qualified Code(s): N39.0 - Urinary tract infection, site not specified Condition: Serious Disposition: ADMITTED INPATIENT Admitting Provider: Fitz (Hospitalist) Unit Admitted: IMCU Referrals: EDLIO SALDIVAR FNP-C [Primary Care Provider] - Follow up as needed
[2020-04-09] MEDS ORDERED: CLOTRIMAZOLE 10 MG TROCHE PO ONE (13:04)
[2020-04-09] MEDS ORDERED: CEFTRIAXONE INJ 1000 MG VIAL IV ONE (13:07)
[2020-04-09] MEDS ORDERED: ACETAMINOPHEN 325 MG TABLET PO PRN (15:17)
[2020-04-09] MEDS ORDERED: MAG HYDROX/AL HYDROX/SIMETH SUSP 30 ML UDCUP PO PRN (15:24)
[2020-04-09] MEDS ORDERED: ONDANSETRON HCL INJ/PF 4 MG/2 ML SDV IV PRN (15:24)
[2020-04-09] MEDS ORDERED: NAPROXEN 250 MG TABLET PO PRN (15:28)
--- NOTE | 2020-04-09 16:09 | PDOC H&P ---
History of Present Illness Admission Date/PCP: 04/09/20 13:37 DELIO SALDIVAR, [employer] Patient complains of: Swelling of lips History of Present Illness: LEI GU is a 39 year old female with history of breast cancer with metastasis to bone and brain, tachycardia, who presents to the hospital this morning for evaluation of sudden onset of swelling of the lips. Symptoms started last night. Patient denies eating anything unusual. Patient denies any known allergies. Patient has not had any new medication changes. She had a similar episode little while ago which they thought was due to the formulary of morphine that was given to her at that time. She denies any insect bites. She denies any pruritus or rashes on her skin. Denies any shortness of breath at the time. Patient and her sister also acknowledged that patient has had history of tachycardia often in the 150s and was put on propanolol because of this. She denies any history of hypothyroidism. ER spoke with Dr. Johnson who recommends admission and administration of empiric antibiotic. Received IV ceftriaxone in ER. Past Medical History Cardiac Medical History: Reports: Hypertension, Heart Murmur Denies: Coronary Artery Disease, Myocardial Infarction Pulmonary Medical History: Reports: Asthma - BRONCHIAL, Bronchitis Denies: Chronic Obstructive Pulmonary Disease (COPD), Pneumonia Neurological Medical History: Reports: Migraine, Seizures - last week Endocrine Medical History: Reports: Diabetes Mellitus Type 2 Malignancy Medical History: Reports: Breast Cancer Musculoskeltal Medical History: Denies: Arthritis Psychiatric Medical History: Denies: Depression Hematology: Reports: Anemia Denies: Sickle Cell Disease Infectious Medical History: Denies: HIV Past Surgical History Past Surgical History: Reports: Other - [place] teeth extraction. Breast biopsies Social History Smoking Status: Never Smoker Frequency of Alcohol Use: None Hx Recreational Drug Use: No Drugs: None Hx Prescription Drug Abuse: No - Advance Directive Resuscitation Status: Full Code Family History Family History: DM, Hypertension, Malignancy, Other Parental Family History Reviewed: Yes Children Family History Reviewed: NA Sibling(s) Family History Reviewed.: Yes Medication/Allergy Home Medications: Dexamethasone [Decadron 4 mg Tablet] 4 mg PO BID 07/07/18 Alprazolam [Xanax 0.5 mg Tablet] 0.5 mg PO QHS 05/26/19 Fentanyl [Duragesic 25 mcg/hr Transdermal Patch] 1 each TD Q3D 05/26/19 Levetiracetam [Keppra Xr 500 mg Tab.sr] 2,000 mg PO QHS 05/26/19 Meloxicam [Mobic] 7.5 mg PO BID 05/26/19 Metformin HCl [Metformin HCl ER] 500 mg PO BID 05/26/19 Naproxen 500 mg PO BID 05/26/19 Propranolol HCl [Propranolol HCl ER] 60 mg PO QAM 05/26/19 Cetirizine HCl [Zyrtec 10 mg Tablet] 10 mg PO QHS 02/11/20 Ergocalciferol (Vitamin D2) [Drisdol 50,000 unit (1.25MG) Capsule] 50,000 unit PO MO@1000 02/11/20 Gabapentin [Neurontin 100 mg Capsule] 100 mg PO QAM 02/11/20 Fluconazole [Diflucan] 04/09/20 Allergies/Adverse Reactions: No Known Allergies Allergy (Verified 07/05/19 17:18) Review of Systems Constitutional: ABSENT: chills, fever(s) Nose, Mouth, and Throat: ABSENT: headache(s), sore throat Cardiovascular: ABSENT: chest pain Respiratory: ABSENT: cough, dyspnea Gastrointestinal: ABSENT: abdominal pain, diarrhea, nausea, vomiting Genitourinary: ABSENT: difficulty urinating, dysuria Integumentary: ABSENT: diaphoresis Neurological: ABSENT: confusion, dizziness Psychiatric: ABSENT: anxiety Endocrine: ABSENT: heat intolerance Physical Exam Vital Signs: Temp Pulse Resp BP Pulse Ox 98.7 F 151 H 13 155/96 H 98 04/09/20 11:00 04/09/20 08:27 04/09/20 15:00 04/09/20 15:00 04/09/20 15:00 Intake & Output 04/08/20 04/09/20 04/10/20 06:59 06:59 06:59 Intake Total 2730 Balance 2730 Weight 91 kg General appearance: PRESENT: no acute distress, cooperative, obese Eye exam: ABSENT: scleral icterus Mouth exam: PRESENT: other - swollen lips. tongue is not swollen. Neck exam: ABSENT: JVD Respiratory exam: PRESENT: clear to auscultation michelle, symmetrical, unlabored. ABSENT: stridor, tachypnea, wheezes Cardiovascular exam: PRESENT: +S1, +S2, tachycardia. ABSENT: irregular rhythm GI/Abdominal exam: PRESENT: soft. ABSENT: ascites, distended, rebound, rigid, tenderness Extremities exam: ABSENT: calf tenderness, pedal edema Neurological exam: PRESENT: alert, awake, oriented to person, oriented to place, oriented to time, oriented to situation Psychiatric exam: ABSENT: agitated, anxious Focused psych exam: ABSENT: pressured speech Skin exam: ABSENT: rash, urticaria, warm Results Laboratory Results: 04/09/20 09:37 04/09/20 09:37 04/09/20 04/09/20 04/09/20 08:30 09:37 09:37 WBC 10.0 RBC 3.64 L Hgb 11.2 L Hct 34.5 L MCV 95 MCH 30.9 MCHC 32.5 RDW 16.4 H Plt Count 267 Seg Neutrophils % 78.4 H VBG pH VBG pCO2 VBG HCO3 VBG Base Excess Sodium 136.8 L Potassium 4.0 Chloride 101 Carbon Dioxide 24 Anion Gap 12 BUN 6 L Creatinine 0.48 L Est GFR ( Amer) > 60 Glucose 217 H Lactic Acid Calcium 9.3 Total Bilirubin 0.6 AST 41 H Alkaline Phosphatase 92 Total Protein 6.9 Albumin 4.0 Serum HCG, Qual Urine Color YELLOW Urine Appearance CLEAR Urine pH 5.0 Ur Specific [place] 1.010 Urine Protein 30 H Urine Glucose (UA) NEGATIVE Urine Ketones NEGATIVE Urine Blood NEGATIVE Urine Nitrite NEGATIVE Ur Leukocyte Esterase TRACE H Urine WBC (Auto) 5 Urine RBC (Auto) 1 04/09/20 04/09/20 04/09/20 09:37 09:37 09:37 WBC RBC Hgb Hct MCV MCH MCHC RDW Plt Count Seg Neutrophils % VBG pH 7.42 VBG pCO2 39.9 VBG HCO3 25.2 VBG Base Excess 0.7 Sodium Potassium Chloride Carbon Dioxide Anion Gap BUN Creatinine Est GFR ( Amer) Glucose Lactic Acid 4.0 H Calcium Total Bilirubin AST Alkaline Phosphatase Total Protein Albumin Serum HCG, Qual NEGATIVE Urine Color Urine Appearance Urine pH Ur Specific [place] Urine Protein Urine Glucose (UA) Urine Ketones Urine Blood Urine Nitrite Ur Leukocyte Esterase Urine WBC (Auto) Urine RBC (Auto) 04/09/20 14:41 WBC RBC Hgb Hct MCV MCH MCHC RDW Plt Count Seg Neutrophils % VBG pH VBG pCO2 VBG HCO3 VBG Base Excess Sodium Potassium Chloride Carbon Dioxide Anion Gap BUN Creatinine Est GFR ( Amer) Glucose Lactic Acid 3.9 H Calcium Total Bilirubin AST Alkaline Phosphatase Total Protein Albumin Serum HCG, Qual Urine Color Urine Appearance Urine pH Ur Specific [place] Urine Protein Urine Glucose (UA) Urine Ketones Urine Blood Urine Nitrite Ur Leukocyte Esterase Urine WBC (Auto) Urine RBC (Auto) 04/09/20 09:37 Troponin I < 0.012 Impressions: Chest X-Ray 04/09/20 08:44 IMPRESSION: No interval change. Bony metastatic disease. Assessment and Plan - Diagnosis (1) Angioedema Qualifiers: Encounter type: initial encounter Qualified Code(s): T78.3XXA - Angioneurotic edema, initial encounter Is this a current diagnosis for this admission?: Yes Plan: Etiology unknown She denies any insect bites, food allergies, recent medication changes, MIRNA inhibitor use. Physical exam does not reveal any rashes or insect bites. Received treatment with epinephrine, Benadryl in the ER She is already on chronic dexamethasone which will be continued We will give another dose of Benadryl this evening. Pepcid twice daily. Protecting airway and no evidence of stridor/wheeze. We will monitor overnight in IMCU. Check C1 esterase inhibitor. As no certain etiology, patient will benefit from seeing an fish hatchery man for allergy testing and an EpiPen when ready for discharge. (2) Tachycardia Is this a current diagnosis for this admission?: Yes Plan: Uncertain why patient is very tachycardic. Was noted to be 150s on presentation but down to 120s to 130 after receiving IV fluids EKG shows sinus tachycardia Patient and her sister informed me that she has a history of tachycardia but etiology is unknown and that she is often in the 150s at baseline. Informed that this is why she is on propanolol. It seems on her recent admission, she was in the 130s and her propanolol dose was increased and her heart rate later normalized. She was also treated for pyelonephritis at that time. TSH on previous admission was normal. Will check free T4 level. CTA 2 months ago was negative for PE. Placed on IV fluids. We will see if rehydration simply helps. Will monitor heart rate closely. Resume propanolol -give a dose now. I have encouraged that she would need to be evaluated by sterilization technician regarding this chronic issue. So far, I do not have any source of infection on assessment and review of systems. Chest x-ray shows no pneumonia and only shows chronic findings. Urinalysis is also negative. I will check a urine culture. Negative for leukocytosis and afebrile. As patient has already received a dose of ceftriaxone IV in the ER, I will leave of antibiotics for now to see if an infectious source manifests. (3) Lactic acidosis Is this a current diagnosis for this admission?: Yes Plan: Questionable if there is a true infection as no source have been obtained. May be due to malignancy or hypovolemia. Will administer IV fluids and trend lactic acid levels. (4) Thrush of mouth and esophagus Is this a current diagnosis for this admission?: Yes Plan: Continue fluconazole (5) Metastatic breast cancer Is this a current diagnosis for this admission?: Yes Plan: Patient of Dr. Johnson. Has history of brain and bone mets. Will have Dr. Johnson follow along. She has been informed by the ER. - Time Time Spent with patient: 35 or more minutes Anticipated Discharge Disposition: Home, Self Care Anticipated Discharge Timeframe: within 36 hours
[2020-04-09] MEDS: METFORMIN HCL 500 MG TABLET PO SCH (17:44)
[2020-04-09] MEDS: FENTANYL 25 MCG/HR PATCH.TD72 TD SCH (17:44)
[2020-04-09] MEDS: PROPRANOLOL HCL 20 MG TABLET PO SCH (17:44)
[2020-04-09] MEDS ORDERED: DEXAMETHASONE 4 MG TABLET PO SCH (18:00)
[2020-04-09] MEDS ORDERED: MELOXICAM 7.5 MG TABLET PO SCH (18:00)
[2020-04-09] MEDS ORDERED: METOPROLOL TARTRATE PF/INJ 5 MG/5 ML SDV IV PRN (19:40)
--- NOTE | 2020-04-09 21:29 | EKG REPORT ---
SEVERITY:- BORDERLINE ECG - SINUS TACHYCARDIA BORDERLINE RIGHT AXIS DEVIATION BORDERLINE T ABNORMALITIES, INFERIOR LEADS : Confirmed by: Aly Bowman 09-Apr-2020 21:29:13
[2020-04-09] MEDS: ALPRAZOLAM 0.5 MG TABLET PO SCH (22:23)
[2020-04-09] MEDS: CETIRIZINE 10 MG TABLET PO SCH (22:23)
[2020-04-09] MEDS: DIPHENHYDRAMINE HCL 50 MG/ML VIAL IV SCH (22:23)
[2020-04-09] MEDS: FAMOTIDINE INJ/PF 20 MG/2 ML SDV IV SCH (22:23)
[2020-04-09] MEDS: LEVETIRACETAM XR 500 MG TAB.SR.24H PO SCH (22:23)
[2020-04-09] MEDS: NORMAL SALINE 1000 ML 1,000 ML IV PRN (22:25)
[2020-04-10 04:52] LABS: HEMATOCRIT 32.4 % (36.0-47.0); HEMOGLOBIN 10.6 g/dL (12.0-15.5); MEAN CORPUSCULAR HEMOGLOBIN 30.7 pg (27.0-33.4); MEAN CORPUSCULAR HGB CONC 32.7 g/dL (32.0-36.0); MEAN CORPUSCULAR VOLUME 94 fl (80-97); PLATELET COUNT 251 10^3/uL (150-450); RED BLOOD COUNT 3.45 10^6/uL (3.72-5.28); RED CELL DISTRIBUTION WIDTH 16.3 % (11.5-14.0); WHITE BLOOD COUNT 8.9 10^3/uL (4.0-10.5)
[2020-04-10 05:16] LABS: ANION GAP 9 (5-19); BLOOD UREA NITROGEN 5 mg/dL (7-20); CALCIUM 9.3 mg/dL (8.4-10.2); CARBON DIOXIDE 27 mmol/L (22-30); CHLORIDE 106 mmol/L (98-107); GLUCOSE 202 mg/dL (75-110); POTASSIUM 4.1 mmol/L (3.6-5.0)
[2020-04-10] MEDS: METFORMIN HCL 500 MG TABLET PO SCH ×2 (08:15→16:31)
[2020-04-10] MEDS: GABAPENTIN 100 MG CAPSULE PO SCH (08:16)
--- NOTE | 2020-04-10 09:27 | PDOC CONSULTATION ---
Consultation Consult Date: 04/10/20 Provider Consulted: REE GONZALES Consult reason:: Hematology/Oncology consultation was requested for patient on current chemotherapy for metastatic breast cancer who presented with altered mental status and swollen lip. History of Present Illness Admission Date/PCP: 04/09/20 13:37 MONA CAAL History of Present Illness: LEI GU is a 39 year old female who was diagnosed with metastatic breast cancer 05/2018. She has known brain mets which have been slowly increasing, despite continued therapy. She most recently was given her first cycle of keytruda immunotherapy on 03/23/2020. She presented to the ED yesterday with difficulty swallowing and swollen lip. This morning, she is not her usual bubbly self. She is able to speak, but quite slowly and is not able to answer questions. Past Medical History Cardiac Medical History: Reports: Hypertension, Heart Murmur Denies: Coronary Artery Disease, Myocardial Infarction Pulmonary Medical History: Reports: Asthma - BRONCHIAL, Bronchitis Denies: Chronic Obstructive Pulmonary Disease (COPD), Pneumonia Neurological Medical History: Reports: Migraine, Seizures - last week Endocrine Medical History: Reports: Diabetes Mellitus Type 2 Malignancy Medical History: Reports: Breast Cancer Musculoskeltal Medical History: Denies: Arthritis Psychiatric Medical History: Denies: Depression Hematology: Reports: Anemia Denies: Sickle Cell Disease Infectious Medical History: Denies: HIV Past Surgical History Past Surgical History: Reports: Other - [place] teeth extraction. Breast biopsies Social History Smoking Status: Never Smoker Electronic Cigarette use?: No Frequency of Alcohol Use: None Hx Recreational Drug Use: No Drugs: None Hx Prescription Drug Abuse: No - Advance Directive Resuscitation Status: Full Code Family History Family History: DM, Hypertension, Malignancy, Other Parental Family History Reviewed: Yes - Mother with brast cancer Children Family History Reviewed: No Sibling(s) Family History Reviewed.: Yes - Uterine fibroids. Medication/Allergy Home Medications: Dexamethasone [Decadron 4 mg Tablet] 4 mg PO DAILY 07/07/18 Alprazolam [Xanax 0.5 mg Tablet] 0.5 mg PO HSP PRN 05/26/19 Levetiracetam [Keppra Xr 500 mg Tab.sr] 2,000 mg PO QHS 05/26/19 Meloxicam [Mobic] 7.5 mg PO DAILY 05/26/19 Metformin HCl [Metformin HCl ER] 500 mg PO BID 05/26/19 Naproxen 500 mg PO BID 05/26/19 Propranolol HCl [Propranolol HCl ER] 60 mg PO QAM 05/26/19 Cetirizine HCl [Zyrtec 10 mg Tablet] 10 mg PO QHS 02/11/20 Ergocalciferol (Vitamin D2) [Drisdol 50,000 unit (1.25MG) Capsule] 50,000 unit PO MO@1000 02/11/20 Gabapentin [Neurontin 100 mg Capsule] 100 mg PO TID 02/11/20 Cholecalciferol (Vitamin D3) [Vitamin D3] 25 mcg PO DAILY 04/09/20 Cholecalciferol (Vitamin D3) [Vitamin D3] 125 mcg PO DAILY 04/09/20 Fexofenadine HCl [Wal-Fex Allergy] 180 mg PO DAILY 04/09/20 Fluconazole [Diflucan] 100 mg PO ASDIR PRN 04/09/20 Loratadine [Allerclear] 10 mg PO DAILY 04/09/20 Potassium Chloride 20 meq PO DAILY 04/09/20 Allergies/Adverse Reactions: No Known Allergies Allergy (Verified 07/05/19 17:18) Review of Systems ROS unobtainable: Due to mental status Physical Exam Vital Signs: Temp Pulse Resp BP Pulse Ox 97.9 F 100 16 141/91 H 97 04/10/20 08:09 04/10/20 08:09 04/10/20 08:09 04/10/20 08:09 04/10/20 08:09 Intake & Output 04/09/20 04/10/20 04/11/20 06:59 06:59 06:59 Intake Total 2730 1000 Balance 2730 1000 Weight 91 kg General appearance: PRESENT: no acute distress, obese Head exam: PRESENT: other - Barr facies from chronic steroids. Eye exam: PRESENT: EOMI Mouth exam: PRESENT: moist Neck exam: ABSENT: lymphadenopathy, tenderness Respiratory exam: PRESENT: clear to auscultation michelle, unlabored Cardiovascular exam: PRESENT: RRR GI/Abdominal exam: PRESENT: soft. ABSENT: tenderness Extremities exam: ABSENT: pedal edema Neurological exam: PRESENT: altered Psychiatric exam: PRESENT: flat affect Skin exam: PRESENT: normal color Results Laboratory Results: 04/10/20 04:31 04/10/20 04:31 04/09/20 04/09/2020 09:37 09:37 09:37 WBC 10.0 RBC 3.64 L Hgb 11.2 L Hct 34.5 L MCV 95 MCH 30.9 MCHC 32.5 RDW 16.4 H Plt Count 267 Seg Neutrophils % 78.4 H VBG pH 7.42 VBG pCO2 39.9 VBG HCO3 25.2 VBG Base Excess 0.7 Sodium 136.8 L Potassium 4.0 Chloride 101 Carbon Dioxide 24 Anion Gap 12 BUN 6 L Creatinine 0.48 L Est GFR ( Amer) > 60 Glucose 217 H Lactic Acid Calcium 9.3 Magnesium Total Bilirubin 0.6 AST 41 H Alkaline Phosphatase 92 Total Protein 6.9 Albumin 4.0 Free T4 Serum HCG, Qual 04/09/20 04/09/20 04/09/20 09:37 09:37 14:41 WBC RBC Hgb Hct MCV MCH MCHC RDW Plt Count Seg Neutrophils % VBG pH VBG pCO2 VBG HCO3 VBG Base Excess Sodium Potassium Chloride Carbon Dioxide Anion Gap BUN Creatinine Est GFR ( Amer) Glucose Lactic Acid 4.0 H 3.9 H Calcium Magnesium Total Bilirubin AST Alkaline Phosphatase Total Protein Albumin Free T4 Serum HCG, Qual NEGATIVE 04/09/20 04/10/20 04/10/20 18:25 04:31 04:31 WBC 8.9 RBC 3.45 L Hgb 10.6 L Hct 32.4 L MCV 94 MCH 30.7 MCHC 32.7 RDW 16.3 H Plt Count 251 Seg Neutrophils % VBG pH VBG pCO2 VBG HCO3 VBG Base Excess Sodium 142.4 Potassium 4.1 Chloride 106 Carbon Dioxide 27 Anion Gap 9 BUN 5 L Creatinine 0.47 L Est GFR ( Amer) > 60 Glucose 202 H Lactic Acid 3.5 H Calcium 9.3 Magnesium 2.2 Total Bilirubin AST Alkaline Phosphatase Total Protein Albumin Free T4 Serum HCG, Qual 04/10/20 04/10/20 04:31 04:31 WBC RBC Hgb Hct MCV MCH MCHC RDW Plt Count Seg Neutrophils % VBG pH VBG pCO2 VBG HCO3 VBG Base Excess Sodium Potassium Chloride Carbon Dioxide Anion Gap BUN Creatinine Est GFR ( Amer) Glucose Lactic Acid 2.5 H Calcium Magnesium Total Bilirubin AST Alkaline Phosphatase Total Protein Albumin Free T4 1.70 Serum HCG, Qual 04/09/20 09:37 Troponin I < 0.012 Impressions: Chest X-Ray 04/09/20 08:44 IMPRESSION: No interval change. Bony metastatic disease. Assessment & Plan - Diagnosis (1) Breast cancer metastasized to brain Qualifiers: Laterality: left Qualified Code(s): C50.912 - Malignant neoplasm of unspecified site of left female breast; C79.31 - Secondary malignant neoplasm of brain Is this a current diagnosis for this admission?: Yes Plan: Most likely, she has increased intracranial edema. I will increase her Dexamethasone to see if this helps. (2) Thrush of mouth and esophagus Is this a current diagnosis for this admission?: Yes Plan: Agree with Diflucan. (3) UTI (urinary tract infection) Qualifiers: Urinary tract infection type: site unspecified Hematuria presence: without hematuria Qualified Code(s): N39.0 - Urinary tract infection, site not specified Is this a current diagnosis for this admission?: Yes Plan: She was given a dose of rocephin in the ED. Await further cultures, as I am not convinced that this is infectious. More likely inflammatory due to the immunotherapy. Will see how she does after 24 hours of increased steroids. - Plan Summary Plan Summary: I will continue to follow her with you. Please call with any concerns.
--- NOTE | 2020-04-10 09:36 | EKG REPORT ---
SEVERITY:- BORDERLINE ECG - SINUS RHYTHM BORDERLINE PROLONGED QT INTERVAL : Confirmed by: Aly Bowman 10-Apr-2020 09:35:47
[2020-04-10] MEDS: FLUCONAZOLE 100 MG TABLET PO SCH (10:41)
[2020-04-10] MEDS: DEXAMETHASONE 4 MG TABLET PO SCH ×2 (10:41→17:02)
[2020-04-10] MEDS: DIPHENHYDRAMINE HCL 50 MG/ML VIAL IV SCH (10:42)
[2020-04-10] MEDS: PROPRANOLOL HCL 20 MG TABLET PO SCH (10:42)
[2020-04-10] MEDS: ENOXAPARIN SODIUM INJ 40 MG/0.4 ML DISP.SYRIN SUBCUT SCH (10:42)
[2020-04-10] MEDS: FAMOTIDINE INJ/PF 20 MG/2 ML SDV IV SCH ×2 (10:42→22:18)
[2020-04-10] MEDS ORDERED: DEXTROSE 40% GEL 15 GM TUBE PO PRN ×2 (15:13)
[2020-04-10] MEDS ORDERED: GLUCAGON,HUMAN RECOMB 1 MG INJ IM PRN (15:13)
[2020-04-10] MEDS ORDERED: DEXTROSE 50%-WATER 25 GM/50 ML DISP.SYRIN IV PRN ×2 (15:13)
--- NOTE | 2020-04-10 15:17 | PDOC PROGRESS REPORT ---
Subjective Progress Note for:: 04/10/20 Subjective:: Patient states that she feels as if her lips remain swollen. She denies any swelling of her tongue or throat Reason For Visit: ANGIOEDEMA, TACHYCARDIA Physical Exam Vital Signs: Temp Pulse Resp BP Pulse Ox 97.7 F 95 17 130/81 H 99 04/10/20 11:17 04/10/20 11:17 04/10/20 11:17 04/10/20 11:17 04/10/20 11:17 Intake & Output 04/09/20 04/10/20 04/11/20 06:59 06:59 06:59 Intake Total 2730 1118 Balance 2730 1118 Weight 91 kg General appearance: PRESENT: no acute distress, obese Head exam: PRESENT: atraumatic Eye exam: PRESENT: conjunctiva pink Mouth exam: PRESENT: moist, tongue midline, other - Lips slightly edematous per patient. This is my first time to meet the patient therefore it is difficult for me to assess level of edema however they do not appear to be significantly edematous. Oral mucosa erythematous Throat exam: PRESENT: post pharyngeal erythema, other - Oropharyngeal candidiasis noted with some white plaquing and minimal tonsillar injection Neck exam: ABSENT: JVD Respiratory exam: PRESENT: clear to auscultation michelle, symmetrical, unlabored. ABSENT: accessory muscle use Cardiovascular exam: PRESENT: RRR, +S1, +S2 Vascular exam: PRESENT: normal capillary refill GI/Abdominal exam: PRESENT: normal bowel sounds, soft. ABSENT: distended, tenderness Rectal exam: PRESENT: deferred Extremities exam: ABSENT: calf tenderness, pedal edema Neurological exam: PRESENT: alert, awake, oriented to person, oriented to place, oriented to time, oriented to situation, CN II-XII grossly intact Psychiatric exam: PRESENT: flat affect. ABSENT: agitated, anxious Skin exam: PRESENT: dry, normal color, warm Results Laboratory Results: 04/10/20 04:31 04/10/20 04:31 04/09/20 04/09/20 04/10/20 14:41 18:25 04:31 WBC 8.9 RBC 3.45 L Hgb 10.6 L Hct 32.4 L MCV 94 MCH 30.7 MCHC 32.7 RDW 16.3 H Plt Count 251 Sodium Potassium Chloride Carbon Dioxide Anion Gap BUN Creatinine Est GFR ( Amer) Glucose Lactic Acid 3.9 H 3.5 H Calcium Magnesium Free T4 04/10/20 04/10/20 04/10/20 04:31 04:31 04:31 WBC RBC Hgb Hct MCV MCH MCHC RDW Plt Count Sodium 142.4 Potassium 4.1 Chloride 106 Carbon Dioxide 27 Anion Gap 9 BUN 5 L Creatinine 0.47 L Est GFR ( Amer) > 60 Glucose 202 H Lactic Acid 2.5 H Calcium 9.3 Magnesium 2.2 Free T4 1.70 04/09/20 09:37 Troponin I < 0.012 Impressions: Chest X-Ray 04/09/20 08:44 IMPRESSION: No interval change. Bony metastatic disease. Assessment and Plan - Diagnosis (1) Angioedema Qualifiers: Encounter type: initial encounter Qualified Code(s): T78.3XXA - A ngioneurotic edema, initial encounter Is this a current diagnosis for this admission?: Yes Plan: Etiology unknown Subjectively patient reports improvement in lip swelling Patient has no signs of airway compromise Physical exam does not reveal any sign of rashes or possible insect bites Patient receives dexamethasone as part of her cancer treatment which will be continued C1 esterase inhibitor pending (2) Tachycardia Is this a current diagnosis for this admission?: Yes Plan: Improved, likely related to rehydration Initial heart rates were in the 150s and now currently less than 100 consistently T4 WNL Continue propranolol 60 mg p.o. daily (3) Lactic acidosis Is this a current diagnosis for this admission?: Yes Plan: Lactic acid improved with hydration however still remains slightly elevated Unclear if this is related to infection or underlying cancer/cancer treatment with immunotherapy Continue to hydrate with current IVF Cultures so far negative Recheck lactic acid in a.m. Continue current antimicrobial therapy (ceftriaxone/fluconazole) (4) Thrush of mouth and esophagus Is this a current diagnosis for this admission?: Yes Plan: Continue fluconazole 200 mg p.o. daily (5) Breast cancer metastasized to brain Qualifiers: Laterality: left Qualified Code(s): C50.912 - Malignant neoplasm of unspecified site of left female breast; C79.31 - Secondary malignant neoplasm of brain Is this a current diagnosis for this admission?: Yes Plan: Oncology input appreciated Dexamethasone dose increased to 8 mg p.o. twice daily Continue levetiracetam 2000 mg p.o. daily at bedtime Continue gabapentin 100 mg p.o. daily (6) Seizure disorder Is this a current diagnosis for this admission?: Yes Plan: Patient with no signs of seizure activity Seizure medications as noted above (7) Anemia Is this a current diagnosis for this admission?: Yes Plan: Likely related to her underlying disease process/treatment No treatment indicated at this time Monitor (8) Diabetes mellitus type 2 in obese Is this a current diagnosis for this admission?: Yes Plan: Continue metformin 500 mg p.o. twice daily Add FS BS with SSI correction scale (9) Anxiety Is this a current diagnosis for this admission?: Yes Plan: Continue alprazolam 0.5 mg p.o. daily at at bedtime - Time Time Spent with patient: 25-34 minutes Medications reviewed and adjusted accordingly: Yes Anticipated Discharge Disposition: Home, Self Care Anticipated Discharge Timeframe: TBD
[2020-04-10] MEDS: INSULIN LISPRO 100 UNIT/ML 3 ML VIAL SUBCUT SCH ×2 (16:31→23:21)
[2020-04-10] MEDS: NORMAL SALINE 1000 ML 1,000 ML IV PRN (17:02)
[2020-04-10] MEDS: LEVETIRACETAM XR 500 MG TAB.SR.24H PO SCH (22:19)
[2020-04-10] MEDS: ALPRAZOLAM 0.5 MG TABLET PO SCH (22:19)
[2020-04-10] MEDS: CETIRIZINE 10 MG TABLET PO SCH (22:19)
[2020-04-11] MEDS: NORMAL SALINE 1000 ML 1,000 ML IV PRN ×2 (01:52→11:19)
[2020-04-11 07:04] LABS: ABSOLUTE LYMPHOCYTES (AUTO) 0.8 10^3/uL (0.5-4.7); ABSOLUTE MONOCYTES (AUTO) 0.3 10^3/uL (0.1-1.4); ABSOLUTE NEUT (AUTO) 6.8 10^3/uL (1.7-8.2); BASOPHILS % (AUTO) 0.1 % (0-2); HEMATOCRIT 28.9 % (36.0-47.0); HEMOGLOBIN 9.3 g/dL (12.0-15.5); MEAN CORPUSCULAR HEMOGLOBIN 30.5 pg (27.0-33.4); MEAN CORPUSCULAR HGB CONC 32.3 g/dL (32.0-36.0); MEAN CORPUSCULAR VOLUME 94 fl (80-97); MONOCYTES % (AUTO) 4.1 % (3-13); PLATELET COUNT 247 10^3/uL (150-450); RED BLOOD COUNT 3.07 10^6/uL (3.72-5.28); RED CELL DISTRIBUTION WIDTH 16.1 % (11.5-14.0); SEGMENTED NEUTROPHILS % (AUTO) 85.8 % (42-78); TOTAL CELLS COUNTED % (AUTO) 100 %; WHITE BLOOD COUNT 7.9 10^3/uL (4.0-10.5)
[2020-04-11 07:27] LABS: ANION GAP 9 (5-19); BLOOD UREA NITROGEN 5 mg/dL (7-20); CALCIUM 8.7 mg/dL (8.4-10.2); CARBON DIOXIDE 24 mmol/L (22-30); CHLORIDE 108 mmol/L (98-107); GLUCOSE 194 mg/dL (75-110); POTASSIUM 3.9 mmol/L (3.6-5.0)
[2020-04-11] MEDS: GABAPENTIN 100 MG CAPSULE PO SCH (08:17)
[2020-04-11] MEDS: METFORMIN HCL 500 MG TABLET PO SCH ×2 (08:17→16:07)
[2020-04-11] MEDS: INSULIN LISPRO 100 UNIT/ML 3 ML VIAL SUBCUT SCH ×4 (08:17→22:51)
[2020-04-11] MEDS: FAMOTIDINE INJ/PF 20 MG/2 ML SDV IV SCH ×2 (09:54→22:53)
[2020-04-11] MEDS: ENOXAPARIN SODIUM INJ 40 MG/0.4 ML DISP.SYRIN SUBCUT SCH (09:54)
[2020-04-11] MEDS: PROPRANOLOL HCL 20 MG TABLET PO SCH (09:55)
[2020-04-11] MEDS: FLUCONAZOLE 100 MG TABLET PO SCH (09:55)
[2020-04-11] MEDS: DEXAMETHASONE 4 MG TABLET PO SCH ×2 (09:55→17:35)
--- NOTE | 2020-04-11 10:19 | PDOC PROGRESS REPORT ---
Subjective Progress Note for:: 04/11/20 Subjective:: Patient states that she feels a bit better today. She is able to talk to me. Nurses report her mental status comes and goes. She pulled out her port access needle last night. No other concerns today. ROS: No dyspnea. No diarrhea. Reason For Visit: ANGIOEDEMA, TACHYCARDIA Physical Exam Vital Signs: Temp Pulse Resp BP Pulse Ox 97.8 F 88 18 142/87 H 99 04/11/20 08:57 04/11/20 07:50 04/11/20 07:50 04/11/20 07:50 04/11/20 07:50 Intake & Output 04/10/20 04/11/20 04/12/20 06:59 06:59 06:59 Intake Total 2730 2676 Output Total 400 Balance 2730 2276 Weight 91 kg 105.2 kg General appearance: PRESENT: no acute distress Head exam: PRESENT: normocephalic Eye exam: PRESENT: other - lip is now back to normal. Neck exam: ABSENT: tenderness Respiratory exam: PRESENT: decreased breath sounds, unlabored Cardiovascular exam: PRESENT: RRR GI/Abdominal exam: PRESENT: soft. ABSENT: tenderness Extremities exam: ABSENT: pedal edema Neurological exam: PRESENT: awake Psychiatric exam: PRESENT: flat affect Skin exam: PRESENT: normal color Results Laboratory Results: 04/11/20 06:30 04/11/20 06:30 04/11/20 04/11/20 04/11/20 06:30 06:30 06:30 WBC 7.9 RBC 3.07 L Hgb 9.3 L Hct 28.9 L MCV 94 MCH 30.5 MCHC 32.3 RDW 16.1 H Plt Count 247 Seg Neutrophils % 85.8 H Sodium 141.2 Potassium 3.9 Chloride 108 H Carbon Dioxide 24 Anion Gap 9 BUN 5 L Creatinine 0.47 L Est GFR ( Amer) > 60 Glucose 194 H Lactic Acid 2.1 Calcium 8.7 04/09/20 09:37 Troponin I < 0.012 Impressions: Chest X-Ray 04/09/20 08:44 IMPRESSION: No interval change. Bony metastatic disease. Assessment & Plan - Diagnosis (1) Breast cancer metastasized to brain Qualifiers: Laterality: left Qualified Code(s): C50.912 - Malignant neoplasm of unspecified site of left female breast; C79.31 - Secondary malignant neoplasm of brain Is this a current diagnosis for this admission?: Yes Plan: Most recently received Keytruda which most likely caused edema everywhere, including her brain mets. I called and spoke with her sister with update. Sadly, it will take about 6 more weeks before we will know if the brain edema is due to increased size of cancer, or is a treatment response. Until then, will continue to support. Family is willing to care for her at home. Continue Dex 8 mg po BID. (2) Thrush of mouth and esophagus Is this a current diagnosis for this admission?: Yes Plan: Continue current medications. (3) UTI (urinary tract infection) Qualifiers: Urinary tract infection type: site unspecified Hematuria presence: without hematuria Qualified Code(s): N39.0 - Urinary tract infection, site not specified Is this a current diagnosis for this admission?: Yes Plan: Await culture, but continue empiric antibiotics. - Time Time Spent with patient: 15-24 minutes
--- NOTE | 2020-04-11 18:08 | PDOC PROGRESS REPORT ---
Subjective Progress Note for:: 04/11/20 Subjective:: RN reports that patient is having episodes of disorientation. At the time of exam patient was extremely lucid and answered questions appropriately. Reason For Visit: ANGIOEDEMA, TACHYCARDIA Physical Exam Vital Signs: Temp Pulse Resp BP Pulse Ox 98.8 F 81 18 169/102 H 99 04/11/20 15:13 04/11/20 15:13 04/11/20 15:13 04/11/20 15:13 04/11/20 15:13 Intake & Output 04/10/20 04/11/20 04/12/20 06:59 06:59 06:59 Intake Total 2730 2676 1240 Output Total 400 Balance 2730 2276 1240 Weight 91 kg 105.2 kg General appearance: PRESENT: no acute distress, cooperative, obese Head exam: PRESENT: atraumatic Eye exam: PRESENT: conjunctiva pink. ABSENT: scleral icterus Mouth exam: PRESENT: moist, tongue midline, other - Patient states that her lips no longer feel swollen. They do not appear edematous Throat exam: ABSENT: tonsillar erythema, tonsillar exudate Neck exam: ABSENT: JVD Respiratory exam: PRESENT: clear to auscultation michelle, decreased breath sounds - Entry diminished at bases bilaterally, symmetrical, unlabored. ABSENT: accessory muscle use Cardiovascular exam: PRESENT: RRR, +S1, +S2 Pulses: PRESENT: normal carotid pulses, normal radial pulses, +1 pedal pulses bilateral Vascular exam: PRESENT: normal capillary refill GI/Abdominal exam: PRESENT: normal bowel sounds, soft. ABSENT: distended, tenderness Rectal exam: PRESENT: deferred Extremities exam: PRESENT: +1 edema - Trace to 1 mm pretibial edema bilaterally. ABSENT: calf tenderness Neurological exam: PRESENT: alert, awake, oriented to place, oriented to situation Psychiatric exam: PRESENT: unusual affect. ABSENT: agitated, anxious Skin exam: PRESENT: dry, normal color, warm Results Laboratory Results: 04/11/20 06:30 04/11/20 06:30 04/11/20 04/11/20 04/11/20 06:30 06:30 06:30 WBC 7.9 RBC 3.07 L Hgb 9.3 L Hct 28.9 L MCV 94 MCH 30.5 MCHC 32.3 RDW 16.1 H Plt Count 247 Seg Neutrophils % 85.8 H Sodium 141.2 Potassium 3.9 Chloride 108 H Carbon Dioxide 24 Anion Gap 9 BUN 5 L Creatinine 0.47 L Est GFR ( Amer) > 60 Glucose 194 H Lactic Acid 2.1 Calcium 8.7 04/09/20 08:30 Clean Catch Midstream Urine Culture - Final Mixed Urogenital [place] 04/09/20 09:37 Troponin I < 0.012 Impressions: Chest X-Ray 04/09/20 08:44 IMPRESSION: No interval change. Bony metastatic disease. Assessment and Plan - Diagnosis (1) Angioedema Qualifiers: Encounter type: initial encounter Qualified Code(s): T78.3XXA - Angioneurotic edema, initial encounter Is this a current diagnosis for this admission?: Yes Plan: Etiology unknown Edema seems to have resolved Patient has no signs of airway compromise Physical exam does not reveal any sign of rashes or possible insect bites Patient receives dexamethasone as part of her cancer treatment which will be continued C1 esterase inhibitor 46 (2) Tachycardia Is this a current diagnosis for this admission?: Yes Plan: Resolved T4 WNL Continue propranolol 60 mg p.o. daily (3) Lactic acidosis Is this a current diagnosis for this admission?: Yes Plan: Lactic acid now WNL Unclear if this is related to infection or underlying cancer/cancer treatment with immunotherapy Continue IVF Urine culture 04/09/2020: Mixed urogenital mayda Blood cultures 04/09/2020: NG at 48 hours Throat culture 04/09/2020: Normal mayda Continue fluconazole 200 mg p.o. daily Restart ceftriaxone 1 g IV every 24 hours (4) Thrush of mouth and esophagus Is this a current diagnosis for this admission?: Yes Plan: Continue fluconazole 200 mg p.o. daily (5) Breast cancer metastasized to brain Qualifiers: Laterality: left Qualified Code(s): C50.912 - Malignant neoplasm of unspecified site of left female breast; C79.31 - Secondary malignant neoplasm of brain Is this a current diagnosis for this admission?: Yes Plan: Oncology input appreciated Continue dexamethasone 8 mg p.o. twice daily Continue levetiracetam 2000 mg p.o. daily at bedtime Continue gabapentin 100 mg p.o. daily (6) Seizure disorder Is this a current diagnosis for this admission?: Yes Plan: Patient with no signs of seizure activity Seizure medications as noted above (7) Anemia Is this a current diagnosis for this admission?: Yes Plan: Likely related to her underlying disease process/treatment with a delusional component No treatment indicated at this time Monitor (8) Diabetes mellitus type 2 in obese Is this a current diagnosis for this admission?: Yes Plan: Continue metformin 500 mg p.o. twice daily Continue FS BS with SSI correction scale (9) Anxiety Is this a current diagnosis for this admission?: Yes Plan: Continue alprazolam 0.5 mg p.o. daily at at bedtime - Time Time Spent with patient: 15-24 minutes Medications reviewed and adjusted accordingly: Yes Anticipated Discharge Disposition: Home, Self Care Anticipated Discharge Timeframe: TBD
[2020-04-11] MEDS: CEFTRIAXONE 1 GM/D5W RTU 1 GM/50 ML RTUPB IV SCH (18:24)
[2020-04-11] MEDS: ALPRAZOLAM 0.5 MG TABLET PO SCH (22:52)
[2020-04-11] MEDS: CETIRIZINE 10 MG TABLET PO SCH (22:52)
[2020-04-11] MEDS: LEVETIRACETAM XR 500 MG TAB.SR.24H PO SCH (22:53)
[2020-04-12] MEDS: NORMAL SALINE 1000 ML 1,000 ML IV PRN (01:20)
[2020-04-12 08:28] LABS: ANION GAP 10 (5-19); BLOOD UREA NITROGEN 7 mg/dL (7-20); CALCIUM 8.8 mg/dL (8.4-10.2); CARBON DIOXIDE 25 mmol/L (22-30); CHLORIDE 107 mmol/L (98-107); GLUCOSE 179 mg/dL (75-110); POTASSIUM 3.7 mmol/L (3.6-5.0)
[2020-04-12] MEDS: METFORMIN HCL 500 MG TABLET PO SCH ×2 (08:39→17:53)
[2020-04-12] MEDS: INSULIN LISPRO 100 UNIT/ML 3 ML VIAL SUBCUT SCH ×4 (08:39→22:46)
[2020-04-12] MEDS: GABAPENTIN 100 MG CAPSULE PO SCH (08:39)
[2020-04-12 09:15] LABS: ABSOLUTE MONOCYTES (AUTO) 0.5 10^3/uL (0.1-1.4); ABSOLUTE NEUT (AUTO) 7.6 10^3/uL (1.7-8.2); BASOPHILS % (AUTO) 0.2 % (0-2); HEMATOCRIT 29.5 % (36.0-47.0); HEMOGLOBIN 9.8 g/dL (12.0-15.5); LYMPHOCYTES % (AUTO) 10.5 % (13-45); MEAN CORPUSCULAR HEMOGLOBIN 31.2 pg (27.0-33.4); MEAN CORPUSCULAR HGB CONC 33.2 g/dL (32.0-36.0); MEAN CORPUSCULAR VOLUME 94 fl (80-97); MONOCYTES % (AUTO) 5.8 % (3-13); PLATELET COUNT 294 10^3/uL (150-450); RED BLOOD COUNT 3.13 10^6/uL (3.72-5.28); RED CELL DISTRIBUTION WIDTH 16.1 % (11.5-14.0); SEGMENTED NEUTROPHILS % (AUTO) 83.5 % (42-78); TOTAL CELLS COUNTED % (AUTO) 100 %; WHITE BLOOD COUNT 9.1 10^3/uL (4.0-10.5)
--- NOTE | 2020-04-12 09:41 | EKG REPORT ---
SEVERITY:- ABNORMAL ECG - SINUS RHYTHM PROLONGED QT INTERVAL : Confirmed by: Aly Bowman 12-Apr-2020 09:41:11
--- NOTE | 2020-04-12 09:57 | PDOC PROGRESS REPORT ---
Subjective Progress Note for:: 04/12/20 Subjective:: Patient remains confused and is only able to answer Y-N to most questions. Nurses report no new concerns today. Reason For Visit: ANGIOEDEMA, TACHYCARDIA Physical Exam Vital Signs: Temp Pulse Resp BP Pulse Ox 98.2 F 70 17 165/96 H 100 04/12/20 07:37 04/12/20 07:37 04/12/20 07:37 04/12/20 07:37 04/12/20 07:37 Intake & Output 04/11/20 04/12/20 04/13/20 06:59 06:59 06:59 Intake Total 2676 2480 Output Total 400 250 Balance 2276 2230 Weight 105.2 kg 102.8 kg General appearance: PRESENT: obese Head exam: PRESENT: other - Barr facies continues. Lip no longer appears swollen. Eye exam: PRESENT: EOMI Mouth exam: PRESENT: moist Neck exam: ABSENT: tenderness Respiratory exam: PRESENT: unlabored Neurological exam: PRESENT: awake. ABSENT: oriented to person, oriented to situation Psychiatric exam: PRESENT: flat affect Skin exam: PRESENT: normal color Results Laboratory Results: 04/12/20 06:37 04/12/20 06:37 04/12/20 04/12/20 06:37 06:37 WBC 9.1 RBC 3.13 L Hgb 9.8 L Hct 29.5 L MCV 94 MCH 31.2 MCHC 33.2 RDW 16.1 H Plt Count 294 Seg Neutrophils % 83.5 H Sodium 142.4 Potassium 3.7 Chloride 107 Carbon Dioxide 25 Anion Gap 10 BUN 7 Creatinine 0.52 Est GFR ( Amer) > 60 Glucose 179 H Calcium 8.8 Magnesium 2.1 04/09/20 08:30 Clean Catch Midstream Urine Culture - Final Mixed Urogenital [place] 04/09/20 09:37 Troponin I < 0.012 Impressions: Chest X-Ray 04/09/20 08:44 IMPRESSION: No interval change. Bony metastatic disease. Assessment & Plan - Diagnosis (1) Breast cancer metastasized to brain Qualifiers: Laterality: left Qualified Code(s): C50.912 - Malignant neoplasm of unspecified site of left female breast; C79.31 - Secondary malignant neoplasm of brain Is this a current diagnosis for this admission?: Yes Plan: I still believe much of her mental status changes are due to increased cancer in the brain. She will continue Dexamethasone 8 mg PO/IV BID. Only time will tell if this will improve or not. Will give it a few more days and if no change, may discuss Hospice with family. I will check Ammonia level, as LFTs were elevated on admission. (2) Thrush of mouth and esophagus Is this a current diagnosis for this admission?: Yes Plan: As per Hospitalist (3) UTI (urinary tract infection) Qualifiers: Urinary tract infection type: site unspecified Hematuria presence: without hematuria Qualified Code(s): N39.0 - Urinary tract infection, site not specified Is this a current diagnosis for this admission?: Yes Plan: All cultures have been negative. I would STOP the IV antibiotics at this point. I will defer to Hospitalist. - Time Time Spent with patient: 15-24 minutes - Plan Summary Plan Summary: I spoke with patient's sister today. All questions were answered.
[2020-04-12] MEDS: DEXAMETHASONE 4 MG TABLET PO SCH ×2 (10:05→17:53)
[2020-04-12] MEDS: FAMOTIDINE INJ/PF 20 MG/2 ML SDV IV SCH ×2 (10:05→22:49)
[2020-04-12] MEDS: FLUCONAZOLE 100 MG TABLET PO SCH (10:06)
[2020-04-12] MEDS: ENOXAPARIN SODIUM INJ 40 MG/0.4 ML DISP.SYRIN SUBCUT SCH (10:06)
[2020-04-12] MEDS: PROPRANOLOL HCL 20 MG TABLET PO SCH (10:06)
[2020-04-12] MEDS ORDERED: NORMAL SALINE 1000 ML 1,000 ML IV PRN (14:53)
--- NOTE | 2020-04-12 15:00 | PDOC PROGRESS REPORT ---
Subjective Progress Note for:: 04/12/20 Subjective:: Patient was interactive today than yesterday. She does answer questions with one-word answers. Denies pain. Reason For Visit: ANGIOEDEMA, TACHYCARDIA Physical Exam Vital Signs: Temp Pulse Resp BP Pulse Ox 98.2 F 58 L 17 160/86 H 97 04/12/20 10:57 04/12/20 10:57 04/12/20 10:57 04/12/20 10:57 04/12/20 10:57 Intake & Output 04/11/20 04/12/20 04/13/20 06:59 06:59 06:59 Intake Total 2676 2480 118 Output Total 400 250 Balance 2276 2230 118 Weight 105.2 kg 102.8 kg General appearance: PRESENT: no acute distress, cooperative, obese Head exam: PRESENT: atraumatic, other - Barr face Eye exam: PRESENT: conjunctiva pink Mouth exam: PRESENT: moist, tongue midline, other - Lip no longer appears edematous. No edema or erythema of the oromucosa or pharynx Neck exam: ABSENT: JVD Respiratory exam: PRESENT: clear to auscultation michelle, decreased breath sounds - Air entry diminished at bases bilaterally, symmetrical, unlabored. ABSENT: accessory muscle use Cardiovascular exam: PRESENT: RRR, +S1, +S2 Pulses: PRESENT: normal carotid pulses Vascular exam: PRESENT: normal capillary refill GI/Abdominal exam: PRESENT: normal bowel sounds, soft. ABSENT: distended, tenderness Rectal exam: PRESENT: deferred Extremities exam: ABSENT: calf tenderness, pedal edema Neurological exam: PRESENT: alert, altered - Slow to respond, awake, oriented to place, oriented to situation Psychiatric exam: PRESENT: unusual affect. ABSENT: agitated, anxious Skin exam: PRESENT: dry, normal color, warm Results Laboratory Results: 04/12/20 06:37 04/12/20 06:37 04/12/20 04/12/20 04/12/20 06:37 06:37 13:25 WBC 9.1 RBC 3.13 L Hgb 9.8 L Hct 29.5 L MCV 94 MCH 31.2 MCHC 33.2 RDW 16.1 H Plt Count 294 Seg Neutrophils % 83.5 H Sodium 142.4 Potassium 3.7 Chloride 107 Carbon Dioxide 25 Anion Gap 10 BUN 7 Creatinine 0.52 Est GFR ( Amer) > 60 Glucose 179 H Calcium 8.8 Magnesium 2.1 Ammonia < 8.7 L 04/09/20 09:37 Throat Throat Culture - Final C.albicans/C.dubliniensis Normal Mayda 04/09/20 08:30 Clean Catch Midstream Urine Culture - Final Mixed Urogenital Mayda 04/09/20 09:37 Troponin I < 0.012 Impressions: Chest X-Ray 04/09/20 08:44 IMPRESSION: No interval change. Bony metastatic disease. Assessment and Plan - Diagnosis (1) Angioedema Qualifiers: Encounter type: initial encounter Qualified Code(s): T78.3XXA - Angioneurotic edema, initial encounter Is this a current diagnosis for this admission?: Yes Plan: Etiology unknown Resolved Patient receives dexamethasone as part of her cancer treatment which will be continued C1 esterase inhibitor 46 (2) Tachycardia Is this a current diagnosis for this admission?: Yes Plan: Resolved T4 WNL Continue propranolol 60 mg p.o. daily (3) Lactic acidosis Is this a current diagnosis for this admission?: Yes Plan: Lactic acid now WNL Continue IVF but decrease rate to 75 cc/hr Urine culture 04/09/2020: Mixed urogenital mayda Blood cultures 04/09/2020: NG at 72 hours Throat culture 04/09/2020: Normal mayda with Missy Albicans and Missy Dubliniensis Continue fluconazole 200 mg p.o. daily Continue ceftriaxone 1 g IV every 24 hours (4) Breast cancer metastasized to brain Qualifiers: Laterality: left Qualified Code(s): C50.912 - Malignant neoplasm of unspecified site of left female breast; C79.31 - Secondary malignant neoplasm of brain Is this a current diagnosis for this admission?: Yes Plan: Oncology input appreciated Per oncology there is great concern that her mental status changes are related to increased cancer in the brain Oncology plan is to give her current dose of dexamethasone a few more days to see if the patient improves and if not there is consideration to discuss hospice with the family Ammonia level <8.7 Continue dexamethasone 8 mg p.o. twice daily Continue levetiracetam 2000 mg p.o. daily at bedtime Continue gabapentin 100 mg p.o. daily (5) Thrush of mouth and esophagus Is this a current diagnosis for this admission?: Yes Plan: Continue fluconazole as noted above (6) Seizure disorder Is this a current diagnosis for this admission?: Yes Plan: Patient with no signs of seizure activity Seizure medications as noted above (7) Anemia Is this a current diagnosis for this admission?: Yes Plan: Likely related to her underlying disease process/treatment with a delusional component No treatment indicated at this time Monitor periodically (8) Diabetes mellitus type 2 in obese Is this a current diagnosis for this admission?: Yes Plan: Continue metformin 500 mg p.o. twice daily Continue FS BS with SSI correction scale (9) Anxiety Is this a current diagnosis for this admission?: Yes Plan: Continue alprazolam 0.5 mg p.o. daily at at bedtime - Time Time Spent with patient: 15-24 minutes Smoking Cessation Education: 3 to 10 minutes Anticipated Discharge Disposition: Home, Self Care Anticipated Discharge Timeframe: TBD
[2020-04-12] MEDS: FENTANYL 25 MCG/HR PATCH.TD72 TD SCH (17:50)
[2020-04-12] MEDS: CEFTRIAXONE 1 GM/D5W RTU 1 GM/50 ML RTUPB IV SCH (17:51)
[2020-04-12] MEDS: LEVETIRACETAM XR 500 MG TAB.SR.24H PO SCH (22:47)
[2020-04-12] MEDS: CETIRIZINE 10 MG TABLET PO SCH (22:48)
[2020-04-12] MEDS: ALPRAZOLAM 0.5 MG TABLET PO SCH (22:49)
[2020-04-13] MEDS: FAMOTIDINE INJ/PF 20 MG/2 ML SDV IV SCH (09:50)
[2020-04-13] MEDS: ENOXAPARIN SODIUM INJ 40 MG/0.4 ML DISP.SYRIN SUBCUT SCH (09:51)
[2020-04-13] MEDS: PROPRANOLOL HCL 20 MG TABLET PO SCH (09:52)
[2020-04-13] MEDS: DEXAMETHASONE 4 MG TABLET PO SCH (09:52)
[2020-04-13] MEDS: INSULIN LISPRO 100 UNIT/ML 3 ML VIAL SUBCUT SCH ×2 (09:53→13:34)
[2020-04-13] MEDS: GABAPENTIN 100 MG CAPSULE PO SCH (09:53)
[2020-04-13] MEDS: METFORMIN HCL 500 MG TABLET PO SCH (09:53)
--- NOTE | 2020-04-13 11:01 | PDOC PROGRESS REPORT ---
Subjective Progress Note for:: 04/13/20 Subjective:: Patient still only able to give limited answers. Cannot say what she had for dinner last night. Nurses report that during the day, she is often able to answer questions and make some sense, but every night, she has confusion similar to sun-downing with agitation and pulling out all IVs, etc. Reason For Visit: ANGIOEDEMA, TACHYCARDIA Physical Exam Vital Signs: Temp Pulse Resp BP Pulse Ox 98.4 F 88 18 136/95 H 100 04/13/20 10:00 04/13/20 07:55 04/13/20 07:55 04/13/20 07:55 04/13/20 07:55 Intake & Output 04/12/20 04/13/20 04/14/20 06:59 06:59 06:59 Intake Total 2480 2104 Output Total 250 Balance 2230 2104 Weight 102.8 kg 100.8 kg General appearance: PRESENT: no acute distress, obese Head exam: PRESENT: other - Barr facies. No further edema. Respiratory exam: PRESENT: unlabored Neurological exam: PRESENT: altered Psychiatric exam: PRESENT: flat affect Skin exam: PRESENT: normal color Results Laboratory Results: 04/12/20 06:37 04/12/20 06:37 04/12/20 13:25 Ammonia < 8.7 L 04/09/20 09:37 Throat Throat Culture - Final C.albicans/C.dubliniensis Normal [place] 04/09/20 09:37 Troponin I < 0.012 Impressions: Chest X-Ray 04/09/20 08:44 IMPRESSION: No interval change. Bony metastatic disease. Assessment & Plan - Diagnosis (1) Breast cancer metastasized to brain Qualifiers: Laterality: left Qualified Code(s): C50.912 - Malignant neoplasm of unspecified site of left female breast; C79.31 - Secondary malignant neoplasm of brain Is this a current diagnosis for this admission?: Yes Plan: s/p cycle #1 Keytruda. Plan cycle #2 next week. (2) Thrush of mouth and esophagus Is this a current diagnosis for this admission?: Yes Plan: Now resolved. Will stop the Difulcan. All other cultures negative. Will stop empiric ABX at this point. (3) UTI (urinary tract infection) Qualifiers: Urinary tract infection type: site unspecified Hematuria presence: without hematuria Qualified Code(s): N39.0 - Urinary tract infection, site not specified Is this a current diagnosis for this admission?: Yes - Time Time Spent with patient: 25-34 minutes - Plan Summary Plan Summary: I had a long discussion with patient's sister and brother via telephone today. They understand that patient may or may not improve over the next 2 weeks, but all are in agreement that if she is able to have another cycle of Keytruda, would like to try. However, family or patient at any time may request Hospice support at home instead of continuing treatments. I also discussed her care with Dr. Damon. She will go home with Dex 8 mg po BID.
--- NOTE | 2020-04-13 12:26 | PDOC DISCHARGE SUMMARY ---
Impression - Admit/DC Date/PCP Admission Date/Primary Care Provider: 04/10/20 13:05 MONA CAAL Discharge Date: 04/13/20 - Discharge Diagnosis (1) Angioedema Is this a current diagnosis for this admission?: Yes (2) Tachycardia Is this a current diagnosis for this admission?: Yes (3) Lactic acidosis Is this a current diagnosis for this admission?: Yes (4) Breast cancer metastasized to brain Is this a current diagnosis for this admission?: Yes (5) Thrush of mouth and esophagus Is this a current diagnosis for this admission?: Yes (6) Seizure disorder Is this a current diagnosis for this admission?: Yes (7) Anemia Is this a current diagnosis for this admission?: Yes (8) Diabetes mellitus type 2 in obese Is this a current diagnosis for this admission?: Yes (9) Anxiety Is this a current diagnosis for this admission?: Yes - Additional Information Resuscitation Status: Full Code Discharge Diet: Diabetic Discharge Activity: Activity As Tolerated Referrals: REE GONZALES MD [ACTIVE STAFF] - 04/20/20 8:30 am DELIO SALDIVAR FNP-C [Primary Care Provider] - Follow up as needed Prescriptions: Dexamethasone [Decadron 4 mg Tablet] 8 mg PO BID #60 tablet Home Medications: Alprazolam [Xanax 0.5 mg Tablet] 0.5 mg PO HSP PRN 05/26/19 Levetiracetam [Keppra Xr 500 mg Tab.sr] 2,000 mg PO QHS 05/26/19 Meloxicam [Mobic] 7.5 mg PO DAILY 05/26/19 Metformin HCl [Metformin HCl ER] 500 mg PO BID 05/26/19 Propranolol HCl [Propranolol HCl ER] 60 mg PO QAM 05/26/19 Cetirizine HCl [Zyrtec 10 mg Tablet] 10 mg PO QHS 02/11/20 Ergocalciferol (Vitamin D2) [Drisdol 50,000 unit (1.25MG) Capsule] 50,000 unit PO MO@1000 02/11/20 Gabapentin [Neurontin 100 mg Capsule] 100 mg PO TID 02/11/20 Cholecalciferol (Vitamin D3) [Vitamin D3] 25 mcg PO DAILY 04/09/20 Cholecalciferol (Vitamin D3) [Vitamin D3] 125 mcg PO DAILY 04/09/20 Fexofenadine HCl [Wal-Fex Allergy] 180 mg PO DAILY 04/09/20 Fluconazole [Diflucan] 100 mg PO ASDIR PRN 04/09/20 Loratadine [Allerclear] 10 mg PO DAILY 04/09/20 Potassium Chloride 20 meq PO DAILY 04/09/20 Dexamethasone [Decadron 4 mg Tablet] 8 mg PO BID #60 tablet 04/13/20 Fentanyl [Duragesic 25 mcg/hr Transdermal Patch] 1 each TD Q3D patch.[id number] 04/13/20 History of Present Illiness History of Present Illness: LEI GU is a 39 year old female with PMH significant for metastatic breast cancer (bone and brain) and tachycardia who presented to the ED for evaluation of sudden onset swelling of her lips. Prior to arrival patient did not consume anything which was unusual. She also has no known allergies and no new medications had been started. Additionally, she denied having had any kind of insect or snake bites and had no rashes or pruritus. In the ED she was found to be tachycardic but was hemodynamically stable. The hospitalist service was consulted to admit the patient for further evaluation and treatment. Additionally, an oncology consult was placed given the patient's underlying cancer diagnosis. Hospital Course Hospital Course: The jeffrey of the patient's angioedema was unclear. C1 esterase inhibitor was sent which was 46. Patient was also found to have oral candidiasis, abnormal UA with urine culture revealing mixed urogenital mayda, and lactic acidosis. The patient was given IV volume resuscitation with resolution of her lactic acidosis. She was placed on ceftriaxone and completed a course. Additionally, she was placed on fluconazole which she received during her hospitalization. This was discontinued prior to discharge. The morning following admission the edema of the patient's lips had improved significantly and over subsequent days it resolved completely. The patient's mental status waxed and waned however, this seems to be consistent with her [employer] mental status. There is concerned that this is related to worsening of her brain metastases. Oncology will monitor the patient and if her condition does not improve they plan to discuss hospice as a potential option. At the time of discharge patient was hemodynamically stable. Physical Exam Vital Signs: Temp Pulse Resp BP Pulse Ox 98.4 F 88 18 136/95 H 100 04/13/20 10:00 04/13/20 07:55 04/13/20 07:55 04/13/20 07:55 04/13/20 07:55 Intake & Output 04/12/20 04/13/20 04/14/20 06:59 06:59 06:59 Intake Total 2480 2104 Output Total 250 Balance 2230 2104 Weight 102.8 kg 100.8 kg General appearance: PRESENT: no acute distress, obese Head exam: PRESENT: atraumatic, normocephalic Eye exam: PRESENT: conjunctiva pink. ABSENT: scleral icterus Mouth exam: PRESENT: moist, tongue midline, other - No edema of the lips, tongue, or tonsillar structures Neck exam: ABSENT: JVD Respiratory exam: PRESENT: clear to auscultation michelle, symmetrical, unlabored. ABSENT: accessory muscle use Cardiovascular exam: PRESENT: RRR, +S1, +S2 Pulses: PRESENT: normal carotid pulses, normal radial pulses, +1 pedal pulses bilateral GI/Abdominal exam: PRESENT: normal bowel sounds, soft. ABSENT: distended, tenderness Rectal exam: PRESENT: deferred Extremities exam: ABSENT: calf tenderness, pedal edema Neurological exam: PRESENT: awake, oriented to person, oriented to place, oriented to situation Psychiatric exam: PRESENT: unusual affect. ABSENT: agitated, anxious Skin exam: PRESENT: dry, normal color, warm Results Laboratory Results: WBC 9.1 10^3/uL (4.0-10.5) 04/12/20 06:37 RBC 3.13 10^6/uL (3.72-5.28) L 04/12/20 06:37 Hgb 9.8 g/dL (12.0-15.5) L 04/12/20 06:37 Hct 29.5 % (36.0-47.0) L 04/12/20 06:37 MCV 94 fl (80-97) 04/12/20 06:37 MCH 31.2 pg (27.0-33.4) 04/12/20 06:37 MCHC 33.2 g/dL (32.0-36.0) 04/12/20 06:37 RDW 16.1 % (11.5-14.0) H 04/12/20 06:37 Plt Count 294 10^3/uL (150-450) 04/12/20 06:37 Lymph % (Auto) 10.5 % (13-45) L 04/12/20 06:37 [place] % (Auto) 5.8 % (3-13) 04/12/20 06:37 Eos % (Auto) 0.0 % (0-6) 04/12/20 06:37 Baso % (Auto) 0.2 % (0-2) 04/12/20 06:37 Absolute Neuts (auto) 7.6 10^3/uL (1.7-8.2) 04/12/20 06:37 Absolute Lymphs (auto) 1.0 10^3/uL (0.5-4.7) 04/12/20 06:37 Absolute Monos (auto) 0.5 10^3/uL (0.1-1.4) 04/12/20 06:37 Absolute Eos (auto) 0.0 10^3/uL (0.0-0.6) 04/12/20 06:37 Absolute Basos (auto) 0.0 10^3/uL (0.0-0.2) 04/12/20 06:37 Seg Neutrophils % 83.5 % (42-78) H 04/12/20 06:37 PT 13.7 SEC (11.4-15.4) 04/09/20 09:37 INR 1.03 04/09/20 09:37 VBG pH 7.42 (7.30-7.42) 04/09/20 09:37 VBG pCO2 39.9 mmHg (35-63) 04/09/20 09:37 VBG HCO3 25.2 mmol/L (20-32) 04/09/20 09:37 VBG Base Excess 0.7 mmol/L 04/09/20 09:37 Sodium 142.4 mmol/L (137-145) 04/12/20 06:37 Potassium 3.7 mmol/L (3.6-5.0) 04/12/20 06:37 Chloride 107 mmol/L (98-107) 04/12/20 06:37 Carbon Dioxide 25 mmol/L (22-30) 04/12/20 06:37 Anion Gap 10 (5-19) 04/12/20 06:37 BUN 7 mg/dL (7-20) 04/12/20 06:37 Creatinine 0.52 mg/dL (0.52-1.25) 04/12/20 06:37 Est GFR ( Amer) > 60 (>60) 04/12/20 06:37 Est GFR (MDRD) Non-Af > 60 (>60) 04/12/20 06:37 Glucose 179 mg/dL (75-110) H 04/12/20 06:37 POC Glucose 167 mg/dL (70-110) H 04/13/20 11:37 Lactic Acid 2.1 mmol/L (0.7-2.1) 04/11/20 06:30 Calcium 8.8 mg/dL (8.4-10.2) 04/12/20 06:37 Magnesium 2.1 mg/dL (1.6-2.3) 04/12/20 06:37 Total Bilirubin 0.6 mg/dL (0.2-1.3) 04/09/20 09:37 Direct Bilirubin 0.1 mg/dL (0.0-0.4) 04/09/20 09:37 Neonat Total Bilirubin Not Reportable 04/09/20 09:37 Neonat Direct Bilirubin Not Reportable 04/09/20 09:37 Neonat Indirect Bili Not Reportable 04/09/20 09:37 AST 41 U/L (14-36) H 04/09/20 09:37 ALT 56 U/L (<35) H 04/09/20 09:37 Alkaline Phosphatase 92 U/L (38-126) 04/09/20 09:37 Ammonia < 8.7 umol/L (9-33) L 04/12/20 13:25 Troponin I < 0.012 ng/mL 04/09/20 09:37 Total Protein 6.9 g/dL (6.3-8.2) 04/09/20 09:37 Albumin 4.0 g/dL (3.5-5.0) 04/09/20 09:37 Free T4 1.70 ng/dL (0.78-2.19) 04/10/20 04:31 Serum HCG, Qual NEGATIVE (NEGATIVE) 04/09/20 09:37 Urine Color YELLOW 04/09/20 08:30 Urine Appearance CLEAR 04/09/20 08:30 Urine pH 5.0 (5.0-9.0) 04/09/20 08:30 Ur Specific [place] 1.010 04/09/20 08:30 Urine Protein 30 mg/dL (NEGATIVE) H 04/09/20 08:30 Urine Glucose (UA) NEGATIVE mg/dL (NEGATIVE) 04/09/20 08:30 Urine Ketones NEGATIVE mg/dL (NEGATIVE) 04/09/20 08:30 Urine Blood NEGATIVE (NEGATIVE) 04/09/20 08:30 Urine Nitrite NEGATIVE (NEGATIVE) 04/09/20 08:30 Urine Bilirubin NEGATIVE (NEGATIVE) 04/09/20 08:30 Urine Urobilinogen NEGATIVE mg/dL (<2.0) 04/09/20 08:30 Ur Leukocyte Esterase TRACE (NEGATIVE) H 04/09/20 08:30 Urine WBC (Auto) 5 /HPF 04/09/20 08:30 Urine RBC (Auto) 1 /HPF 04/09/20 08:30 Urine Bacteria (Auto) TRACE /HPF 04/09/20 08:30 Squamous Epi Cells Auto 1 /HPF 04/09/20 08:30 Urine Mucus (Auto) OCC /LPF 04/09/20 08:30 Urine Ascorbic Acid NEGATIVE (NEGATIVE) 04/09/20 08:30 C1 Esterase Inhibitor 46 mg/dL (21-39) H 04/09/20 18:25 Influenza A (Rapid) NEGATIVE (NEGATIVE) 04/09/20 09:37 Influenza B (Rapid) NEGATIVE (NEGATIVE) 04/09/20 09:37 Group A Strep Rapid NEGATIVE (NEGATIVE) 04/09/20 09:37 04/09/20 09:37 Troponin I < 0.012 Impressions: Chest X-Ray 04/09/20 08:44 IMPRESSION: No interval change. Bony metastatic disease. Plan Plan of Treatment: Patient will follow up with PCP 1 week of discharge Patient has a follow-up appointment with oncology on 04/20/2020 at 8:30 AM Stroke Is this a Stroke Patient?: No Acute Heart Failure - Is this a Heart Failure Patient?: No
[2020-04-13 13:11] VITALS: BP 139/80
[2020-04-16] MEDS ORDERED: ERGOCALCIFEROL (VITAMIN D2) 50000 UNIT (1.25 MG) CAPSULE PO SCH (10:00)
== END 2020-04-13 17:29 | disposition home or self-care (01) | DRG 916 ==
LOC: ER 08:18 → INTOOBSV 13:37 → EH 13:37 → 5 16:22 → OBSVTOIN 04-10 13:05
PROVIDERS: ADMIT Internal Medicine; ATTEND Nurse Practitioner
DX: T78.3XXA Angioneurotic edema, initial encounter (principal); E87.2 Acidosis; C79.31 Secondary malignant neoplasm of brain; B37.81 Candidal esophagitis; B37.0 Candidal stomatitis; C79.51 Secondary malignant neoplasm of bone; N39.0 Urinary tract infection, site not specified; C78.7 Secondary malignant neoplasm of liver and intrahepatic bile duct; C78.00 Secondary malignant neoplasm of unspecified lung; C50.912 Malignant neoplasm of unspecified site of left female breast; R00.0 Tachycardia, unspecified; G40.909 Epilepsy, unspecified, not intractable, without status epilepticus; D63.0 Anemia in neoplastic disease; E11.9 Type 2 diabetes mellitus without complications; E66.9 Obesity, unspecified; F41.9 Anxiety disorder, unspecified; I10 Essential (primary) hypertension; Z68.30 Body mass index [BMI] 30.0-30.9, adult; Z11.59 Encounter for screening for other viral diseases; Z79.84 Long term (current) use of oral hypoglycemic drugs; Z79.899 Other long term (current) drug therapy; Z83.3 Family history of diabetes mellitus; Z80.9 Family history of malignant neoplasm, unspecified; Z82.49 Family history of ischemic heart disease and other diseases of the circulatory system
CPT/HCPCS: 36415; 71045; 80048; 80053; 81001; 82140; 82803; 82962; 83605; 83735; 84439; 84484; 84703; 85025; 85027; 85610; 86160; 87040; 87070; 87086; 87804; 87880; 93005; 93010; 96361; 96372; 96374; 96375; 99285; G0378; J0171; J0696; J1200; J1642; J1650; J1815; J3490; J7030; J7120; J8540; S0028

== ENCOUNTER → 2020-05-21 | Outpatient (CLI) | payer MEDICAID ==
--- NOTE | 2020-05-21 11:30 | RADIOLOGY REPORT (SQ) ---
EXAM DESCRIPTION: CHEST 2 VIEWS IMAGES COMPLETED DATE/TIME: 05/21/2020 8:33 am REASON FOR STUDY: R05 COUGH COMPARISON: AP view of the chest from 04/09/2020. EXAM PARAMETERS: NUMBER OF VIEWS: Two views. TECHNIQUE: PA and lateral views of the chest were obtained. RADIATION DOSE: NA LIMITATIONS: None. FINDINGS: LUNGS AND PLEURA: No consolidation, pleural effusion or pneumothorax. MEDIASTINUM AND HILAR STRUCTURES: No mediastinal or hilar contour abnormality. HEART AND VASCULAR STRUCTURES: The cardiac silhouette and pulmonary vasculature are within normal villanueva its. BONES: No acute findings. HARDWARE: Intact right IJ approach single-lumen port. OTHER: No other finding. IMPRESSION: No acute cardiopulmonary process. TECHNICAL DOCUMENTATION: JOB ID: [id number] 2010 [email or web address]- All Rights Reserved Reading location - IP/workstation name: [email or web address]
== END ==
LOC: RAD 08:16
PROVIDERS: ATTEND Nurse Practitioner Family
DX: R05 Cough (principal)
CPT/HCPCS: 71046